=== PATIENT | female | born 1935 | race Caucasian/White ===

== ENCOUNTER → 2018-03-21 13:17 | Outpatient (POV) | payer MEDICARE, OTHER, SELFPAY ==
[2018-03-21 13:43] VITALS: BP 138/79; PULSE 77; RESP 18; O2SAT 98
--- NOTE | 2018-03-21 16:22 | HMH.PMCON ---
Assessment and Plan (1) Piriformis syndrome Current visit: Yes Status: Chronic Category: Medical Code(s): G57.00 - Lesion of sciatic nerve, unspecified lower limb - Assessment and plan all Dx Assessment and Plan for all problems:: We will schedule right piriformis injection for the patient. We will determine if this is helpful. Patient's tried and failed anti-inflammatories, medications, physical therapy. I will follow-up with the patient after her piriformis injection. We will then discuss if she needs a repeat injection or if we should work on her left knee pain. This note was dictated using voice recognition software and may contain errors or omissions HPI - Data of Consult Consult date: 03/21/18 Requesting Physician: Crystal Wallace APRN Primary Care Provider: Rosendo Rincon MD Family Provider: Rosendo Rincon MD - Consult Narrative Reason for consult: Right hip pain radiating to her foot History of present illness: Ms. Dumont is a 82 year old female presents today for consultation in regards to her right leg pain. Patient states that most of her pain is in her right side. It starts at her right lower buttock and radiates down into her right leg. Patient does have numbness and tingling at times. Patient states laying flat increases her pain while rest and repositioning decreases her pain. Patient rates her pain a 5 out of 10 today. Patient has had injections in her lumbar spine in the past with some relief. Patient has tried and failed physical therapy along with Cymbalta, Motrin, naproxen. Patient is interested in potentially having additional injections for better long-term relief. CC: Crystal Wallace APRN [facility] History I have reviewed the patient's past medical history: Yes Medical History: Reports:: Hypertension Other Surgeries: Yes: Appendectomy, Hysterectomy-Total - *Social History Smoking Status: Never smoker Alcohol Intake: never Occupational Status: other Housing: house - Psychiatric History Expresses thoughts of harming self/others: None Suicide Plan Description: No Plan *Family Hx:: Unable to obtain Review of Systems - Review of Systems ROS General: no recent weight change, no fever, no sleep disturbances Respiratory: no cough, no shortness of air, no recurring pulmonary infections Cardiovascular/Peripheral Vascular: No chest pain, No palpitations, no edema, no shortness of breath. Gastrointestinal: no incontinence, normal bowel movements reported Genitourinary: Urge incontinence Musculoskeletal: Right piriformis pain Psychiatric: normal mood/ affect Neurological: [denies weakness in extremities], [denies balance issues] Meds Home Medications Medication Instructions Recorded Confirmed Type Amlodipine Besylate [Norvasc 5mg 5 mg PO DAILY 03/21/18 03/21/18 History tablet] Pravastatin Sodium [Pravachol 20mg 20 mg PO DAILY 03/21/18 03/21/18 History Tablet] hydroCHLOROthiazide [HCTZ 25mg 25 mg PO DAILY 03/21/18 03/21/18 History tab] Allergies Allergy/AdvReac Type Severity Reaction Status Date / Time allopurinol [ALLOPURINOL] Allergy Unknown I-RASH Unverified 10/05/17 14:50 Objective Vital signs: Pulse Resp BP Pulse Ox 77 18 138/79 98 03/21/18 13:43 03/21/18 13:43 03/21/18 13:43 03/21/18 13:43 Narrative: Physical Exam General: Alert and oriented x3, no acute distress, pleasant and cooperative, [on room air] Lungs: Resps E/U, Symmetrical chest expansion, Eyes: PERRL Musculoskeletal: Flexion and extension of lumbar spine somewhat guarded secondary to pain, deep tendon reflexes normal, strength in upper and lower extremities [5/5], antalgic gait noted, extreme point tenderness over right piriformis Neurological: speech clear, training and development officer equal, no gross sensory deficits Opioid Risk Tool - Opioid Risk Tool-Female Family hx alcohol abuse: N Family hx illegal drugs: N Family hx rx drug abus
--- NOTE | 2018-03-21 16:26 | P.CONS_ITS ---
Assessment and Plan (1) Piriformis syndrome Current visit: Yes Status: Chronic Category: Medical Code(s): G57.00 - Lesion of sciatic nerve, unspecified lower limb - Assessment and plan all Dx Assessment and Plan for all problems:: We will schedule right piriformis injection for the patient. We will determine if this is helpful. Patient's tried and failed anti-inflammatories, medications , physical therapy. I will follow-up with the patient after her piriformis injection. We will then discuss if she needs a repeat injection or if we should work on her left knee pain. This note was dictated using voice recognition software and may contain errors or omissions HPI - Data of Consult Consult date: 03/21/18 Requesting Physician: Crystal Wallace APRN Primary Care Provider: Rosendo Rincon MD Family Provider: Rosendo Rincon MD - Consult Narrative Reason for consult: Right hip pain radiating to her foot History of present illness: Ms. Dumont is a 82 year old female presents today for consultation in regards to her right leg pain. Patient states that most of her pain is in her right side. It starts at her right lower buttock and radiates down into her right leg. Patient does have numbness and tingling at times. Patient states laying flat increases her pain while rest and repositioning decreases her pain. Patient rates her pain a 5 out of 10 today. Patient has had injections in her lumbar spine in the past with some relief. Patient has tried and failed physical therapy along with Cymbalta, Motrin, naproxen. Patient is interested in potentially having additional injections for better long-term relief. CC: Crystal Wallace APRN [facility] History I have reviewed the patient's past medical history: Yes Medical History: Reports:: Hypertension Other Surgeries: Yes: Appendectomy, Hysterectomy-Total - *Social History Smoking Status: Never smoker Alcohol Intake: never Occupational Status: other Housing: house - Psychiatric History Expresses thoughts of harming self/others: None Suicide Plan Description: No Plan *Family Hx:: Unable to obtain Review of Systems - Review of Systems ROS General: no recent weight change, no fever, no sleep disturbances Respiratory: no cough, no shortness of air, no recurring pulmonary infections Cardiovascular/Peripheral Vascular: No chest pain, No palpitations, no edema, no shortness of breath. Gastrointestinal: no incontinence, normal bowel movements reported Genitourinary: Urge incontinence Musculoskeletal: Right piriformis pain Psychiatric: normal mood/ affect Neurological: [denies weakness in extremities], [denies balance issues] Meds Home Medications Medication Instructions Recorded Confirmed Type Amlodipine Besylate [Norvasc 5mg 5 mg PO DAILY 03/21/18 03/21/18 History tablet] Pravastatin Sodium [Pravachol 20mg 20 mg PO DAILY 03/21/18 03/21/18 History Tablet] hydroCHLOROthiazide [HCTZ 25mg 25 mg PO DAILY 03/21/18 03/21/18 History tab] Allergies Allergy/AdvReac Type Severity Reaction Status Date / Time allopurinol [ALLOPURINOL] Allergy Unknown I-RASH Unverified 10/05/17 14:50 Objective Vital signs: Pulse Resp BP Pulse Ox 77 18 138/79 98 03/21/18 13:43 03/21/18 13:43 03/21/18 13:43 03/21/18 13:43 Narrative: Physical Exam Gen
== END ==
PROVIDERS: Family Provider Family Medicine; PCP Family Medicine; Visit Provider Clinical Nurse Specialist Family Health
DX: G57.00 Lesion of sciatic nerve, unspecified lower limb (principal)
CPT/HCPCS: 99202

== ENCOUNTER 2018-03-29 14:14 | Day surgery (SDC) | payer MEDICARE, OTHER, SELFPAY ==
[2018-03-29 14:44] VITALS: BP 174/83; PULSE 77; RESP 24; TEMP 36.5; O2SAT 95; BMI 45.1
[2018-03-29 15:30] VITALS: BP 147/78; PULSE 85; RESP 18
[2018-03-29 15:31] VITALS: BP 145/87; PULSE 78; RESP 18; O2SAT 98
--- NOTE | 2018-03-29 15:34 | HMH.PMPROC ---
- Procedure Date: 03/29/18 Time: 15:30 Anesthesiologist:: Crystal Wallace APRN Complications:: None Pre-procedure Diagnosis:: Right piriformis syndrome Post-procedure Diagnosis:: Same Indications for Procedure:: Ms. Dumont is a 82 year old female presents today for right piriformis injection. Patient states that most of her pain is in her right side. It starts at her right lower buttock and radiates down into her right leg. Patient does have numbness and tingling at times. Patient states laying flat increases her pain while rest and repositioning decreases her pain. Patient rates her pain a 5 out of 10 today. Patient has had injections in her lumbar spine in the past with some relief. Patient has tried and failed physical therapy along with Cymbalta, Motrin, naproxen. We will move forward with a right piriformis injection today. Physical Exam General: Alert and oriented x3, no acute distress, pleasant and cooperative, [on room air] Lungs: Resps E/U, Symmetrical chest expansion, Eyes: PERRL Musculoskeletal: Flexion and extension of lumbar spine somewhat guarded secondary to pain, deep tendon reflexes normal, strength in upper and lower extremities [5/5], [abnormal gait noted] extreme point tenderness over right piriformis. Neurological: speech clear, manager music equal, no gross sensory deficits Procedure Details:: The risk and benefits of the procedure were cleaned to the patient and informed consent was obtained. Patient was taken to the procedure room and positioned prone on the table. Patient noninvasive monitoring was placed including noninvasive blood pressure cuff and pulse oximeter. Patient's right buttock and hip were prepped with ChloraPrep as a cleansing solution. She was draped in sterile fashion. Patient piriformis was marked at the point of maximal discomfort. A 22 inch spinal needle was utilized to inject 80 mg of Depo-Medrol and 5 mL's of bupivacaine 0.25% intramuscularly. The needle was withdrawn and sterile bandage was placed. The patient tolerated this well. Patient states she was 80% better after the injection. Plan and Disposition:: We will follow-up with this patient in 2 weeks and reassess her symptoms at that time. Patient's been instructed to call the office if she has any issues prior to that her appointment. This note was dictated using voice recognition software and may contain errors or omissions
[2018-03-29 15:35] VITALS: BP 178/69; PULSE 74; RESP 18; O2SAT 95
--- NOTE | 2018-03-29 15:38 | P.PCN_ITS ---
- Procedure Date: 03/29/18 Time: 15:30 Anesthesiologist:: Crystal Wallace APRN Complications:: None Pre-procedure Diagnosis:: Right piriformis syndrome Post-procedure Diagnosis:: Same Indications for Procedure:: Ms. Dumont is a 82 year old female presents today for right piriformis injection. Patient states that most of her pain is in her right side. It starts at her right lower buttock and radiates down into her right leg. Patient does have numbness and tingling at times. Patient states laying flat increases her pain while rest and repositioning decreases her pain. Patient rates her pain a 5 out of 10 today. Patient has had injections in her lumbar spine in the past with some relief. Patient has tried and failed physical therapy along with Cymbalta, Motrin, naproxen. We will move forward with a right piriformis injection today. Physical Exam General: Alert and oriented x3, no acute distress, pleasant and cooperative, [ on room air] Lungs: Resps E/U, Symmetrical chest expansion, Eyes: PERRL Musculoskeletal: Flexion and extension of lumbar spine somewhat guarded secondary to pain, deep tendon reflexes normal, strength in upper and lower extremities [5/5], [abnormal gait noted] extreme point tenderness over right piriformis. Neurological: speech clear, box spring frame builder equal, no gross sensory deficits Procedure Details:: The risk and benefits of the procedure were cleaned to the patient and informed consent was obtained. Patient was taken to the procedure room and positioned prone on the table. Patient noninvasive monitoring was placed including noninvasive blood pressure cuff and pulse oximeter. Patient's right buttock and hip were prepped with ChloraPrep as a cleansing solution. She was draped in sterile fashion. Patient piriformis was marked at the point of maximal discomfort. A 22 inch spinal needle was utilized to inject 80 mg of Depo- Medrol and 5 mL's of bupivacaine 0.25% intramuscularly. The needle was withdrawn and sterile bandage was placed. The patient tolerated this well. Patient states she was 80% better after the injection. Plan and Disposition:: We will follow-up with this patient in 2 weeks and reassess her symptoms at that time. Patient's been instructed to call the office if she has any issues prior to that her appointment. This note was dictated using voice recognition software and may contain errors or omissions
== END 2018-03-29 15:37 | disposition home or self-care (01) ==
LOC: SC.PAINP 14:17
PROVIDERS: Family Provider Family Medicine; PCP Family Medicine; Visit Provider Clinical Nurse Specialist Family Health
DX: G57.01 Lesion of sciatic nerve, right lower limb (principal)
CPT/HCPCS: 20552; J1040

== ENCOUNTER → 2018-04-12 09:43 | Outpatient (POV) | payer MEDICARE, OTHER, SELFPAY ==
[2018-04-12 09:57] VITALS: BP 111/40; PULSE 67; RESP 18; O2SAT 98; BMI 45.1
--- NOTE | 2018-04-12 10:36 | HMH.PAINSOAP ---
[place] Pain Management SOAP Note Subjective:: Patient is a pleasant 82-year-old white female who presents today for follow-up after piriformis injection. Patient states that she had good relief and was 100% better for 4 days. Patient states that her pain is decreased significantly. Patient states most of her pain today is in her low back. Patient states that she is unable to stand for long periods of time and has to lean over her sink in order to complete washing her dishes. Patient does have an MRI showing severe canal stenosis. Patient and I discussed MILD procedure. Patient has had epidurals in the past with relief. We will schedule her for an epidural. Patient may need a new MRI in order to proceed with some mild procedure. I will follow-up with the patient after her epidural steroid injection. ROS General: no recent weight change, no fever, no sleep disturbances Respiratory: no cough, no shortness of air, no recurring pulmonary infections Cardiovascular/Peripheral Vascular: No chest pain, No palpitations, no edema, no shortness of breath. Gastrointestinal: no incontinence, normal bowel movements reported Genitourinary: no incontinence Musculoskeletal: Back pain Psychiatric: normal mood/ affect Neurological: [denies weakness in extremities], [denies balance issues] Objective:: Physical Exam General: Alert and oriented x3, no acute distress, pleasant and cooperative, [on room air] Lungs: Resps E/U, Symmetrical chest expansion, Eyes: PERRL Musculoskeletal: Flexion and extension of lumbar spine somewhat guarded secondary to pain, deep tendon reflexes normal, strength in upper and lower extremities [5/5], [abnormal gait noted] Neurological: speech clear, vacuum kettle cook equal, no gross sensory deficits Assessment:: Degenerative disc disease of the lumbar spine, lumbar radiculopathy, spinal stenosis. Plan:: We will schedule L4-L5 lumbar epidural steroid injection for the patient. Patient is going to take some information on that mild procedure and we will discuss this in the future. I believe that this may be beneficial for her given her symptomology. She has tried and failed anti-inflammatories, medications, physical therapy. This note was dictated using voice recognition software and may contain errors or omissions
--- NOTE | 2018-04-12 10:40 | P.CONS_ITS ---
[facility] Pain Management SOAP Note Subjective:: Patient is a pleasant 82-year-old white female who presents today for follow-up after piriformis injection. Patient states that she had good relief and was 100 % better for 4 days. Patient states that her pain is decreased significantly. Patient states most of her pain today is in her low back. Patient states that she is unable to stand for long periods of time and has to lean over her sink in order to complete washing her dishes. Patient does have an MRI showing severe canal stenosis. Patient and I discussed MILD procedure. Patient has had epidurals in the past with relief. We will schedule her for an epidural. Patient may need a new MRI in order to proceed with some mild procedure. I will follow-up with the patient after her epidural steroid injection. ROS General: no recent weight change, no fever, no sleep disturbances Respiratory: no cough, no shortness of air, no recurring pulmonary infections Cardiovascular/Peripheral Vascular: No chest pain, No palpitations, no edema, no shortness of breath. Gastrointestinal: no incontinence, normal bowel movements reported Genitourinary: no incontinence Musculoskeletal: Back pain Psychiatric: normal mood/ affect Neurological: [denies weakness in extremities], [denies balance issues] Objective:: Physical Exam General: Alert and oriented x3, no acute distress, pleasant and cooperative, [ on room air] Lungs: Resps E/U, Symmetrical chest expansion, Eyes: PERRL Musculoskeletal: Flexion and extension of lumbar spine somewhat guarded secondary to pain, deep tendon reflexes normal, strength in upper and lower extremities [5/5], [abnormal gait noted] Neurological: speech clear, clinical office technician equal, no gross sensory deficits Assessment:: Degenerative disc disease of the lumbar spine, lumbar radiculopathy, spinal stenosis. Plan:: We will schedule L4-L5 lumbar epidural steroid injection for the patient. Patient is going to take some information on that mild procedure and we will discuss this in the future. I believe that this may be beneficial for her given her symptomology. She has tried and failed anti-inflammatories, medications, physical therapy. This note was dictated using voice recognition software and may contain errors or omissions
== END ==
PROVIDERS: Family Provider Family Medicine; PCP Family Medicine; Visit Provider Clinical Nurse Specialist Family Health
DX: M48.061 Spinal stenosis, lumbar region without neurogenic claudication (principal); M54.16 Radiculopathy, lumbar region
CPT/HCPCS: 99212

== ENCOUNTER → 2018-05-16 14:14 | Outpatient (POV) | payer MEDICARE, OTHER, SELFPAY ==
[2018-05-16 14:44] VITALS: BP 147/69; PULSE 70; RESP 18; O2SAT 98; BMI 45.1
--- NOTE | 2018-05-16 14:57 | HMH.PAINSOAP ---
[facility] Pain Management SOAP Note Subjective:: She is a pleasant 82-year-old white female who presents today for follow-up after her most recent lumbar epidural steroid injection. Patient states she did extremely well after this stating that her pain is 80% better. She rates her pain a 0 out of 10 right now. Patient does state she has some increased pain when she is trying to walk long distance. Patient does have severe canal stenosis and may be a candidate in the future for the mild procedure. Patient would like to repeat this injection given the efficacy of this last one. ROS General: no recent weight change, no fever, no sleep disturbances Respiratory: no cough, no shortness of air, no recurring pulmonary infections Cardiovascular/Peripheral Vascular: No chest pain, No palpitations, no edema, no shortness of breath. Gastrointestinal: no incontinence, normal bowel movements reported Genitourinary: no incontinence Musculoskeletal: Back pain Psychiatric: normal mood/ affect Neurological: [denies weakness in extremities], [denies balance issues] Objective:: Physical Exam General: Alert and oriented x3, no acute distress, pleasant and cooperative, [on room air] Lungs: Resps E/U, Symmetrical chest expansion, Eyes: PERRL Musculoskeletal: Flexion and extension of lumbar spine somewhat guarded secondary to pain, deep tendon reflexes normal, strength in upper and lower extremities [5/5], [abnormal gait noted] Neurological: speech clear, oil well gun perforator operator equal, no gross sensory deficits Assessment:: Disc disease of lumbar spine with lumbar radiculopathy symptoms and spinal stenosis Plan:: We will repeat the L3-L4 lumbar epidural steroid injection for this patient. Patient is not on any anticoagulation therapy. I will follow-up with the patient after her next injection. This note was dictated using voice recognition software and may contain errors or omissions
== END ==
PROVIDERS: Family Provider Family Medicine; PCP Family Medicine; Visit Provider Clinical Nurse Specialist Family Health
DX: M51.16 Intervertebral disc disorders with radiculopathy, lumbar region (principal); M48.00 Spinal stenosis, site unspecified
CPT/HCPCS: 99212

== ENCOUNTER → 2018-06-07 10:49 | Outpatient (POV) | payer MEDICARE, OTHER, SELFPAY ==
[2018-06-07 11:16] VITALS: BP 151/66; PULSE 72; RESP 18; O2SAT 97; BMI 45.1
--- NOTE | 2018-06-07 11:46 | P.CONS_ITS ---
[facility] Pain Management SOAP Note Subjective:: Patient is a pleasant 82-year-old white female who presents today for follow-up after her lumbar epidural steroid injection. Patient states that she is having no low back pain today however she is having some thoracic back pain. Patient and I discussed potentially doing more injections however I believe that a round of anti-inflammatory medication may be beneficial first. Patient has done well with injections in the past. She rates her pain today a 6 out of 10. ROS General: no recent weight change, no fever, no sleep disturbances Respiratory: no cough, no shortness of air, no recurring pulmonary infections Cardiovascular/Peripheral Vascular: No chest pain, No palpitations, no edema, no shortness of breath. Gastrointestinal: no incontinence, normal bowel movements reported Genitourinary: no incontinence Musculoskeletal: Back pain Psychiatric: normal mood/ affect Neurological: [denies weakness in extremities], [denies balance issues] Objective:: Physical Exam General: Alert and oriented x3, no acute distress, pleasant and cooperative, [ on room air] Lungs: Resps E/U, Symmetrical chest expansion Eyes: PERRL Musculoskeletal: Flexion and extension of thoracic spine somewhat guarded secondary to pain, deep tendon reflexes normal, strength in upper and lower extremities [5/5], [abnormal gait noted] Neurological: speech clear, mold dresser equal, no gross sensory deficits Assessment:: Degenerative disc disease of the lumbar spine and thoracic spine Plan:: I will start the patient on Vimovo. Patient is going to try anti- inflammatories for a week. If patient does not have any excess we will schedule her for a thoracic epidural. I will follow-up with the patient in 2 months if she is doing better. This note was dictated using voice recognition software and may contain errors or omissions
== END ==
PROVIDERS: Family Provider Family Medicine; PCP Family Medicine; Visit Provider Clinical Nurse Specialist Family Health
DX: M51.36 Other intervertebral disc degeneration, lumbar region (principal); M51.34 Other intervertebral disc degeneration, thoracic region
CPT/HCPCS: 99213

== ENCOUNTER → 2019-01-16 12:12 | Outpatient (CLI) | payer MEDICARE, OTHER, SELFPAY ==
--- NOTE | 2019-01-16 12:20 | XR_ITS ---
XR wrist LT min 3V HISTORY: ITS.REASON: RT WRIST PAIN ORDERING PHYSICIAN: Rosendo Rincon MD PATIENT AGE: 83 years COMPARISON: None FINDINGS: There is narrowing and sclerosis of the first carpometacarpal joint. There are tiny bone fragments at the volar aspect of the radiocarpal joint. The carpal bones appear intact. The distal radius and ulna appear intact.. Bone mineralization appears relatively good for the patient's age. IMPRESSION: Mild arthritic and/or posttraumatic changes of the radiocarpal joint along with moderate osteoarthritic changes base of thumb
--- NOTE | 2019-01-16 12:20 | XR_ITS ---
XR hip RT 2-3V w/pelvis HISTORY: ITS.REASON: RT HIP PAIN ORDERING PHYSICIAN: Rosendo Rincon MD PATIENT AGE: 83 years COMPARISON: Pelvis and right hip 08/30/2017 FINDINGS: No fracture or dislocation is evident. No significant degenerative change. No lytic or blastic change. Unremarkable soft tissues there is mild asymmetrical joint space narrowing of the right hip especially inferiorly. There is mild spurring and sclerosis of the SI joints bilaterally. The sepsis pubis is normal. There is prominent bilateral ossification of the iliolumbar ligaments at the L5 level. 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
== END ==
PROVIDERS: PCP Family Medicine; Visit Provider Family Medicine
DX: M25.551 Pain in right hip (principal); M25.532 Pain in left wrist
CPT/HCPCS: 73110; 73502

== ENCOUNTER → 2020-04-18 10:16 | Outpatient (POV) | payer MEDICARE, OTHER, SELFPAY ==
[2020-04-18 11:06] VITALS: BP 129/55; PULSE 60; RESP 18; O2SAT 98; BMI 44.2
--- NOTE | 2020-04-18 13:13 | HMH.PAINSOAP ---
[facility] Pain Management SOAP Note Subjective:: Patient is a pleasant 84-year-old white female who presents today for complaints of left low back pain with radiation into her left hip and left groin area. Patient says this pain started approximately a month ago and is progressively gotten worse. She says that she has undergone epidural steroid injections in the past which have given her relief, however, she reports his pain to be different in nature. She says the pain is worse with standing and walking and does improve with sitting. She does also say that lifting her leg causes her to have increased pain in her groin area. She rates her pain a 7 out of 10 today. She does take Aleve daily. This does give her some relief, however, does not take the pain away into her groin and low back area. She also has notable tenderness over her left SI joint. Review of Systems General: No recent weight changes, no fever, no sleep disturbances Respiratory: No cough, no shortness of air, no recurring pulmonary infections Cardiovascular/peripheral vascular: No chest pain, no palpitations, no edema, no shortness of breath Gastrointestinal: No new onset incontinence, normal bowel movements reported Genitourinary: No new onset incontinence Musculoskeletal: Left low back pain, left hip pain, left groin pain Psychiatric: Normal mood/affect Neurological: [Denies weakness in extremities], [denies balance issues] Objective:: Physical exam General: Alert and oriented x3, no acute distress, pleasant and cooperative, [on room air] Lungs: Respirations even and unlabored, symmetrical chest expansion Eyes: PERRL Musculoskeletal: Flexion and extension of bar spine somewhat guarded secondary to pain, deep tendon reflexes normal, strength in upper and lower extremities [5/5], [abnormal gait noted], positive [place]'s test, positive Luke's test, positive distraction test Neurological: Speech clear, benefit director equal, no gross sensory deficit Assessment:: Sacroiliitis, degenerative disc disease lumbar spine with lumbar radiculopathy symptoms Plan:: Patient does have notable point tenderness over left SI joint as well as a positive Dyan, Luke's, distraction test. We will schedule her for a left SI joint injection. We will also order the patient diclofenac gel 1% 4 g topical 4 times daily. We will see if this gives the patient relief. We will see her back in the clinic after her injection to reassess her symptoms. The patient has been instructed to contact clinic if she has any concerns before next appointment. The patient and I specifically discussed risk factors for COVID19. These risks include, but are not limited to age greater than 60, heart or lung disease, diabetes, immunosuppression, and travel. We also discussed NSAIDs may worsen COVID19 infection or symptoms. Patient should not use NSAIDs to treat COVID19 signs or symptoms. Patient was also informed that any type of corticosteroid of any form (oral or injection) will decrease the patient's immune system response and may increase the likelihood of COVID19 infection and symptoms. And [facility] History I have reviewed the patient's past medical history: Yes Medical History: Reports:: Cancer, Hyperlipidemia, Hypertension Denies:: Diabetes Mellitus Type 1, Diabetes Mellitus Type 2, MRSA, Seizures *Have you ever received a pneumonia vaccine?: Yes *Have you received a flu vaccine this season?: Yes Other Medical History: Denies: Blood Transfusion Reaction Other Surgeries: Yes: Appendectomy, Hysterectomy-Total Amputation: No Fractures: No - *Social History Smoking Status: Never smoker Alcohol Intake: never *Occupational Status:: other Housing: house Household Members: spouse *Travel in the last 8 weeks: None Family Hx:: Unable to obtain
== END ==
PROVIDERS: PCP Family Medicine; Visit Provider Clinical Nurse Specialist Family Health
DX: M46.1 Sacroiliitis, not elsewhere classified (principal); M51.16 Intervertebral disc disorders with radiculopathy, lumbar region
CPT/HCPCS: 99212

== ENCOUNTER 2020-04-29 15:14 | Day surgery (SDC) | payer MEDICARE, OTHER, SELFPAY ==
[2020-04-29 15:26] VITALS: BP 132/88; BP 138/88; PULSE 78; PULSE 85; PULSE 88; RESP 18; O2SAT 98
[2020-04-29 15:32] VITALS: BP 170/65; PULSE 53; RESP 18; TEMP 36.6; O2SAT 93; BMI 49.6
--- NOTE | 2020-04-29 15:43 | HMH.PMPROC ---
- Procedure Date: 04/29/20 Time: 15:43 Anesthesiologist:: Crystal Wallace APRN Complications:: None Pre-procedure Diagnosis:: Left sacroiliitis Post-procedure Diagnosis:: Same Indications for Procedure:: Patient is a pleasant 84-year-old white female who presents today for a left SI joint injection. She is had this before with good relief. She would like to move forward with left SI today. She has a positive Luke's test SI joint compression test and Dyan test on the left side. She rates her pain a 6 out of 10. Physical Exam General: Alert and oriented x3, no acute distress, pleasant and cooperative, [on room air] Lungs: Resps E/U, Symmetrical chest expansion, Eyes: PERRL Musculoskeletal: Flexion and extension of lumbar spine somewhat guarded secondary to pain, deep tendon reflexes normal, strength in upper and lower extremities [5/5], [abnormal gait noted] Neurological: speech clear, licensed professional counselor equal, no gross sensory deficits Procedure Details:: Informed consent was obtained and the risks and benefits of the procedure were explained to the patient. Patient was taken to the procedure room. Patient was placed prone on the procedure table. The left hip was prepped using ChloraPrep as a cleansing solution. The skin and subcutaneous tissues were anesthetized using lidocaine. Using fluoroscopic guidance I placed a 22-gauge spinal needle into the inferior aspect of the left SI joint. After this I injected 5 mL bupivacaine 0.25% and Depo-Medrol 40 mg into the left SI joint. The patient tolerated the procedure well with no complication. Plan and Disposition:: We will follow-up with the patient in 2 to 3 weeks reassess her symptoms at that time she has been instructed to call the office if she has any issues prior to her next appointment. Dr. Singleton has reviewed this note and agrees with this plan of care. This note was dictated using voice recognition software and may contain errors or omissions
[2020-04-29 15:47] VITALS: BP 173/62; PULSE 59; RESP 18; O2SAT 93
== END 2020-04-29 15:49 | disposition home or self-care (01) ==
LOC: SC.PAINP 15:15
PROVIDERS: PCP Family Medicine; Visit Provider Clinical Nurse Specialist Family Health
DX: M46.1 Sacroiliitis, not elsewhere classified (principal); I10 Essential (primary) hypertension; E78.5 Hyperlipidemia, unspecified; E66.9 Obesity, unspecified; Z68.42 Body mass index [BMI] 45.0-49.9, adult; Z90.710 Acquired absence of both cervix and uterus; Z90.49 Acquired absence of other specified parts of digestive tract
CPT/HCPCS: 27096; G0260; J1040; Q9966

== ENCOUNTER → 2020-05-20 11:40 | Outpatient (POV) | payer MEDICARE, OTHER, SELFPAY ==
[2020-05-20 12:16] VITALS: BP 140/78; PULSE 85; RESP 18; O2SAT 99; BMI 44.2
--- NOTE | 2020-05-20 13:07 | P.CONS_ITS ---
[facility] Pain Management SOAP Note Subjective:: Patient is a pleasant 84-year-old white female who presents today for follow-up after left SI joint injection. Patient did extremely well rating her pain a 0 out of 10 today. She still has some pain at times and would like to have a additional injection to see if she can get more relief. Patient got over 80% relief of her symptomology after her injection therapy. Patient has a positive Dyan test SI joint compression test and Luke's test on the left side. ROS General: no recent weight change, no fever, no sleep disturbances Respiratory: no cough, no shortness of air, no recurring pulmonary infections Cardiovascular/Peripheral Vascular: No chest pain, No palpitations, no edema, no shortness of breath. Gastrointestinal: no new onset incontinence, normal bowel movements reported Genitourinary: no new onset incontinence Musculoskeletal: Left SI joint pain Psychiatric: normal mood/ affect Neurological: [denies new onset weakness in extremities], [denies new onset balance issues] Objective:: Physical Exam General: Alert and oriented x3, no acute distress, pleasant and cooperative, [on room air] Lungs: Resps E/U, Symmetrical chest expansion, Eyes: PERRL Musculoskeletal: Flexion and extension of lumbar spine somewhat guarded secondary to pain, deep tendon reflexes normal, strength in upper and lower extremities [5/5], [abnormal gait noted] Neurological: speech clear, cashier parking lot equal, no gross sensory deficits Assessment:: Sacroiliitis Plan:: We will schedule repeat left SI joint injection given the efficacy of this in the past I do believe it would be beneficial. Dr. Singleton has reviewed this note and agrees with this plan of care. This note was dictated using voice recognition software and may contain errors or omissions [facility] History I have reviewed the patient's past medical history: Yes Medical History: Reports:: Hyperlipidemia, Hypertension Denies:: Cancer, Diabetes Mellitus Type 1, Diabetes Mellitus Type 2, MRSA, Seizures *Have you ever received a pneumonia vaccine?: Yes *Have you received a flu vaccine this season?: Yes Other Medical History: Denies: Blood Transfusion Reaction Other Surgeries: Yes: Appendectomy, Hysterectomy-Total Amputation: No Fractures: No - *Social History Smoking Status: Never smoker Alcohol Intake: never *Occupational Status:: other Housing: house Household Members: other *Travel in the last 8 weeks: None Family Hx:: Unable to obtain
== END ==
PROVIDERS: PCP Family Medicine; Visit Provider Clinical Nurse Specialist Family Health
DX: M46.1 Sacroiliitis, not elsewhere classified (principal)
CPT/HCPCS: 99212

== ENCOUNTER 2020-06-07 13:03 | Day surgery (SDC) | payer MEDICARE, OTHER, SELFPAY ==
[2020-06-07 13:13] VITALS: BP 129/55; PULSE 62; RESP 18; TEMP 35.9; O2SAT 95; BMI 45.7
[2020-06-07 13:34] VITALS: BP 140/78; PULSE 74; RESP 18
[2020-06-07 13:35] VITALS: BP 148/88; PULSE 65; RESP 18; O2SAT 99
--- NOTE | 2020-06-07 13:36 | HMH.PMPROC ---
- Procedure Date: 06/07/20 Time: 13:36 Anesthesiologist:: Migel Singleton MD Complications:: None Pre-procedure Diagnosis:: Sacroiliitis Post-procedure Diagnosis:: Same Indications for Procedure:: This patient is a pleasant 84-year-old white female who we are treating for left-sided hip pain. She has benefited previously from a left SI joint injection. She was 80% better. Her pain is just now starting to return. We will do a repeat left SI joint injection under fluoroscopy today. She is tender over her left SI joint. She has positive SI joint compression test. She has a positive Luke's test on left side. She has a positive Dyan test on left side. Procedure Details:: Left SI joint injection under fluoroscopy Informed consent was obtained and the risks and benefits of the procedure was explained to the patient. Patient was taken to the procedure room. Patient was placed prone on the procedure table. The left hip was prepped using ChloraPrep. The skin and subcutaneous tissues were anesthetized using lidocaine. I placed a 22-gauge spinal needle into the inferior aspect of the left SI joint. Needle placement was confirmed with dye. After this we injected 5 mL bupivacaine 0.25% and Depo-Medrol 40 mg into the left SI joint. The patient tolerated the procedure well with no complication. Plan and Disposition:: We will follow-up with her in 2 weeks. Will reevaluate her symptoms at that time.
[2020-06-07 13:55] VITALS: BP 119/56; PULSE 59; RESP 18; O2SAT 95
== END 2020-06-07 13:55 | disposition home or self-care (01) ==
LOC: SC.PAINP 13:04
PROVIDERS: PCP Family Medicine; Visit Provider Anesthesiology
DX: M46.1 Sacroiliitis, not elsewhere classified (principal); I10 Essential (primary) hypertension; Z85.3 Personal history of malignant neoplasm of breast; Z90.49 Acquired absence of other specified parts of digestive tract; Z90.710 Acquired absence of both cervix and uterus; Z79.899 Other long term (current) drug therapy
CPT/HCPCS: 27096; G0260; J1040; Q9966

== ENCOUNTER → 2020-07-04 11:36 | Outpatient (POV) | payer MEDICARE, OTHER, SELFPAY ==
[2020-07-04 11:50] VITALS: BP 139/62; PULSE 71; RESP 18; O2SAT 98; BMI 43.4
--- NOTE | 2020-07-04 12:01 | P.CONS_ITS ---
[facility] Pain Management SOAP Note Subjective:: Patient is an 84-year-old white female who presents today for follow-up after a left SI joint injection. She has been treated for chronic sacroiliitis. Patient says this is her second injection and she did get relief with the injection up to 80% for about a week. She rates her pain a 3 out of 10 today. Patient says that overall she is more functional since having the injection. Review of Systems General: No recent weight changes, no fever, no sleep disturbances Respiratory: No cough, no shortness of air, no recurring pulmonary infections Cardiovascular/peripheral vascular: No chest pain, no palpitations, no edema, no shortness of breath Gastrointestinal: No new onset incontinence, normal bowel movements reported Genitourinary: No new onset incontinence Musculoskeletal: Intermittent low back pain Psychiatric: Normal mood/affect Neurological: [Denies weakness in extremities], [denies balance issues] Objective:: Physical exam General: Alert and oriented x3, no acute distress, pleasant and cooperative, [on room air] Lungs: Respirations even and unlabored, symmetrical chest expansion Eyes: PERRL Musculoskeletal: Flexion and extension of bar spine somewhat guarded secondary to pain, deep tendon reflexes normal, strength in upper and lower extremities [5/5], [abnormal gait noted] positive [place]'s test, positive Luke's test, positive distraction test Neurological: Speech clear, demand manager equal, no gross sensory deficit Assessment:: Sacroiliitis Plan:: We will plan to see the patient back as needed. She does not want to proceed with any further injective therapy at this time. Patient has been instructed to contact clinic when she is ready for further injective therapy or treatment. Patient is in agreement. The patient and I specifically discussed risk factors for COVID19. These risks include, but are not limited to age greater than 60, heart or lung disease, diabetes, immunosuppression, and travel. We also discussed NSAIDs may worsen COVID19 infection or symptoms. Patient should not use NSAIDs to treat COVID19 signs or symptoms. Patient was also informed that any type of corticosteroid of any form (oral or injection) will decrease the patient's immune system response and may increase the likelihood of COVID19 infection [address] symptoms[address] Singleton has reviewed this note and agrees with this plan of care. This note was dictated using voice recognition software and make contain errors or omissions. [facility] History I have reviewed the patient's past medical history: Yes Medical History: Reports:: Cancer (Breast x2), Hyperlipidemia, Hypertension Denies:: Diabetes Mellitus Type 1, Diabetes Mellitus Type 2, MRSA, Seizures *Have you ever received a pneumonia vaccine?: Yes *Have you received a flu vaccine this season?: Yes Other Medical History: Denies: Blood Transfusion Reaction Other Surgeries: Yes: Appendectomy, Hysterectomy-Total Amputation: No Fractures: No - *Social History Smoking Status: Never smoker Alcohol Intake: never *Occupational Status:: other Housing: house Household Members: other *Travel in the last 8 weeks: None Family Hx:: Unable to obtain
== END ==
PROVIDERS: PCP Family Medicine; Visit Provider Clinical Nurse Specialist Family Health
DX: M46.1 Sacroiliitis, not elsewhere classified (principal)
CPT/HCPCS: 99212

== ENCOUNTER → 2020-11-12 09:49 | Outpatient (CLI) | payer MEDICARE, OTHER, SELFPAY ==
--- NOTE | 2020-11-12 09:57 | XR_ITS ---
PROCEDURE: XR CHEST 2V CLINICAL HISTORY: chest pain/syncope COMPARISON: CR CXR CHEST(2 VIEWS-NOT PORTABLE) from 03/09/2014 FINDINGS: The cardiomediastinal silhouette and pulmonary vascularity are within normal limits. The lungs are clear without infiltrates, suspicious nodules, or pleural effusions. Surgical clips are present in the left axillary region and right axillary region. No acute bony findings. IMPRESSION: No acute findings. Dictated by: Clint Urbina MD 11/12/2020 16:03 Clint Urbina MD in [place] 11/12/2020 16:03
== END ==
PROVIDERS: PCP Family Medicine; Visit Provider Physician Assistant
DX: R06.00 Dyspnea, unspecified (principal); R07.9 Chest pain, unspecified; R55 Syncope and collapse; R60.0 Localized edema; R94.31 Abnormal electrocardiogram [ECG] [EKG]
CPT/HCPCS: 71046; 93225; 93226

== ENCOUNTER → 2020-11-15 09:11 | Outpatient (CLI) | payer MEDICARE, OTHER, SELFPAY ==
--- NOTE | 2020-11-15 09:12 | CA_ITS ---
APPROVED REPORT EXAM: Comprehensive 2D, Doppler, and color-flow Echocardiogram Cargo Service Supervisor: Melly Moreland CRT Ht: 5 ft 3 in Wt: 243lbs BSA: 2.10 BP: 113/45 mmHg Indications: Abnormal ECG, Chest Pressure, Shortness of Breath, Syncope, Fatigue, Hyperlipidemia, Hypertension/HDD 2D Dimensions LVOT 1.99 cm (M/F) 1.5-2.5 M-Mode Dimensions RVDd 2.78 cm (0.9-2.6) LA Diam 4.60 cm (1.9-4.0) LVDd 5.84 cm (3.5-5.7) Ao Diam 4.12 cm (2.0-3.7) LVDs 4.23 cm (3.5-5.7) IVSd 1.21 cm (0.6-1.1) PWd 1.21 cm (0.6-1.1) EF (Teich) 52.80% FS 27.60% EDV (Teich) 169.20 mL ESV (Teich) 79.90 mL LV Diastology E Decel Time 233.00 (160-240 msec) E/A Ratio 0.55 MED E' 10.00 (< 7 cm/sec) MED A' 14.50 cm/s E'/MED E' Ratio 6.26 (>14) LAT E' 6.80 (<10 cm/sec) LAT A' 14.50 cm/s E/LAT E' Ratio 9.21 (>14) Aortic Valve AO Peak GR. 5.60 mmHg Mitral Valve MV A Velocity 113.00 (40-130 cm/s) E/A Ratio 0.55 MV Decel. Time 233.00 (160-240 ms) Pulmonary Valve PV Peak Velocity 76.00 (50-150 cm/s) Tricuspid Valve TR P. Velocity 344.00 cm/s RAP Estimate 10.00 mmHg RVSP 57.40 mmHg Left Ventricle Left atrium is mildly enlarged, left ventricle is normal size, mild concentric left ventricular hypertrophy, visually estimated ejection fraction 55% with no regional wall motion abnormality, grade 1 diastolic dysfunction seen with tissue Doppler evidence of raise left atrial pressure. Right Ventricle Right atrium and right ventricle are normal size and contractility. Aortic Valve Aortic valve is minimally thickened and fibrosed, there is no aortic stenosis or aortic insufficiency. Mitral Valve Mitral valve is grossly normal, there is mild mitral regurgitation. Tricuspid Valve Tricuspid valve is grossly normal, there is mild tricuspid regurgitation, tricuspid regurgitation jet velocity is inadequate for calculation of the right ventricular systolic pressure. Pulmonic Valve Pulmonic valve is poorly visualized. Great Vessels Aortic root is normal size. Pericardium No significant pericardial effusion noted. Conclusion 1. Mildly enlarged left atrium, normal left ventricular size, mild concentric left ventricular hypertrophy, visually estimated ejection fraction 55% with no regional wall motion abnormality, grade 1 diastolic dysfunction seen with tissue Doppler evidence of raise left atrial pressure. 2. Mild mitral and tricuspid regurgitation. 3. No significant pericardial effusion noted. Electronically signed by : Albert Rodriguez, 11/15/2020 17:18:23
== END ==
PROVIDERS: PCP Family Medicine; Visit Provider Physician Assistant
DX: R07.9 Chest pain, unspecified (principal); R55 Syncope and collapse; R94.31 Abnormal electrocardiogram [ECG] [EKG]
CPT/HCPCS: 93306

== ENCOUNTER → 2021-01-06 09:19 | Outpatient (POV) | payer MEDICARE, OTHER, SELFPAY ==
[2021-01-06 10:26] VITALS: BP 161/62; PULSE 56; RESP 20; O2SAT 95; BMI 44.2
--- NOTE | 2021-01-06 12:34 | P.CONS_ITS ---
[facility] Pain Management SOAP Note Subjective:: Patient is a pleasant 85-year-old white female who presents today for follow-up. Patient had a left SI joint injection last year and has done extremely well just until recently. She is now having right SI joint pain and left SI joint pain she rates her pain today 1 out of 10. Patient states that the injection helps up to 80% up to just recently. Patient would like to repeat her SI joint injections given the efficacy of them in the past. She does have a positive Dyan test Luke's test SI joint compression test and distraction test bilaterally. ROS General: no recent weight change, no fever, no sleep disturbances Respiratory: no cough, no shortness of air, no recurring pulmonary infections Cardiovascular/Peripheral Vascular: No chest pain, No palpitations, no edema, no shortness of breath. Gastrointestinal: no new onset incontinence, normal bowel movements reported Genitourinary: no new onset incontinence Musculoskeletal: SI joint pain Psychiatric: normal mood/ affect Neurological: [denies new onset weakness in extremities], [denies new onset balance issues] Objective:: Physical Exam General: Alert and oriented x3, no acute distress, pleasant and cooperative, [on room air] Lungs: Resps E/U, Symmetrical chest expansion, Eyes: PERRL Musculoskeletal: Flexion and extension of lumbar spine somewhat guarded secondary to pain, deep tendon reflexes normal, strength in upper and lower extremities [5/5], [abnormal gait noted] Neurological: speech clear, lumber grader equal, no gross sensory deficits Assessment:: Sacroiliitis Plan:: We will plan on bilateral SI joint injections given the efficacy of this in the past I do believe it would benefit her. I will follow-up with her afterwards reassess her symptoms at that time she has been instructed to call the office if she has any issues prior to her next appointment. Dr. Singleton has reviewed this note and agrees with this plan of care. This note was dictated using voice recognition software and may contain errors or omissions [facility] History I have reviewed the patient's past medical history: Yes Medical History: Reports:: Cancer (Breast x2), Hyperlipidemia, Hypertension Denies:: Diabetes Mellitus Type 1, Diabetes Mellitus Type 2, MRSA, Seizures *Have you ever received a pneumonia vaccine?: Yes *Have you received a flu vaccine this season?: Yes Other Medical History: Denies: Blood Transfusion Reaction Other Surgeries: Yes: Appendectomy, Hysterectomy-Total Amputation: No Fractures: No - *Social History Smoking Status: Never smoker Alcohol Intake: never *Occupational Status:: retired Housing: house Household Members: other *Travel in the last 8 weeks: None Family Hx:: Cancer
== END ==
PROVIDERS: PCP Family Medicine; Visit Provider Clinical Nurse Specialist Family Health
DX: M46.1 Sacroiliitis, not elsewhere classified (principal)
CPT/HCPCS: 99212; G0463

== ENCOUNTER → 2021-01-17 08:46 | Day surgery (SDC) | payer MEDICARE, OTHER, SELFPAY ==
[2021-01-17 09:16] VITALS: BP 160/63; PULSE 60; RESP 18; TEMP 36.1; O2SAT 93; BMI 45.1
[2021-01-17 11:13] VITALS: BP 142/78; PULSE 74; RESP 18; O2SAT 98
[2021-01-17 11:14] VITALS: BP 147/78; PULSE 74; RESP 18; O2SAT 98
--- NOTE | 2021-01-17 11:16 | P.PCN_ITS ---
- Procedure Date: 01/17/21 Time: 11:16 Anesthesiologist:: Migel Singleton MD Complications:: None Pre-procedure Diagnosis:: Sacroiliitis Post-procedure Diagnosis:: Same Indications for Procedure:: The patient is a pleasant 85-year-old white female who we have been treating for left-sided hip pain. She did well with a left SI joint injection she was 80 to 90% better for several weeks. She now has pain over both SI joints. She is tender over both SI joints. She does have a positive Luke's test bilaterally. She has a positive Dyan test bilaterally. She has positive SI joint comp ression test bilaterally. She has a positive distraction test bilaterally. We will do bilateral SI joint injections under fluoroscopy today to help with her pain symptoms. Procedure Details:: B/L SI joint injection under fluoroscopy Informed consent was obtained and the risks and benefits of the procedure was explained to the patient. The patient was taken to the procedure room and placed prone on the procedure table. The patient was prepped using ChloraPrep. The skin and subcutaneous tissues overlying the SI joints were anesthetized using lidocaine. I placed a 22-gauge needle first in the left SI joint and second in the right SI joint. Needle placement was confirmed with dye. After this we injected 5 mL bupivacaine 0.25% and Depo-Medrol 40 mg into each SI joint. Patient tolerated the procedure well with no complication. Plan and Disposition:: We will follow-up with her in 2 weeks. Will reevaluate symptoms at that time.
[2021-01-17 11:26] VITALS: BP 176/69; PULSE 60; RESP 20; O2SAT 94
== END ==
PROVIDERS: PCP Family Medicine; Visit Provider Anesthesiology
DX: M46.1 Sacroiliitis, not elsewhere classified (principal); I10 Essential (primary) hypertension; E78.5 Hyperlipidemia, unspecified; Z85.3 Personal history of malignant neoplasm of breast; Z88.8 Allergy status to other drugs, medicaments and biological substances; K21.9 Gastro-esophageal reflux disease without esophagitis; Z90.49 Acquired absence of other specified parts of digestive tract; Z90.710 Acquired absence of both cervix and uterus; Z79.899 Other long term (current) drug therapy
CPT/HCPCS: 27096; G0260; J1030; Q9966

== ENCOUNTER → 2021-01-28 15:12 | Outpatient (CLI) | payer MEDICARE, OTHER, SELFPAY ==
[2021-01-28 16:53] LABS: Anion Gap 15.8 mEq/L (5-15); Blood Urea Nitrogen 48 mg/dl (7-17); Calcium 10.6 mg/dl (8.4-10.2); Carbon Dioxide 27 mmol/L (22.0-30.0); Chloride 104 mmol/L (98-107); Estimated Glomerular Filt Rate 36 ml/min (>60); GFR (African American) 43 ML/MIN (>60); Glucose 103 mg/dl (74-100); Potassium 4.8 mmoL/L (3.5-5.1); Sodium 142 mmol/L (136-145)
[2021-01-28 17:05] LABS: NT Pro Brain Natriuretic Pep. 76.2 pg/mL (0-450)
== END ==
PROVIDERS: Visit Provider Nurse Practitioner Family
DX: I10 Essential (primary) hypertension (principal); R06.02 Shortness of breath; R42 Dizziness and giddiness; R60.0 Localized edema; R94.31 Abnormal electrocardiogram [ECG] [EKG]
CPT/HCPCS: 36415; 80048; 83880

== ENCOUNTER → 2021-01-31 07:26 | Outpatient (CLI) | payer MEDICARE, OTHER, SELFPAY ==
--- NOTE | 2021-01-31 07:26 | NM_ITS ---
APPROVED REPORT Exam: Nuclear Stress Test Indication: HTN, HYPERLIPIDEMIA, FM HX, C.P., SOB, FATIGUE, ABN EKG, LOCALIZED EDEMA Patient Location: Outpatient Stress Tech: Izabela Denis [place] Tech:Bhargavi Watt, ARRT RT(R)(N) Ht: 5 ft 3 in Wt: 245 lbs Bra Size: RANDEE. MASECTOMY HR: 50 bpm BP: 163/68 mmHg BSA: 2.11 m2 BMI: 43.3 History: HTN, HYPERLIPIDEMIA, FM HX, C.P., SOB, FATIGUE, ABN EKG, LOCALIZED EDEMA Procedure: Patient received a 0.4 mg of intravenous Lexiscan, resting heart rate 50 bpm, resting blood pressure 163/68 mmHg, with Lexiscan maximum heart rate achived was 60 bpm which is Less than 85 % of the maximum predicted heart rate and blood pressure was 141/52 mmHg. With Lexiscan, patient denied any complaint of chest pain. Electrocardiogram Resting electrocardiogram showed sinus rhythm, with Lexiscan there is less than 1.[address] segment depression noted from the baseline EKG. The EKG portion of the Lexiscan is nondiagnostic. Cardiac Stress and Resting SPECT Images: Cardiac Stress and Resting SPECT images were obtained using technetium 99m Myoview 31.5 mCi stress and 10.63 mCi at rest. Gated SPECT for analysis of segmental wall motion and calculation of the ejection fraction also done, prone images were also obtained. Cardiac stress and resting SPECT images show a fixed defect involving the anterior apical and apical wall is secondary to myocardial scarring without significant luis-infarct ischemia, computer derived ejection fraction 48% with moderate anterior apical and apical wall hypokinesis, right ventricle is normal size and contractility. Conclusion: 1. The EKG portion of the Lexiscan is nondiagnostic. 2. Scintigraphic evidence of myocardial scarring involving the anterior apical apex and anteroseptal wall without significant luis-infarct ischemia, computer derived ejection fraction is 48% with segmental wall motion abnormalities described above, right ventricle is normal size and contractility 3. Abnormal Lexiscan Myoview study. Electronically signed by : Albert Rodriguez, 01/31/2021 13:39:46
--- NOTE | 2021-01-31 09:15 | CA_ITS ---
APPROVED REPORT Exam: Pharmacologic Technologist: Izabela Denis, Ht: 5 ft 3 in Wt: 241 lbs BSA: 2.09 m2 HR: 50 bpm BP: 163/68 mmHg Medical History Medications: Lisinopril,,,,, Gabapentin,,,,, Aleve,,,,, DulOXETINE,,,,, DOxazosin,,,,, TriaMterene,,,,, ColCHIcine,,,,, Potassium,,,,, Febuxostat,,,,, Metoprol,,,,, Panoprazole,,,,, Pravastain,,,,, Stress Test Details Test: LEXISCAN HR Resting HR: 49 bpm Max Heart Rate (APMHR): 135.794941 bpm Max HR Achieved: 63 bpm Target HR (85% APMHR): 114.130687 bpm % of APMHR: 46.67 Recovery HR: 58 bpm BP Resting BP: 163/68 mmHg Max BP: 163/68 mmHg Recovery BP: 148.0/65.0 mmHg ECG Resting ECG: Sinus Antoni Clinical Exercise duration: 04:05 min Highest Stage Achieved: Stress ECG Conclusion Lexiscan portion completed. PT denies any c/o during peak infusion. Symptoms: No CP, No SOB during peak infusion. Arrhythmias/Ectopy: No ectopy. ST-T Changes: Less than 1.5mm ST Depression. Conclusion: Images to follow. Test Summary REST . . . . . . . Resting REST 02:30 . . 49 . 163/ 68 . . Stage 1 . . . . . . . Myoview Injected Stage 1 01:00 . . 59 . . . . Stage 2 01:00 . . 60 . . . . Stage 3 01:00 . . 59 . 141/ 52 . . Stage 4 01:00 . . 59 . 143/ 56 . . Stage 4 01:05 . . 58 . 143/ 56 . Stop exercise at 04:05 RECOVERY 01:00 . . 59 . . . . RECOVERY 02:00 . . 62 . 139/ 58 . . RECOVERY 03:00 . . 59 . 143/ 71 . . RECOVERY 04:00 . . 59 . 143/ 71 . . RECOVERY 04:11 . . 58 . 148/ 65 . . Electronically signed by : Albert Rodriguez, 01/31/2021 13:28:13
== END ==
PROVIDERS: PCP Family Medicine; Visit Provider Urology
DX: R06.02 Shortness of breath (principal); R07.9 Chest pain, unspecified; R60.0 Localized edema; R94.31 Abnormal electrocardiogram [ECG] [EKG]
CPT/HCPCS: 78452; 93017; A9502; J2785

== ENCOUNTER → 2021-02-03 12:30 | Outpatient (CLI) | payer MEDICARE, OTHER, SELFPAY ==
--- NOTE | 2021-02-03 12:42 | CT_ITS ---
PROCEDURE: CT CHEST W CON CLINCAL INDICATION: CHEST PAIN UNSPECIFIED TYPE Bilateral Goes around to back Right side more than left COMPARISON: CR XR CHEST 2V from 11/12/2020 TECHNIQUE: IV Contrast: 75ml Isovue 370 Axial images obtained with sagittal and coronal reformats. All CT scans at the facility use one or more dose reduction, viz: automated exposure control, ma/kV adjustment per patient size (including targeted exams where dose is matched to indication, i.e. head), or iterative reconstruction technique. FINDINGS: HEART AND MEDIASTINAL STRUCTURES: There is mediastinal lipomatosis. No evidence of aortic aneurysm or dissection. No evidence of central pulmonary embolus. Coronary artery calcifications are noted. LUNGS AND PLEURAL SPACES: Faint mosaic attenuation in the right upper lobe. Mild bronchial thickening right upper right middle and right lower lobe. Mild atelectasis or scarring in the lung bases. There is a 4 mm noncalcified nodule in the left lower lobe 33/3 and a 3 mm noncalcified nodule in the left upper lobe 33/3. BONY STRUCTURES: There is sclerosis of the T7 vertebral body. There is ankylosis of the thoracic spine. UPPER ABDOMEN: There is a nonspecific hypodensity in the central aspect of the spleen measuring approximately 6 mm. The upper abdominal contents have flopped over lateral to the rib cage in the upper abdomen on the right which appear to be contained by peritoneum/abdominal wall musculature suggesting a patulous abdominal wall. This is incompletely imaged and of questionable clinical significance ADDITIONAL FINDINGS: No other significant abnormalities. IMPRESSION: 1. Faint mosaic attenuation of the right upper lobe with mild right-sided bronchial thickening. This bronchitis/small airway disease is considered. 2. Noncalcified nodules on the left which are 4 mm or less. Annual follow-up may confirm stability. 3. Blastic appearance of the T7 vertebral body anteriorly. This is nonspecific and could be due to a bone island or a blastic metastatic focus. If this is of clinical concern then whole body bone scan may provide further evaluation. 4. Other nonacute findings as described above. Dictated by: Clint Urbina MD 02/04/2021 16:37 Clint Urbina MD in [place] 02/04/2021 16:37
== END ==
PROVIDERS: PCP Family Medicine; Visit Provider Family Medicine
DX: R07.9 Chest pain, unspecified (principal)
CPT/HCPCS: 71260; Q9967

== ENCOUNTER → 2021-02-10 08:53 | Outpatient (POV) | payer MEDICARE, OTHER, SELFPAY ==
--- NOTE | 2021-02-10 09:27 | HMH.PAINSOAP ---
[facility] Pain Management SOAP Note Subjective:: Is a pleasant 85-year-old white female who presents today for follow-up after bilateral SI joint injections. Patient did not get much relief from this. She rates her pain a 5 out of 10 when she is up and walking. Patient however is having a heart catheterization tomorrow. 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 ROS General: no recent weight change, no fever, no sleep disturbances Respiratory: no cough, no shortness of air, no recurring pulmonary infections Cardiovascular/Peripheral Vascular: No chest pain, No palpitations, no edema, no shortness of breath. Gastrointestinal: no new onset incontinence, normal bowel movements reported Genitourinary: no new onset incontinence Musculoskeletal: SI joint pain Psychiatric: normal mood/ affect Neurological: [denies new onset weakness in extremities], [denies new onset balance issues] Objective:: Physical Exam General: Alert and oriented x3, no acute distress, pleasant and cooperative, [on room air] Lungs: Resps E/U, Symmetrical chest expansion, Eyes: PERRL Musculoskeletal: Flexion and extension of lumbar spine somewhat guarded secondary to pain, deep tendon reflexes normal, strength in upper and lower extremities [5/5], [abnormal gait noted] Neurological: speech clear, veneer stapler equal, no gross sensory deficits Assessment:: Sacroiliitis, degenerative disc disease lumbar spine lumbar radiculopathy Plan:: We will see the patient back after she is been released from 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 She has been instructed to call our office when this happens. Dr. Singleton has reviewed this note and agrees with this plan of care. This note was dictated using voice recognition software and may contain errors or omissions [facility] History I have reviewed the patient's past medical history: Yes Medical History: Reports:: Cancer (breast), Hyperlipidemia, Hypertension Denies:: Diabetes Mellitus Type 1, Diabetes Mellitus Type 2, MRSA, Seizures *Have you ever received a pneumonia vaccine?: No *Have you received a flu vaccine this season?: No Other Medical History: Denies: Blood Transfusion Reaction Other Surgeries: Yes: Appendectomy, Hysterectomy-Total Amputation: No Fractures: No - *Social History Smoking Status: Never smoker Alcohol Intake: never *Occupational Status:: retired Housing: house Household Members: other *Travel in the last 8 weeks: None Family Hx:: Cancer
[2021-02-10 09:33] VITALS: BP 145/93; PULSE 74; RESP 18; O2SAT 98; BMI 38.8
== END ==
PROVIDERS: PCP Family Medicine; Visit Provider Clinical Nurse Specialist Family Health
DX: M46.1 Sacroiliitis, not elsewhere classified (principal); M51.16 Intervertebral disc disorders with radiculopathy, lumbar region
CPT/HCPCS: 99212; G0463; U0003

== ENCOUNTER → 2021-02-10 09:57 | Outpatient (CLI) | payer MEDICARE, OTHER, SELFPAY | PROVIDERS: PCP Family Medicine; Visit Provider Nurse Practitioner Family | DX: Z01.812 Encounter for preprocedural laboratory examination (principal); Z20.822 Contact with and (suspected) exposure to COVID-19 | CPT/HCPCS: U0003 ==

== ENCOUNTER 2021-02-11 08:31 | Day surgery (SDC) | payer MEDICARE, OTHER, SELFPAY ==
[2021-02-11] VITALS (13 sets, daily range): BP systolic 120–186; BP diastolic 46–95; PULSE 48–82; RESP 12–18; TEMP 36.4–36.8; O2SAT 90–98; BMI 43.2
--- NOTE | 2021-02-11 | IR_ITS ---
APPROVED REPORT Patient Location: Outpatient Plant Health Manager: HUE Jaed RT (R) PROCEDURES Left heart catheterization Left ventriculogram Selective coronary angiogram INDICATION Abnormal Myoview, Angina pectoris Informed consent was obtained prior to the procedure. COMPLICATIONS none Estimated Blood Loss: Less than 10 mls TECHNIQUE One percent lidocaine used to anesthetize the right anterior aspect of the wrist. The right radial artery was accessed via the Seldinger technique. A 6 Maltese sheath was placed in the right radial artery. 2.5 mg of verapamil, 800 mcg of nitroglycerin, 1mg Lidocaine and 5000 U Heparin were given through the arterial sheath. The trap catheter was also used to perform left heart catheterization, left ventriculogram and selective coronary angiogram. At the end of the procedure the sheath was removed good hemostasis was achieved using Traclet band, patient was transferred to the postop holding area in stable condition. ANGIOGRAPHIC RESULTS The left main artery Normal The left anterior descending artery Is angiographically normal with slow VERONA II flow The circumflex artery Is nondominant and angiographically normal with VERONA II flow The right coronary artery Is large dominant and angiographically normal with VERONA II flow The WALDEN ventriculogram reveals Normal 65% The left ventricular end-diastolic pressure 15 mmHg IMPRESSION Angiographically normal coronary arteries with no evidence of atherosclerosis accompanied by slow flow consistent with endothelial dysfunction Normal ejection fraction Borderline elevated LVEDP PLAN 1. Treat underlying endothelial dysfunction with nitrates and Ranexa 2. Continue risk factor modification Electronically signed by : Bret Posey, 02/11/2021 10:28:53
[2021-02-11 09:11] LABS: Basophils # 0.1 K/mm3 (0-0.2); Basophils % 0.9 % (0.1-2.0); Eosinophils # 0.2 K/mm3 (0.0-0.4); Eosinophils % 4.2 % (0.1-12.0); Hematocrit 44.8 % (37.0-47.0); Lymphocytes # 2.1 K/mm3 (0.7-4.5); Lymphocytes % 37.1 % (10-50); Mean Corpuscular HGB Conc 33.5 g/dL (31.8-35.4); Mean Corpuscular Hemoglobin 31.4 pg (27.0-31.2); Mean Corpuscular Volume 93.7 fl (81-99); Mean Platelet Volume 9.5 fl (7.4-10.4); Monocytes # 0.6 K/mm3 (0.1-1.0); Monocytes % 10.4 % (1.7-9.3); Neutrophils # 2.7 K/mm3 (1.8-7.8); Neutrophils % 47.4 % (37.0-80.0); Platelet Count 126 K/mm3 (142-424); Red Blood Count 4.78 M/mm3 (4.20-5.40); Red Cell Distribution Width 13.2 % (11.5-17.5); White Blood Count 5.6 K/mm3 (4.8-10.8)
[2021-02-11 09:24] LABS: Chloride 104 mmol/L (98-107)
[2021-02-11 09:25] LABS: Potassium 4.9 mmoL/L (3.5-5.1); Sodium 136 mmol/L (136-145)
[2021-02-11 09:28] LABS: Anion Gap 12.9 mEq/L (5-15); Blood Urea Nitrogen 39 mg/dl (7-17); Calcium 10.4 mg/dl (8.4-10.2); Carbon Dioxide 24 mmol/L (22.0-30.0); Creatinine Clearance Estimated 26 mL/min (50-200); Estimated Glomerular Filt Rate 39 ml/min (>60); GFR (African American) 47 ML/MIN (>60); Glucose 98 mg/dl (74-100)
== END 2021-02-11 14:03 | disposition home or self-care (01) ==
LOC: CATHLAB 08:33
PROVIDERS: PCP Family Medicine; Visit Provider Internal Medicine
DX: I20.8 Other forms of angina pectoris (principal); I10 Essential (primary) hypertension; Z88.8 Allergy status to other drugs, medicaments and biological substances; R60.9 Edema, unspecified; E66.01 Morbid (severe) obesity due to excess calories; E78.5 Hyperlipidemia, unspecified; Z68.41 Body mass index [BMI] 40.0-44.9, adult
CPT/HCPCS: 80048; 85025; 93458; 99152; C1725; C1760; C1769; J1644; Q9967

== ENCOUNTER 2021-04-25 22:16 | Inpatient (IN) | payer MEDICARE, OTHER, SELFPAY ==
[2021-04-25 22:15] VITALS: BP 122/58; PULSE 69; RESP 20; TEMP 37; O2SAT 97; BMI 41.9
--- NOTE | 2021-04-25 22:18 | ECG_ITS ---
APPROVED REPORT Exam: Resting ECG HR:56 bpm ECG Measurements Heart Rate 56 AXES QRSd 104 QRS 1 QT 404 T 63 QTc 389 Conclusion Atrial fibrillation with slow ventricular response with a competing junctional pacemaker Low voltage QRS Abnormal ECG Electronically signed by : Jerome Arrington, 04/27/2021 13:50:15
[2021-04-25 22:31] VITALS: BP 126/50; PULSE 51; O2SAT 91
[2021-04-25 23:00] VITALS: BP 141/58; PULSE 57; O2SAT 95
[2021-04-25 23:05] VITALS: BMI 41.9
[2021-04-25 23:11] LABS: Microscopic, Urine URINE MICROSCOPIC (MICROSCOPIC)
[2021-04-25 23:16] LABS: Appearance,Urine CLEAR (Clear); Bilirubin,Urine Negative (Negative); Blood, Urine Negative (Negative); Color,Urine YELLOW (Yellow); Glucose,Urine (UA) Negative (Negative); Ketones,Urine Negative (Negative); Leukocyte Esterase,Urine Negative (Negative); Nitrate,Urine Negative (Negative); PH,Urine 5.5 (5.0-8.5); Protein,Urine Negative (Negative); Specific Gravity, Urine >= 1.030 (1.005-1.030); Urobilinogen,Urine 0.2 EU/dl (0.2)
[2021-04-25 23:17] LABS: Chloride 108 mmol/L (98-107); Sodium 138 mmol/L (136-145)
[2021-04-25 23:18] LABS: Basophils % 0.5 % (0.1-2.0); Eosinophils # 0.1 K/mm3 (0.0-0.4); Hematocrit 38.7 % (37.0-47.0); Hemoglobin 13.1 g/dL (12.2-16.2); Lymphocytes # 2.1 K/mm3 (0.7-4.5); Mean Corpuscular Volume 94.2 fl (81-99); Mean Platelet Volume 10.9 fl (7.4-10.4); Monocytes # 0.7 K/mm3 (0.1-1.0); Monocytes % 7.7 % (1.7-9.3); Neutrophils # 6.7 K/mm3 (1.8-7.8); Platelet Count 172 K/mm3 (142-424); Red Cell Distribution Width 13.9 % (11.5-17.5); White Blood Count 9.7 K/mm3 (4.8-10.8)
[2021-04-25 23:20] LABS: Alanine Aminotransferase 30 U/L (12-78); Albumin Level 4.2 g/dl (3.5-5.0); Albumin/Globulin Ratio 1.6 (1.1-1.8); Alkaline Phosphatase 54 U/L (38-126); Anion Gap 19.4 mEq/L (5-15); Aspartate Amino Transferase 30 U/L (14-36); Bilirubin,Total 0.4 mg/dl (0.2-1.3); Blood Urea Nitrogen 58 mg/dl (7-17); Calcium 9.6 mg/dl (8.4-10.2); Carbon Dioxide 18 mmol/L (22.0-30.0); Creatinine Clearance Estimated 14 mL/min (50-200); Estimated Glomerular Filt Rate 17 ml/min (>60); GFR (African American) 20 ML/MIN (>60); Globulin 2.6 g/dL (1.3-3.2); Glucose 113 mg/dl (74-100); Total Protein,Serum 6.8 g/dl (6.3-8.2)
[2021-04-25 23:24] LABS: Lactic Acid 4.2 mmol/L (0.7-2.1)
--- NOTE | 2021-04-25 23:24 | PC.NURSE ---
compa notified critcal lactic 4.2
[2021-04-25 23:26] LABS: Potassium 7.4 mmoL/L (3.5-5.1)
--- NOTE | 2021-04-25 23:27 | PC.NURSE ---
compa notified pf critical potassium 7.4
[2021-04-25 23:31] VITALS: BP 144/55; PULSE 55; O2SAT 95
[2021-04-25 23:31] LABS: Bacteria,Urine Trace /lpf
[2021-04-25 23:34] LABS: Creatine Kinase 96 U/L (30-135)
--- NOTE | 2021-04-25 23:36 | HMH.EDFALL ---
ED Disposition Clinical Impression: DAMION (acute kidney injury), Acute hyperkalemia Fall Qualifiers: Encounter type: initial encounter Qualified Code(s): W19.XXXA - Unspecified fall, initial encounter Concussion without loss of consciousness Qualifiers: Encounter type: initial encounter Qualified Code(s): S06.0X0A - Concussion without loss of consciousness, initial encounter A-fib Qualifiers: Atrial fibrillation type: unspecified Qualified Code(s): I48.91 - Unspecified atrial fibrillation Left rib fracture Qualifiers: Encounter type: initial encounter Rib fracture type: single rib Fracture type: closed Qualified Code(s): S22.32XA - Fracture of one rib, left side, initial encounter for closed fracture Thoracic vertebral fracture Qualifiers: Encounter type: initial encounter Thoracic vertebra fracture level: T7 Fracture type: closed Fracture morphology: unspecified fracture morphology Qualified Code(s): S22.069A - Unspecified fracture of T7-T8 vertebra, initial encounter for closed fracture Cholelithiasis Qualifiers: Cholelithiasis location: gallbladder Cholecystitis presence: without cholecystitis Biliary obstruction: without biliary obstruction Qualified Code(s): K80.20 - Calculus of gallbladder without cholecystitis without obstruction Disposition: Admitted As Inpatient Condition on Discharge: Serious Referrals: Rosendo Rincon MD [Primary Care Provider] - - Critical Care Critical Care Time: No Attestation: On 04/25/21, the high probability of a clinically significant, sudden or life threatening deterioration of the following system(s) required my full and direct attention, intervention and personal management. The time I documented below is in addition to time spent performing reported procedures but includes the following listed in this critical care notation. Medical Decision Making - Medical Records Medical records reviewed: Yes: I reviewed the patient's medical records. - Jhonatan Inquiry Pt receiving controlled substance: No Vital Signs: 04/25/21 22:15 04/25/21 22:31 04/25/21 23:00 Temperature 98.6 F Temperature Source Rectal Pulse Rate 51 L 57 L Pulse Rate [Right] 69 Respiratory Rate 20 Blood Pressure 126/50 L 141/58 H Blood Pressure [Right Arm] 122/58 L Blood Pressure Mean 85 Blood Pressure Mean [Right Arm] 79 Blood Pressure Source [Right Arm] Automatic Cuff Blood Pressure Position [Right Arm] Supine 02 Sat by Pulse Oximetry 97 91 L 95 Oxygen Delivery Method Room Air Room Air 04/25/21 23:31 04/26/21 01:15 04/26/21 01:30 Temperature Temperature Source Pulse Rate 55 L 54 L 87 Pulse Rate [Right] Respiratory Rate Blood Pressure 144/55 H 153/64 H Blood Pressure [Right Arm] Blood Pressure Mean 93 Blood Pressure Mean [Right Arm] Blood Pressure Source [Right Arm] Blood Pressure Position [Right Arm] 02 Sat by Pulse Oximetry 95 96 Oxygen Delivery Method Room Air 04/26/21 01:54 Temperature Temperature Source Pulse Rate 87 Pulse Rate [Right] Respiratory Rate Blood Pressure 139/72 Blood Pressure [Right Arm] Blood Pressure Mean 94 Blood Pressure Mean [Right Arm] Blood Pressure Source [Right Arm] Blood Pressure Position [Right Arm] 02 Sat by Pulse Oximetry 95 Oxygen Delivery Method - Lab Data Lab results reviewed: Yes: I reviewed the patient's lab results. Lab Results 04/25/21 22:20: WBC 9.7, RBC 4.10 L, Hgb 13.1, Hct 38.7, MCV 94.2, MCH 32.0 H, MCHC 34.0, RDW 13.9, Plt Count 172, MPV 10.9 H, Neut % (Auto) 69.0, Lymph % (Auto) 22.0, Harney % (Auto) 7.7, Eos % (Auto) 1.0, Baso % (Auto) 0.5, Neut # (Auto) 6.7, Lymph # (Auto) 2.1, Harney # (Auto) 0.7, Eos # (Auto) 0.1, Baso # (Auto) 0.0 04/25/21 22:20: Sodium 138, Potassium 7.4 H*, Chloride 108 H, Carbon Dioxide 18 L, Anion Gap 19.4 H, BUN 58 H, Creatinine 2.70 H, Estimated Creat Clear 14, Estimated GFR 17 L*, Est GFR ( Amer) 20 L, Glucose 113 H, Calcium 9.6, Total Bilirub
[2021-04-25 23:44] LABS: NT Pro Brain Natriuretic Pep. 532 pg/mL (0-450)
[2021-04-25 23:53] LABS: Coronavirus 19, PCR Not Detected (NotDetected); Influenza A, PCR Not Detected (NotDetected); Influenza B, PCR Not Detected (NotDetected)
[2021-04-25 23:57] LABS: Erythrocyte Sedimentation Rate 17 mm/hr (0-30)
[2021-04-25 23:59] LABS: Troponin I < 0.01 ng/ml (0.00-0.034)
[2021-04-26] VITALS (16 sets, daily range): BP systolic 116–153; BP diastolic 51–72; PULSE 54–87; RESP 16–20; TEMP 36.5–36.9; O2SAT 94–98; BMI 43.0
[2021-04-26] LABS: C-Reactive Protein 0.7 mg/L (0-4)
--- NOTE | 2021-04-26 00:01 | CT_ITS ---
PROCEDURE INFORMATION: Exam: CT Cervical Spine Without Contrast Exam date and time: 04/26/2021 12:01 AM Age: 85 years old Clinical indication: Injury or trauma; Fall; Blunt trauma TECHNIQUE: Imaging protocol: Computed tomography images of the cervical spine without contrast. Radiation optimization: All CT scans at this facility use at least one of these dose optimization techniques: automated exposure control; mA and/or kV adjustment per patient size (includes targeted exams where dose is matched to clinical indication); or iterative reconstruction. COMPARISON: CS5 CERVICAL SPINE 4 OR 5 VIEWS 08/30/2017 10:48 AM FINDINGS: Vertebrae: Diffuse osteopenia. C2-C3: to C7-T1: No significant disc protrusion. No severe spinal canal stenosis. No significant neural foraminal narrowing. Mxpw-ha-itlhgwkg multilevel degenerative changes that include disc space narrowing, endplate sclerosis, marginal spurring and facet arthropathy most pronounced at C4-C5, C5-C6 and C6-C7. Soft tissues: Unremarkable. Lungs: Lung apices are normal. IMPRESSION: 1. No acute fracture or dislocation. 2. Diffuse osteopenia with [id number]-vr-[id number] multilevel degenerative changes most pronounced at C4-C5, C5-C6 and C6-C7.
--- NOTE | 2021-04-26 00:01 | XR_ITS ---
PROCEDURE INFORMATION: Exam: XR Left Femur Exam date and time: 04/26/2021 12:01 AM Age: 85 years old Clinical indication: Injury or trauma; Blunt trauma; Thigh or upper leg; Patient HX: Fall left lateral femur and buttocks bruising, pain TECHNIQUE: Imaging protocol: XR Left femur. Views: 2 views. COMPARISON: NM BTBB NUC BONE SCAN-WHOLE BODY-TBB 07/20/2016 10:55 AM FINDINGS: Bones/joints: At least moderate tricompartmental degenerative changes of the knee. Soft tissues: Unremarkable. IMPRESSION: No acute findings.
--- NOTE | 2021-04-26 00:01 | XR_ITS ---
PROCEDURE INFORMATION: Exam: XR Pelvis Exam date and time: 04/26/2021 12:01 AM Age: 85 years old Clinical indication: Injury or trauma; Blunt trauma (contusions or hematomas); Bilateral; Pelvic region; Patient HX: Fall, bruising to left buttocks and lateral femur TECHNIQUE: Imaging protocol: XR pelvis. Views: 1 or 2 view. COMPARISON: DX HIPCMRT XR hip RT 2-3V w/pelvis 01/16/2019 12:26 PM FINDINGS: Bones/joints: Unremarkable. No acute fracture. Soft tissues: Unremarkable. Gastrointestinal tract: Examination obscured by bowel gas overlying the pelvis. IMPRESSION: No acute findings.
--- NOTE | 2021-04-26 00:01 | XR_ITS ---
PROCEDURE INFORMATION: Exam: XR Chest Exam date and time: 04/26/2021 12:01 AM Age: 85 years old Clinical indication: Injury or trauma; Blunt trauma (contusions or hematomas); Prior surgery; Surgery date: 6+ months; Surgery type: Double mastectomy; Patient HX: Fall, HX of bilat breast cancer and bilat mastectomy TECHNIQUE: Imaging protocol: XR of the chest. Views: 1 view. COMPARISON: CT CHEST W CON 02/03/2021 1:35 PM FINDINGS: Tubes, catheters and devices: Multiple surgical clips overlie the left axilla. Lungs: Right basilar opacities partially silhouette the right hemidiaphragm, favoring subsegmental atelectasis. Pleural spaces: Unremarkable. No pleural effusion. No pneumothorax. Heart/Mediastinum: Unremarkable. No cardiomegaly. Bones/joints: Unremarkable. IMPRESSION: Right basilar opacities partially silhouette the right hemidiaphragm, favoring subsegmental atelectasis.
--- NOTE | 2021-04-26 00:01 | CT_ITS ---
PROCEDURE INFORMATION: Exam: CT Head Without Contrast Exam date and time: 04/26/2021 12:01 AM Age: 85 years old Clinical indication: Injury or trauma; Fall; Blunt trauma (contusions or hematomas); Consciousness not specified TECHNIQUE: Imaging protocol: Computed tomography of the head without contrast. Radiation optimization: All CT scans at this facility use at least one of these dose optimization techniques: automated exposure control; mA and/or kV adjustment per patient size (includes targeted exams where dose is matched to clinical indication); or iterative reconstruction. COMPARISON: NM BTBB NUC BONE SCAN-WHOLE BODY-TBB 07/20/2016 10:55 AM FINDINGS: Brain: No acute intracranial hemorrhage, mass effect or midline shift. No large acute cortical infarct. Periventricular and subcortical white matter hypodensities are nonspecific but likely related to chronic small vessel ischemic changes. There is mild atrophy. Cerebral ventricles: No ventriculomegaly. Paranasal sinuses: Mucosal thickening is present in the maxillary sinuses. No fluid levels. Mastoid air cells: Visualized mastoid air cells are well aerated. Bones/joints: Unremarkable. No acute fracture. Soft tissues: Unremarkable. IMPRESSION: 1. No acute intracranial findings. 2. Senescent changes.
--- NOTE | 2021-04-26 00:48 | CT_ITS ---
PROCEDURE INFORMATION: Exam: CT Chest Without Contrast; Diagnostic Exam date and time: 04/26/2021 12:48 AM Age: 85 years old Clinical indication: Patient HX: Rib pain, fall TECHNIQUE: Imaging protocol: Diagnostic computed tomography of the chest without contrast. 3D rendering (Not supervised by radiologist): MIP and/or 3D reconstructed images were created by the technologist. Radiation optimization: All CT scans at this facility use at least one of these dose optimization techniques: automated exposure control; mA and/or kV adjustment per patient size (includes targeted exams where dose is matched to clinical indication); or iterative reconstruction. COMPARISON: CT CHEST W CON 02/03/2021 1:35 PM FINDINGS: Lungs: Dependent atelectasis. No airspace consolidation. Mild diffuse interstitial prominence is nonspecific. There are a few scattered noncalcified pulmonary nodules measuring up to 3 mm in size (for example series 4, image 41), which are stable since 02/03/2021. Pleural spaces: No pneumothorax. Trace bilateral pleural effusions. Heart: Cardiomegaly. Trace pericardial effusion. Aorta: No aortic aneurysm. Lymph nodes: Scattered mediastinal lymph nodes measuring up to 1 cm in short axis, nonspecific but similar to prior and probably reactive. Bones/joints: Osteopenia. Spondylosis. There are also flowing anterior marginal osteophytes throughout the thoracic spine suggesting diffuse idiopathic skeletal hyperostosis. There is an acute, oblique transverse fracture of the T7 vertebral body centered right of the midline, extending from the anterior marginal osteophyte complex to the superior endplate near the right costovertebral junction. No significant height loss or retropulsion. Acute, minimally displaced fracture of the posterior left 11th rib. Soft tissues: Surgical clips in the bilateral axillary regions. Postsurgical changes of the anterior chest wall and mastectomies. Generalized muscle volume loss and fatty atrophy. IMPRESSION: 1. Acute, oblique transverse fracture of the T7 vertebral body. No significant height loss or retropulsion. 2. Acute, minimally displaced fracture of the posterior left 11th rib. 3. Dependent atelectasis. Trace bilateral pleural effusions.
--- NOTE | 2021-04-26 00:48 | CT_ITS ---
PROCEDURE INFORMATION: Exam: CT Abdomen And Pelvis Without Contrast Exam date and time: 04/26/2021 12:48 AM Age: 85 years old Clinical indication: Abdominal pain; Generalized; Patient HX: General abd pain TECHNIQUE: Imaging protocol: Computed tomography of the abdomen and pelvis without contrast. Radiation optimization: All CT scans at this facility use at least one of these dose optimization techniques: automated exposure control; mA and/or kV adjustment per patient size (includes targeted exams where dose is matched to clinical indication); or iterative reconstruction. COMPARISON: CR XR PELVIS 1-2V 04/26/2021 12:16 AM FINDINGS: Please see separately reported chest CT for findings within the thorax. Liver: Calcified granuloma in the right hepatic lobe. Gallbladder and bile ducts: Nonspecific gallbladder distention. There are several small radiopaque calculi layering dependently within the gallbladder fundus. No gallbladder wall thickening. No common bile duct dilation. Pancreas: Rntt-sv-lyyigged fatty atrophy of the pancreas. Spleen: There is a perceived 0.8 cm low-attenuation lesion within the spleen (series 5, image 39). Although indeterminate, it is probably benign given its small size. No retained follow-up recommended. Adrenal glands: Normal. No mass. Kidneys and ureters: There are several exophytic bilateral renal cysts measuring up to 8.1 cm on the right and 8.5 cm on the left. A few additional subcentimeter bilateral renal lesions are too small for definitive evaluation, but statistically likely also benign. No hydronephrosis. No nephrolithiasis. Stomach and bowel: Solid stool is present within the rectum and sigmoid colon. There is gaseous distension and liquid stool present throughout the remainder of the colon. No colonic wall thickening. No small bowel dilation or obstruction. Appendix: Appendix not visualized. Intraperitoneal space: No pneumoperitoneum. No ascites. Vasculature: Scattered atherosclerotic plaque. No abdominal aortic aneurysm. Lymph nodes: No enlarged lymph nodes. Urinary bladder: Bladder decompressed by a Scott catheter. Small amount of gas within the bladder lumen presumably related to the catheterization. Reproductive: Hysterectomy. Bones/joints: Spondylosis, most advanced at L3-L4 (where there is apparent high-grade spinal canal or neural foraminal stenosis). Soft tissues: Body wall edema. Nonspecific reticulation/induration in the left gluteal subcutaneous adipose tissue, could be related to dependent positioning, versus contusion. Rectus abdominis diastasis with laxity of the anterior abdominal wall. The anterior abdominal wall is not completely imaged on this study. There is generalized muscle volume loss and fatty atrophy. IMPRESSION: 1. Solid stool within the rectum and colon. However, gaseous distention and liquid stool are present throughout the remaining colon, raising the possibility of a nonspecific diarrheal illness. 2. Cholelithiasis. 3. Body wall edema. Nonspecific induration in the left gluteal subcutaneous adipose tissue, possibly due to dependent position or contusion. 4. Other chronic/ancillary findings as above. COMMENTS: Consistent with the [employer]'s Incidental Findings Committee white paper (J Am Scar Radiol 2018): Any incidental renal lesion less than 1 cm or classified as too small to characterize, or any incidental cystic renal lesion characterized as simple-appearing, is likely benign. No follow-up imaging is recommended for these lesions per consensus recommendations based on imaging criteria.
--- NOTE | 2021-04-26 01:18 | PC.NURSE ---
pt returned from CT's
[2021-04-26 02:12] LABS: Reflex Lactic Add Lactic Reflex
[2021-04-26 02:22] LABS: Lactic Acid Follow Up (RFLX 1) 1.1 mmol/L (0.7-2.1)
[2021-04-26 02:39] LABS: Troponin I < 0.01 ng/ml (0.00-0.034)
--- NOTE | 2021-04-26 03:14 | PC.NURSE ---
Dr. Green s/w Dr. Rincon regarding poss admission.
[2021-04-26 03:58] LABS: Adenovirus F 40/41, stool Not Detected (NotDetected); Astrovirus Not Detected (NotDetected); Campylobacter Not Detected (NotDetected); Clostridium Difficile A/B, PCR Not Detected (NotDetected); Cryptosporidium Not Detected (NotDetected); Cyclospora Cayetanesis Not Detected (NotDetected); Entamoeba histolytica Not Detected (NotDetected); Enteropathogenic E coli Not Detected (NotDetected); Enterotoxigenic E coli Not Detected (NotDetected); Giardia lamblia Not Detected (NotDetected); Norovirus Not Detected (NotDetected); Plesimonas Shigalloides, PCR Not Detected (NotDetected); Rotavirus A Not Detected (NotDetected); Salmonella, PCR Not Detected (NotDetected); Sapovirus Not Detected (NotDetected); Shiga-like toxin E coli Not Detected (NotDetected); Shigella Enterovasive E coli Not Detected (NotDetected); Vibrio Cholerae Not Detected (NotDetected); Vibrio, PCR Not Detected (NotDetected); Yersinia Entercolitica, PCR Not Detected (NotDetected)
--- NOTE | 2021-04-26 04:07 | PC.NURSE ---
patient up to floor via stretcher.
[2021-04-26 05:21] LABS: Enteroaggregative E coli Detected (NotDetected)
[2021-04-26 06:30] LABS: Basophils % 0.6 % (0.1-2.0); Eosinophils # 0.1 K/mm3 (0.0-0.4); Eosinophils % 0.7 % (0.1-12.0); Hematocrit 37.6 % (37.0-47.0); Hemoglobin 12.6 g/dL (12.2-16.2); Lymphocytes # 1.6 K/mm3 (0.7-4.5); Mean Corpuscular HGB Conc 33.6 g/dL (31.8-35.4); Mean Corpuscular Hemoglobin 31.8 pg (27.0-31.2); Mean Corpuscular Volume 94.9 fl (81-99); Mean Platelet Volume 9.8 fl (7.4-10.4); Monocytes # 0.8 K/mm3 (0.1-1.0); Monocytes % 10.5 % (1.7-9.3); Neutrophils # 4.8 K/mm3 (1.8-7.8); Neutrophils % 66.3 % (37.0-80.0); Platelet Count 123 K/mm3 (142-424); Red Blood Count 3.97 M/mm3 (4.20-5.40); White Blood Count 7.2 K/mm3 (4.8-10.8)
--- NOTE | 2021-04-26 06:39 | PC.NURSE ---
Pt is A&O x3. Does have some slurred speech noted as previous assessment in ER per by MD and nursing staff. No additional changes noted. Pt has been resting well. Bruising noted to (L) hip. Pt did not voice any complaints. Lungs are CTA. BS active. Abdomen is round and distended. VSS. Pt is Afib on telemetry. No other concerns. Will continue to monitor.
[2021-04-26 06:43] LABS: Anion Gap 9.9 mEq/L (5-15); Blood Urea Nitrogen 51 mg/dl (7-17); Carbon Dioxide 26 mmol/L (22.0-30.0); Chloride 110 mmol/L (98-107); Creatinine Clearance Estimated 16 mL/min (50-200); Estimated Glomerular Filt Rate 22 ml/min (>60); GFR (African American) 27 ML/MIN (>60); Glucose 112 mg/dl (74-100); Potassium 5.9 mmoL/L (3.5-5.1); Sodium 140 mmol/L (136-145)
[2021-04-26 06:54] LABS: Magnesium 1.5 mg/dl (1.6-2.3)
--- NOTE | 2021-04-26 08:53 | P.CONPHA_ITS ---
[facility] Pharmacy VTE Monitoring - Patient Demographics Admission date: 04/26/21 Report Date: 04/26/21 Time: 08:54 Allergies/Adverse Reactions: Patient Allergies allopurinol [ALLOPURINOL] Allergy (Unknown, Verified 03/19/21 09:23) I-RASH Height: 1.6 m Weight: 110.024 kg Patient Problems: Current Active Problems DAMION (acute kidney injury) (Acute) Acute hyperkalemia (Acute) Fall (Acute) Concussion without loss of consciousness (Acute) A-fib (Acute) Left rib fracture (Acute) Thoracic vertebral fracture (Acute) Cholelithiasis (Acute) - VTE Risk Labs: VTE Related Lab Results Hgb 12.6 g/dL (12.2-16.2) 04/26/21 06:20 Hct 37.6 % (37.0-47.0) 04/26/21 06:20 Plt Count 123 K/mm3 (142-424) L D 04/26/21 06:20 BUN 51 mg/dl (7-17) H 04/26/21 06:20 Creatinine 2.10 mg/dl (0.52-1.04) H D 04/26/21 06:20 Estimated Creat Clear 16 mL/min (50-200) 04/26/21 06:20 Was VTE Risk Assessment Performed: Yes VTE Risk Level: Low Risk Clinical Trial Participant: No - Prophylaxis VTE Prophylaxis Ordered?: Yes Types of VTE Prophylaxis: TEDS Knee High
--- NOTE | 2021-04-26 09:01 | HMH.HP ---
*Admission Date: 04/26/21 *Chief complaint: Fall at home *History of present illness: 85 year old female with a history of neuropathy and morbid obesity presented to [facility] ER last night after falling at home. Patient reports falling twice yesterday. The first episode happened in the early after noon when she was walking through her house. She states she had a sudden warm feeling and then fell to the ground. She does not think she lost consciousness but she did not have the strength to get up. Her daughter and son in law were in the home and helped the patient up. She was then able to move through the house with the assistance of two canes. Late yesterday evening, after having a bowel movement, she was trying to stand up from the toilet and fell over into the floor. It took a total of three people to get her up and into her bed. At that point she began to experience left posterior chest pain and difficulty breathing. She was brought to the ER for further evaluation. [facility] History Medical History: Reports:: Cancer (Breast), Hyperlipidemia, Hypertension Denies:: Diabetes Mellitus Type 1, Diabetes Mellitus Type 2, Internal Pacemaker, MRSA, Seizures *Have you ever received a pneumonia vaccine?: No *Have you received a flu vaccine this season?: No Other Medical History: Denies: Blood Transfusion Reaction Other Surgeries: Yes: Appendectomy, Cardiac Catheterization, Hysterectomy-Total. No: Pacemaker Amputation: No Fractures: No - *Social History Smoking Status: Never smoker Alcohol Intake: never *Occupational Status:: retired Housing: house Household Members: none *Travel in the last 8 weeks: None Family Hx:: Cancer, Heart Attack, Hyperlipidemia, Hypertension, Stroke Review of Systems - Constitutional Reports fatigue, Denies fever(s) - Eyes Denies change in vision - ENT Denies change in voice - *Cardiovascular Reports chest pain (left side), Reports shortness of breath (when lying flat after falling last night) - *Respiratory Denies cough - *Gastrointestinal Reports abdominal pain, Reports loose stools (brown and watery for the past 2 or 3 weeks) - *Genitourinary Denies difficulty urinating - *Musculoskeletal Denies joint pain - Integumentary/Breasts Denies rash - *Neurologic Denies headache(s), Denies seizure-like activity - Psychiatric Denies lack of enjoyment Meds Home Medications Medication Instructions Recorded Confirmed Type Pravastatin Sodium [Pravachol 20mg 20 mg PO DAILY 03/21/18 04/25/21 History Tablet] doxazosin 4 mg tablet,extended 4 mg PO DAILY tab 11/12/20 04/25/21 History release 24 hr duloxetine 30 mg capsule,delayed 30 mg PO DAILY cap 11/12/20 04/25/21 History release lisinopril 20 mg tablet 20 mg PO BID tab 11/12/20 04/25/21 History naproxen sodium 220 mg capsule 220 mg PO Q12H 11/12/20 04/25/21 History pantoprazole 40 mg tablet,delayed 40 mg PO DAILY 11/12/20 04/25/21 History release Metoprolol Succinate [Metoprolol 100 mg PO DAILY 01/06/21 04/25/21 History Succinate 100mg Tablet*] colchicine 0.6 mg tablet 0.6 mg PO DAILY PRN tab 01/29/21 04/25/21 History febuxostat 40 mg tablet 40 mg PO DAILY tab 01/29/21 04/25/21 History gabapentin 300 mg capsule 300 mg PO BID cap 01/29/21 04/25/21 History Ranolazine [Ranolazine ER] 500 mg PO BID 04/25/21 04/25/21 History Amlodipine Besylate 5 mg PO DAILY 04/26/21 04/26/21 History Cholecalciferol (Vitamin D3) 50 mcg PO DAILY 04/26/21 04/26/21 History [Vitamin D3] Tolterodine Tartrate [Tolterodine 4 mg PO DAILY 04/26/21 04/26/21 History Tartrate ER] Triamterene/Hydrochlorothiazid 1 each PO DAILY 04/26/21 04/26/21 History [Maxzide-25 tablet] Allergies Allergy/AdvReac Type Severity Reaction Status Date / Time allopurinol [ALLOPURINOL] Allergy Unknown I-RASH Verified 03/19/21 09:23 Exam Vital signs and Labs for Last 24 Hours: Temp Pulse Resp BP Pulse Ox 98.2 F 63 17 129/57 L 98 04/26/21 07:5
--- NOTE | 2021-04-26 09:21 | HMH.PHAINT ---
MEDICATION RECONCILIATION COMPLETE USING EXTERNAL PHARMACY FILL HISTORY AND LIST FROM CARDIOLOGY VISIT 03/18/21
--- NOTE | 2021-04-26 12:59 | HMH.PTEV ---
Physical Therapy Evaluation Rehab PT IP Evaluation Start: 04/26/21 09:00 Freq: ONCE Status: Active Protocol: Document 04/26/21 12:39 [email or web address] (Rec: 04/26/21 12:59 [email or web address] [id number]) Subjective/History History History This is the initial Inpatient evaluation for Letty Dumont. Pt. is a 85 year old female w/ c/o of shldr./rib(L-sided)/hip(L>R) P ! after being admitted to the ER last night(04/25/21) after having 2 falls yesterday. Pt. reports not having any P! at the moment, but states it gets to a 10/10 with activity . Pt. blames weakness in her left leg as the primary culprit for her falls. Pt. reports having two sons that live close by for assistance when she needs it. Pt. reports living alone in a 2-story home, but states not needing the upstairs to thrive. Pt. reports ambulating w/ a SPC independently prior to being admitted to the hospital. Pt. also reports owning a shower chair and bilateral axillary cruthes that she uses. PMH includes Cancer, Hyperlipidemia, Hypertension, Appendectomy, Cardiac Catheterization, and a Total Hysterectomy. Subjective Subjective Pt. reports her left leg is weaker than the right leg because she tends to fall towards her left. Rehab PT IP Eval Objective Appearance Patient Behavior Appropriate,Cooperative Patient Orientation Person,Place,Name,Day of Week, Situation Difficulty following instructions none Speech Pattern Clear,Appropriate,Coherent Ambulation Patient Able to Ambulate Yes Ambulation Observation IP General Gait Pattern Observation Wide Based Gait,Shuffling Step ,Decrease Weight Bear (L), Decrease Stride Lngth (R) Ambulation Distance (feet) 10 Ambulation Assistive Device Standard Walker Ambulation Ability
--- NOTE | 2021-04-26 16:28 | PC.NURSE ---
Pt has been pleasant this shift. Scott cath d/c'd this shift. Urine is clear and dark yellow. Generalized edema noted to BUE and BLE. Lung sounds CTA. No other acute changes or complaints at this time. Will continue to monitor.
[2021-04-27] VITALS (7 sets, daily range): BP systolic 128–178; BP diastolic 56–89; PULSE 80–87; RESP 16–18; TEMP 36.9–37.1; O2SAT 94–98; BMI 43.7
--- NOTE | 2021-04-27 03:59 | PC.NURSE ---
Pt is A/O x4. pt was placed in enteric contact because she her stool was positive for EAEC. No acute changes this shift. Pt slept well all night. Lungs are CTA. Bowel sounds present x4. IV patent with NS running at 50ml/hr. Pt is able to make needs known to staff, call light within reach, VSS, no concerns at this time.
[2021-04-27 06:51] LABS: Basophils % 0.4 % (0.1-2.0); Eosinophils # 0.2 K/mm3 (0.0-0.4); Eosinophils % 3.3 % (0.1-12.0); Hematocrit 34.1 % (37.0-47.0); Hemoglobin 11.5 g/dL (12.2-16.2); Lymphocytes # 1.7 K/mm3 (0.7-4.5); Lymphocytes % 35.7 % (10-50); Mean Corpuscular HGB Conc 33.8 g/dL (31.8-35.4); Mean Corpuscular Hemoglobin 31.9 pg (27.0-31.2); Mean Corpuscular Volume 94.3 fl (81-99); Mean Platelet Volume 9.8 fl (7.4-10.4); Monocytes # 0.5 K/mm3 (0.1-1.0); Monocytes % 9.8 % (1.7-9.3); Neutrophils # 2.4 K/mm3 (1.8-7.8); Neutrophils % 50.9 % (37.0-80.0); Platelet Count 113 K/mm3 (142-424); Red Blood Count 3.61 M/mm3 (4.20-5.40); Red Cell Distribution Width 13.9 % (11.5-17.5); White Blood Count 4.7 K/mm3 (4.8-10.8)
[2021-04-27 07:02] LABS: Anion Gap 9.3 mEq/L (5-15); Blood Urea Nitrogen 33 mg/dl (7-17); Calcium 8.7 mg/dl (8.4-10.2); Carbon Dioxide 25 mmol/L (22.0-30.0); Chloride 109 mmol/L (98-107); Creatinine Clearance Estimated 23 mL/min (50-200); Estimated Glomerular Filt Rate 36 ml/min (>60); GFR (African American) 43 ML/MIN (>60); Glucose 88 mg/dl (74-100); Potassium 4.3 mmoL/L (3.5-5.1); Sodium 139 mmol/L (136-145)
[2021-04-27 07:40] LABS: Magnesium 1.4 mg/dl (1.6-2.3)
--- NOTE | 2021-04-27 09:22 | HMH.ACPN2 ---
Internal Medicine - PN: Subj *Date: 04/27/21 *Time: 09:22 Interval history: Patient feels better this morning. She has a little left shoulder pain, had only one episode of diarrhea yesterday. Exam Vital signs and Labs for Last 24 Hours: Temp Pulse Resp BP Pulse Ox 98.7 F 86 18 128/56 L 95 04/27/21 07:44 04/27/21 07:44 04/27/21 07:44 04/27/21 07:44 04/27/21 08:00 Laboratory Results - last 24 hr 04/27/21 06:35: Magnesium 1.4 L 04/27/21 06:35: WBC 4.7 L D, RBC 3.61 L, Hgb 11.5 L, Hct 34.1 L, MCV 94.3, MCH 31.9 H, MCHC 33.8, RDW 13.9, Plt Count 113 L, MPV 9.8, Neut % (Auto) 50.9, Lymph % (Auto) 35.7, [place] % (Auto) 9.8 H, Eos % (Auto) 3.3, Baso % (Auto) 0.4, Neut # (Auto) 2.4, Lymph # (Auto) 1.7, [place] # (Auto) 0.5, Eos # (Auto) 0.2, Baso # (Auto) 0.0 04/27/21 06:35: Sodium 139, Potassium 4.3 D, Chloride 109 H, Carbon Dioxide 25, Anion Gap 9.3, BUN 33 H D, Creatinine 1.40 H D, Estimated Creat Clear 23, Estimated GFR 36 L, Est GFR ( Amer) 43 L D, Glucose 88, Calcium 8.7 Vital Signs - 24 hr 04/26/21 12:00 04/26/21 15:12 04/26/21 16:00 Temperature 98.1 F Pulse Rate 65 68 Pulse Rate [Right] 69 Respiratory Rate 18 Blood Pressure [Right Arm] 116/59 L 02 Sat by Pulse Oximetry 96 04/26/21 20:00 04/26/21 23:57 04/27/21 00:00 Temperature 98.0 F 98.5 F Pulse Rate 80 80 Pulse Rate [Right] 81 86 Respiratory Rate 18 16 Blood Pressure [Right Arm] 137/61 129/51 L 02 Sat by Pulse Oximetry 94 L 96 04/27/21 04:00 04/27/21 07:44 04/27/21 08:00 Temperature 98.5 F 98.7 F Pulse Rate 80 Pulse Rate [Right] 87 86 Respiratory Rate 16 18 Blood Pressure [Right Arm] 135/60 128/56 L 02 Sat by Pulse Oximetry 94 L 95 95 I & O for Last 24 hours: Intake & Output 04/24/21 04/25/21 04/26/21 04/27/21 23:59 23:59 23:59 23:59 Intake Total 3220 / 3220 1675 / 1675 Output Total 1000 / 1000 Balance 2220 / 2220 1675 / 1675 Weight 260 lb 242 lb 9 oz 246 lb 8 oz - Constitutional no acute distress - *Routine HEENT Exam Head: Present: normocephalic Eye: Present: EOMI, PERRL ENT: Present: mucous membranes moist - *Routine Neck Exam Present: supple. Absent: lymphadenopathy - *Routine Respiratory Exam Present: CTA bilaterally - *Routine Cardiovascular Exam Present: RRR - *Routine Abdominal Exam Present: soft, normoactive bowel sounds. Absent: tenderness - *Routine Extremities Exam Present: edema (both legs). Absent: cyanosis, clubbing - *Routine Skin Exam Present: warm. Absent: rash - *Routine Neurological Exam Present: alert, oriented X3 Assessment and Plan (1) Fall Status: Acute Qualifiers: Encounter type: initial encounter Qualified Code(s): W19.XXXA - Unspecified fall, initial encounter Category: Medical Code(s): W19.XXXA - Unspecified fall, initial encounter (2) Diarrhea Status: Acute Category: Medical Code(s): R19.7 - Diarrhea, unspecified (3) CKD (chronic kidney disease) stage 3, GFR 30-59 ml/min Status: Acute Qualifiers: Chronic kidney disease stage 3 subtype: stage 3b (GFR 30-44) Qualified Code(s): N18.32 - Chronic kidney disease, stage 3b Category: Medical Code(s): N18.30 - Chronic kidney disease, stage 3 unspecified (4) A-fib Status: Acute Qualifiers: Atrial fibrillation type: unspecified Qualified Code(s): I48.91 - Unspecified atrial fibrillation Category: Medical Code(s): I48.91 - Unspecified atrial fibrillation (5) DAMION (acute kidney injury) Status: Acute Category: Medical Code(s): N17.9 - Acute kidney failure, unspecified (6) Acute hyperkalemia Status: Acute Category: Medical Code(s): E87.5 - Hyperkalemia (7) Cholelithiasis Status: Acute Qualifiers: Cholelithiasis location: gallbladder Cholecystitis presence: without cholecystitis Biliary obstruction: without biliary obstruction Qualified Code(s): K80.20 - Calculus of gallbladder without cholecystitis
--- NOTE | 2021-04-27 18:01 | PC.NURSE ---
Pt has done well this shift. x1 assist to the bathroom this shift. Lungs CTA. VSS. Active bowel sounds in all 4 quads, no BM noted this shift. No concerns or complaints at this time. Will continue to monitor.
--- NOTE | 2021-04-28 03:26 | PC.NURSE ---
Pt is A/Ox4. no acute changes. Lungs are CTA. Pt ambulated to the bathroom using her walker with standby assist and tolerated well. Pt denies any pain. VSS, call light within reach, will continue to monitor.
[2021-04-28 03:31] VITALS: BP 156/71; PULSE 82; RESP 16; TEMP 36.9; O2SAT 94
[2021-04-28 05:00] VITALS: BMI 43.2
[2021-04-28 06:40] LABS: Basophils % 0.6 % (0.1-2.0); Eosinophils # 0.1 K/mm3 (0.0-0.4); Eosinophils % 2.5 % (0.1-12.0); Hematocrit 35.4 % (37.0-47.0); Hemoglobin 12.1 g/dL (12.2-16.2); Lymphocytes # 1.6 K/mm3 (0.7-4.5); Lymphocytes % 31.3 % (10-50); Mean Corpuscular HGB Conc 34.2 g/dL (31.8-35.4); Mean Corpuscular Volume 93.5 fl (81-99); Monocytes # 0.6 K/mm3 (0.1-1.0); Monocytes % 10.8 % (1.7-9.3); Neutrophils # 2.8 K/mm3 (1.8-7.8); Neutrophils % 54.9 % (37.0-80.0); Platelet Count 106 K/mm3 (142-424); Red Blood Count 3.78 M/mm3 (4.20-5.40); Red Cell Distribution Width 13.8 % (11.5-17.5); White Blood Count 5.1 K/mm3 (4.8-10.8)
[2021-04-28 07:35] LABS: Anion Gap 11.4 mEq/L (5-15); Blood Urea Nitrogen 24 mg/dl (7-17); Calcium 9.1 mg/dl (8.4-10.2); Carbon Dioxide 26 mmol/L (22.0-30.0); Chloride 108 mmol/L (98-107); Creatinine Clearance Estimated 25 mL/min (50-200); Estimated Glomerular Filt Rate 39 ml/min (>60); GFR (African American) 47 ML/MIN (>60); Glucose 96 mg/dl (74-100); Potassium 4.4 mmoL/L (3.5-5.1); Sodium 141 mmol/L (136-145)
[2021-04-28 07:43] VITALS: BP 155/71; PULSE 88; RESP 17; TEMP 36.9; O2SAT 95
[2021-04-28 08:00] VITALS: O2SAT 95
--- NOTE | 2021-04-28 08:05 | HMH.ACPN2 ---
<Arlene Veronica - Last Filed: 04/28/21 08:05> Internal Medicine - PN: Subj *Date: 04/28/21 *Time: 08:05 Interval history: She is feeling well and without complaint today. She tolerated breakfast well and has no nausea or abdominal pain. She is voiding normally and reports no BM since yesterday. Exam Vital signs and Labs for Last 24 Hours: Temp Pulse Resp BP Pulse Ox 98.4 F 88 17 155/71 H 95 04/28/21 07:43 04/28/21 07:43 04/28/21 07:43 04/28/21 07:43 04/28/21 07:43 Laboratory Results - last 24 hr 04/28/21 05:59: WBC 5.1, RBC 3.78 L, Hgb 12.1 L, Hct 35.4 L, MCV 93.5, MCH 32.0 H, MCHC 34.2, RDW 13.8, Plt Count 106 L, MPV 10.0, Neut % (Auto) 54.9, Lymph % (Auto) 31.3, [place] % (Auto) 10.8 H, Eos % (Auto) 2.5, Baso % (Auto) 0.6, Neut # (Auto) 2.8, Lymph # (Auto) 1.6, [place] # (Auto) 0.6, Eos # (Auto) 0.1, Baso # (Auto) 0.0 04/28/21 05:59: Sodium 141, Potassium 4.4, Chloride 108 H, Carbon Dioxide 26, Anion Gap 11.4, BUN 24 H D, Creatinine 1.30 H, Estimated Creat Clear 25, Estimated GFR 39 L, Est GFR ( Amer) 47 L, Glucose 96, Calcium 9.1 I & O for Last 24 hours: Intake & Output 04/25/21 04/26/21 04/27/21 04/28/21 11:59 11:59 11:59 11:59 Intake Total 2620 / 2620 2275 / 2275 1200 / 1200 Output Total 1000 / 1000 Balance 1620 / 1620 2275 / 2275 1200 / 1200 Weight 242 lb 9 oz 246 lb 8 oz 244 lb 6 oz Microbiology Reports for the Last 24 Hours: Microbiology 04/25/21 22:20 Blood Blood Culture - Preliminary NO GROWTH AFTER 48 HOURS 04/25/21 22:20 Blood Blood Culture - Preliminary NO GROWTH AFTER 48 HOURS - Constitutional no acute distress - *Routine HEENT Exam Head: Present: normocephalic, atraumatic ENT: Present: mucous membranes moist - *Routine Respiratory Exam Present: CTA bilaterally - *Routine Cardiovascular Exam Present: RRR - *Routine Abdominal Exam Present: soft, normoactive bowel sounds, obese. Absent: tenderness, firm, rigid - *Routine Extremities Exam Present: pulses intact, normal capillary refill. Absent: calf tenderness Comments: 1+ BLE edema - *Routine Neurological Exam Present: alert, oriented X3, moving all extremities, normal speech. Absent: facial asymmetry Assessment and Plan (1) Fall Status: Acute Qualifiers: Encounter type: initial encounter Qualified Code(s): W19.XXXA - Unspecified fall, initial encounter Category: Medical Code(s): W19.XXXA - Unspecified fall, initial encounter (2) Diarrhea Status: Acute Category: Medical Code(s): R19.7 - Diarrhea, unspecified (3) CKD (chronic kidney disease) stage 3, GFR 30-59 ml/min Status: Acute Qualifiers: Chronic kidney disease stage 3 subtype: stage 3b (GFR 30-44) Qualified Code(s): N18.32 - Chronic kidney disease, stage 3b Category: Medical Code(s): N18.30 - Chronic kidney disease, stage 3 unspecified (4) A-fib Status: Acute Qualifiers: Atrial fibrillation type: unspecified Qualified Code(s): I48.91 - Unspecified atrial fibrillation Category: Medical Code(s): I48.91 - Unspecified atrial fibrillation (5) DAMION (acute kidney injury) Status: Acute Category: Medical Code(s): N17.9 - Acute kidney failure, unspecified (6) Acute hyperkalemia Status: Acute Category: Medical Code(s): E87.5 - Hyperkalemia (7) Cholelithiasis Status: Acute Qualifiers: Cholelithiasis location: gallbladder Cholecystitis presence: without cholecystitis Biliary obstruction: without biliary obstruction Qualified Code(s): K80.20 - Calculus of gallbladder without cholecystitis without obstruction Category: Medical Code(s): K80.20 - Calculus of gallbladder without cholecystitis without obstruction (8) Concussion without loss of consciousness Status: Acute Qualifiers: Encounter type: initial encounter Qualified Code(s): S06.0X0A - Concussion without loss of consciousness, initi
--- NOTE | 2021-04-28 09:00 | PC.NURSE ---
D/t frequent falls and mobility issues-pt would benefit from having a bedside commode and a rolling walker.
--- NOTE | 2021-04-28 10:28 | SW/DCPLANNER ---
MADE ROUNDS WITH DR ELLIS THIS MORNING TO GET PATIENT SET UP TO GO HOME... PATIENT REQUESTED A BEDSIDE COMMODE, ROLLING WALKER AND HOME HEALTH SERVICES... PATIENT WISHES TO USE [facility] AT HOME AND THIS HAS BEEN SET UP .. HER BEDSIDE COMMODE WILL BE DELIVERED TO HER HOME AND WALKER WILL BE BROUGHT UP TO THE HOSPITAL... DAUGHTER WILL BE HERE TO FARM AGENT PATIENT AROUND NOON TODAY.
--- NOTE | 2021-04-29 22:20 | HMH.DCSUM ---
General - General Admission date:: 04/26/21 Discharge date: 04/28/21 HPI HPI: 85 year old female with a history of neuropathy and morbid obesity presented to [facility] ER last night after falling at home. Patient reports falling twice yesterday. The first episode happened in the early afternoon when she was walking through her house. She states she had a sudden warm feeling and then fell to the ground. She does not think she lost consciousness but she did not have the strength to get up. Her daughter and son in law were in the home and helped the patient up. She was then able to move through the house with the assistance of two canes. Late yesterday evening, after having a bowel movement, she was trying to stand up from the toilet and fell over into the floor. It took a total of three people to get her up and into her bed. At that point she began to experience left posterior chest pain and difficulty breathing. She was brought to the ER for further evaluation. Hospital Course Hospital Course: The patient was admitted for further evaluation and treatment. Stool panel found E. coli colitis and she was therefore started on Levaquin. She was hyperkalemic and had acute kidney injury as well. She was continued on IV fluids and her labs were monitored. Physical therapy was consulted due to frequent falls. She had numerous x-rays and CT scans. Her chest CT did show an acute oblique transverse fracture of the T7 vertebral body and a minimally displaced fracture of the posterior left 11th rib. Her abdominal pelvic CT showed solid stool within the rectum and colon along with gaseous distention of liquid stool present throughout the remaining colon raising the possibility of a diarrheal illness. Physical therapy saw the patient and felt once medically stable she can be discharged back to her home with assistance of her children when necessary and home health physical therapy to improve muscular strength and endurance. She did begin feeling better and her diarrhea improved. By 04/28/2021, she tolerated breakfast with no nausea or abdominal pain. She had no further diarrhea. Her potassium stabilized and her renal function was improving. She was stable to be discharged home with oral Levaquin and home health nursing and PT. She will follow-up with Dr. Rincon in 4 days. Objective Vital signs: Temp Pulse Resp BP Pulse Ox 98.4 F 88 17 155/71 H 95 04/28/21 07:43 04/28/21 07:43 04/28/21 07:43 04/28/21 07:43 04/28/21 08:00 Narrative: - Constitutional no acute distress - *Routine HEENT Exam Head: Present: normocephalic Eye: Present: EOMI, PERRL ENT: Present: mucous membranes moist - *Routine Neck Exam Present: supple. Absent: lymphadenopathy - *Routine Respiratory Exam Present: CTA bilaterally - *Routine Cardiovascular Exam Present: RRR - *Routine Abdominal Exam Present: soft, normoactive bowel sounds, tenderness (minimal periumbilical to deep palpation) - *Routine Rectal Exam Rectal:: deferred - *Routine Genitalia Exam Genitalia:: deferred - *Routine Extremities Exam Present: edema (2+ bilateral legs). Absent: cyanosis, clubbing - *Routine Skin Exam Present: warm. Absent: rash - *Routine Neurological Exam Present: alert, oriented X3 Results Labs on day of discharge: Preliminary micro results at discharge 04/25/21 22:20 Blood Culture - Preliminary Blood NO GROWTH AFTER 48 HOURS 04/25/21 22:20 Blood Culture - Preliminary Blood NO GROWTH AFTER 48 HOURS DS: Diagnosis - Discharge Diagnosis (1) Fall Status: Acute (2) Diarrhea Status: Acute (3) CKD (chronic kidney disease) stage 3, GFR 30-59 ml/min Status: Acute (4) A-fib Status: Acute (5) DAMION (acute kidney injury) Status: Acute (6) Acute hyperkalemia Status: Acute (7) Cholelithiasis Status: Acute (8) Concussion without loss of consciousness Status: Acute (9) Left rib
== END 2021-04-28 11:35 | disposition home health service (06) | DRG 372 ==
LOC: ER 04-26 03:14 → 2ND 04-26 19:16
PROVIDERS: Admitting Provider Family Medicine; Emergency Provider Emergency Medicine; PCP Family Medicine; Visit Provider Family Medicine
DX: A04.4 Other intestinal Escherichia coli infections (principal); N17.9 Acute kidney failure, unspecified; S22.32XA Fracture of one rib, left side, initial encounter for closed fracture; S22.069A Unspecified fracture of T7-T8 vertebra, initial encounter for closed fracture; Z68.41 Body mass index [BMI] 40.0-44.9, adult; E87.5 Hyperkalemia; I48.91 Unspecified atrial fibrillation; W19.XXXA Unspecified fall, initial encounter; Y92.002 Bathroom of unspecified non-institutional (private) residence as the place of occurrence of the external cause; E78.5 Hyperlipidemia, unspecified; G62.9 Polyneuropathy, unspecified; E66.01 Morbid (severe) obesity due to excess calories; I12.9 Hypertensive chronic kidney disease with stage 1 through stage 4 chronic kidney disease, or unspecified chronic kidney disease; N18.30 Chronic kidney disease, stage 3 unspecified; S06.0X0A Concussion without loss of consciousness, initial encounter; E83.42 Hypomagnesemia; Z85.3 Personal history of malignant neoplasm of breast
CPT/HCPCS: 70450; 71045; 71250; 72125; 72170; 73552; 74176; 80048; 80053; 81001; 82550; 83605; 83735; 83880; 84484; 85025; 85651; 86140; 87040; 87507; 93005; 96365; 96366; 96375; 97116; 97161; 99285; 99291; J1956; U0003

== ENCOUNTER → 2022-03-23 09:16 | Outpatient (CLI) | payer MEDICARE, OTHER, SELFPAY ==
--- NOTE | 2022-03-23 09:18 | CA_ITS ---
APPROVED REPORT EXAM: Comprehensive 2D, Doppler, and color-flow Echocardiogram Getter Operator: Daniella Yeager RDCS Ht: 5 ft 3 in Wt: 245lbs BSA: 2.11 BP: 128/64 mmHg Indications: SOA,HTN,EDEMA 2D Dimensions LVDd 2.00 cm F: 3.9 - 5.3 M-Mode Dimensions RVDd 1.86 cm (0.9-2.6) LA Diam 4.42 cm (1.9-4.0) LVDd 5.99 cm (3.5-5.7) Ao Diam 3.81 cm (2.0-3.7) LVDs 4.36 cm (3.5-5.7) IVSd 0.76 cm (0.6-1.1) PWd 0.83 cm (0.6-1.1) EF (Teich) 52.10% FS 27.20% EDV (Teich) 179.30 mL TAPSE 1.83 (<1.7) ESV (Teich) 85.80 mL LV Diastology E Decel Time 247.00 (160-240 msec) E/A Ratio 0.4 MED E' 4.80 (< 7 cm/sec) E'/MED E' Ratio 8.46 (>14) LAT E' 4.50 (<10 cm/sec) E/LAT E' Ratio 9.02 (>14) Mitral Valve MV E Max Carlito. 41.00 (40-130 cm/s) MV A Velocity 99.00 (40-130 cm/s) E/A Ratio 0.41 MV Decel. Time 247.00 (160-240 ms) MV PHT 72.00 ms Left Ventricle Left atrium is mildly enlarged, left ventricle is normal size, mild concentric left ventricular hypertrophy, estimated ejection fraction 50% with no regional wall motion abnormality, grade 1 diastolic dysfunction seen without tissue Doppler evidence of raise left atrial pressure. Right Ventricle Right atrium and right ventricle are normal size and contractility. Aortic Valve Aortic valve is minimally thickened and fibrosed, there is no aortic stenosis or aortic insufficiency. Mitral Valve Mitral valve minimally thickened, there is mild mitral regurgitation. Tricuspid Valve Tricuspid grossly normal, there is mild tricuspid regurgitation, tricuspid regurgitation jet velocity is inadequate for calculation of the right ventricular systolic pressure. Pulmonic Valve Pulmonic valve is poorly visualized. Great Vessels Aortic root is normal size. Inferior vena cava is poorly visualized. Pericardium No significant pericardial effusion. Conclusion 1. Mildly enlarged atrium, normal left ventricular size, mild concentric left ventricular hypertrophy, estimated ejection fraction 50% with no regional wall motion abnormality, grade 1 diastolic dysfunction seen without tissue Doppler evidence of raise left atrial pressure. 2. Mild mitral and tricuspid rotation. 3. No significant pericardial effusion. 4. Inferior vena cava is poorly visualized Electronically signed by : Albert Rodriguez MD 03/23/2022 19:54:04
[2022-03-23 10:17] LABS: Basophils # 0.1 K/mm3 (0-0.2); Basophils % 1.3 % (0.1-2.0); Eosinophils # 0.2 K/mm3 (0.0-0.4); Eosinophils % 3.5 % (0.1-12.0); Hematocrit 44.2 % (37.0-47.0); Hemoglobin 15.6 g/dL (12.2-16.2); Lymphocytes # 2.3 K/mm3 (0.7-4.5); Lymphocytes % 39.5 % (10-50); Mean Corpuscular HGB Conc 35.2 g/dL (31.8-35.4); Mean Corpuscular Hemoglobin 33.8 pg (27.0-31.2); Mean Platelet Volume 10.5 fl (7.4-10.4); Monocytes # 0.7 K/mm3 (0.1-1.0); Monocytes % 11.7 % (1.7-9.3); Neutrophils # 2.6 K/mm3 (1.8-7.8); Platelet Count 141 K/mm3 (142-424); Red Cell Distribution Width 13.7 % (11.5-17.5); White Blood Count 5.9 K/mm3 (4.8-10.8)
[2022-03-23 10:40] LABS: Alanine Aminotransferase 26 U/L (12-78); Albumin Level 3.8 g/dl (3.5-5.0); Alkaline Phosphatase 51 U/L (38-126); Anion Gap 11.3 mEq/L (5-15); Aspartate Amino Transferase 35 U/L (14-36); Bilirubin,Indirect 0.4 mg/dL (0.0-0.9); Bilirubin,Total 0.4 mg/dl (0.2-1.3); Bilirubin,Unconjugated 0.6 mg/dL (0.0-1.1); Blood Urea Nitrogen 27 mg/dl (7-17); Calcium 9.5 mg/dl (8.4-10.2); Carbon Dioxide 31 mmol/L (22.0-30.0); Chloride 100 mmol/L (98-107); Cholesterol 194 mg/dl (140-200); Estimated Glomerular Filt Rate 43 ml/min (>60); GFR (African American) 52 ML/MIN (>60); Glucose 101 mg/dl (74-100); HDL Cholesterol 48 mg/dl (40-60); Magnesium 1.2 mg/dl (1.6-2.3); Potassium 3.3 mmoL/L (3.5-5.1); Sodium 139 mmol/L (136-145); Total Protein,Serum 6.3 g/dl (6.3-8.2); Triglycerides 345 mg/dl (30-150); VLDL Cholesterol 69 mg/dL (0-40)
[2022-03-23 10:51] LABS: Direct LDL Cholesterol 84.36 mg/dL (100-129)
[2022-03-23 10:55] LABS: Free T4 (Free Thyroxine) 1.09 ng/dl (0.78-2.19)
[2022-03-23 11:11] LABS: Thyroid Stimulating Hormone 4.54 uIU/mL (0.465-4.68)
== END ==
PROVIDERS: PCP Family Medicine; Visit Provider Nurse Practitioner Family
DX: I10 Essential (primary) hypertension (principal); I25.10 Atherosclerotic heart disease of native coronary artery without angina pectoris; R06.02 Shortness of breath; R42 Dizziness and giddiness; R60.0 Localized edema
CPT/HCPCS: 36415; 80048; 80061; 80076; 83735; 84439; 84443; 85025; 93306

== ENCOUNTER 2022-04-17 16:30 | Outpatient (RCR) | payer MEDICARE, OTHER, SELFPAY ==
--- NOTE | 2022-02-18 14:21 | HMH.PTOPWND ---
Rehab Outpt Wound Evaluation Rehab OP Wound Evaluation Start: 02/18/22 13:49 Freq: Status: Active Protocol: Document 02/18/22 14:15 [email or web address] (Rec: 02/18/22 14:21 PHORNE [id number]) Electronically Signed By Jigar Layton, PT 02/18/22 14:15 Subjective/History History History Pt is 86 yowf who presents with increased edema in B LE x ~ 3-4 mos with increased erythema and calor x ~ 1 wk. She reports taking prescribed abx, but I haven't started the lasix they gave me yet because I don't want to have to go to the bathroom that much. SHe reports pain intermittently in the lower legs, but did not rate. She does report hx of HTN and CKD. Subjective Subjective 2/4 tenderness to palpation to B lower legs, Increased fibrotic edema with overlying 1+ pitting edema. Anterior headley venous stasis dermatitis present. Increased SOA with exertion. Lymphedema Eval Classification of Lymphedema Secondary Lymphedema Yes: possible lipidema as well Stemmer's sign Stemmer's Sign yes Stage of Lymphedema Lymphedema stages Stage II (Pitting edema, increased fibrosis w/ decreased pitting) Skin Changes Dry Skin Yes Taut, Shiny Skin Yes Skin Folds Yes Redness Yes Brittle Uneven Nails Yes Discoloration of Skin Yes Other Changes Yes Affected Extremities Areas Affected by Lymphedema/Edema Right Lower Extremity,Left Lower Extremity Manual Lymphatic Drainage Treatment Area MLD Treatment Area Right Lower Extremity,Left Lower Extremity Wound Problems/Impairments Impairments Problems/Impairmments Palpation Tenderness,Impaired Range of Motion,Impaired Strength,Impaired Endurance, Impaired Transfers,Impaired Gait Pattern,Impaired Walking, Impaired Standing,Impaired Sitting,Impaired Dressing, Impaired Shower/Bathing, Impaired Household Care,
--- NOTE | 2022-03-17 15:54 | HMH.RHREAS ---
Rehab Reassessment Rehab OP Re-assessment Start: 03/17/22 15:51 Freq: Status: Active Protocol: Document 03/17/22 15:51 BRENDA (Rec: 03/17/22 15:54 BRENDA [id number]) Electronically Signed By Jigar Layton, PT 03/17/22 15:51 Rehab Re-assessment Subjective Subjective Pt reports, I can get in and out of the car easier and I went to the basement to do my washing for the first time in months the other day. Objective Objective Notes Circumferential measurements: R LE total -8.5 cm since IE. L LE total -5.5 cm since IE. Palpation tenderness to B lower legs 10/21. Assessment Progress Assessment Progressing as Expected Assessment Notes Pt has show significant improvement in her overall edeam to B LE. She has shown much improved ADLs over the past 1-2 wks. She is improving her ambulation as well. Needs to further decrease edema as able. Patient goals met ST,2,3 Goals Not Met LT,2,3,4 Revised Goals none Plan Plan Continue per initial POC. Frequency of Therapy 2 x/wk Duration of therapy 4 wks Time and Billing Re-Eval Time 14 Re-Eval Billing Units 1 PHYSICIAN CERTIFICATION: I certify the specified therapy services for Letty Dumont are required, authorized, and reviewed every 30 days.
== END 2022-04-17 16:35 | disposition home or self-care (01) ==
LOC: PT 16:30
PROVIDERS: PCP Family Medicine; Visit Provider Family Medicine
DX: I89.0 Lymphedema, not elsewhere classified (principal)
CPT/HCPCS: 97110; 97140; 97162; 97164; 97760

== ENCOUNTER → 2022-04-21 09:50 | Outpatient (CLI) | payer MEDICARE, OTHER, SELFPAY ==
[2022-04-21 11:33] LABS: Chloride 101 mmol/L (98-107)
[2022-04-21 11:34] LABS: Sodium 138 mmol/L (136-145)
[2022-04-21 11:36] LABS: Blood Urea Nitrogen 33 mg/dl (7-17); Estimated Glomerular Filt Rate 33 ml/min (>60); GFR (African American) 40 ML/MIN (>60)
[2022-04-21 11:37] LABS: Carbon Dioxide 31 mmol/L (22.0-30.0); Glucose 109 mg/dl (74-100)
== END ==
PROVIDERS: PCP Family Medicine; Visit Provider Nurse Practitioner
DX: I10 Essential (primary) hypertension (principal); I25.10 Atherosclerotic heart disease of native coronary artery without angina pectoris; R06.00 Dyspnea, unspecified; R60.0 Localized edema
CPT/HCPCS: 36415; 80048

== ENCOUNTER → 2022-05-11 14:47 | Outpatient (CLI) | payer MEDICARE, OTHER, SELFPAY | PROVIDERS: PCP Family Medicine; Visit Provider Nurse Practitioner | DX: G47.33 Obstructive sleep apnea (adult) (pediatric) (principal); R06.00 Dyspnea, unspecified; R60.0 Localized edema | CPT/HCPCS: G0399 ==

== ENCOUNTER 2022-11-04 15:00 | Outpatient (RCR) | payer MEDICARE, OTHER, SELFPAY ==
--- NOTE | 2022-08-04 13:20 | HMH.PTOPWND ---
Rehab Outpt Wound Evaluation Rehab OP Wound Evaluation Start: 08/04/22 13:01 Freq: Status: Active Protocol: Document 08/04/22 13:14 BRENDA (Rec: 08/04/22 13:20 PHORTRACI [id number]) E-signed By Jigar Layton PT Subjective/History History History Pt is 86 yowf who presents with c/o B LE edema for several years. She is unsure of when her edema started, but she has previously been a pt in this clinic recently. She presents today with edemawear compression garments in place to B LE. She reports no c/o pain, but feels her legs are a whole lot worse than they used to be. She has PMH of Morbid obesity, HTN, CKD, SOA with exertion. Subjective Subjective TTP 2/4 to B lower legs this date. 2+ pitting edema noted to B lwoer legs. Sensation to B LE remains intact. Mobility is significantly limited ith use of RW for ambulation. Lymphedema Eval Classification of Lymphedema Secondary Lymphedema Yes Stemmer's sign Stemmer's Sign no Stage of Lymphedema Lymphedema stages Stage II (Pitting edema, increased fibrosis w/ decreased pitting) Skin Changes Dry Skin Yes Taut, Shiny Skin Yes Brittle Uneven Nails Yes Discoloration of Skin Yes Other Changes Yes Affected Extremities Areas Affected by Lymphedema/Edema Right Lower Extremity,Left Lower Extremity Manual Lymphatic Drainage Treatment Area MLD Treatment Area Right Lower Extremity,Left Lower Extremity Wound Problems/Impairments Impairments Problems/Impairmments Palpation Tenderness,Impaired Endurance,Impaired Transfers, Impaired Gait Pattern,Impaired Walking,Impaired Standing, Impaired Recreational Activities,Increased Edema, Lymphedema Present,Subjective C/O Pain,Impaired Self Care/ Self Management Prognosis Rehab Potential Fair Clinical Impression Consistent with Diagnosis Yes Short Term Goals
--- NOTE | 2022-09-02 16:26 | HMH.RHREAS ---
Rehab Reassessment Rehab OP Re-assessment Start: 09/02/22 16:20 Freq: Status: Active Protocol: Document 09/02/22 16:21 PHORTRACI (Rec: 09/02/22 16:25 PHORNE [id number]) E-signed By Jigar Layton, PT Rehab Re-assessment Subjective Subjective Pt reports she is having less pain overall, but B LE remain tender to palpation int the lower legs. Objective Objective Notes B LE with contineud 2+ pitting edema from mid-calf distal. Circumferential measurements: R LE total 223.7 cm which is - 12.3 cm since initial eval. L LE total 220.2 cm which is -9. 1 cm since initial eval Assessment Progress Assessment Progressing as Expected Assessment Notes Pt with significant decrease in overall edema as noted per decreased circumferential measurements in B LE. Continued tenderness and pitting are present, but pain is decreasing overall also. Needs to improve mobility and reduce pitting edema. Patient goals met ST,[address] LT,2,3,4,5 Revised Goals none Plan Plan Continue per initial POC. Frequency of Therapy 2 x/wk Duration of therapy 4 wks Time and Billing Re-Eval Time 14 Re-Eval Billing Units 1 PHYSICIAN CERTIFICATION: I certify the specified therapy services for Letty Dumont are required, authorized, and reviewed every 30 days.
--- NOTE | 2022-10-06 15:07 | HMH.RHREAS ---
Rehab Reassessment Rehab OP Re-assessment Start: 09/02/22 16:20 Freq: Status: Active Protocol: Document 10/06/22 14:56 PHOBAYLEE (Rec: 10/06/22 15:07 PHORTRACI [id number]) E-signed By Jigar Layton, PT Rehab Re-assessment Subjective Subjective Pt reports continued tenderness to palpation in B lower legs. I don't know why they feel so swollen. Objective Objective Notes B LE with continued 2+ pitting edema from mid-calf distal, but also increased fibrotic edema this date. Circumferential measurements: R LE total 237.6 cm which is + 13.9 cm since last reassessment. L LE total 234.1 cm which is +13.9 cm since last reassessment. Assessment Progress Assessment Slower Than Expected Assessment Notes Pt has had a significant increase in edema since last reassessment date. No clear reason noted at this time for increased edema and palpation tenderness. Discussed continued mobility with pt and will continue MLD for edema control. Patient goals met ST,[address] LT,2,3,4,5 Revised Goals none Plan Plan Continue per initial POC. Frequency of Therapy 2 x/wk Duration of therapy 4 wks Time and Billing Re-Eval Time 16 Re-Eval Billing Units 1 PHYSICIAN CERTIFICATION: I certify the specified therapy services for Letty Dumont are required, authorized, and reviewed every 30 days.
== END 2022-11-04 15:05 | disposition home or self-care (01) ==
LOC: PT 15:00
PROVIDERS: PCP Family Medicine; Visit Provider Physician Assistant
DX: R60.0 Localized edema (principal)
CPT/HCPCS: 97140; 97162; 97164

== ENCOUNTER 2023-03-26 15:00 | Outpatient (RCR) | payer MEDICARE, OTHER, SELFPAY ==
--- NOTE | 2023-01-19 15:49 | HMH.OTOPEV ---
OT Inpatient Evaluation Rehab OT Outpatient Eval Start: 01/19/23 15:18 Freq: Status: Active Protocol: Document 01/19/23 15:20 JACOBAIME (Rec: 01/19/23 15:33 PHUCZAHEER [id number]) E-signed By Claudia Montgomery, OT Outpatient Therapy Subjective History Subjective History 87-year-old female with bilateral carpal tunnel syndrome, right de Quervain's tenosynovitis. EMG with mild to moderate carpal tunnel. Under sterile conditions today I injected the right carpal tunnel via palmar approach with 1 mL of 1% lidocaine without epinephrine and 1 mL of 40 mg/mL Kenalog. No radicular symptoms noted. Patient tolerated the procedure well. Under sterile conditions today I injected the left carpal tunnel via palmar approach with 1 mL of 1% lidocaine without epinephrine and 1 mL of 40 mg/mL Kenalog. No radicular symptoms noted. Patient tolerated the procedure well. Under sterile conditions today I injected the right radial styloid via radial approach with 1 mL of 1% lidocaine without epinephrine and 1 mL of 40 mg/mL Kenalog. No radicular symptoms noted. Patient tolerated the procedure well. Patient stated that she recieved cortisone shots in the right hand >1 year ago and everything felt fine. However B hands have been bothering her for the past three weeks. Patient uses a RW or cane daily for ambulation. Educated Patient to be cautions when applying all weight throughout RW to decrease CTS in B hands and de Quervain's tenosynovitis. 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
== END 2023-03-26 15:05 | disposition home or self-care (01) ==
LOC: OT 15:00
PROVIDERS: PCP Family Medicine; Visit Provider Orthopaedic Surgery
DX: G56.03 Carpal tunnel syndrome, bilateral upper limbs (principal)
CPT/HCPCS: 97010; 97014; 97035; 97110; 97140; 97164; 97165; 97530; G0283

== ENCOUNTER → 2023-07-21 14:11 | Outpatient (CLI) | payer MEDICARE, OTHER, SELFPAY ==
[2023-07-21 14:57] LABS: Basophils % 0.5 % (0.1-2.0); Eosinophils # 0.1 K/mm3 (0.0-0.4); Hemoglobin 15.4 g/dL (12.2-16.2); Lymphocytes # 1.8 K/mm3 (0.7-4.5); Lymphocytes % 28.5 % (10-50); Mean Corpuscular HGB Conc 33.5 g/dL (31.8-35.4); Mean Corpuscular Hemoglobin 30.9 pg (27.0-31.2); Mean Corpuscular Volume 92.5 fl (81-99); Monocytes # 0.6 K/mm3 (0.1-1.0); Monocytes % 9.6 % (1.7-9.3); Neutrophils # 3.8 K/mm3 (1.8-7.8); Neutrophils % 60.3 % (37.0-80.0); Platelet Count 153 K/mm3 (142-424); Red Blood Count 4.98 M/mm3 (4.20-5.40); Red Cell Distribution Width 13.7 % (11.5-17.5); White Blood Count 6.2 K/mm3 (4.8-10.8)
[2023-07-21 15:55] LABS: Alanine Aminotransferase 26 U/L (12-78); Albumin Level 3.8 g/dl (3.5-5.0); Alkaline Phosphatase 50 U/L (38-126); Aspartate Amino Transferase 29 U/L (14-36); Bilirubin,Direct 0.2 mg/dl (0.0-0.4); Bilirubin,Indirect 0.5 mg/dL (0.0-0.9); Bilirubin,Total 0.7 mg/dl (0.2-1.3); Bilirubin,Unconjugated 0.5 mg/dL (0.0-1.1); Blood Urea Nitrogen 50 mg/dl (7-17); Calcium 10.3 mg/dl (8.4-10.2); Carbon Dioxide 36 mmol/L (22.0-30.0); Chloride 93 mmol/L (98-107); Chol/HDL Ratio 2.5 (1-3.5); Cholesterol 106 mg/dl (140-200); Estimated Glomerular Filt Rate 18 ml/min (>60); GFR (African American) 22 ML/MIN (>60); Glucose 122 mg/dl (74-100); HDL Cholesterol 42 mg/dl (40-60); Magnesium 1.6 mg/dl (1.6-2.3); Sodium 139 mmol/L (136-145); Total Protein,Serum 6.2 g/dl (6.3-8.2); Triglycerides 287 mg/dl (30-150); VLDL Cholesterol 57 mg/dL (0-40)
[2023-07-21 16:06] LABS: Direct LDL Cholesterol 38.61 mg/dL (100-129)
[2023-07-21 16:11] LABS: Free T4 (Free Thyroxine) 1.39 ng/dl (0.78-2.19)
[2023-07-21 16:27] LABS: Thyroid Stimulating Hormone 2.76 uIU/mL (0.465-4.68)
== END ==
PROVIDERS: Physician Assistant; PCP Family Medicine; Visit Provider Nurse Practitioner
DX: I10 Essential (primary) hypertension (principal); I48.91 Unspecified atrial fibrillation; I51.89 Other ill-defined heart diseases; N18.30 Chronic kidney disease, stage 3 unspecified; R06.00 Dyspnea, unspecified; R26.81 Unsteadiness on feet; R42 Dizziness and giddiness; R60.0 Localized edema; R94.31 Abnormal electrocardiogram [ECG] [EKG]
CPT/HCPCS: 36415; 80048; 80061; 80076; 83735; 84439; 84443; 85025; 93225

== ENCOUNTER → 2023-07-26 13:13 | Outpatient (CLI) | payer MEDICARE, OTHER, SELFPAY ==
[2023-07-26 14:50] LABS: Chloride 96 mmol/L (98-107); Sodium 140 mmol/L (136-145)
[2023-07-26 14:51] LABS: Potassium 3.8 mmoL/L (3.5-5.1)
[2023-07-26 14:53] LABS: Blood Urea Nitrogen 34 mg/dl (7-17)
[2023-07-26 14:54] LABS: Anion Gap 12.8 mEq/L (5-15); Calcium 9.5 mg/dl (8.4-10.2); Carbon Dioxide 35 mmol/L (22.0-30.0); Estimated Glomerular Filt Rate 27 ml/min (>60); GFR (African American) 32 ML/MIN (>60); Glucose 114 mg/dl (74-100)
== END ==
PROVIDERS: PCP Family Medicine; Visit Provider Physician Assistant
DX: I10 Essential (primary) hypertension (principal); R06.02 Shortness of breath; R42 Dizziness and giddiness; R94.31 Abnormal electrocardiogram [ECG] [EKG]
CPT/HCPCS: 36415; 80048

== ENCOUNTER → 2023-09-06 08:35 | Outpatient (CLI) | payer MEDICARE, OTHER, SELFPAY ==
--- NOTE | 2023-09-06 08:44 | US_ITS ---
FINAL REPORT CLINICAL HISTORY: NAUSEA,RUQ PAIN FINDINGS: Sonographic images of the right upper quadrant were obtained. The pancreas is partially obscured.The liver has an unremarkable appearance. There are multiple small gallstones. Common duct is normal at 4 mm. There is no evidence of biliary ductal dilatation. There is mild right renal cortical thinning. A 7.6 cm right renal cyst is noted. IMPRESSION: Multiple gallstones. Normal common duct. Reviewed, Interpreted and Dictated by Chas Torres III, MD Transcribed by Marlene Cornelius Authenticated and [facility]
== END ==
PROVIDERS: PCP Family Medicine; Visit Provider Family Medicine
DX: R10.11 Right upper quadrant pain (principal); R11.0 Nausea
CPT/HCPCS: 76705

== ENCOUNTER 2023-11-03 06:13 | Day surgery (SDC) | payer MEDICARE, OTHER, SELFPAY ==
[2023-11-01 11:46] VITALS: BMI 43.4
[2023-11-03 06:39] VITALS: BP 172/80; PULSE 60; RESP 18; TEMP 36.7; O2SAT 96
--- NOTE | 2023-11-03 09:24 | SUR.OPER ---
0854- Local procedure in the OR. Start vital signs taken by donna ordonez 155/70 95 @3L 70hr 16RR
--- NOTE | 2023-11-03 09:50 | EXP.OP.NOTE ---
Date of procedure: 11/03/23 Pre-op Diagnosis:: Left carpal tunnel syndrome Post-op Diagnosis:: Same Procedure performed:: Left endoscopic carpal tunnel release Surgeon:: Ry Meza DO Anesthesia: local and other Estimated blood loss (mL): 0 Clinical Note:: Wide-awake local anesthesia no tourniquet (WALANT) Operative findings:: See dictation Operative note:: Patient was identified preoperatively. Left wrist marked with yes my initials. After timeout was performed she underwent a local block at the wrist with 1% lidocaine with epinephrine 17 cc block performed. This block was allowed to sit for 30 minutes. Then transported to operative suite placed upon the operating table left upper extremity prepped and draped normal sterile fashion once prepped and draped final operative timeout performed to identify proper patient procedure and extremity. Everyone involved the case agreed. No counter indications to beginning. Marking pen was used to brianna plan incision over the volar wrist. Pickups were used to confirm adequate localized anesthesia. Skin knife was used incise through skin careful dissection was taken down to identify the most proximal aspect transverse carpal ligament. Retractors were placed. The dilating sled was then placed into the carpal tunnel followed by the left-sided 4 mm sled into the carpal tunnel. Camera is then placed in the sled and the transverse carpal ligament clearly seen superiorly within the [id number]. Rasp was used to remove soft tissue from the undersurface of the transverse carpal ligament probe was used to probe the most distal aspect the transverse carpal ligament. And then the curved blade from the segue endoscopic carpal tunnel was introduced into the sled and release of the transverse carpal ligament was performed under direct visualization. Copious irrigation wound performed skin closed with nylon stitch sterile hand dressing placed patient is awake during the procedure tolerated procedure well. Taken to stepdown in stable condition Condition: stable Disposition: PACU Complications:: None apparent
[2023-11-03 10:08] VITALS: BP 136/71; PULSE 70; RESP 16; TEMP 36.2; O2SAT 97
== END 2023-11-03 10:10 | disposition home or self-care (01) ==
PROVIDERS: PCP Family Medicine; Visit Provider Orthopaedic Surgery
PROC: (CPT 64721; principal; 2023-11-03 08:45)
DX: G56.02 Carpal tunnel syndrome, left upper limb (principal)
CPT/HCPCS: 64721

== ENCOUNTER 2023-11-12 13:06 | Outpatient (CLI) | payer MEDICARE, OTHER, SELFPAY ==
[2023-11-12 13:30] LABS: Basophils # 0.1 K/mm3 (0-0.2); Basophils % 0.9 % (0.1-2.0); Eosinophils # 0.3 K/mm3 (0.0-0.4); Eosinophils % 4.5 % (0.1-12.0); Hematocrit 43.3 % (37.0-47.0); Hemoglobin 14.6 g/dL (12.2-16.2); Lymphocytes # 2.1 K/mm3 (0.7-4.5); Lymphocytes % 34.5 % (10-50); Mean Corpuscular HGB Conc 33.8 g/dL (31.8-35.4); Mean Corpuscular Hemoglobin 32.1 pg (27.0-31.2); Mean Corpuscular Volume 95.1 fl (81-99); Mean Platelet Volume 9.6 fl (7.4-10.4); Monocytes # 0.6 K/mm3 (0.1-1.0); Monocytes % 10.5 % (1.7-9.3); Neutrophils % 49.6 % (37.0-80.0); Platelet Count 134 K/mm3 (142-424); Red Blood Count 4.55 M/mm3 (4.20-5.40); Red Cell Distribution Width 13.7 % (11.5-17.5)
[2023-11-12 14:02] LABS: Chloride 101 mmol/L (98-107); Sodium 138 mmol/L (136-145)
[2023-11-12 14:04] LABS: Alanine Aminotransferase 27 U/L (12-78); Alkaline Phosphatase 62 U/L (38-126); Aspartate Amino Transferase 34 U/L (14-36); Bilirubin,Direct 0.1 mg/dl (0.0-0.4); Bilirubin,Indirect 0.5 mg/dL (0.0-0.9); Bilirubin,Total 0.6 mg/dl (0.2-1.3); Bilirubin,Unconjugated 0.5 mg/dL (0.0-1.1); Blood Urea Nitrogen 25 mg/dl (7-17); Carbon Dioxide 30 mmol/L (22.0-30.0); Estimated Glomerular Filt Rate 39 ml/min (>60); GFR (African American) 47 ML/MIN (>60)
[2023-11-12 14:05] LABS: Albumin Level 3.8 g/dl (3.5-5.0); Calcium 9.8 mg/dl (8.4-10.2); Chol/HDL Ratio 3.8 (1-3.5); Cholesterol 124 mg/dl (140-200); Glucose 94 mg/dl (74-100); HDL Cholesterol 33 mg/dl (40-60); Magnesium 1.5 mg/dl (1.6-2.3); Total Protein,Serum 6.2 g/dl (6.3-8.2); Triglycerides 276 mg/dl (30-150); VLDL Cholesterol 55 mg/dL (0-40)
[2023-11-12 14:16] LABS: Direct LDL Cholesterol 56.29 mg/dL (100-129)
[2023-11-12 14:21] LABS: Free T4 (Free Thyroxine) 1.39 ng/dl (0.78-2.19)
[2023-11-12 14:35] LABS: Thyroid Stimulating Hormone 1.46 uIU/mL (0.465-4.68)
== END 2023-11-12 23:59 ==
LOC: LAB 13:07
PROVIDERS: PCP Family Medicine; Visit Provider Physician Assistant
DX: I10 Essential (primary) hypertension (principal); I48.91 Unspecified atrial fibrillation; I51.89 Other ill-defined heart diseases; N18.30 Chronic kidney disease, stage 3 unspecified; R06.00 Dyspnea, unspecified; R42 Dizziness and giddiness; R60.0 Localized edema; R94.31 Abnormal electrocardiogram [ECG] [EKG]
CPT/HCPCS: 36415; 80048; 80061; 80076; 83735; 84439; 84443; 85025

== ENCOUNTER 2023-11-12 14:40 | Outpatient (CLI) | payer MEDICARE, OTHER, SELFPAY ==
--- NOTE | 2023-11-12 14:48 | XR_ITS ---
FINAL REPORT CLINICAL HISTORY: LOW BACK PAIN COMPARISON: None FINDINGS: LUMBOSACRAL SPINE SERIES Five views of the lumbosacral spine were obtained. There is no fracture present. There is no malalignment. There are prominent anterior osteophytes at L2-3, L3-4, L4-5, and L5-S1. Disc spaces are well-preserved. IMPRESSION: No acute process. Prominent anterior osteophytes. Reviewed, Interpreted and Dictated by David Valles MD Transcribed by Mayte Ann Authenticated and . [facility]
== END 2023-11-12 23:59 ==
LOC: RAD 14:42
PROVIDERS: PCP Family Medicine; Visit Provider Family Medicine
DX: M54.50 Low back pain, unspecified (principal); R06.00 Dyspnea, unspecified; I48.91 Unspecified atrial fibrillation; R42 Dizziness and giddiness; R60.0 Localized edema; R94.31 Abnormal electrocardiogram [ECG] [EKG]; N18.30 Chronic kidney disease, stage 3 unspecified
CPT/HCPCS: 36415; 72110; 80048; 80061; 80076; 83735; 84439; 84443; 85025

== ENCOUNTER 2023-12-23 15:00 | Outpatient (RCR) | payer MEDICARE, OTHER, SELFPAY ==
--- NOTE | 2023-11-26 11:47 | HMH.PTOPWND ---
Rehab Outpt Wound Evaluation Rehab OP Wound Evaluation Start: 11/26/23 11:29 Freq: Status: Active Protocol: Document 11/26/23 11:32 BRENDA (Rec: 11/26/23 11:47 PHOBAYLEE [id number]) E-signed By Jigar Layton, PT Subjective/History History History This is the initial PT eval for Letty Dumont, 88 yowf who presents with chronic B LE lymphedema for many years, worse for several mos now. She reports increased tenderness to tounch and increased stiffness in B lower legs. R LE presents worse then L LE this date. She has PMH of CKD, breast cancer with B mastectomy, heart disease, HLD , HTN, Gall stones, Appy, recent CTS release L hand, INOCENCIO . Subjective Subjective She reports no c/o pain at this time. TTP 2/4 to B lower legs in the gaiter area. 1+ pitting and moderate fibrotic edema to B LE noted. Moderate blanchable erythema noted to B lower legs. with increased skin dryness throughout. New diagnosis of cancer in past 12 No months? Lymphedema Eval Classification of Lymphedema Secondary Lymphedema Yes Stemmer's sign Stemmer's Sign yes Stage of Lymphedema Lymphedema stages Stage II (Pitting edema, increased fibrosis w/ decreased pitting) Skin Changes Dry Skin Yes Skin Folds Yes Redness Yes: blanchable Brittle Uneven Nails Yes Discoloration of Skin Yes Other Changes Yes Affected Extremities Areas Affected by Lymphedema/Edema Right Lower Extremity,Left Lower Extremity Manual Lymphatic Drainage Treatment Area MLD Treatment Area Right Lower Extremity,Left Lower Extremity Wound Problems/Impairments Impairments Problems/Impairmments Palpation Tenderness,Impaired Range of Motion,Impaired Strength,Impaired Endurance, Impaired Transfers,Impaired Gait Pattern,Impaired Walking, Impaired Standing,Impaired Sitting,Impaired Dressing, Impaired Shower/Bathing, Impaired Household Care, Increased Edema,Lymphedema Present,Subjective C/O Pain, Impaired Self Care/Self Management Prognosis Rehab Potential Good Clinical Impression Consistent with Diagnosis Yes Short Term Goals Number of Weeks 2 Decreased Palpation Tenderness Yes: 1/4 B lower legs Decrease Edema Yes: No pitting edema Patient to Understand Lymphedema Yes Treatment and Exercises Decrease Girth Measurments by (cm) Yes: B LE by 5 cm total ea Detention Goals Number of Weeks 4 Decreased Palpation Tenderness Yes: 0/4 B lower legs Increase Ability to Walk Yes Decrease Lymphedema Yes: minimal fibrotic edema Patient to be Ind w/ HEP Yes Patient to be Ind w/ [place] Yes Compression Garments Patient to Adhere Lymphedema Precautions Yes Decrease Girth Measurments by (cm) Yes: B LE total by 15 cm ea Outpatient Therapy Plan of Care Treatment Plan May Include Therapeutic Exercise Including Home Yes Exercise Program Manual Therapy Techniques Yes Neuromuscular Re-education Yes Therapeutic Activities to Return to Yes Previous Functional/Work Level ADL/Self Care Education Yes Orthotics/Bracing/Splinting Yes Manual Lymphatic Drainage Yes Eval/Re-Eval Yes Frequency Times per week 2 Duration Number of Weeks 4 Addendums This patient is a candidate for social No or vocational rehab? Patient/Guardian verbally acknowledges Yes understanding of treatment program and consents to further treatment? Patient/Guardian verbally acknowledges Yes understanding of diagnosis, prognosis and goals for treatment? Eval Complexity PT Charges 34665 - High Complexity PHYSICIAN CERTIFICATION: I certify the specified therapy services for Letty Dumont are required, authorized, and reviewed every 30 days.
== END 2023-12-23 15:05 | disposition home or self-care (01) ==
LOC: PT 15:00
PROVIDERS: PCP Family Medicine; Visit Provider Nurse Practitioner
DX: I89.0 Lymphedema, not elsewhere classified (principal)
CPT/HCPCS: 97140; 97163

== ENCOUNTER 2024-01-05 08:50 | Day surgery (SDC) | payer MEDICARE, OTHER, SELFPAY ==
[2024-01-05] VITALS (8 sets, daily range): BP systolic 155–205; BP diastolic 31–84; PULSE 63–71; RESP 16–18; TEMP 36.3–36.9; O2SAT 92–97; BMI 40.7
--- NOTE | 2024-01-05 11:02 | P.OP_ITS ---
Date of procedure: 01/05/24 Pre-op Diagnosis:: Right carpal tunnel syndrome Post-op Diagnosis:: Same Procedure performed:: Right endoscopic carpal tunnel release Surgeon:: Ry Meza DO Anesthesia: other (Wide-awake local anesthesia no tourniquet) Estimated blood loss (mL): 0 Operative findings:: See dictation Operative note:: Patient was identified in preoperative holding. Timeout was performed after which a field block was performed with 1% lidocaine with epinephrine and 1 cc of sodium bicarb per 10 cc of anesthesia to provide a field block in the area of endoscopic carpal tunnel release. Patient tolerated block well she was allowed to sit for 30 minutes and then back to the operating room. In the operating room the right upper extremity was prepped and draped normal sterile fashion. Once prepped and draped final operative timeout performed was to identify proper patient procedure and extremity. Everyone involved the case agreed. There is no count indication to beginning. Marking pen was used to brianna plan incision over the volar wrist. Adequate anesthesia was confirmed by pinching with a pickups prior to incision which confirmed adequate anesthesia. Skin knife is used to incise the skin. Retractors were placed and dissection was taken down to identify the most proximal aspect the transverse carpal ligament. The dilators were then selected from the endoscopic carpal tunnel segue set. Followed by the right sided 4.0 mm sled. Then camera was placed into the carpal tunnel the transverse carpal ligament clearly seen superiorly within the incision. Probe was used to identify the most distal aspect the transverse carpal ligament rasp was used to remove soft tissue from the undersurface transverse carpal ligament and the hook blade was then used to open the transverse carpal ligament. This was all d irectly visualized with a camera. Once complete irrigation of the wound was performed skin closed with nylon stitch sterile hand dressing placed. Patient is awake through the procedure tolerated very well taken to stepdown in stable condition Condition: stable Disposition: PACU Complications:: None apparent
== END 2024-01-05 11:30 | disposition home or self-care (01) ==
PROVIDERS: PCP Family Medicine; Visit Provider Orthopaedic Surgery
PROC: (CPT 64721; principal; 2024-01-05 10:00)
DX: G56.01 Carpal tunnel syndrome, right upper limb (principal); Z79.899 Other long term (current) drug therapy
CPT/HCPCS: 29848

== ENCOUNTER 2024-04-21 14:00 | Outpatient (RCR) | payer MEDICARE, OTHER, SELFPAY ==
--- NOTE | 2024-03-22 11:35 | HMH.PTOPWND ---
Rehab Outpt Wound Evaluation Rehab OP Wound Evaluation Start: 03/22/24 11:24 Freq: Status: Active Protocol: Document 03/22/24 11:24 PHORTRACI (Rec: 03/22/24 11:35 PHORTRACI Laptop) E-signed By Jigar Layton, PT Subjective/History History History This is the initial PT eval for Letty Dumont, 88 yowf who presents with c/o worsening B LE edema x ~ 6 mos. She has long hx of chronic B LE edema for many years, but has recently seen an increase. She reports, I had carpal tunnel surgery on both of my hands this year and it made them worse and I can't put my compression stockings on by myself. She reports increased tenderness to palpation in B lower legs, but no pain outright at this time. She has PMH of HTN, CKD (stage 3), OA , Gout, Chronic LBP, DDD, CVI, vitamin D deficiency, breast cancer, basal cell carcinoma. Subjective Subjective Pt presents with 2+ pitting edema and moderate fibrotic edema in B LE, R worse than L. Mild blanchable erythema noted to B lower legs. 2/4 TTP to B lower legs in the gaiter area. New diagnosis of cancer in past 12 No months? Lymphedema Eval Classification of Lymphedema Secondary Lymphedema Yes Stemmer's sign Stemmer's Sign yes Stage of Lymphedema Lymphedema stages Stage III (Non-pitting, fibrosis and sclerosis, skin changes) Skin Changes Dry Skin Yes Taut, Shiny Skin Yes Skin Folds Yes Papillomatosis Yes Redness Yes Brittle Uneven Nails Yes Discoloration of Skin Yes Peau D'Regina Yes Other Changes Yes Affected Extremities Areas Affected by Lymphedema/Edema Right Lower Extremity,Left Lower Extremity Lower Extremity Measurements Right MTP Measurement (cm) 27.6 Heel Measurement (cm) 39.5 10 cm Proximal to Lateral Malleoli 41.0 Measurement (cm) 20 cm Proximal to Lateral Malleoli 48.6 Measurement (cm) 30 cm Proximal to Lateral Malleoli 47.8 Measurement (cm) 40 cm Proximal to Lateral Malleoli 51.3 Measurement (cm) 50 cm Proximal to Lateral Malleoli 0 Measurement (cm) 60 cm Proximal to Lateral Malleoli 0 Measurement (cm) Lower Extremity Measurement Total (cm) 255.8 Left MTP Measurement (cm) 27.0 Heel Measurement (cm) 39.2 10 cm Proximal to Lateral Malleoli 39.3 Measurement (cm) 20 cm Proximal to Lateral Malleoli 43.3 Measurement (cm) 30 cm Proximal to Lateral Malleoli 45.4 Measurement (cm) 40 cm Proximal to Lateral Malleoli 49.9 Measurement (cm) 50 cm Proximal to Lateral Malleoli 0 Measurement (cm) 60 cm Proximal to Lateral Malleoli 0 Measurement (cm) Lower Extremity Measurement Total (cm) 244.1 Manual Lymphatic Drainage Treatment Area MLD Treatment Area Right Lower Extremity,Left Lower Extremity Wound Problems/Impairments Impairments Problems/Impairmments Palpation Tenderness,Impaired Strength,Impaired Endurance, Impaired Transfers,Impaired Gait Pattern,Impaired Walking, Impaired Standing,Impaired Sitting,Impaired Dressing, Impaired Shower/Bathing, Impaired Household Care, Increased Edema,Lymphedema Present,Impaired Self Care/ Self Management Prognosis Rehab Potential Good Comment Skilled therapy services are indicated to reduce B LE edema and aid pt return to prior level of function. Clinical Impression Consistent with Diagnosis Yes Short Term Goals Number of Weeks 2 Decreased Palpation Tenderness Yes: 1/4 B LE Decrease Edema Yes: 1+ pitting edema B LE Patient to Understand Lymphedema Yes Treatment and Exercises Decrease Girth Measurments by (cm) Yes: B LE total by 5 cm ea Holistic Nutritionist Goals Number of Weeks 4 Decreased Palpation Tenderness Yes: 0/4 B LE Decrease Edema Yes: no pitting edema B LE Decrease Lymphedema Yes: mild fibrotic edema B LE Patient to be Ind w/ HEP Yes Patient to be Ind w/ Donning/Friedens Yes Compression Garments Patient to Adhere Lymphedema Precautions Yes Decrease Girth Measurments by (cm) Yes: B LE total by 20 cm ea Outpatient Therapy Plan of Care Treatment Plan May Include Therapeutic Exercise Including Home Yes Exercise Program Manual Therapy Techniques Yes Neuromuscular Re-education Yes Therapeutic Activities to Return to Yes Previous Functional/Work Level ADL/Self Care Education Yes Orthotics/Bracing/Splinting Yes Vasopneumatic Compression Pump Yes Manual Lymphatic Drainage Yes Eval/Re-Eval Yes Frequency Times per week 2 Duration Number of Weeks 4 Addendums This patient is a candidate for social No or vocational rehab? Patient/Guardian verbally acknowledges Yes understanding of treatment program and consents to further treatment? Patient/Guardian verbally acknowledges Yes understanding of diagnosis, prognosis and goals for treatment? Eval Complexity PT Charges 85298 - High Complexity PHYSICIAN CERTIFICATION: I certify the specified therapy services for Letty Colbert Dumont are required, authorized, and reviewed every 30 days.
== END 2024-04-21 14:05 | disposition home or self-care (01) ==
LOC: PT 14:00
PROVIDERS: Visit Provider Family Medicine
DX: I89.0 Lymphedema, not elsewhere classified (principal)
CPT/HCPCS: 97140; 97163

== ENCOUNTER 2024-07-19 10:00 | Outpatient (RCR) | payer MEDICARE, OTHER, SELFPAY | END 2024-07-19 23:59 | disposition home or self-care (01) | LOC: OT 10:00 | PROVIDERS: Visit Provider Physician Assistant | DX: G56.03 Carpal tunnel syndrome, bilateral upper limbs (principal); Z98.890 Other specified postprocedural states | CPT/HCPCS: 97010; 97014; 97035; 97110; 97140; 97164; 97165; 97530; 97763; G0283 ==

== ENCOUNTER 2024-07-19 11:00 | Outpatient (RCR) | payer MEDICARE, OTHER, SELFPAY ==
--- NOTE | 2024-06-20 15:58 | HMH.PTOPWND ---
Rehab Outpt Wound Evaluation Rehab OP Wound Evaluation Start: 06/20/24 15:40 Freq: Status: Active Protocol: Document 06/20/24 15:40 BRENDA (Rec: 06/20/24 15:58 PHOBAYLEE [id number]) E-signed By Jigar Layton, PT Subjective/History History History This is the initial PT eval for Letty Dumont, 88 yowf who presents with c/o B LE edema increased x ~ 2-3 wks with insidious worsening of symptoms. She is well known to this clinic and typically improves well with treatment, but has difficulty donning her compression garments independently at home. She reports no pain at rest, but increased tenderness with palpation B. She reports PMH of B carpal tunnel release recently, INOCENCIO, CKD, heart disease, breast cancer with B mastectomy, HTN, and B foot neuropathy. Subjective Subjective Pt reports pain is currently 0 /10 in B LE. TTP 2/4 to B lower legs. Mild erythema noted to anterior headley B. 3+ pitting edema noted to B lower legs from mid-calf distally. New diagnosis of cancer in past 12 No months? Lymphedema Eval Classification of Lymphedema Secondary Lymphedema Yes Stemmer's sign Stemmer's Sign yes Stage of Lymphedema Lymphedema stages Stage II (Pitting edema, increased fibrosis w/ decreased pitting) Skin Changes Dry Skin Yes Taut, Shiny Skin Yes Skin Folds Yes Papillomatosis Yes Redness Yes Brittle Uneven Nails Yes Discoloration of Skin Yes Other Changes Yes Affected Extremities Areas Affected by Lymphedema/Edema Right Lower Extremity,Left Lower Extremity Lower Extremity Measurements Right MTP Measurement (cm) 27.1 Heel Measurement (cm) 37.7 10 cm Proximal to Lateral Malleoli 38.3 Measurement (cm) 20 cm Proximal to Lateral Malleoli 47.4 Measurement (cm) 30 cm Proximal to Lateral Malleoli 47.6 Measurement (cm) 40 cm Proximal to Lateral Malleoli 45.5 Measurement (cm) 50 cm Proximal to Lateral Malleoli 0 Measurement (cm) 60 cm Proximal to Lateral Malleoli 0 Measurement (cm) Lower Extremity Measurement Total (cm) 243.6 Left MTP Measurement (cm) 26.3 Heel Measurement (cm) 39.4 10 cm Proximal to Lateral Malleoli 38.0 Measurement (cm) 20 cm Proximal to Lateral Malleoli 44.5 Measurement (cm) 30 cm Proximal to Lateral Malleoli 44.4 Measurement (cm) 40 cm Proximal to Lateral Malleoli 45.0 Measurement (cm) 50 cm Proximal to Lateral Malleoli 0 Measurement (cm) 60 cm Proximal to Lateral Malleoli 0 Measurement (cm) Lower Extremity Measurement Total (cm) 237.6 Manual Lymphatic Drainage Treatment Area MLD Treatment Area Right Lower Extremity,Left Lower Extremity Wound Problems/Impairments Impairments Problems/Impairmments Palpation Tenderness,Impaired Endurance,Impaired Gait Pattern,Impaired Walking, Impaired Standing,Impaired Sitting,Impaired Household Care,Increased Edema, Lymphedema Present,Impaired Self Care/Self Management Prognosis Rehab Potential Good Comment skilled therapy is indicated to decrease overall edema burden and return pt to PLOF. Clinical Impression Consistent with Diagnosis Yes Short Term Goals Number of Weeks 2 Decreased Palpation Tenderness Yes: 1/4 B lower legs Decrease Edema Yes: 2+ pitting edema to B lower legs Patient to Understand Lymphedema Yes Treatment and Exercises Decrease Girth Measurments by (cm) Yes: B LE total by 5 cm ea Boiler Shop Supervisor Goals Number of Weeks 4 Decreased Palpation Tenderness Yes: B lower legs 0/4 Decrease Edema Yes: 1+ pitting edema to B lower legs Decrease Lymphedema Yes: Minimal fibrotic edema to B lower legs Patient to be Ind w/ HEP Yes Patient to be Ind w/ Donning/Alleene Yes Compression Garments Patient to Adhere Lymphedema Precautions Yes Decrease Girth Measurments by (cm) Yes: B LE total by 20 cm ea. Outpatient Therapy Plan of Care Treatment Plan May Include Therapeutic Exercise Including Home Yes Exercise Program Manual Therapy Techniques Yes Neuromuscular Re-education Yes Therapeutic Activities to Return to Yes Previous Functional/Work Level ADL/Self Care Education Yes Orthotics/Bracing/Splinting Yes Vasopneumatic Compression Pump Yes Manual Lymphatic Drainage Yes Eval/Re-Eval Yes Frequency Times per week 2 Duration Number of Weeks 4 Addendums This patient is a candidate for social No or vocational rehab? Patient/Guardian verbally acknowledges Yes understanding of treatment program and consents to further treatment? Patient/Guardian verbally acknowledges Yes understanding of diagnosis, prognosis and goals for treatment? Eval Complexity PT Charges 52457 - High Complexity PHYSICIAN CERTIFICATION: I certify the specified therapy services for Letty Dumont are required, authorized, and reviewed every 30 days.
== END 2024-07-19 23:59 | disposition home or self-care (01) ==
LOC: PT 11:00
PROVIDERS: Visit Provider Family Medicine
DX: I89.0 Lymphedema, not elsewhere classified (principal)
CPT/HCPCS: 97140; 97163

== ENCOUNTER 2025-01-29 13:40 | Outpatient (RCR) | payer MEDICARE, OTHER, SELFPAY ==
--- NOTE | 2025-01-29 17:11 | HMH.PTOPWND ---
Rehab Outpt Wound Evaluation Rehab OP Wound Evaluation Start: 01/29/25 17:03 Freq: Status: Active Protocol: Document 01/29/25 17:03 BRENDA (Rec: 01/29/25 17:11 PHOBAYLEE [id number]) E-signed By Jigar Layton PT Subjective/History History History This is the initial PT lymphedema eval for Letty Dumont, 89 yowf who presents with c/o increased edema in B lower legs. Pt is well known to this clinic and has been treated multiple times over the past yr. She reports she actually doesn't have any c/o pain or discomfort at this time, not unless somebody squeezes my leg really hard. She has PMH of B carpal tunnel release recently, INOCENCIO, CKD, heart disease, breast cancer with B mastectomy, HTN, and B foot neuropathy. Subjective Subjective Pt presents wearing B compression garments and brought her night garments that were recently delivered to her home with her to appointment this date. She reports no difficulty with donning her compression garments, but c/o that her toes hurt at times. Pt was instructed not to pull the underlay stocking too tight on her toes, which helped her discomfort significantly. Pt asked if therapy would give her a sock-aid for home use, but she was instructed she would have to purchase one on her own form the local medical supply store. Lymphedema Eval Classification of Lymphedema Secondary Lymphedema Yes Stemmer's sign Stemmer's Sign no Skin Changes Dry Skin Yes Pain Scale Pain Scale (0-10) 0 Wound Problems/Impairments Prognosis Rehab Potential Innapropriate for Skilled Therapy Comment Pt reports she had increased edema when she stopped using her home compression garments for a few weeks, but they have returned to baseline since she started using her garments regularly again as instructed . No current outpatient lymphedema therapy needs. Clinical Impression Consistent with Diagnosis Yes Outpatient Therapy Plan of Care Treatment Plan May Include Eval/Re-Eval Yes Frequency Times per week 0 Duration Number of Weeks 0 Addendums This patient is a candidate for social No or vocational rehab? Patient/Guardian verbally acknowledges Yes understanding of treatment program and consents to further treatment? Patient/Guardian verbally acknowledges Yes understanding of diagnosis, prognosis and goals for treatment? Eval Complexity PT Charges 52297 - Moderate Complexity PHYSICIAN CERTIFICATION: I certify the specified therapy services for Letty Colbert Dumont are required, authorized, and reviewed every 30 days.
== END 2025-01-29 23:59 | disposition home or self-care (01) ==
LOC: PT 13:40
PROVIDERS: PCP Family Medicine; Visit Provider Family Medicine
DX: I89.0 Lymphedema, not elsewhere classified (principal)
CPT/HCPCS: 97162

== ENCOUNTER 2025-02-22 12:45 | Outpatient (CLI) | payer MEDICARE, OTHER, SELFPAY ==
--- NOTE | 2025-02-22 | CA_ITS ---
APPROVED REPORT Exam: Pharmacologic Technologist: Magaly Mcknight Ht: 5 ft 3 in Wt: 242 lbs BSA: 2.10 m2 HR: 65 bpm BP: 188/90 mmHg Rhythm: Sr with PVCs Medical History Medical History: HTN, Hyperlipidemia Cardiac Risk Factors: HTN, Hyperlipidemia, FHX of CAD Stress Test Details Test: Lexiscan HR Resting HR: 65 bpm Max Heart Rate (APMHR): 131.749986 bpm Target HR (85% APMHR): 111.986230 bpm Recovery HR: 73 bpm BP Resting BP: 188.0/90.0 mmHg Max BP: 188.0/90.0 mmHg Recovery BP: 160.0/82.0 mmHg ECG Resting ECG: Sr with PVCs Stress ECG Conclusion Pt had soa with lexiscan PVCs before test started Unremarkable with Lexiscan Electronically signed by : Yuly Elaine MD 02/25/2025 22:34:09
--- OUTSIDE RECORDS SUMMARY | 2025-02-22 12:47 | XMS_ITS | Continuity of Care Document ---
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 Medication Details Route Status Patient Instructions Prescription Expires Prescription Number Last Dispense Date Ordering Provider Order Date Order Qty Source CARDURA XL (doxazosin mesylate), 4 MG, TAB ER 24, ORAL, PFIZER/VIAT RIS, 30 ea. BOTTLE Active [id number] 4 2023 90 Pharmac y Data Transac tion Service Facilit y CARDURA XL (doxazosin mesylate), 4 MG, TAB ER 24, ORAL, PFIZER/VIAT RIS, 30 ea. BOTTLE Cancele d [id number] 4 [id number] : 2023 0 Pharmac y Data Transac tion Service Facilit y CEPHALEXIN (CEPHALEXIN MONOHYDRATE ), 500MG, CAPSULE, ORAL, [employer] [place], 100 ea. BOTTLE Active [id number] 4 2023 28 Pharmac y Data Transac tion Service Facilit y COLCHICINE (colchicine ), 0.6 MG, TABLET, ORAL, [employer] 100 ea. BOTTLE Cancele d [id number] : 2023 0 Pharmac y Data Transac tion Service Facilit y COLCHICINE (colchicine ), 0.6 MG, TABLET, ORAL, [employer] 100 ea. BOTTLE Active [id number] 4 2023 180 Pharmac y Data Transac tion Service Facilit y COLCHICINE (colchicine ), 0.6 MG, TABLET, ORAL, [employer] 100 ea. BOTTLE Cancele d [id number] 4 [id number] : 2023 0 Pharmac y Data Transac tion Service Facilit y DULOXETINE HCL (duloxetine HCl), 30 MG, CAPSULE DR, ORAL, [employer] 90 ea. BOTTLE Cancele d [id number] 4 [id number] : 2023 0 Pharmac y Data Transac tion Service Facilit y ELIQUIS (APIXABAN), 5 MG, TABLET, ORAL, [facility] , 60 ea. BOTTLE Cancele d [id number] 4 [id number] : 2023 0 Pharmac y Data Transac tion Service Facilit y FEBUXOSTAT (febuxostat ), 40 MG, TABLET, ORAL, [employer] 30 ea. BOTTLE Cancele d [id number] 4 [id number] : 2023 0 Pharmac y Data Transac tion Service Facilit y FEBUXOSTAT (febuxostat ), 40 MG, TABLET, ORAL, [employer] 30 ea. BOTTLE Cancele d [id number] 4 [id number] : 2023 0 Pharmac y Data Transac tion Service Facilit y METOPROLOL SUCCINATE (metoprolol succinate), 100 MG, TAB ER 24H, ORAL, [employer] 1000 ea. BOTTLE Cancele d [id number] 4 [id number] : 2023 0 Pharmac y Data Transac tion Service Facilit y METOPROLOL SUCCINATE (metoprolol succinate), 100 MG, TAB ER 24H, ORAL, [employer] 1000 ea. BOTTLE Active [id number] 4 2023 180 Pharmac y Data Transac tion Service Facilit y METOPROLOL SUCCINATE (metoprolol succinate), 100 MG, TAB ER 24H, ORAL, [employer] 1000 ea. BOTTLE Cancele d [id number] 4 [id number] : 2023 0 Pharmac y Data Transac tion Service Facilit y NEOMYCIN-PO LYMYXIN-DEX AMETH (neomycin/p olymyxin B sulfate/dex amethasone) , 0.1 %, DROPS SUSP, OPHTHALMIC, SANDOZ, 5 ml DROP BTL Active [id number] 04/04/20 2 4 2023 5 Pharmac y Data Transac tion Service Facilit y POTASSIUM CHLORIDE (potassium chloride), 20 MEQ, TAB ER PRT, ORAL, [employer], 500 ea. BOTTLE Cancele d [id number] 4 [id number] : 2023 0 Pharmac y Data Transac tion Service Facilit y POTASSIUM CHLORIDE (potassium chloride), 20 MEQ, TAB ER PRT, ORAL, [employer], 500 ea. BOTTLE Active [id number] 4 2023 90 Pharmac y Data Transac tion Service Facilit y POTASSIUM CHLORIDE (potassium chloride), 20 MEQ, TAB ER PRT, ORAL, [employer], 500 ea. BOTTLE Cancele d [id number] 4 [id number] : 2023 0 Pharmac y Data Transac tion Service Facilit y RANOLAZINE ER (ranolazine ), 500 MG, TAB ER 12H, ORAL, [employer], 60 ea. BOTTLE Cancele d [id number] : 2023 0 Pharmac y Data Transac tion Service Facilit y RANOLAZINE ER (ranolazine ), 500 MG, TAB ER 12H, ORAL, [employer], 60 ea. BOTTLE Active [id number] 4 2023 180 Pharmac y Data Transac tion Service Facilit y RANOLAZINE ER (ranolazine ), 500 MG, TAB ER 12H, ORAL, [employer], 60 ea. BOTTLE Cancele d [id number] : 2023 0 Pharmac y Data Transac tion Service Facilit y ROSUVASTATI N CALCIUM (rosuvastat in calcium), 40 MG, TABLET, ORAL, [employer] 1000 ea. BOTTLE Active [id number] 4 2023 90 Pharmac y Data Transac tion Service Facilit y ROSUVASTATI N CALCIUM (rosuvastat in calcium), 40 MG, TABLET, ORAL, [employer] 1000 ea. BOTTLE Cancele d [id number] : 2023 0 Pharmac y Data Transac tion Service Facilit y TOLTERODINE TARTRATE ER (tolterodin e tartrate), 4 MG, CAP ER 24H, ORAL, [employer] 500 ea. BOTTLE Active [id number] 4 2023 90 Pharmac y Data Transac tion Service Facilit y TRAMADOL HCL (tramadol HCl), 50 MG, TABLET, ORAL, AMNEAL PHARMACE, 500 ea. BOTTLE Active [id number] 4 2023 15 Pharmac y Data Transac tion Service Facilit y Social History Combined list of available smoking, tobacco, and other social history from Department of Defense and Veterans Affairs facilities. Social History Type Response Date Comment [facility] e This section is an empty social history section. DoD
--- OUTSIDE RECORDS SUMMARY | 2025-02-22 12:47 | XMS_ITS ---
Author Organization Unknown Vital Signs BpStanding BpSitting BpSupine Date Temperature HeartRate Weight Hei ght Spo2 Respiration Bmi HeadCircumference FieldCount TimeRecorded NeckCircumferen ce WaistCircumference Pulse 120/70 01/10 00:00 :00 97.8 61 233,0 5,4 39.9 9 6 01/24/2025 14:00:00 120/60 07/07 00:00 :00 97.9 62 236,9.6 0 5,4 40.6 1 6 01/24/2025 13:30:00 132/70 03/10 00:00 :00 97.9 71 236,12. 80 5,4 40.6 4 6 01/24/2025 13:30:00
--- NOTE | 2025-02-22 13:00 | NM_ITS ---
APPROVED REPORT Exam: Nuclear Stress Test Indication: Chest pain, SOB, Syncope, Fatigue, Abnormal EKG, HTN Patient Location: Outpatient Stress Tech: Magaly Mcknight GA Tech:Bhargavi WattHUE RT(R)(N) Ht: 5 ft 3 in Wt: 200 lbs HR: 59 bpm BP: 196/83 mmHg BSA: 1.93 m2 TID: 1.00 BMI: 35.4 History: Chest pain, SOB, Syncope, Fatigue, Abnormal EKG, HTN Procedure: Patient received 0.4 mg of intravenous Lexiscan, resting heart rate 59 bpm, resting blood pressure 196/83 mmHg, with Lexiscan maximum heart rate achieved was 74 bpm which is % of the maximum predicted heart rate and blood pressure was 171/85 mmHg. With Lexiscan, patient denied any complaint of chest pain. Cardiac Stress and Resting SPECT Images: Cardiac Stress and Resting SPECT images were obtained using technetium 99m Myoview 30.5 mCi stress and 10.31 mCi at rest. The patient is unable to lie on her abdomen. Therefore, prone stress imaging could not be performed. This may affect diagnostic interpretation of the study findings. Resting and stress imaging in supine positions demonstrate a small sized, moderate, reversible perfusion defect in the basal inferior LV wall. Gated imaging demonstrates normal global LV systolic function. There is mild hypokinesis of the basal inferior LV wall. LVEF is calculated at 54%. Conclusion: Small sized, moderate, reversible perfusion defect in the basal inferior LV wall. Findings are suggestive of reversible ischemia. Gated imaging demonstrates normal global LV systolic function. There is mild hypokinesis of the basal inferior LV wall. LVEF is calculated at 54%. Electronically signed by : Yuly Elaine MD 02/25/2025 22:33:37
[2025-02-22] MEDS: REGADENOSON 0.4MG/5ML SYRINGE 0.4 MG IV (15:08)
[2025-02-22] MEDS: SODIUM CHLORIDE 0.9% 10ML SYR (RAD ONLY) 10 ML IV ×2 (15:08)
[2025-02-22] MEDS: ISOTOPE MYOVIEW (PER STUDY) 1 DOSE IV (15:08)
== END 2025-02-22 23:59 | disposition home or self-care (01) ==
LOC: RAD 12:46
PROVIDERS: PCP Family Medicine; Visit Provider Internal Medicine
DX: R94.31 Abnormal electrocardiogram [ECG] [EKG] (principal); R60.0 Localized edema; I51.89 Other ill-defined heart diseases
CPT/HCPCS: 78452; 93017; 93018; A9502; J2785

== ENCOUNTER 2025-02-27 12:48 | Outpatient (CLI) | payer MEDICARE, OTHER, SELFPAY ==
--- OUTSIDE RECORDS SUMMARY | 2025-02-27 12:50 | XMS_ITS | Continuity of Care Document ---
Author Name [facility] Organization [facility] Care Team Providers Care Barrel Raiser Name Role Phone [facility] Unavailable Unavailable Medications Combined list of outpatient [...] ORAL, PFIZER/VIAT RIS, 30 ea. BOTTLE Active [id number] 4 2023 90 Pharmac y Data Transac tion Service Facilit y CARDURA XL (doxazosin mesylate), 4 MG, TAB ER 24, ORAL, PFIZER/VIAT RIS, 30 ea. BOTTLE Cancele d [id number] : 2023 0 Pharmac y Data Transac tion Service Facilit y CEPHALEXIN (CEPHALEXIN MONOHYDRATE ), 500MG, CAPSULE, ORAL, [employer] [place], 100 ea. BOTTLE Active [id number] 4 2023 28 Pharmac y Data Transac tion Service Facilit y COLCHICINE (colchicine ), 0.6 MG, TABLET, ORAL, [employer] 100 ea. BOTTLE Cancele d [id number] 4 [id number] : 2023 0 Pharmac y Data Transac tion Service Facilit y COLCHICINE (colchicine ), 0.6 MG, TABLET, ORAL, [employer] 100 ea. BOTTLE Active [id number] 4 2023 180 Pharmac y Data Transac tion Service Facilit y COLCHICINE (colchicine ), 0.6 MG, TABLET, ORAL, [employer] 100 ea. BOTTLE Cancele d [id number] 4 [id number] : 2023 0 Pharmac y Data Transac tion Service Facilit y DULOXETINE HCL (duloxetine HCl), 30 MG, CAPSULE DR, ORAL, [employer] 90 ea. BOTTLE Cancele d [id number] : 2023 0 Pharmac y Data Transac tion Service Facilit y ELIQUIS (APIXABAN), 5 MG, TABLET, ORAL, [facility] , 60 ea. BOTTLE Cancele d [id number] 4 [id number] : 2023 0 Pharmac y Data Transac tion Service Facilit y FEBUXOSTAT (febuxostat ), 40 MG, TABLET, ORAL, [employer] 30 ea. BOTTLE Cancele d [id number] 4 [id number] : 2023 0 Pharmac y Data Transac tion Service Facilit y FEBUXOSTAT (febuxostat ), 40 MG, TABLET, ORAL, [employer] 30 ea. BOTTLE Cancele d [id number] 4 [id number] : 2023 0 Pharmac y Data Transac tion Service Facilit y METOPROLOL SUCCINATE (metoprolol succinate), 100 MG, TAB ER 24H, ORAL, [employer] 1000 ea. BOTTLE Cancele d [id number] 4 [id number] : 2023 0 Pharmac y Data Transac tion Service Facilit y METOPROLOL SUCCINATE (metoprolol succinate), 100 MG, TAB ER 24H, ORAL, [employer] 1000 ea. BOTTLE Active [id number] 4 2023 180 Pharmac y Data Transac tion Service Facilit y METOPROLOL SUCCINATE (metoprolol succinate), 100 MG, TAB ER 24H, ORAL, [employer] 1000 ea. BOTTLE Cancele d [id number] : 2023 0 Pharmac y Data Transac tion Service Facilit y NEOMYCIN-PO LYMYXIN-DEX AMETH (neomycin/p olymyxin B sulfate/dex amethasone) , 0.1 %, DROPS SUSP, OPHTHALMIC, SANDOZ, 5 ml DROP BTL Active [id number] 04/04/20 2 4 2023 5 Pharmac y Data Transac tion Service Facilit y POTASSIUM CHLORIDE (potassium chloride), 20 MEQ, TAB ER PRT, ORAL, [employer], 500 ea. BOTTLE Cancele d [id number] 4 [id number] : 2023 0 Pharmac y Data Transac tion Service Facilit y POTASSIUM CHLORIDE (potassium chloride), 20 MEQ, TAB ER PRT, ORAL, [employer], 500 ea. BOTTLE Active [id number] 4 2023 90 Pharmac y Data Transac tion Service Facilit y POTASSIUM CHLORIDE (potassium chloride), 20 MEQ, TAB ER PRT, ORAL, [employer], 500 ea. BOTTLE Cancele d [id number] 4 [id number] : 2023 0 Pharmac y Data Transac tion Service Facilit y RANOLAZINE ER (ranolazine ), 500 MG, TAB ER 12H, ORAL, [employer], 60 ea. BOTTLE Cancele d [id number] 4 [id number] : 2023 0 Pharmac y Data Transac tion Service Facilit y RANOLAZINE ER (ranolazine ), 500 MG, TAB ER 12H, ORAL, [employer], 60 ea. BOTTLE Active [id number] 4 2023 180 Pharmac y Data Transac tion Service Facilit y RANOLAZINE ER (ranolazine ), 500 MG, TAB ER 12H, ORAL, [employer], 60 ea. BOTTLE Cancele d [id number] 4 [id number] : 2023 0 Pharmac y Data Transac tion Service Facilit y ROSUVASTATI N CALCIUM (rosuvastat in calcium), 40 MG, TABLET, ORAL, [employer] 1000 ea. BOTTLE Active [id number] 4 2023 90 Pharmac y Data Transac tion Service Facilit y ROSUVASTATI N CALCIUM (rosuvastat in calcium), 40 MG, TABLET, ORAL, [employer] 1000 ea. BOTTLE Cancele d [id number] 4 [id number] : 2023 0 Pharmac y Data Transac tion Service Facilit y TOLTERODINE TARTRATE ER (tolterodin e tartrate), 4 MG, CAP ER 24H, ORAL, [employer] 500 ea. BOTTLE Active [id number] 4 2023 90 Pharmac y Data Transac tion Service Facilit y TRAMADOL HCL (tramadol HCl), 50 MG, TABLET, ORAL, AMNEAL PHARMACE, 500 ea. BOTTLE Active [id number] 4 2023 15 Pharmac y Data Transac tion Service Facilit y Social History Combined list of available smoking, tobacco, and other social history from Department of Defense and Veterans Affairs facilities. Social History Type Response Date Comment [facility] e This section is an empty social history section. DoD
--- NOTE | 2025-02-27 12:51 | CA_ITS ---
APPROVED REPORT EXAM: Comprehensive 2D, Doppler, and color-flow Echocardiogram Home Office Claim Specialist: Melly Moreland CRT Ht: 5 ft 3 in Wt: 242lbs BSA: 2.10 BP: 158/65 mmHg Indications: Chest Pain, Shortness of Breath, Atrial Fibrillation, Peripheral Edema, Hyperlipidemia, Hypertension/HDD TDE pt scanned on back, up in bed, bilateral mastectomies with scar tissue very difficult to scann. M-Mode Dimensions RVDd 1.85 cm (0.9-2.6) LA Diam 4.62 cm (1.9-4.0) LVDd 4.61 cm (3.5-5.7) LVDs 2.37 cm (3.5-5.7) IVSd 1.81 cm (0.6-1.1) PWd 1.48 cm (0.6-1.1) EF (Teich) 80.10% FS 48.60% EDV (Teich) 97.80 mL TAPSE 1.70 (<1.7) ESV (Teich) 19.50 mL LV Diastology E Decel Time 337 (160-240 msec) E/A Ratio 0.46 MED A' 13.00 cm/s LAT A' 12.70 cm/s Aortic Valve AI PHT 505.00 ms AO Peak GR. 5.60 mmHg Mitral Valve MV A Velocity 98.0 (40-130 cm/s) E/A Ratio 0.46 Pulmonary Valve PV Peak Velocity 180.0 (50-150 cm/s) Tricuspid Valve TR P. Velocity 314.00 cm/s RAP Estimate 10.00 mmHg RVSP 49.40 mmHg Left Ventricle The left ventricle is normal size. The left ventricular systolic function is normal. The left ventricular ejection fraction is within the normal range. There is increased LV wall thickness. There is normal LV segmental wall motion. Transmitral Doppler flow pattern suggests impaired LV relaxation. LVEF is 55%. Right Ventricle Right ventricle is mildly dilated. The right ventricular systolic function is normal. Atria Left atrium is mildly dilated. Right atrium is mildly dilated. There is no Doppler evidence of interatrial shunt. Aortic Valve The aortic valve is mildly thickened. There is no aortic valvular stenosis. Trace aortic regurgitation. Mitral Valve The mitral valve is normal in structure. No evidence of mitral valve stenosis. Trace mitral regurgitation. Tricuspid Valve Tricuspid valve is grossly normal in structure and function. Trace tricuspid regurgitation. There is insufficient TR jet to estimate RVSP. Pulmonic Valve The pulmonary valve is normal in structure. Trace pulmonic regurgitation. Great Vessels The aortic root is normal in size. IVC is normal in size and collapses >50% with inspiration. Pericardium There is no pericardial effusion. Other Information Study Quality: Fair Conclusion Normal biventricular systolic function. Mild RV dilation. No significant valvular stenosis or regurgitation. Electronically signed by : Yuly Elaine MD 03/09/2025 23:29:44
== END 2025-02-27 23:59 | disposition home or self-care (01) ==
LOC: RT 12:49
PROVIDERS: PCP Family Medicine; Visit Provider Internal Medicine
DX: I11.9 Hypertensive heart disease without heart failure (principal); I48.91 Unspecified atrial fibrillation; E78.5 Hyperlipidemia, unspecified; R94.31 Abnormal electrocardiogram [ECG] [EKG]
CPT/HCPCS: 93306

== ENCOUNTER 2025-04-24 15:28 | Outpatient (CLI) | payer MEDICARE, OTHER, SELFPAY ==
--- OUTSIDE RECORDS SUMMARY | 2025-04-24 14:07 | XMS_ITS | Continuity of Care Document ---
Author Name [facility] Organization [facility] Care Team Providers Care Scrapper Name Role Phone [facility] Unavailable Unavailable Social History Combined list of available smoking, tobacco, and other social history from Department of Defense and Veterans Affairs facilities. Social History Type Response Date Comment [facility] e This section is an empty social history section. DoD
[2025-04-24 15:54] LABS: Hematocrit 42.4 % (37.0-47.0); Hemoglobin 14.5 g/dL (12.2-16.2); Immature Granulocytes % 0 %; Mean Corpuscular HGB Conc 34.2 g/dL (31.8-35.4); Mean Corpuscular Hemoglobin 33.1 pg (27.0-31.2); Mean Corpuscular Volume 96.8 fl (81-99); Nucleated Red Blood Cells % 0 %; Platelet Count 141 K/mm3 (142-424); Red Blood Count 4.38 M/mm3 (4.20-5.40); Red Cell Distribution Width-SD 46.0 fL; White Blood Count 5.3 K/mm3 (4.8-10.8)
[2025-04-24 16:33] LABS: Chloride 101 mmol/L (98-107)
[2025-04-24 16:34] LABS: Albumin Level 4.4 g/dl (3.5-5.0); Potassium 4.4 mmoL/L (3.5-5.1); Sodium 136 mmol/L (136-145)
[2025-04-24 16:37] LABS: Alanine Aminotransferase 31 U/L (12-78); Alkaline Phosphatase 46 U/L (38-126); Anion Gap 14.4 mEq/L (5-15); Aspartate Amino Transferase 38 U/L (14-36); Bilirubin,Direct 0.4 mg/dl (0.0-0.4); Bilirubin,Indirect 0.3 mg/dL (0.0-0.9); Bilirubin,Total 0.7 mg/dl (0.2-1.3); Bilirubin,Unconjugated 0.3 mg/dL (0.0-1.1); Blood Urea Nitrogen 30 mg/dl (7-17); Calcium 10.2 mg/dl (8.4-10.2); Carbon Dioxide 25 mmol/L (22.0-30.0); Cholesterol 307 mg/dl (140-200); Creatinine,Serum 1.50 mg/dl (0.52-1.04); Estimated Glomerular Filt Rate 33 ml/min (>60); GFR (African American) 40 ML/MIN (>60); Glucose 95 mg/dl (74-100); Magnesium 1.6 mg/dl (1.6-2.3); Total Protein,Serum 6.9 g/dl (6.3-8.2)
[2025-04-24 16:38] LABS: HDL Cholesterol 42 mg/dl (40-60)
[2025-04-24 16:46] LABS: NT Pro Brain Natriuretic Pep. 457 pg/mL (0-450)
[2025-04-24 16:47] LABS: Triglycerides 681 mg/dl (30-150)
[2025-04-24 16:53] LABS: Free T4 (Free Thyroxine) 1.07 ng/dl (0.78-2.19)
[2025-04-24 17:08] LABS: Thyroid Stimulating Hormone 2.81 uIU/mL (0.465-4.68)
== END 2025-04-24 23:59 | disposition home or self-care (01) ==
LOC: LAB 15:29
PROVIDERS: PCP Family Medicine; Visit Provider Internal Medicine
DX: I11.0 Hypertensive heart disease with heart failure (principal); I50.30 Unspecified diastolic (congestive) heart failure
CPT/HCPCS: 36415; 80048; 80061; 80076; 83735; 83880; 84439; 84443; 85025

== ENCOUNTER 2025-06-13 09:58 | Outpatient (CLI) | payer MEDICARE, OTHER, SELFPAY ==
--- OUTSIDE RECORDS SUMMARY | 2024-03-10 09:30 | XMS_ITS ---
Author Organization [facility] Address [address] [facility] [address] SHANKAR Kim [phone] Care Team Providers Care Manager Business Management Name Role Phone Rosendo Rincon Primary Care Provider [phone] Allergies Allergen (clinical drug ingredient) Drug/Non Drug Allergy documented on EMR Reaction Allergy Type Onset Date Status allopurinol Allopurinol rash Drug Allergy Act jono predniSONE Unknown Drug Allergy Active Results Component Value Reference Range Notes P-Basic Metabolic Panel (BMP ) Reviewed date:03/16/2024 08:41:57 AM Interpretation:bun 31, Cr 1.57, gfr 31 Performing Lab: Notes/Report: Test performed by [facility] [address] [place], [place] [address] [employer] [place] , [address], [place] [address] Hari Monroy MD, Information Specialist CLIA: [id number] Sodium 142 135-145 mEq/L Potassium 3.9 3.5-5.3 mEq/L Chloride 103 97-108 mEq/L CO2 29 22-32 mEq/L Glucose 97 65-99 mg/dL BUN 31 8-23 mg/dL Creatinine 1.57 0.50-1.00 mg/dL Calcium 10.2 8.6-10.4 mg/dL eGFR by Creatinine 31 >59 mL/min/1.73m2 P-Uric Acid Reviewed date:03/16/2024 08:41:57 AM Interpretation:Normal Performing Lab: Notes/Report: [facility] performed [facility] , [address], [place] [address] Hari Monroy MD, Information Specialist CLIA: [id number] Uric Acid 3.9 2.4-7.0 mg/dL P-Vitamin D 25-Hydroxy Reviewed date:03/16/2024 08:41:57 AM Interpretation:Normal Performing Lab: Notes/Report: Test performed by [facility] , [address], [place] [address] Hari Monroy MD, Information Specialist CLIA: [id number] Vitamin D 25-Hydroxy 53.4 30.0-100.0 ng/mL Interpretation of Vitamin D 25 OH: < 20 ng/mL - Deficiency 20 - 29 ng/mL - Insufficiency 30 - 100 ng/mL - Sufficiency > 100 ng/mL - Super-therapeutic- toxicity may occur above this level. Clinical correlation required. Reason For Referral Reason [facility] lymphedema clini c Diagnosis 1 Lymphedema (I89.0) Referral Organization [facility] Referring Provider First Name Rosendo Referring Provider Last Name Sergey Referring Provider Speciality Family Shilo moses Referred Provider Physical Therapy, . Referred Provider Specialty Physical The rapist General Notes Eileen Lal 03/14/20 24 9:16:12 AM > [facility] 03/22/2024 at 11:00am; lvm for pt to [...] 03/10/2024 Encounters Encounter Location Date Provider Diagnosis [facility] [address] [phone] 03/10/2024 Rosendo Rincon Lymphedema I89.0 ; Gout, [...] stockings Referrals Referral Date Details 03/10/2024 03/10/2024, [facility] Next Appt Details Follow Up: 4 Months, Reason: Provider Name:Rosendo Mabry ry, 07/13/2025 01:45:00 PM, [address], [address] , [place], [place], [phone], Progress Notes * Letty FORBESEDOB: [birth year] (89 yo F)Acc No.[id number]:03/10/2024 Progress Notes Patient: Letty KHAN Provider: Brian Rincon M.D. :1935 A ge:88 Y S ex:Female Date:03/10/2024 Address:[address] [place], [place] [id number] Subjective: * Chief Complaints: * 1 . [...] History: M astectomy x2 2001, 2006, Adenoidectomy 1944, Colonoscopy, 20 polyps removed , LT SI Injection - Crystal Rodrigo 04/18/2020, LT Heart Cath- [facility] 01/2021. * Hospitalization/Major Diagno stic Procedure: A KI, Hyperkalemia, Fall at Home- [facility] 04/2021. * Family History: F ather: , [...] D 25-Hydroxy 53.4 30.0-100.0 - ng/mL * Chantal Verasica 03/16/2024 8:40 :59 AM >See phone encounter * Procedure Codes: G 2211 Complex e/m visit add on * Follow Up: 4 Months * Images: Billing Information: * Visit Code: 75637 Office Visit, Est Pt., Level 4. * Procedure Codes: G2211 Complex e/m visit add on. * Electronic signature of Dahiana Rincon MD on 06/13/2025 at 10:01 AM EDT Sign off status: Pending * Provider: Brian Rincon M.D. Date: 0 03/10/2024 Generated for Thea gonzalez/Imeldag/eTransmitting on: 0 06/13/2025 10:01 AM EDT History and Physical Notes * [...] es 03/10/2024 Rosendo Rincon Physical Therapy, . [facility] ymphedema clinic
--- OUTSIDE RECORDS SUMMARY | 2024-07-07 09:30 | XMS_ITS ---
Author Organization [facility] Address [address] [facility] [address] [place] [id number] Care Team Providers Care Senior Hardware Engineer Name Role Phone Rosendo Rincon Primary Care Provider Allergies Allergen (clinical drug ingredient) Drug/Non Drug Allergy documented on EMR Reaction Allergy Type Onset Date Status allopurinol Allopurinol rash Drug Allergy Act jono predniSONE Unknown Drug Allergy Active Results Component Value Reference Range Notes CBC Venipuncture (in house) Reviewed date:07/10/2024 09:31:47 AM Interpretation: Normal Performing Lab: Notes/Report: Normal wbc 3.8 3.5 - 10 lymph 33.3 15 - 50 mid 8.1 2 - 15 gran 58.6 35 - 80 rbc 4.23 3.5 - 5.5 hgb 13.7 11.5 - 16.5 hct 41.0 35 - 55 mcv 96.9 75 - 100 mch 32.5 25 - 35 mchc 33.6 31 - 38 platlet 105 100 - 400 P-Comprehensive Metabolic Pa yolanda (CMP) Reviewed date:07/10/2024 09:31:47 AM Interpretation:gluc 100, bun 32, Cr 1.36, gfr 37 Performing Lab: Notes/Report: Test performed by [facility], [place] [address] , [address], [place] [address] Hari Monroy MD, Sand Cleaning Machine Operator CLIA: [id number] Sodium 145 135-145 mmol/L Potassium 4.3 3.5-5.3 mmol/L Chloride 106 97-108 mmol/L CO2 29 22-32 mmol/L Glucose 100 65-99 mg/dL BUN 32 8-23 mg/dL Creatinine 1.36 0.50-1.00 mg/dL Calcium 10.1 8.6-10.4 mg/dL eGFR by Creatinine 37 >59 mL/min/1.73m2 Protein 6.1 6.0-8.3 g/dL Albumin 3.8 3.5-5.3 g/dL Alkaline Phosphatase 45 35-121 IU/L ALT (SGPT) 16 <5-47 IU/L AST (SGOT) 18 <5-40 IU/L Bilirubin, Total 0.4 <0.2-1.2 mg/dL A/G Ratio 1.7 1.1-2.5 P-Lipid Panel Reviewed date:07/10/2024 09:31:47 AM Interpretation:trigs 311 Performing Lab: Notes/Report: Test performed by [facility], [address] , [facility] [place], [place] [address] Hari Monroy MD, Sand Cleaning Machine Operator CLIA: [id number] Cholesterol 141 <200 mg/dL Triglycerides 311 <150 mg/dL HDL Cholesterol 40 >39 mg/dL Cholesterol / HDL Ratio 3.52 0.00-4.44 Ratio Non-HDL Cholesterol 101 <130 mg/dL LDL Cholesterol (Calculation) 39 <130 mg/dL LDL Cholesterol Levels* Less than 100 mg/dL Optimal 100 to 129 mg/dL Near Optimal/ Above Optimal 130 to 159 mg/dL Borderline High 160 to 189 mg/dL High 190 mg/dL and above Very High * Categories as recommended by the 2004 ATPIII guidelines LDL/HDL Ratio 1.0 <3.3 Ratio LDL Cholesterol Patient History Test Date: 07/07/2024 LDL Results: 39 Units: mg/dL % Change: - P-Phosphorus Reviewed date:07/10/2024 09:31:47 AM Interpretation: Normal Performing Lab: Notes/Report: Test performed by [facility] , [address], [place] [address] Hari Monroy MD, Sand Cleaning Machine Operator CLIA: [id number] Phosphorus 3.1 2.5-4.5 mg/dL P-TSH reflex to FT4 Reviewed date:07/10/2024 09:31:47 AM Interpretation: Normal Performing Lab: Notes/Report: [facility] , [facility] [place] [address] Hari Monroy MD, Sand Cleaning Machine Operator CLIA: [id number] TSH reflex to FT4 2.58 0.43-5.25 mU/L P-Microalbumin/Creatinine, R andom Urine Sample Reviewed date:07/10/2024 09:31:47 AM Interpretation: Normal Performing Lab: Notes/Report: Test performed by [facility] , [place] [address] Hari Monroy MD, Sand Cleaning Machine Operator CLIA: [id number] Albumin/Creatinine Ratio, Urine 11 0-30 ug/m g Microalbumin, Urine, Random 1.0 Creatinine, Urine 87.4 P-Uric Acid Reviewed date:07/10/2024 09:31:47 AM Interpretation: Normal Performing Lab: Notes/Report: [facility] , [facility] [place] [place] [address] Hari Monroy MD, Sand Cleaning Machine Operator CLIA: [id number] Uric Acid 3.5 2.4-7.0 mg/dL P-Vitamin D 25-Hydroxy Reviewed date:07/10/2024 09:31:47 AM Interpretation:37.8 Performing Lab: Notes/Report: Test performed by [facility] [address] , [address], [place] [address] Hari Monroy MD, Sand Cleaning Machine Operator CLIA: [id number] Vitamin D 25-Hydroxy 37.8 30.0-100.0 ng/mL Interpretation of Vitamin D 25 OH: < 20 ng/mL - Deficiency 20 - 29 ng/mL - Insufficiency 30 - 100 ng/mL - Sufficiency > 100 ng/mL - Super-therapeutic- toxicity may occur above this level. Clinical correlation required. REASON FOR VISIT 4 months Medications Medication SIG (Take, Route, Frequency, Duration) Notes Start Date End Date Status Gabapentin 600 MG 1 tab(s) orally 2 ti mes a day; Duration: 90 days 05/12/2024 Active Cardura XL 4 MG TAKE 1 TABLET DAILY AT BEDTIME; Duration: 90 days Activ e Eliquis 5 MG 1 tablet Orally Twic e a day; Duration: 90 days Active Uloric 40 MG 1 tab(s) orally once a day; Duration: 90 days Active Colcrys 0.6 MG 2 tab(s) orally once a day; Duration: 90 days Active Toprol XL 100 MG 1 tab(s) orally 2 ti mes a day; Duration: 90 days Active Cephalexin 500 MG 1 capsule Orally Two times a day; Duration: 7 days 07/07/2024 Active Potassium Chloride ER 20 MEQ 1 tab(s) Orally Once a day; Duration: 90 days Active DULoxetine HCl 30 MG 1 cap(s) orally once a day Active Ranolazine ER 500 MG 1 tab(s) orally 2 t imes a day; Duration: 30 day(s) Active Pravastatin Sodium 20 MG 1 tab(s) orally once a day at bedtime; Duration: 90 days Active Clobetasol Propionate 0.05 % APPLY 1 APPLICATION TOPICALLY TWICE A DAY Active Vitamin D3 50 MCG (2000 UT) 1 cap(s) orally once a day 09/25/2016 A ctive Furosemide 20 MG 1 tab(s) orally once a day 2021 Active Detrol LA 4 MG 1 cap(s) orally once a day; Duration: 90 days Active Immunizations Vaccine Route Administration Date Status Comme nts Fluzone High Dose (65yr and older) IM Intramuscular 07/07/2024 Administered PNEUMOVAX 23 VACCINE IM Intramuscular 07/07/2024 Administe red Vital Signs Blood pressure systolic 120 mm Hg 07/07/20 24 Blood pressure diastolic 60 mm Hg 024 Heart Rate 62 /min 07/07/2024 Height 64 in 07/07/2024 Weight 236.6 lbs 07/07/2024 BMI 40.61 kg/m2 07/07/2024 Encounters Encounter Location Date Provider Diagnosis Toni [address] [facility] [address] [facility] [address] [place] [id number] 07/07/2024 Rosendo Rincon Essential hypertensi on I10 ; Mixed hyperlipidemia E78.2 ; Hypertriglyceridemia E78.1 ; Stage 3b chronic kidney disease (CKD) N18.32 ; Paronychia of finger of left hand L03.012 ; Vitamin D deficiency E55.9 and Gout, unspecified cause, unspecified chronicity, unspecified site M10.9 Assessments Encounter Date Diagnosis (ICD Code) Assessment Notes Treatment Notes Treatment Clinical Notes Section Notes 07/07/2024 Essential hypertensi on (ICD-10 - I10) 07/07/2024 Mixed hyperlipidemia (ICD-10 - E78.2) 07/07/2024 Hypertriglyceridemia (ICD-10 - E78.1) 07/07/2024 Stage 3b chronic kid dominguez disease (CKD) (ICD-10 - N18.32) 07/07/2024 Paronychia of finger of left hand (ICD-10 - L03.012) 07/07/2024 Vitamin D deficiency (ICD-10 - E55.9) 07/07/2024 Gout, unspecified ca use, unspecified chronicity, unspecified site (ICD-10 - M10.9) Plan Of Treatment Medication Medication Name Sig Start Date Stop Date Notes Cephalexin 500 MG 1 capsule Orally Two times a day; Duration: 7 days 07/07/2024 Next Appt Details Follow Up: via phone to repo rt progress, 6 Months, Reason: Provider Name:Rosendo dixon, 07/13/2025 01:45:00 PM, [address] [facility] [address] [facility], [address], [place], [id number], Progress Notes * Letty FORBESOB: [birth year] (89 yo F)Acc No.[id number]:07/07/2024 Progress Notes Patient: Letty KHAN Provider: Brian Rincon M.D. :1935 A ge:88 Y S ex:Female Date:07/07/2024 Address:[address] [place], [place] [phone] Subjective: * Chief Complaints: * 1 . 4 months. * HPI: C ardiology: 88 year old female presents with c/o Blood Pressure Elevated?Pt here to f/u on hypertension, states she is doing well and does not have any concerns. Pt sts she has not been checking her BP at home . c/o Hyperlipidemia P t is not fasting today. W rist/Hand: c/o pain P t sts she woke up today with her rt hand swollen and sts she has had carpal tunnel surgery, but sts this is first time her hand has been swollen and pt sts she has trigger finger and sts her rt middle finger is the worst. Pt sts she has been going to rehab for a month and sts it has not been helpful. Pt sts it is in both hands, but that her rt one is the worst Pt sts that her left thumb has some sort of infection under neath of the nail and sts that last month the infection came out some and sts that it does hurt sometimes and does bleed. Pt sts her thumb has been like this years and sts it started on the outside as looking like a wart and then after about 10-15 years it moved to underneath the fingernail. c/o swelling. * ROS: D ERMATOLOGY: no R michel. [...] removed , LT SI Injection - [facility] 04/18/2020, LT Heart Cath- [facility] 01/2021. * Hospitalization/Major Diagno stic Procedure: A KI, Hyperkalemia, Fall at Home- [facility] 04/2021. * Family History: F [...] smoke. Alcohol: No. * Medications: T aking Clobetasol Propionate 0.05 % Cream APPLY 1 APPLICATION TOPICALLY TWICE A DAY , Taking Pravastatin Sodium 20 MG Tablet 1 tab(s) orally once a day at bedtime , Taking Furosemide 20 MG Tablet 1 tab(s) orally once a day , Taking Vitamin D3 50 MCG (2000 UT) Capsule 1 cap(s) orally once a day , Taking Detrol LA 4 MG Capsule Extended Release 24 Hour 1 cap(s) orally once a day , Taking DULoxetine HCl 30 MG Capsule Delayed Release Particles 1 cap(s) orally once a day , Taking Ranolazine ER 500 MG Tablet Extended Release 12 Hour 1 tab(s) orally 2 times a day , Taking Potassium Chloride ER 20 MEQ Tablet Extended Release 1 tab(s) Orally Once a day , Taking Toprol XL 100 MG Tablet Extended Release 24 Hour 1 tab(s) orally 2 times a day , Taking Cardura XL 4 MG Tablet Extended Release 24 Hour TAKE 1 TABLET DAILY AT BEDTIME , Taking Gabapentin 600 MG Tablet 1 tab(s) orally 2 times a day , Taking Uloric 40 MG Tablet 1 tab(s) orally once a day , Taking Eliquis 5 MG Tablet 1 tablet Orally Twice a day , Taking Colcrys 0.6 MG Tablet 2 tab(s) orally once a day , Medication List reviewed and reconciled with the patient * Allergies: p redniSONE, Allopurinol: rash. Objective: * Vitals: W t:236.6, Temp:97.9, BP:120/60, HR:62, O2 Sat:94% on RA, Nurse:SERENE, Ht: 64, BMI:40.61. * Examination: G eneral Examination: General Appearance: N AD, using a walker to assist with ambulation. H eart: R SR. L ungs: c lear to auscultation. S kin: r adial side of left index finger nail with some skin redness and clear drainage. E xtremities: 3 + bilateral leg edema, wraps in place. Assessment: * Assessment: 1. E ssential hypertension - I10 (Primary) 2 . M ixed hyperlipidemia - E78.2 3 . H ypertriglyceridemia - E78.1 4 . S tage 3b chronic kidney disease (CKD) - N18.32 5 . P aronychia of finger of left hand - L03.012 6. V itamin D deficiency - E55.9 7 . G out, unspecified cause, unspecified chronicity, unspecified site - M10.9 Plan: * Treatment: Value Reference Range A /G Ratio 1.7 1.1-2.5 - * A lbumin 3.8 3.5-5.3 - g/dL * A lkaline Phosphatase 45 35-121 - IU/L * A LT (SGPT) 16 <5-47 - IU/L * A ST (SGOT) 18 <5-40 - IU/L * B ilirubin, Total 0.4 <0.2-1.2 - mg/dL * B UN 32 H 8-23 - mg/dL * C alcium 10.1 8.6-10.4 - mg/dL * C hloride 106 97-108 - mmol/L * C O2 29 22-32 - mmol/L * C reatinine 1.36 H 0.50-1.00 - mg/dL * G lucose 100 H 65-99 - mg/dL * P otassium 4.3 3.5-5.3 - mmol/L * S odium 145 135-145 - mmol/L * P rotein 6.1 6.0-8.3 - g/dL * e GFR by Creatinine 37 L >59 - mL/min/1.73m2 * Mitul Choudharyia 07/10/2024 9:31: 41 AM >See phone encounter ?LAB: P-Microalbumin/Creatinine, Random Urine Sample (Collection Date & Time - 07/07/2024 01:15 PM)?Normal* Value Reference Range A lbumin/Creatinine Ratio, Urine 11 0-30 - ug /mg * C reatinine, Urine 87.4 - mg/dL * M icroalbumin, Urine, Random 1.0 - mg/dL * KenrickJeanne pace 07/10/2024 9:31: 41 AM >See phone encounter 2.?Mixed hyperlipidemia?LAB: P-Comprehensive Metabolic Panel (CMP) (Collection Date & Time - 07/07/2024 01:15 PM)?gluc 100, bun 32, Cr 1.36, gfr 37* Value Reference Range A /G Ratio 1.7 1.1-2.5 - * A lbumin 3.8 3.5-5.3 - g/dL * A lkaline Phosphatase 45 35-121 - IU/L * A LT (SGPT) 16 <5-47 - IU/L * A ST (SGOT) 18 <5-40 - IU/L * B ilirubin, Total 0.4 <0.2-1.2 - mg/dL * B UN 32 H 8-23 - mg/dL * C alcium 10.1 8.6-10.4 - mg/dL * C hloride 106 97-108 - mmol/L * C O2 29 22-32 - mmol/L * C reatinine 1.36 H 0.50-1.00 - mg/dL * G lucose 100 H 65-99 - mg/dL * P otassium 4.3 3.5-5.3 - mmol/L * S odium 145 135-145 - mmol/L * P rotein 6.1 6.0-8.3 - g/dL * e GFR by Creatinine 37 L >59 - mL/min/1.73m2 * Jeanne Choudhary 07/10/2024 9:31: 41 AM >See phone encounter ?LAB: P-Lipid Panel (Collection Date & Time - 07/07/2024 01:15 PM)?trigs 311 * Value Reference Range C holesterol / HDL Ratio 3.52 0.00-4.44 - Ratio * C holesterol 141 <200 - mg/dL * H DL Cholesterol 40 >39 - mg/dL * L DL Cholesterol (Calculation) 39 <130 - mg/d L * L DL/HDL Ratio 1.0 <3.3 - Ratio * N on-HDL Cholesterol 101 <130 - mg/dL * T riglycerides 311 H <150 - mg/dL * Jeanne Choudhary 07/10/2024 9:31: 41 AM >See phone encounter ?LAB: P-TSH reflex to FT4 (Collection Date & Time - 07/07/2024 01:15 PM)? Normal* Value Reference Range T SH reflex to FT4 2.58 0.43-5.25 - mU/L * Jeanne Choudhary 07/10/2024 9:31: 41 AM >See phone encounter 3.?Stage 3b chronic kidney disease (CKD)?LAB: P-Comprehensive Metabolic Panel (CMP) (Collection Date & Time - 07/07/2024 01:15 PM)?gluc 100, bun 32, Cr 1.36, gfr 37* Value Reference Range A /G Ratio 1.7 1.1-2.5 - * A lbumin 3.8 3.5-5.3 - g/dL * A lkaline Phosphatase 45 35-121 - IU/L * A LT (SGPT) 16 <5-47 - IU/L * A ST (SGOT) 18 <5-40 - IU/L * B ilirubin, Total 0.4 <0.2-1.2 - mg/dL * B UN 32 H 8-23 - mg/dL * C alcium 10.1 8.6-10.4 - mg/dL * C hloride 106 97-108 - mmol/L * C O2 29 22-32 - mmol/L * C reatinine 1.36 H 0.50-1.00 - mg/dL * G lucose 100 H 65-99 - mg/dL * P otassium 4.3 3.5-5.3 - mmol/L * S odium 145 135-145 - mmol/L * P rotein 6.1 6.0-8.3 - g/dL * e GFR by Creatinine 37 L >59 - mL/min/1.73m2 * Jeanne Choudhary 07/10/2024 9:31: 41 AM >See phone encounter ?LAB: P-Phosphorus (Collection Date & Time - 07/07/2024 01:15 PM)?Normal* Value Reference Range P hosphorus 3.1 2.5-4.5 - mg/dL * Jeanne Choudhary 07/10/2024 9:31: 41 AM >See phone encounter 4.?Paronychia of finger of left hand? Start Cephalexin Capsule, 500 MG, 1 capsule, Orally, Two times a day, 7 days, 14 Capsule, Refills 0.?LAB: CBC Venipuncture (in house) (Collection Date & Time - 07/07/2024)? Normal* Value Reference Range w bc 3.8 3.5 - 10 * l ymph 33.3 15 - 50 * m id 8.1 2 - 15 * g ran 58.6 35 - 80 * r bc 4.23 3.5 - 5.5 * h gb 13.7 11.5 - 16.5 * h ct 41.0 35 - 55 * m cv 96.9 75 - 100 * m ch 32.5 25 - 35 * m chc 33.6 31 - 38 * p latlet 105 100 - 400 * RohithSandra 07/07/2024 2:35: 50 PM > Jeanne Choudhary 07/10/2024 9:31:41 AM >See phone encounter 5.?Vitamin D deficiency?LAB: P-Vitamin D 25-Hydroxy (Collection Date & Time - 07/07/2024 01:15 PM)? 37.8* Value Reference Range V itamin D 25-Hydroxy 37.8 30.0-100.0 - ng/mL * Jeanne Choudhary 07/10/2024 9:31: 41 AM >See phone encounter 6.?Gout, unspecified cause, unspecified chronicity, unspecified site?LAB: P-Uric Acid (Collection Date & Time - 07/07/2024 01:15 PM)?Normal* Value Reference Range U [place] Acid 3.5 2.4-7.0 - mg/dL * Jeanne Choudhary 07/10/2024 9:31: 41 AM >See phone encounter * Immunizations: Fluzone High Dose (65yr and older) : 0.7 mL (Route: Intramuscular) given by Criss Eaton on Right Deltoid PNEUMOVAX 23 VACCINE : 0.5 mL (Route: Intramuscular) given by Criss Eaton on Right Deltoid * Procedure Codes: G 2211 Complex e/[place], [address] CBC WITH AUTO DIFF * Follow Up: v ia phone to report progress, 6 Months * Images: Billing Information: * Visit Code: 82669 Office Visit, Est Pt., Level 4. * Procedure Codes: G2211 Complex e/[place]. [address] CBC WITH AUTO DIFF. * Electronic signature of Dahiana Rincon MD on 06/13/2025 at 10:01 AM EDT Sign off status: Pending * Provider: Brian Rincon M.D. Date: 0 07/07/2024 Generated for Thea gonzalez/Filiberto/Haitting on: 0 06/13/2025 10:01 AM EDT History and Physical Notes * HPI (History of Present Illness) Category Sub-Category Detail Notes Category Not es Cardiology Blood Pressure Elevated Pt here to f/u on hypertension, states she is doing well and does not have any concerns. Pt sts she has not been checking her BP at home Hyperlipidemia Pt is not fasting to day Wrist/Hand pain Pt sts she woke up today with her rt hand swollen and sts she has had carpal tunnel surgery, but sts this is first time her hand has been swollen and pt sts she has trigger finger and sts her rt middle finger is the worst. Pt sts she has been going to rehab for a month and sts it has not been helpful. Pt sts it is in both hands, but that her rt one is the worst Pt sts that her left thumb has some sort of infection under neath of the nail and sts that last month the infection came out some and sts that it does hurt sometimes and does bleed. Pt sts her thumb has been like this years and sts it started on the outside as looking like a wart and then after about 10-15 years it moved to underneath the fingernail swelling Examination Category Sub-Category Detail Notes Category Not es General Examination Heart: RSR Lungs: clear to auscultatio n Extremities: 3+ bilateral leg martina ma, wraps in place General Appearance: NAD, using a walker to assist with ambulation Skin: radial side of left index finger nail with some skin redness and clear drainage
--- OUTSIDE RECORDS SUMMARY | 2025-01-10 10:00 | XMS_ITS ---
Author Organization [facility] Address [address] [facility] [address] [place] [id number] Care Team Providers Care Tooth Cutter Clutch Name Role Phone Rosendo Rincon Primary Care Provider [phone] Allergies Allergen (clinical drug ingredient) Drug/Non Drug Allergy documented on EMR Reaction Allergy Type Onset Date Status allopurinol Allopurinol rash Drug Allergy Act jono predniSONE Unknown Drug Allergy Active Results Component Value Reference Range Notes P-Basic Metabolic Panel (BMP ) Reviewed date:01/12/2025 06:29:50 PM Interpretation:bun 46, Cr 1.74, gfr 28 Performing Lab: Notes/Report: Test performed by [facility] [address] [place], [place] [address] [place] , [address], [place] [address] Hari Monroy MD, Communication Consultant CLIA: [id number] Sodium 142 135-145 mmol/L Potassium 4.5 3.5-5.3 mmol/L Chloride 102 97-108 mmol/L CO2 31 22-32 mmol/L Glucose 91 65-99 mg/dL BUN 46 8-23 mg/dL Creatinine 1.74 0.50-1.00 mg/dL Calcium 9.8 8.6-10.4 mg/dL eGFR by Creatinine 28 >59 mL/min/1.73m2 P-Phosphorus Reviewed date:01/12/2025 06:29:50 PM Interpretation:Normal Performing Lab: Notes/Report: Test performed by [facility] [address] [place], [place] [address] [employer] [facility] [place] , [address], [place] [address] Hari Monroy MD, Communication Consultant CLIA: [id number] Phosphorus 3.1 2.5-4.5 mg/dL P-Uric Acid Reviewed date:01/12/2025 06:29:50 PM Interpretation:Normal Performing Lab: Notes/Report: Test performed by [facility] [address] [place] [address] , [address], [place] [address] Hari Monroy MD, Communication Consultant CLIA: [id number] Uric Acid 3.5 2.4-7.0 mg/dL P-Vitamin D 25-Hydroxy Reviewed date:01/12/2025 06:29:50 PM Interpretation:Normal Performing Lab: Notes/Report: Test performed by [facility] [address] [place] [address] , [address], [place] [address] Hari Monroy MD, Communication Consultant CLIA: [id number] Vitamin D 25-Hydroxy 82.7 30.0-100.0 ng/mL Interpretation of Vitamin D 25 OH: < 20 ng/mL - Deficiency 20 - 29 ng/mL - Insufficiency 30 - 100 ng/mL - Sufficiency > 100 ng/mL - Super-therapeutic- toxicity may occur above this level. Clinical correlation required. Reason For Referral Reason [facility] Diagnosis 1 Lymphedema (I89.0) Referral Organization [facility] Referring Provider First Name Rosendo Referring Provider Last Name Sergey Referring Provider Speciality Family Pra ctice Referred Provider Physical Therapy, . Referred Provider Specialty Physical The rapist General Notes Eileen Lal 01/11/20 25 3:20:10 PM > faxed to [facility] PT Referral Priority Routine REASON FOR VISIT [...] 01/10/2025 Encounters Encounter Location Date Provider Diagnosis [facility] [address], [place] [id number] 01/10/2025 Rosendo Rincon Essential hypertensi on I10 [...] Appt Details Follow Up: 6 Months, Reason: Provider Name:Rosendo Mabry ry, 07/13/2025 01:45:00 PM, [address], [address], [place], [place], [id number], Progress Notes * Letty FORBESEDOB: [birth year] (89 yo F)Acc No.[id number]:01/10/2025 Progress Notes Patient: Letty KHAN Provider: Brian Rincon M.D. :1935 A ge:89 Y S ex:Female Date:01/10/2025 Address:[address] [place] [address], [id number] Subjective: * Chief Complaints: * 1 . [...] - Crystal Wallace 04/18/2020, LT Heart Cath- [facility] 01/2021. * Hospitalization/Major Diagno stic Procedure: A KI, Hyperkalemia, Fall at Home- [facility] 04/2021. * Family History: F ather: , heart disease, from heart attack. M other: , heart problems and of stroke. S iblings: one brother at , one sister had breast cancer but of stroke, oldest brother of heart attack, another brother has prostate cancer and heart problems. C saurabh: two sons and one daughter that have [...] day , Taking Vitamin D3 50 MCG (1999 UT) Capsule 1 cap(s) orally once a [...] encounter 4.?Lymphedema? Referral To:. Physical Therapy??Physical Therapist ?Reason:[facility] * Procedure Codes: G 2211 Complex e/m visit add on, 3074F SYST BP LT 130 MM HG, 3078F DIAST BP < 80 MM HG * Follow Up: 6 Months * Images: Billing Information: * Visit Code: 09454 Office Visit, Est Pt., Level 4. * Procedure Codes: G2211 Complex e/m visit add on. 3074F SYST BP LT 130 MM HG. 3078F DIAST BP < 80 MM HG. * Electronic signature of Dahiana Rincon MD on 06/13/2025 at 10:01 AM EDT Sign off status: Pending * Provider: Brian Rincon M.D. Date: 0 01/10/2025 Generated for Thea gonzalez/Filiberto/eTransmitting on: 0 06/13/2025 10:01 AM EDT History [...] es 01/10/2025 Rosendo Rincon Physical Therapy, . [facility]
--- OUTSIDE RECORDS SUMMARY | 2025-06-13 10:00 | XMS_ITS | Continuity of Care Document ---
Author Name [facility] Organization [facility] Care Team Providers Care Automotive Dismantler Name Role Phone [facility] Unavailable Unavailable Medications Combined list of outpatient medications from Department of Defense and Veterans Affairs facilities.Medications provided include 1) outpatient medications from the last 15 months, and 2) patient-reported medications. Medication Details Route Status Patient Instructions Prescription Expires Prescription Number Last Dispense Date Ordering Provider Order Date Order Qty Source COLCHICINE (colchicine ), 0.6 MG, TABLET, ORAL, [employer] 100 ea. BOTTLE Cancele d [id number] 4 [id number] : 2023 0 Pharmac y Data Transac tion Service Facilit y DULOXETINE HCL (duloxetine HCl), 30 MG, CAPSULE DR, ORAL, [employer] 90 ea. BOTTLE Cancele d [id number] 4 [id number] : 2023 0 Pharmac y Data Transac tion Service Facilit y ELIQUIS (APIXABAN), 5 MG, TABLET, ORAL, [facility] , 60 ea. BOTTLE Cancele d [id number] 4 [id number] : 2023 0 Pharmac y Data Transac tion Service Facilit y METOPROLOL SUCCINATE (metoprolol succinate), 100 MG, TAB ER 24H, ORAL, [employer] 1000 ea. BOTTLE Cancele d [id number] 4 [id number] : 2023 0 Pharmac y Data Transac tion Service Facilit y NEOMYCIN-PO LYMYXIN-DEX AMETH (neomycin/p olymyxin B sulfate/dex amethasone) , 0.1 %, DROPS SUSP, OPHTHALMIC, SANDOZ, 5 ml DROP BTL Active [id number] 04/04/20 2 4 2023 5 Pharmac y Data Transac tion Service Facilit y POTASSIUM CHLORIDE (potassium chloride), 20 MEQ, TAB ER PRT, ORAL, [employer], 500 ea. BOTTLE Cancele d [id number] 4 [id number] : 2023 0 Pharmac y Data Transac tion Service Facilit y RANOLAZINE ER (ranolazine ), 500 MG, TAB ER 12H, ORAL, [employer], 60 ea. BOTTLE Cancele d [id number] 4 [id number] : 2023 0 Pharmac y Data Transac tion Service Facilit y Social History Combined list of available smoking, tobacco, and other social history from Department of Defense and Veterans Affairs facilities. Social History Type Response Date Comment [facility] e This section is an empty social history section. DoD
--- OUTSIDE RECORDS SUMMARY | 2025-06-13 10:02 | XMS_ITS | Clinical Summary ---
Author Organization [facility] Address [address] [place] [id number] Care Team Providers Care Polishing Machine Tender Name Role Phone Unavailable Primary Care Provider Unavailabl e Social History Tobacco Use Types Packs/Day Years Used Date Smoking Tobacco: Never Assessed Abuse Screen Answer Date Recorded Unsafe at Home or Work/School Not on file Feels Threatened by Someone? Not on file 06/2023 Does Anyone Keep You from Co ntacting Others or Doint Things Outside the Home? Not on file 07/26/2023 Physical Sign of Abuse Present Not on file 1 Housing Stability Answer Date Recorded Current Living Arrangements Not on file 06/2023 Potentially Unsafe Housing Conditions Not on eula e 07/26/2023 Family and Community Support Answer Cody e Recorded Help with Day-to-Day Activities Not on file 07/26/2023 Lonely or Isolated Not on file 07/26/2023 Employment Answer Date Recorded Do you want help finding or keeping work or a wang b? Not on file 07/26/2023 Disabilities Answer Date Recorded Concentrating, Remembering, or Making Decisions Difficulty Not on file 07/26/2023 Doing Errands Independently Difficulty Not on fi le 07/26/2023 Education Answer Date Recorded Help with school or training? Not on file Preferred Language Not on file 07/26/2023 Comments Unknown Sex and Gender Information Value Date Recorded Sex Assigned at Not on file Legal Sex Female 12:40 PM EDT Gender Identity Not on file Sexual Orientation Not on file Plan of Treatment Health Maintenance Due Date Last Done Comments ANNUAL PHYSICAL 1935 DXA SCAN 1935 TDAP/TD VACCINES (1 - Tdap) 1954 Pneumococcal Vaccine 50+ (1 of 1 - PCV) 1985 ZOSTER VACCINE (1 of 2) 1985 RSV Vaccine - Adults (1 - 1-dose 75+ series) 0 COVID-19 Vaccine (1 - 2024-25 season) 2024 INFLUENZA VACCINE 07/18/2025
--- OUTSIDE RECORDS SUMMARY | 2025-06-13 10:03 | XMS_ITS | Patient Health Record ---
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 Name Role Phone Rosendo Rincon Primary Care Provider Ilan Holder [phone] Allergies Allergen (clinical drug ingredient) Drug/Non Drug [...] 37 Performing Lab: Notes/Report: Test performed by [facility] [address] , [address], [place] [address] Hari Monroy MD, Biosecurity Officer CLIA: [id number] Sodium 145 135-145 mmol/L Potassium 4.3 3.5-5.3 [...] 311 Performing Lab: Notes/Report: Test performed by [facility], [address] , [address], [place] [address] Hari Monroy MD, Biosecurity Officer CLIA: [id number] Cholesterol 141 <200 mg/dL Triglycerides 311 <150 [...] Normal Performing Lab: Notes/Report: Test performed by [facility] , [address], [place] [address] Hari Monroy MD, Biosecurity Officer CLIA: [id number] Phosphorus 3.1 2.5-4.5 mg/dL P-TSH reflex to FT4 Reviewed date:07/10/2024 09:31:47 AM Interpretation: Normal Performing Lab: Notes/Report: Test performed by [facility] , [address], [place] [address] aHri Monroy MD, Biosecurity Officer CLIA: [id number] TSH reflex to FT4 2.58 0.43-5.25 mU/L P-Microalbumin/Creatinine, R andom Urine Sample Reviewed date:07/10/2024 09:31:47 AM Interpretation: Normal Performing Lab: Notes/Report: [facility] , [address], [place] [address] Hari Monroy MD, Biosecurity Officer CLIA: [id number] Albumin/Creatinine Ratio, Urine 11 0-30 ug/m g Microalbumin, Urine, Random 1.0 Creatinine, Urine 87.4 P-Uric Acid Reviewed date:07/10/2024 09:31:47 AM Interpretation: Normal Performing Lab: Notes/Report: [facility] , [address], [place] [address] Hari Monroy MD, Biosecurity Officer CLIA: [id number] Uric Acid 3.5 2.4-7.0 mg/dL P-Vitamin D 25-Hydroxy Reviewed date:07/10/2024 09:31:47 AM Interpretation:37.8 Performing Lab: Notes/Report: Test performed by [facility] [address] [place] [address] , [address], [place] [address] Hari Monroy MD, Biosecurity Officer CLIA: [id number] Vitamin D 25-Hydroxy 37.8 30.0-100.0 ng/mL Interpretation of Vitamin D 25 OH: < 20 ng/mL - Deficiency 20 - 29 ng/mL - Insufficiency 30 - 100 ng/mL - Sufficiency > 100 ng/mL - Super-therapeutic- toxicity may occur above this level. Clinical correlation required. P-Basic Metabolic Panel (BMP ) Reviewed date:01/12/2025 06:29:50 PM Interpretation:bun 46, Cr 1.74, gfr 28 Performing Lab: Notes/Report: Test performed by [facility] [address] [place] [address] , [place] [address] Hari Monroy MD, Biosecurity Officer CLIA: [id number] Sodium 142 135-145 mmol/L Potassium 4.5 3.5-5.3 mmol/L Chloride 102 97-108 mmol/L CO2 31 22-32 mmol/L Glucose 91 65-99 mg/dL BUN 46 8-23 mg/dL Creatinine 1.74 0.50-1.00 mg/dL Calcium 9.8 8.6-10.4 mg/dL eGFR by Creatinine 28 >59 mL/min/1.73m2 P-Phosphorus Reviewed date:01/12/2025 06:29:50 PM Interpretation:Normal Performing Lab: Notes/Report: Test performed by [facility] [address] [place] [address] , [address], [place] [address] Hari Monroy MD, Biosecurity Officer CLIA: [id number] Phosphorus 3.1 2.5-4.5 mg/dL P-Uric Acid Reviewed date:01/12/2025 06:29:50 PM Interpretation:Normal Performing Lab: Notes/Report: Test performed by [facility] [address] [place] [address] , [address], [place] [address] Hari Monroy MD, Biosecurity Officer CLIA: [id number] Uric Acid 3.5 2.4-7.0 mg/dL P-Vitamin D 25-Hydroxy Reviewed date:01/12/2025 06:29:50 PM Interpretation:Normal Performing Lab: Notes/Report: Test performed by [facility] [address] , [address], [place] [address] Hari Monroy MD, Biosecurity Officer CLIA: [id number] Vitamin D 25-Hydroxy 82.7 30.0-100.0 ng/mL Interpretation of Vitamin D 25 OH: < 20 ng/mL - Deficiency 20 - 29 ng/mL - Insufficiency 30 - 100 ng/mL - Sufficiency > 100 ng/mL - Super-therapeutic- toxicity may occur above this level. Clinical correlation required. Medications Medication SIG (Take, Route, Frequency, Duration) Notes Start Date End Date Status Colcrys 0.6 MG 2 tab(s) orally once a day; Duration: 90 days Active Vitamin D3 50 MCG (2000 UT) 1 cap(s) orally once a day 09/25/2016 A ctive Eliquis 5 MG 1 tablet Orally Twic e a day; Duration: 90 days Active DULoxetine HCl 30 MG 1 cap(s) orally onc e a day; Duration: 90 days Active Gabapentin 600 MG 1 tab(s) orally 2 ti mes a day; Duration: 90 days 03/29/2025 Active Clobetasol Propionate 0.05 % APPLY 1 APPLICATION TOPICALLY TWICE A DAY Active Pravastatin Sodium 20 MG 1 tab(s) orally once a day at bedtime; Duration: 90 days Active Furosemide 20 MG 1 tab(s) orally once a day 2021 Active Doxazosin Mesylate 4 MG 1 tablet Orally twice a day; Duration: 90 days 04/11/2025 Active Ranolazine ER 500 MG 1 tab(s) orally 2 t imes a day; Duration: 90 days Active Tolterodine Tartrate ER 4 MG 1 capsule Orally Once a day; Duration: 90 days 04/09/2025 Active Toprol XL 100 MG 1 tab(s) orally 2 ti mes a day; Duration: 90 days Active Uloric 40 MG 1 tab(s) orally once a day; Duration: 90 days Active Immunizations Vaccine Route Administration Date Status Comme nts [id number]-[id number] e pts. IM Intramuscular 07/10/2011 Administered xFluzone High Dose-private (65yr&older) IM Intramuscular 08/31/2013 Administered xFlu shot-36 months and older IM Intramuscular 10/14/2009 Administered xFlu shot-36 months and older IM Intramuscular 08/27/2010 Administered Tetanus Tdap-Adacel (over 7yrs) IM Intramuscular 10/09/2013 Administered Prevnar (PCV20) IM Intramuscular 10/05/2022 Administered Prevnar (PCV13) IM Intramuscular 10/09/2013 Administered PNEUMOVAX 23 VACCINE IM Intramuscular 09/06/2015 Administe red PNEUMOVAX 23 VACCINE IM Intramuscular 09/25/2016 Administe red PNEUMOVAX 23 VACCINE IM Intramuscular 07/07/2024 Administe red Fluzone PF Quad (6-35 months) Unknown 08/12/2020 Administered Fluzone High Dose (65yr and older) IM Intramuscular 09/04/2014 Administered Fluzone High Dose (65yr and older) IM Intramuscular 09/06/2015 Administered Fluzone High Dose (65yr and older) IM Intramuscular 09/25/2016 Administered Fluzone High Dose (65yr and older) Unknown 07/21/2021 Pending Fluzone High Dose (65yr and older) IM Intramuscular 10/05/2022 Administered Fluzone High Dose (65yr and older) IM Intramuscular 11/12/2023 Administered Fluzone High Dose (65yr and older) IM Intramuscular 07/07/2024 Administered COVID 19 Moderna Unknown 10/29/2020 Administered COVID 19 Moderna Unknown 11/29/2020 Administered Problems Problem Type SNOMED Code ICD Code Onset Dates Problem Status W/U Status Risk Notes Problem Hypokalemia (21571329) Hypokalemia (E87.6) Active confirmed Problem Vitamin D deficiency (24780264) Vitamin D deficiency (E55.9) Active confirmed Problem Essential hypertension (81392064) Essential hypertension (I10) Active confirmed Problem Hypertriglyceridemia (007346696) Hypertriglyceridemia (E78.1) Active confirmed Problem Hypokalemia (69844430) History of hypokalemia (Z86.39) Active confirmed Problem Psoriasis (4464243) Psoriasis (L40.9) Active co nfirmed Problem Lumbar spinal stenosis (86496310) Lumbar spinal stenosis (M48.06) Active confirmed Problem Lymphedema (01448835) Lymphedema (I89.0) Active confirmed Problem Sciatica (39569010) Lumbago with sciatica, right side (M54.41) Active confirmed Problem Mixed hyperlipidemia (494637379) Mixed hyperlipidemia (E78.2) Active confirmed Problem Hypomagnesemia (437533987) Hypomagnesemia (E83.42) Active confirmed Problem Chronic pain (90406706) Other chronic pain (G89.29) Active confirmed Problem Cholelithiasis without obstruction (90770600) Calculus of gallbladder without cholecystitis without obstruction (K80.20) Active confirmed Problem Urge incontinence of urine (15664493) Urge incontinence (N39.41) Active confirmed Problem Sciatica (38964122) Left-sided l ow back pain with left-sided sciatica (M54.42) Active confirmed Problem Inflammatory and toxic neuropathy (659495957) Peripheral polyneuropathy (G62.9) Active confirmed Problem Gastroesophageal reflux disease (513263034) Gastroesophageal reflux disease, esophagitis presence not specified (K21.9) Active confirmed Problem Gout (10704286) Gout, unspecifie d cause, unspecified chronicity, unspecified site (M10.9) Active confirmed Problem Atrial fibrillation (37985423) Atrial fibrillation, unspecified type (I48.91) Active confirmed Problem Recurrent falls (939623339) Frequent falls (R29.6) Active confirmed Problem Polyneuropathy (35133547) Polyneuropathy (G62.9) Active confirmed Problem Chronic kidney disease stage 4 (488905922) CKD (chronic kidney disease) stage 4, GFR 15-29 ml/min (N18.4) Active confirmed Problem Skin sensation disturbance (46807237) Burning sensation of feet (R20.8) Active confirmed Problem Stasis dermatitis (disorder) (82072080) Stasis dermatitis of both legs (I87.2) Active confirmed Problem Diastolic dysfunctio n (4877231) Diastolic dysfunction (I51.89) Active confirmed Problem Gastroesophageal reflux disease (049995343) Gastroesophageal reflux disease, unspecified whether esophagitis present (K21.9) Active confirmed Problem Chronic kidney disease stage 3B (disorder) (395129220) Stage 3b chronic kidney disease (N18.32) Active confirmed Problem Chronic kidney disease stage 3B (disorder) (955611896) Stage 3b chronic kidney disease (CKD) (N18.32) Active confirmed Vital Signs Heart Rate 61 /min 01/10/2025 Blood pressure diastolic 70 mm Hg 01/10/2025 Height 64 in 01/10/2025 Blood pressure systolic 120 mm Hg 01/10/2025 Weight 233 lbs 01/10/2025 BMI 39.99 kg/m2 01/10/2025 Encounters Encounter Location Date Provider Diagnosis [facility] [address] [place], [place] [id number] 07/07/2024 Rosendo Loris Essential hypertensi on I10 ; Mixed hyperlipidemia E78.2 ; Hypertriglyceridemia E78.1 ; Stage 3b chronic kidney disease (CKD) N18.32 ; Paronychia of finger of left hand L03.012 ; Vitamin D deficiency E55.9 and Gout, unspecified cause, unspecified chronicity, unspecified site M10.9 [facility] [address] [place], [place] [id number] 01/10/2025 Rosendo Loris Essential hypertensi on I10 ; Gout, unspecified cause, unspecified chronicity, unspecified site M10.9 ; Vitamin D deficiency E55.9 ; Stage 3b chronic kidney disease (CKD) N18.32 and Lymphedema I89.0 [facility] [address] [place], [place] [id number] 07/10/2024 Rosendo Loris [facility] [address] [place], [place] [id number] 09/28/2024 Rosendo Loris [facility] [address] [place], [place] [id number] 09/28/2024 R Byron Gallo Polyneuropathy G62.9 [facility] [address] [place] [id number] 12/11/2024 Rosendo Loris [facility] [address] [place] [id number] 12/22/2024 Rosendo Loris Gout, unspecified ca use, unspecified chronicity, unspecified site M10.9 [facility] [address] [place] [id number] 01/12/2025 Rosendo Loris [facility] [address] [place] [id number] 01/26/2025 Rosendo Loris [facility] [address] [place] [id number] 02/23/2025 Rosendo Loris [facility] [address] [place] [id number] 02/26/2025 Rosendo Loris [facility] [address] [place] [id number] 02/26/2025 Rosendo Loris [facility] [address] [place] [id number] 03/29/2025 Rosendo Loris Polyneuropathy G62.9 [facility] [address] [place] [id number] 04/03/2025 Rosendo Loris [facility] [address] [place] [id number] 04/09/2025 Rosendo Loris Gout, unspecified ca use, unspecified chronicity, unspecified site M10.9 [facility] [address] [place] [id number] 04/10/2025 Rosendo Loris [facility] [address] [place] [id number] 04/10/2025 Rosendo Loris [facility] [address] [place] [id number] 04/11/2025 Rosendo Loris [facility] [address] [place] [id number] 04/25/2025 Rosendo Loris Assessments Encounter Date Diagnosis (ICD Code) Assessment Notes Treatment Notes Treatment Clinical Notes Section Notes 03/29/2025 Polyneuropathy (ICD- 10 - G62.9) 07/07/2024 Essential hypertensi on (ICD-10 - I10) 07/07/2024 Mixed hyperlipidemia (ICD-10 - E78.2) 09/28/2024 Polyneuropathy (ICD- 10 - G62.9) 12/22/2024 Gout, unspecified ca use, unspecified chronicity, unspecified site (ICD-10 - M10.9) 01/10/2025 Essential hypertensi on (ICD-10 - I10) 01/10/2025 Gout, unspecified ca use, unspecified chronicity, unspecified site (ICD-10 - M10.9) 04/09/2025 Gout, unspecified ca use, unspecified chronicity, unspecified site (ICD-10 - M10.9) 01/10/2025 Vitamin D deficiency (ICD-10 - E55.9) 07/07/2024 Hypertriglyceridemia (ICD-10 - E78.1) 07/07/2024 Stage 3b chronic kid dominguez disease (CKD) (ICD-10 - N18.32) 01/10/2025 Stage 3b chronic kid dominguez disease (CKD) (ICD-10 - N18.32) 01/10/2025 Lymphedema (ICD-10 - I89.0) 07/07/2024 Paronychia of finger of left hand (ICD-10 - L03.012) 07/07/2024 Vitamin D deficiency (ICD-10 - E55.9) 07/07/2024 Gout, unspecified ca use, unspecified chronicity, unspecified site (ICD-10 - M10.9) Plan Of Treatment Next Appt Details Provider Name:Rosendo Mabry ry, 07/13/2025 01:45:00 PM, [address], [address], [place], [place], [id number], Insurance Providers Payer Name Payer Address Payer Phone Subscriber Number Group Number Insured Name Patient Relationship to Insured Coverage Start Date Coverage End Date MEDICARE PART B [address] [address] [place] [address] [id number] Letty Dumont Self - patient is the insured [facility] [address] [place] [address] [id number] DumontLetty Self - patient is the insured Medical (General) History Medical History History ICD Code Hypertension Arthritis Allergic Rhinitis Peptic Ulcer Disease Breast cancer x 2, two diffe rent types, First was estrogen sensitive (2001) Colon Polyps Psoriasis Osteopenia Gout Basal cell carinoma, right side of nose, Dx: 2014 Chronic back pain, s/p pain managment ev aluation 2015 Lumbar Disc Disease Lumbar Spinal Stenosis Vitamin D deficiency Chronic kidney disease Diastolic dysfunction Surgical History Surgery Date(Month/Year) Mastectomy x2 2001, 2006 Adenoidectomy 1944 Colonoscopy, 20 polyps removed LT SI Injection - [facility] 04/18/20 LT Heart Cath- [facility] 01/2021 Hospitalization History Reason Date(Month/Year) DAMION, Hyperkalemia, Fall at Home- [facility] 2020
[2025-06-13 10:42] LABS: Hematocrit 41.2 % (37.0-47.0); Hemoglobin 13.4 g/dL (12.2-16.2); Immature Granulocytes % 0.2 %; Mean Corpuscular HGB Conc 32.5 g/dL (31.8-35.4); Mean Corpuscular Hemoglobin 32.3 pg (27.0-31.2); Mean Corpuscular Volume 99.3 fl (81-99); Nucleated Red Blood Cells % 0 %; Platelet Count 148 K/mm3 (142-424); Red Blood Count 4.15 M/mm3 (4.20-5.40); Red Cell Distribution Width-SD 46.5 fL; White Blood Count 5.2 K/mm3 (4.8-10.8)
[2025-06-13 13:48] LABS: Chloride 104 mmol/L (98-107)
[2025-06-13 13:49] LABS: Potassium 5.0 mmoL/L (3.5-5.1); Sodium 140 mmol/L (136-145)
[2025-06-13 13:52] LABS: Anion Gap 12.0 mEq/L (5-15); Blood Urea Nitrogen 25 mg/dl (7-17); Calcium 10.3 mg/dl (8.4-10.2); Carbon Dioxide 29 mmol/L (22.0-30.0); Creatinine,Serum 1.40 mg/dl (0.52-1.04); Estimated Glomerular Filt Rate 35 ml/min (>60); GFR (African American) 43 ML/MIN (>60); Glucose 87 mg/dl (74-100)
== END 2025-06-13 23:59 | disposition home or self-care (01) ==
LOC: LAB 09:59
PROVIDERS: PCP Family Medicine; Visit Provider Internal Medicine
DX: I10 Essential (primary) hypertension (principal)
CPT/HCPCS: 36415; 80048; 85025

== ENCOUNTER 2025-06-28 13:00 | Outpatient (RCR) | payer MEDICARE, OTHER, SELFPAY ==
--- NOTE | 2025-06-19 14:28 | HMH.RHREAS ---
Rehab Reassessment Rehab OP Re-assessment Start: 06/19/25 13:55 Freq: Status: Active Protocol: Document 06/19/25 13:55 RATRACI (Rec: 06/19/25 14:27 PHOBAYLEE [id number]) E-signed By Jigar Layton, PT Rehab Re-assessment Subjective Subjective Pt reports no c/o pain in B LE at this time, but she does reports continued tenderness to palpation. She reports she feels her legs aren't as heavy, but she continues to have difficulty picking my feet up high enough when I walk. Objective Objective Notes Circumferential measurements: R LE total is 139.2 cm which is -16.7 cm since IE. L LE total is 135.2 cm which is -12.2 cm since IE. Edema: Pitting edema 2+, MINIMAL Fibrotic edema to B LE . Skin: Mild erythema to B lower legs. LLIS score: 50 Assessment Progress Assessment Progressing as Expected Assessment Notes Pt has shown decreased overall edema based on palpation and circumferential measurements as noted. She continues to have difficulty with mobility due to increased heaviness of B LE and difficulty with household care. Skilled therapy services remain indicated in order to reduce overall edema and aid pt improvement in QOL. Lymphedema Patient Goals Lymphedema Short in 2 wks pt will: Term Patient Goals 1) Reduce pitting edema to 1+ in B LE 2) Reduce circumferential measurements to B LE by 15 cm ea since IE. 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 in 4 wks pt will: Patient Goals 1) Reduce pitting edema to none in B LE 2) Reduce circumferential measurements to B LE by 20 cm ea since IE 3) Pt will be independent with home management of B LE lymphedema Plan Plan Pt treatment will continue via the following possible intervention in order to reduce overall edema in B LE: Frequency of Therapy 2 x/wk Duration of Therapy 4 wks Therapeutic Exercise Yes Including Home Exercise Program Manual Therapy Yes Techniques Neuromuscular Re- Yes education Therapeutic Yes Activities to Return to Previous Functional/Work Level ADL/Self Care Yes Education Orthotics/Bracing/ Yes Splinting Manual Lymphatic Yes Drainage Eval/Re-Eval Yes Time and Billing Re-Eval Time 15 Re-Eval Billing 0 Units Charge for PT No reassessment? PHYSICIAN CERTIFICATION: I certify the specified therapy services for Letty Colbert Dumont are required, authorized, and reviewed every 30 days.
== END 2025-06-28 23:59 | disposition home or self-care (01) ==
LOC: PT 13:00
PROVIDERS: PCP Family Medicine; Visit Provider Podiatrist
DX: I89.0 Lymphedema, not elsewhere classified (principal); R60.0 Localized edema
CPT/HCPCS: 97140

== ENCOUNTER 2025-06-28 14:00 | Outpatient (RCR) | payer MEDICARE, OTHER, SELFPAY ==
--- NOTE | 2025-06-19 14:54 | HMH.RHREAS ---
Rehab Reassessment Rehab OP Re-assessment Start: 06/19/25 13:03 Freq: Status: Active Protocol: Document 06/19/25 14:05 ROSALISA (Rec: 06/19/25 14:53 CHRISTINE [id number]) E-signed By Javier Marie, PT Lower Extremity Functional Index Activities Today, do you or would you have any difficulty at all with: a.Any of your usual Quite a bit of difficulty work, housework or school activities b. Your usual Extreme difficulty or unable to perform activity hobbies, recreational or sporting activities c. Getting into or No difficulty out of the bath d. Walking between Moderate difficulty rooms e. Putting on your Extreme difficulty or unable to perform activity shoes or socks f. Squatting Extreme difficulty or unable to perform activity g. Lifting an object Quite a bit of difficulty , like a bag of groceries from the floor h. Performing light Quite a bit of difficulty activities around your home i. Performing heavy Extreme difficulty or unable to perform activity activities around your home j. Getting into or Quite a bit of difficulty out of a car k. Walking 2 blocks Extreme difficulty or unable to perform activity l. Walking a mile Extreme difficulty or unable to perform activity m. Going up or down Extreme difficulty or unable to perform activity 10 stairs (about 1 flight of stairs) n. Standing for 1 Extreme difficulty or unable to perform activity hour o. Sitting for 1 No difficulty hour p. Running on even Extreme difficulty or unable to perform activity ground q. Running on uneven Extreme difficulty or unable to perform activity ground r. Making sharp Extreme difficulty or unable to perform activity turns while running fast s. Hopping Extreme difficulty or unable to perform activity t. Rolling over in Extreme difficulty or unable to perform activity bed LEFI Score Lower Extremity 14 Functional Index Score Rehab Re-assessment Subjective Subjective Pt reports that her ankle has improved about 40% since beginning. Pt reports that her pain is a 0/10 in her R ankle this date and reports that over the last 48 hours , her pain has averaged at a 4/10. Pt reports that she is having less episodes of ankle instability, estimating that her ankle is only giving out 1-2x/week. Pt reports that PT has been helping a lot and would like to continue coming to PT. Objective Objective Notes LEFS: 14 (14 on IE) Strength: - Ankle DF 3+/5 - Ankle PF 4/5 - Ankle Inv 3+/5 - Ankle Eversion 4/5 Balance: - TS 10s R, 9s L Assessment Progress Assessment Progressing as Expected Assessment Notes Pt has undergone one month of skilled PT thus far, consisting of gentle strengthening of her R ankle complex and strengthening of the R kinetic chain. Pt has responded well to PT, demonstrating improvements in her R ankle strength, decreased episodes of R ankle instability and reduced pain. Pt continues to demonstrate impairments in overall strength and balance and would continue to benefit from skilled PT to address these remaining impairments. PT Patient Goals PT Short Term In 4 weeks: Patient Goals 1. Patient will report a 48 hour average pain of 5/10 on the numeric pain rating scale to demonstrate improvement in quality of life and increased functional capacity. MET 2. Patient will improve strength of the ankle complex to 3+/5 globally to improve gait mechanics, improve static/dynamic balance and to decrease fall risk. MET 3. Patient will improved LEFS score to 24/80 to demonstrate improved functional mobility and increased independence with ADLs. NOT MET 4. Patient will report a decrease in episodes of ankle instability to less than 5x/week to demonstrate a decreased fall risk. MET 5. Pt will demonstrate HEP compliance by completing prescribed HEP 4-5x/week. MET PT Residency Coordinator Patient In 8 weeks: Goals 1. Patient will report a 48 hour average pain of 2-3/10 on the numeric pain rating scale to demonstrate improvement in quality of life and increased functional capacity. NOT MET 2. Patient will improve strength of the ankle complex to 4/5 globally to improve gait mechanics, improve static/dynamic balance and to decrease fall risk. NOT MET 3. Patient will improved LEFS score to 34/80 to demonstrate improved functional mobility and increased independence with ADLs. NOT MET 4. Patient will report a decrease in episodes of ankle instability to less than 2-3x/week to demonstrate a decreased fall risk. MET 5. Pt will demonstrate HEP compliance by completing prescribed HEP 4-5x/week. MET 6. Patient will demonstrate improved balance by maintaining tandem stance for 30s with each foot placed forward, on an even surface, without upper extremity support to demonstrate a reduced fall risk. NOT MET Plan Plan Plan to progress to standing exercises to further promote improved balance and dynamic stability of the R ankle complex, utilizing the following activities. Frequency of Therapy 2/week Duration of Therapy 4 weeks Therapeutic Exercise Yes Including Home Exercise Program Manual Therapy Yes Techniques Neuromuscular Re- Yes education Gait Training Yes ADL/Self Care Yes Education Thermal Modalities Yes Electrical Yes Stimulation Ultrasound/ Yes Phonophoresis Iontophoresis Yes Manual Lymphatic Yes Drainage Wound Care Yes Eval/Re-Eval Yes Time and Billing Re-Eval Time 10 Re-Eval Billing 0 Units Charge for PT No reassessment? PHYSICIAN CERTIFICATION: I certify the specified therapy services for Letty Dumont are required, authorized, and reviewed every 30 days.
== END 2025-06-28 23:59 | disposition home or self-care (01) ==
LOC: PT 14:00
PROVIDERS: PCP Family Medicine; Visit Provider Podiatrist
DX: M25.371 Other instability, right ankle (principal)
CPT/HCPCS: 97110; 97530

== ENCOUNTER 2025-06-29 13:29 | Emergency (ER) | payer MEDICARE, OTHER, SELFPAY ==
[2025-06-29] VITALS (15 sets, daily range): BP systolic 148–187; BP diastolic 57–83; PULSE 80–91; RESP 10–23; TEMP 36.6; O2SAT 92–99; BMI 43.7
--- NOTE | 2025-06-29 13:41 | XR_ITS ---
FINAL REPORT CLINICAL HISTORY: Fall, right shoulder pain COMPARISON: None FINDINGS: Three views of the right shoulder were obtained. There is no fracture or dislocation. There is glenohumeral joint and AC joint degenerative disease. Soft tissues are unremarkable. IMPRESSION: Degenerative changes without acute osseous abnormality of the right shoulder. Reviewed, Interpreted and Dictated by Elena Sabillon MD Transcribed by April Contreras Authenticated and [facility]
--- NOTE | 2025-06-29 13:41 | CT_ITS ---
FINAL REPORT TECHNIQUE: Axial images through the pelvis were performed by computed tomography. Sagittal and coronal reconstruction images were performed. This study was performed with techniques to keep radiation doses as low as reasonably achievable (ALARA). Individualized dose reduction techniques using automated exposure control or adjustment of mA and/or kV according to the patient's size were employed. CLINICAL HISTORY: fall, sacral pain COMPARISON: None FINDINGS: CT PELVIS: No fracture of the pelvis or either hip is identified. No dislocation identified. There is degenerative joint disease involving the hips and the sacroiliac joints. No soft tissue abnormality. IMPRESSION: Degenerative joint disease, with no acute osseous abnormality identified. Reviewed, Interpreted and Dictated by Elena Sabillon MD Transcribed by Zara Phillip Authenticated and [facility]
--- NOTE | 2025-06-29 13:41 | XR_ITS ---
FINAL REPORT CLINICAL HISTORY: Fall, left shoulder pain FINDINGS: LEFT SHOULDER Three views were obtained. There is no fracture or dislocation. There is degenerative joint disease. No soft tissue abnormality is identified. IMPRESSION: Degenerative joint disease. Reviewed, Interpreted and Dictated by Elena Sabillon MD Transcribed by Lyndsey Diaz Authenticated and [facility]
--- NOTE | 2025-06-29 13:41 | CT_ITS ---
FINAL REPORT TECHNIQUE: Thin section axial images were obtained through the abdomen and pelvis after contrast injection per CT angiogram protocol. Multiplanar reconstruction images were obtained from the axial data. This exam was performed with techniques to keep radiation dose as low as reasonably achievable. This includes automated exposure control, adjustment of the MA and KVP, and iterative reconstruction technique. CLINICAL HISTORY: Fall, general abdominal pain COMPARISON: None FINDINGS: CTA: No abdominal aortic aneurysm or aortic dissection. The celiac axis occluded. The branches of the celiac axis fill via collateral circulation from the superior mesenteric artery. 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 The superior mesenteric artery, and inferior mesenteric artery are patent without stenosis. The renal arteries are patent. The common iliac arteries and visualized portions of the internal and external iliac arteries are patent. No significant stenosis. NONVASCULAR: The liver is homogeneous. Gallstones are present in the gallbladder. There is a small hypodense splenic lesion, that likely represents a cyst. The adrenal glands and pancreas are unremarkable. There are bilateral hypodense renal lesions that are likely cysts. No hydronephrosis is present. The GI tract is without acute abnormality. The appendix is not well-visualized. No lymphadenopathy or free fluid. IMPRESSION: No evidence of abdominal aortic aneurysm or dissection. No significant stenosis. 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 Reviewed, Interpreted and Dictated by Elena Sabillon MD Transcribed by Zara Phillip Authenticated and [facility]
--- NOTE | 2025-06-29 13:41 | XR_ITS ---
FINAL REPORT CLINICAL HISTORY: Fall, left knee pain FINDINGS: LEFT KNEE Two views were obtained. There is no fracture or dislocation. There is tricompartment degenerative disease and chondrocalcinosis. No soft tissue abnormality is identified. IMPRESSION: Degenerative joint disease. Reviewed, Interpreted and Dictated by Elena Sabillon MD Transcribed by Lyndsey Diaz Authenticated and [facility]
--- NOTE | 2025-06-29 13:41 | CT_ITS ---
FINAL REPORT TECHNIQUE: Thin section axial images were obtained through the lumbar spine without contrast. Sagittal and coronal reconstruction images were obtained from the axial data. Exam was performed using dose reduction techniques. CLINICAL HISTORY: Fall, lumbar spine pain COMPARISON: Plain radiographs dated 11/12/2023 FINDINGS: There are fractures of the right L2 and L3 transverse processes. No vertebral body fracture is identified. However, there are fractures of anterior bridging osteophytes at the level of L1-2 and L3-4. These are best visualized on sagittal images. These fractures were not present on the prior plain radiographs. There are chronic appearing deformities of several left transverse processes. Multilevel degenerative disc disease is present. No acute paraspinal abnormality. IMPRESSION: 1. Right L2 and L3 transverse process fractures. 2. Fractures through anterior osteophytes at L1-2 and L3-4. These were not present on plain radiographs of 11/12/2023 and may be acute. Consider MRI for further evaluation. Authenticated and [facility]
--- NOTE | 2025-06-29 13:41 | CT_ITS ---
FINAL REPORT TECHNIQUE: Axial imaging of the chest is obtained after the administration of contrast. 3-D MIP reformatted images were also obtained and reviewed per PE protocol. This study was performed with techniques to keep radiation doses as low as reasonably achievable (ALARA). Individualized dose reduction techniques using automated exposure control or adjustment of mA and/or kV according to the patient's size were employed. CLINICAL HISTORY: Fall, right rib pain COMPARISON: None FINDINGS: There is no evidence of aortic dissection, no aortic aneurysm, and no central pulmonary emboli. Heart size is normal. There is no mediastinal, hilar, or axillary lymphadenopathy. There are bilateral ground glass opacities with mild septal thickening, favor pulmonary edema. There is a right middle lobe nodular opacity measuring 23 mm in size, best seen on axial image #58 of series 5. There is no pleural effusion. A small pericardial effusion is present. No acute osseous abnormality. IMPRESSION: No evidence of pulmonary embolism or aortic dissection. There is a right middle lobe nodular opacity measuring 23 mm in size. Recommend follow-up CT of the chest in 2 to 3 months if comparison films are not available. Reviewed, Interpreted and Dictated by Elena Sabillon MD Transcribed by Zara Phillip Authenticated and [facility]
--- NOTE | 2025-06-29 13:47 | ECG_ITS ---
APPROVED REPORT Exam: Resting ECG HR:77 bpm ECG Measurements Heart Rate 77 AXES NH 185 P 85 QRSd 101 QRS -26 QT 379 T 69 QTc 411 Conclusion SINUS RHYTHM LOW QRS VOLTAGE [QRS DEFLECTION < 0.5/1.0 mV IN LIMB/CHEST LEADS] POSSIBLE ANTERIOR MYOCARDIAL INFARCTION , PROBABLY OLD [30 ms Q WAVE IN V3/V4, OR R < 0.2 mV IN V4] ABNORMAL ECG UNCONFIRMED REPORT Normal sinus rhythm. No ST elevation or depression. QTc normal at 411 Electronically signed by : GERMAINE LACY, 06/30/2025 15:25:26
--- NOTE | 2025-06-29 13:49 | HMH.EDGENADL ---
Discharge Plan Disposition Chief Complaint: Fall Prescriptions Prescriptions: No Action duloxetine 30 mg capsule,delayed release(DR/EC) 30 mg PO DAILY doxazosin 4 mg tablet extended release 24hr 4 mg PO DAILY spironolactone [Aldactone] 25 mg tablet 12.5 mg PO DAILY Qty: 30 2RF doxycycline hyclate 20 mg tablet 20 mg PO BID Patient Comments: TAKE ONE TABLET BY MOUTH TWICE DAILY torsemide 20 mg tablet 20 mg PO DAILY Qty: 60 2RF colchicine 0.6 mg tablet 0.6 mg PO NEEDED PRN (Reason: GOUT) febuxostat 40 mg tablet 40 mg PO DAILY Eliquis 5 mg tablet 5 mg PO BID gabapentin 600 mg tablet 600 mg PO BID metoprolol succinate 100 mg tablet extended release 24 hr 100 mg PO DAILY Qty: 90 3RF rosuvastatin 40 mg tablet See Rx Instructions .ROUTE .COMPLEX Qty: 90 1RF Dose Instruction: TAKE 1 TABLET DAILY Rx Instructions: TAKE 1 TABLET DAILY ranolazine 500 mg tablet extended release 12 hr 500 mg PO BID Qty: 180 1RF tolterodine 4 MG capsule,extended release 24hr 4 mg PO DAILY cholecalciferol (vitamin D3) 50 MCG capsule 50 mcg PO DAILY Referrals Follow up/Referrals: Rosendo Rincon MD [Primary Care Provider, Medical] - See instructions Clinical Impressions Clinical Impression: Acute lumbar back pain, Fall Print Language Print Language: Tongan Discharge ED Provider: [facility] General Adult HPI General Chief complaint: Fall Stated complaint: Fall/ Back pain Time Seen by Provider: 06/29/25 13:41 History of Present Illness HPI narrative: Letty Dumont is an 89F with a history of obesity, CKD, MELISSA, A-fib on Eliquis, DAMION, hypertension, lymphedema who presents to the emergency department via EMS after being found down. Per patient, she had just gotten home from physical therapy and had open the fridge and was bending over to get something out of the fridge when both legs went weak causing her to fall. She denies any head trauma or loss of consciousness. She states that she was unable to get up after the fall due to pain all over. She states that today, a inventory associate and driver stopped by and she screamed out for them to call 911. EMS then arrived and found her on the floor. She was hypertensive and route but otherwise stable. Patient is complaining of pain mainly in her lower back, bilateral shoulders and left knee. Related Data Home Medications ?Medication ?Instructions ?Recorded ?Confirmed doxazosin 4 mg tablet,extended 4 mg PO DAILY Hypertension 11/12/20 06/13/25 release 24 hr duloxetine 30 mg capsule,delayed 30 mg PO DAILY MOOD 11/12/20 06/13/25 release colchicine 0.6 mg tablet 0.6 mg PO NEEDED PRN GOUT 01/29/21 06/13/25 febuxostat 40 mg tablet 40 mg PO DAILY GOUT 01/29/21 06/13/25 cholecalciferol (vitamin D3) 50 50 mcg PO DAILY Supplement 04/26/21 06/13/25 mcg (2,000 unit) capsule tolterodine 4 mg capsule,extended 4 mg PO DAILY BLADDER 04/26/21 06/13/25 release 24 hr gabapentin 600 mg tablet 600 mg PO BID 10/21/23 06/13/25 apixaban 5 mg tablet (Eliquis) 5 mg PO BID 11/11/23 06/13/25 doxycycline hyclate 20 mg tablet 20 mg PO BID 05/09/25 06/13/25 Previous Rx's ?Medication ?Instructions ?Recorded rosuvastatin 40 mg tablet See Rx Instructions .Route 01/21/24 .COMPLEX #90 tabs ranolazine 500 mg tablet,extended 500 mg PO BID ANGINA #180 tabs 09/05/24 release,12 hr spironolactone 25 mg tablet 12.5 mg (1/2 x 25 mg) PO DAILY #30 02/15/25 (Aldactone) tabs metoprolol succinate 100 mg 100 mg PO DAILY Hypertension #90 04/10/25 tablet,extended release 24 hr tabs torsemide 20 mg tablet 20 mg PO DAILY #60 tabs 05/09/25 Allergies Allergy/AdvReac Type Severity Reaction Status Date / Time allopurinol (ALLOPURINOL) Allergy Unknown I-RASH Verified 06/13/25 14:17 [facility] Disclaimer: The information contained in this section may have been updated after the patient was seen, as this information can be updated by other users. 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 Abnormal nuclear cardiac imaging test Chronic kidney disease Dry skin History of gastroesophageal reflux (GERD) Gall stone Allergies Hypertension Hyperlipidemia Heart disease Edema Breast cancer Skin cancer REMOVED FROM NOSE Dizziness Surgical History History of carpal tunnel repair History of colonoscopy History of appendectomy History of bilateral mastectomy History of hysterectomy Family History Other Cancer Coronary artery disease Heart attack Heart disease Hypertension Leukemia Social History Smoking Status: Never smoker second hand exposure: No alcohol intake: never current occupational status: retired Travel in the last 8 weeks?: None household members: none housing: house current occupational exposures/hazards: No caffeine: Yes Have you lived/traveled outside [place] in past 30 days?: No Contact w/someone who lives/traveled outside US past 30 days?: No Exposure to someone with infectious disease in past 14 days?: No Do you have a fever (greater than 100.4 F or 38 C)?: No Have you tested positive for COVID-19?: No Exposed to someone with COVID-19 in past 14 days?: No Do you have a sore throat?: No Do you have a cough?: No Do you have any weakness?: No Do you have any diarrhea?: No Are you experiencing any unusual bleeding?: No Do you have any muscle aches/pain?: No Do you have any abdominal pain?: No Are you experiencing loss of taste or smell?: No Other Medical History Have you received the Flu Vaccine for this season: No Have you received the Pneumonia Vaccine: Yes ROS Obtained: Yes Systems reviewed as appropriate & no additional complaints except as documented Physical Exam General General appearance: alert and obese Comment: Appears uncomfortable Head Head exam: atraumatic and normal inspection Eye Eye exam: Present normal appearance, PERRL and EOMI ENT ENT exam: Present mucous membranes dry and normal external ear exam Neck Neck exam: Present full ROM and trachea midline Chest Chest inspection: Present symmetric chest wall rise Respiratory Respiratory exam: Present normal lung sounds bilaterally; Absent respiratory distress, wheezes or stridor Cardiovascular Cardiovascular exam: Present regular rate and normal rhythm Abdominal Exam Abdominal exam: Present soft, tenderness and guarding (Generalized); Absent rigidity Extremities Exam Extremities exam: Present normal inspection, full ROM, tenderness (Left knee) and edema (Nonpitting edema to distal bilateral lower extremities consistent with history of lymphedema) Back Exam Back exam: Present normal inspection, tenderness (Midline lumbar spine tenderness. No step-offs or deformities. No C/T spine tenderness.) and vertebral tenderness Neurological Exam Neurological exam: Present alert, oriented X3 and other (5 out of 5 strength in all extremities. Normal [id number] testing.); Absent motor sensory deficit Psychiatric Psychiatric exam: Present normal affect Skin Skin exam: Present warm and dry Medical Decision Making Medical Records Screening: Per USPSTF and CDC recommendations, given the prevalence of disease in our region, it is our hospital?s policy to screen for HIV and viral Hepatitis for all patients aged 18 and over and those with ongoing risk factors. Jhonatan Inquiry Pt receiving controlled substance: No Vital Signs: 06/29/25 13:53 06/29/25 14:01 06/29/25 14:45 Temperature 98 F Temperature Source Oral Pulse Rate 81 82 Pulse Rate [Right Radial] 85 Respiratory Rate 16 18 14 Blood Pressure 169/72 H Blood Pressure [Right Arm] 182/71 H Blood Pressure Mean [Right Arm] 108 Blood Pressure Source [Right Arm] Automatic Cuff Blood Pressure Position [Right Arm] Supine 02 Sat by Pulse Oximetry 96 96 93 L Oxygen Delivery Method Room Air 06/29/25 15:00 06/29/25 15:01 06/29/25 15:15 Temperature Temperature Source Pulse Rate 82 83 83 Pulse Rate [Right Radial] Respiratory Rate 22 16 10 L Blood Pressure 171/79 H Blood Pressure [Right Arm] Blood Pressure Mean [Right Arm] Blood Pressure Source [Right Arm] Blood Pressure Position [Right Arm] 02 Sat by Pulse Oximetry 92 L 93 L 93 L Oxygen Delivery Method Lab Data Lab Results 06/29/25 13:14: WBC 6.2, RBC 4.25, Hgb 14.3, Hct 40.2, MCV 94.6, MCH 33.6 H, MCHC 35.6 H, RDW 12.3, Plt Count 127 L, MPV 12.1 H, Neut % (Auto) 67.0, Lymph % (Auto) 17.0, Sebastian % (Auto) 13.4 H, Eos % (Auto) 0.5, Baso % (Auto) 0.3, Neut # (Auto) 4.1, Lymph # (Auto) 1.1, Sebastian # (Auto) 0.8, Eos # (Auto) 0.0, Baso # (Auto) 0.0, Sodium 132 L, Potassium 4.3, Chloride 100, Carbon Dioxide 27, Anion Gap 9.3, BUN 26 H, Creatinine 1.30 H, Estimated GFR 39 L, Est GFR ( Amer) 47 L, Glucose 116 H, Calcium 9.9, Phosphorus 3.8, Magnesium 1.6, Total Bilirubin 0.9, AST 36, ALT 24, Alkaline Phosphatase 53, Total Creatine Kinase 117, Troponin I < 0.01, Total Protein 6.7, Albumin 4.0, Globulin 2.7, Albumin/Globulin Ratio 1.5, HCV Ab DARBY w/Rflx PCR Qn Negative, HIV Ag/Ab Combo Qual Negative 06/29/25 13:47: Urine Color Yellow, Urine Appearance Clear, Urine pH 7.5, Ur Specific Mcfaddin 1.010, Urine Protein Negative, Urine Glucose (UA) Negative, Urine Ketones Trace, Urine Blood Negative, Urine Nitrate Negative, Urine Bilirubin Negative, Urine Urobilinogen 0.2, Ur Leukocyte Esterase Negative, Urine RBC None, Urine WBC 3-5, Ur Squamous Epith Cells Occasional, Urine Bacteria None 06/29/25 13:14 06/29/25 13:14 Orders (Tests/Meds): ED MEDICATIONS Discontinued Medications Generic Name Dose Route Start Last Admin Trade Name Freq PRN Reason Stop Dose Admin Acetaminophen 1,000 mg 06/29/25 13:47 06/29/25 13:54 Acetaminophen 1,000mg/100ml Vial IV 06/29/25 13:48 1,000 mg ONCE ONE Administration Lactated Ringer's 1,000 mls @ 999 mls/hr 06/29/25 13:47 06/29/25 13:53 Lactated Ringer's 1000 Ml Bag IV 06/29/25 14:47 999 mls/hr .Q1H1M ONE Administration Iopamidol 80 ml 06/29/25 14:27 06/29/25 14:29 Iopamidol-370 (76%);100ml Bottle IV 06/29/25 14:28 80 ml ONCE ONE Administration Sodium Chloride 50 ml 06/29/25 14:27 06/29/25 14:29 0.9 % Sodium Chloride 50 Ml Vial IV 06/29/25 14:28 50 ml ONCE ONE Administration Sodium Chloride 10 ml 06/29/25 14:27 06/29/25 14:29 Sodium Chloride 0.9% 10ml Syr (Rad Only) IV 06/29/25 14:28 10 ml ONCE ONE Administration ORDERS Category Date Time Status CT angio abdomen pelvis Stat Cat Scan 06/29/25 13:[address] bony pelvis Stat Cat Scan 06/29/25 13:[address] lumbar spine wo con Stat Cat Scan 06/29/25 13:41 Completed CTA Chest [CT angio chest - dissection] Stat Cat Scan 06/29/25 13:41 Taken Knee XR left 2 views [XR knee LT 2V] Stat Exams 06/29/25 13:41 Taken Shoulder XR left minimum 2 views [XR shoulder LT min 2V Exams 06/29/25 13:41 Taken ] Stat Shoulder XR right miminum 2 views [XR shoulder RT min Exams 06/29/25 13:41 Completed 2V] Stat CBC w/Auto Diff [Complete Blood Count Auto Diff] Stat Lab 06/29/25 13:14 Completed CK [Creatine Kinase] Stat Lab 06/29/25 13:14 Completed CMP [Comprehensive Metabolic Panel] Stat Lab 06/29/25 13:14 Completed HIV Combo Stat Lab 06/29/25 13:14 Completed Hepatitis C Ab Qual. W/ RFX Stat Lab 06/29/25 13:14 Completed Lactic Acid Stat Lab 06/29/25 13:41 Ordered Magnesium Stat Lab 06/29/25 13:14 Completed PHOS [Phosphorous] Stat Lab 06/29/25 13:14 Completed Trop I [Troponin I] Stat Lab 06/29/25 13:14 Completed Troponin I Q3H Lab 06/29/25 17:00 Ordered Troponin I Q3H Lab 06/29/25 20:00 Ordered UA [Urinalysis and Microscopic] Stat Lab 06/29/25 13:47 Completed ECG Data Tracing #1: I reviewed this ECG and interpreted as documented below: Normal sinus rhythm. No ST elevation or depression. QTc of 411 Medical Decision Narrative: Letty Dumont is an 89F with a history of obesity, CKD, MELISSA, A-fib on Eliquis, DAMION, hypertension, lymphedema who presents to the emergency department via EMS after being found down. Per patient, she had just gotten home from physical therapy and had open the fridge and was bending over to get something out of the fridge when both legs went weak causing her to fall. She denies any head trauma or loss of consciousness. She states that she was unable to get up after the fall due to pain all over. She states that today, a inventory associate and driver stopped by and she screamed out for them to call 911. EMS then arrived and found her on the floor. She was hypertensive and route but otherwise stable. Patient is complaining of pain mainly in her lower back, bilateral shoulders and left knee. On arrival, patient is hypertensive with blood pressure 182/71, heart rate within normal limits, breathing comfortably on room air with appropriate oxygen saturation. Afebrile. Physical exam, as stated above, revealed nontoxic-appearing female who is alert, answering questions appropriately and following commands. Her neuroexam is nonfocal. She has full strength and sensation to the bilateral upper and lower extremities. Cranial nerves II through XII are intact. Abdomen is soft and diffusely tender with guarding but nonperitonitic. Cardiopulmonary exam is unremarkable. She has no tenderness in the cervical or thoracic spine but does have midline lumbar spine tenderness without step-off or deformity. She has some mild tenderness over the lateral left shoulder and left knee without deformity. She has no evidence of external head trauma. Pupils equal round reactive to light. Extraocular movements intact. Gluteal tone intact. Differential diagnosis includes, but is not limited to: Lumbar spine fracture, low concern for cauda equina given no red flag symptoms. She did urinate on herself, however she has been down in the floor for nearly 24 hours and this likely explains her having urinated on herself prior to arrival and less likely to be indicative of a spinal cord injury with a reassuring neurological exam. Possible intrathoracic pathology such as rib fracture, pulmonary contusion, aortic injury. Possible intra-abdominal pathology such as liver laceration, splenic laceration, kidney laceration, among others. Low concern for intracranial hemorrhage given patient did not hit her head or lose consciousness. Low concern for cervical spine injury given patient has had no neck pain since the fall and is neurologically intact. Workup in the emergency department included: CK, magnesium level, troponin, CBC with differential, CMP, phosphorus level, CTA abdomen pelvis, CTA chest, left shoulder x-rays, right shoulder x-rays, lactic acid, CT bony pelvis, CT lumbar spine without contrast, left knee x-rays, EKG, urinalysis, lipase, lactic acid. Patient was treated with 1 L of lactated ringer as well as 1 g of IV acetaminophen. EKG without evidence of ischemia. See interpretation above. CT and x-ray imaging are pending at this time. Patient's laboratory workup shows no leukocytosis, no anemia, platelets mildly low at 127. Mildly low sodium of 132 but electrolytes otherwise within normal limits. Patient's creatinine is at baseline 1.3 and BUN at baseline of 26. Lactate pending. Phosphorus normal at 3.8. Magnesium normal at 1.6. Liver enzymes within normal limits. Bilirubin normal at 0.9. Initial troponin less than 0.01. CK normal at 117. Urinalysis without evidence of infection or blood. At this time, patient's care was handed off to the oncoming physician, Dr. Madrigal, pending completion of her workup. If her workup is negative for any acute pathology, she will require an ambulation test to ensure that she is able to ambulate without significant assistance. She normally uses a walker. She does live alone. Patient's ultimate disposition is to be determined by the oncoming physician. Critical Care Critical Care Time Critical Care Time: No
--- NOTE | 2025-06-29 13:52 | PC.NURSE ---
On arrival the pts brief and clothing were saturated in urine. perineal care provided and she was placed on a pure wick. A pillow and blanket were provided for comfort. no other needs voiced. call ny in reach.
[2025-06-29 13:53] LABS: Microscopic, Urine URINE MICROSCOPIC (MICROSCOPIC)
[2025-06-29] MEDS: LACTATED RINGERS 1000ML 1,000 ML 999 ML IV (13:53)
[2025-06-29] MEDS: ACETAMINOPHEN 1,000MG/100ML VIAL 1000 MG IV (13:54)
[2025-06-29 13:57] LABS: Bilirubin,Urine Negative (Negative); Color,Urine YELLOW (Yellow); Glucose,Urine (UA) Negative (Negative); Ketones,Urine TRACE (Negative); Leukocyte Esterase,Urine Negative (Negative); PH,Urine 7.5 (5.0-8.5); Protein,Urine Negative (Negative); Specific Gravity, Urine 1.010 (1.005-1.030); Urobilinogen,Urine 0.2 EU/dl (0.2)
[2025-06-29 13:59] LABS: Alanine Aminotransferase 24 U/L (12-78); Albumin Level 4.0 g/dl (3.5-5.0); Albumin/Globulin Ratio 1.5 (1.1-1.8); Alkaline Phosphatase 53 U/L (38-126); Anion Gap 9.3 mEq/L (5-15); Aspartate Amino Transferase 36 U/L (14-36); Bilirubin,Total 0.9 mg/dl (0.2-1.3); Blood Urea Nitrogen 26 mg/dl (7-17); Calcium 9.9 mg/dl (8.4-10.2); Carbon Dioxide 27 mmol/L (22.0-30.0); Chloride 100 mmol/L (98-107); Creatine Kinase 117 U/L (30-135); Creatinine,Serum 1.30 mg/dl (0.52-1.04); Estimated Glomerular Filt Rate 39 ml/min (>60); GFR (African American) 47 ML/MIN (>60); Globulin 2.7 g/dL (1.3-3.2); Glucose 116 mg/dl (74-100); Magnesium 1.6 mg/dl (1.6-2.3); Phosphorous 3.8 mg/dl (2.5-4.5); Potassium 4.3 mmoL/L (3.5-5.1); Sodium 132 mmol/L (136-145); Total Protein,Serum 6.7 g/dl (6.3-8.2)
[2025-06-29 14:05] LABS: Hematocrit 40.2 % (37.0-47.0); Hemoglobin 14.3 g/dL (12.2-16.2); Immature Granulocytes % 1.8 %; Mean Corpuscular HGB Conc 35.6 g/dL (31.8-35.4); Mean Corpuscular Hemoglobin 33.6 pg (27.0-31.2); Mean Corpuscular Volume 94.6 fl (81-99); Nucleated Red Blood Cells % 0 %; Platelet Count 127 K/mm3 (142-424); Red Blood Count 4.25 M/mm3 (4.20-5.40); Red Cell Distribution Width-SD 42.6 fL; White Blood Count 6.2 K/mm3 (4.8-10.8)
[2025-06-29 14:11] LABS: Troponin I < 0.01 ng/ml (0.00-0.034)
[2025-06-29 14:11] LABS: Squamous Epithelial Cell,Urine Occasional #/hpf (0-5)
[2025-06-29] MEDS: IOPAMIDOL-370 (76%);100ML BOTTLE 80 ML IV (14:29)
[2025-06-29] MEDS: SODIUM CHLORIDE 0.9% 10ML SYR (RAD ONLY) 10 ML IV (14:29)
[2025-06-29] MEDS: 0.9 % SODIUM CHLORIDE 50 ML VIAL IV (14:29)
[2025-06-29 15:16] LABS: Hepatitis C Ab Qual. W/ RFX NEGATIVE (Negative)
[2025-06-29 15:53] LABS: Lipase 14 U/L (23-300)
[2025-06-29 16:49] LABS: Troponin I < 0.01 ng/ml (0.00-0.034)
--- NOTE | 2025-06-29 16:58 | PC.NURSE ---
Patient was provided with a sandwhich, chips, and water. patient didnt need anything else at this time.
--- NOTE | 2025-06-29 17:52 | PC.NURSE ---
Called [facility] for Vascular and Spine consults. Images have been power shared.
--- NOTE | 2025-06-29 17:57 | PC.NURSE ---
Dr. Madrigal speaking to [facility] now
--- NOTE | 2025-06-29 18:55 | PC.NURSE ---
EMS was called for transfer to
== END 2025-06-29 18:50 | disposition short-term general hospital (02) ==
PROVIDERS: Emergency Provider Student in an Organized Health Care Education/Training Program; PCP Family Medicine
DX: M54.50 Low back pain, unspecified (principal); W19.XXXA Unspecified fall, initial encounter
CPT/HCPCS: 71275; 72131; 72192; 73030; 73560; 74174; 80053; 81001; 82550; 83690; 83735; 84100; 84484; 85025; 86803; 87389; 93005; 96361; 96374; 99285; J0131; J7120; Q9967

== ENCOUNTER 2025-07-21 01:43 | Outpatient (CLI) | payer MEDICARE, OTHER, SELFPAY ==
--- OUTSIDE RECORDS SUMMARY | 2024-03-10 09:30 | XMS_ITS ---
Author Organization [facility] Address [address] [facility] [address] SHANKAR Kim [phone] Care Team Providers Care Claims Vice President Name Role Phone Rosendo Rincon Primary Care Provider [phone] Allergies Allergen (clinical drug ingredient) Drug/Non Drug Allergy documented on EMR Reaction Allergy Type Onset Date Status allopurinol Allopurinol rash Drug Allergy Act jono predniSONE Unknown Drug Allergy Active Results Component Value Reference Range Notes P-Basic Metabolic Panel (BMP ) Reviewed date:03/16/2024 08:41:57 AM Interpretation:bun 31, Cr 1.57, gfr 31 Performing Lab: Notes/Report: Test performed by [facility] [address] [place], [place] [address] [place] , [address], [place] [address] Hari Monroy MD, Canvassing Manager CLIA: [id number] Sodium 142 135-145 mEq/L Potassium 3.9 3.5-5.3 mEq/L Chloride 103 97-108 mEq/L CO2 29 22-32 mEq/L Glucose 97 65-99 mg/dL BUN 31 8-23 mg/dL Creatinine 1.57 0.50-1.00 mg/dL Calcium 10.2 8.6-10.4 mg/dL eGFR by Creatinine 31 >59 mL/min/1.73m2 P-Uric Acid Reviewed date:03/16/2024 08:41:57 AM Interpretation:Normal Performing Lab: Notes/Report: Test performed by [facility] , [address], [place] [address] Hari Monroy MD, Canvassing Manager CLIA: [id number] Uric Acid 3.9 2.4-7.0 mg/dL P-Vitamin D 25-Hydroxy Reviewed date:03/16/2024 08:41:57 AM Interpretation:Normal Performing Lab: Notes/Report: Test performed by [facility], [employer] , [address], [place] [address] Hari Monroy MD, Canvassing Manager CLIA: [id number] Vitamin D 25-Hydroxy 53.4 30.0-100.0 ng/mL Interpretation of Vitamin D 25 OH: < 20 ng/mL - Deficiency 20 - 29 ng/mL - Insufficiency 30 - 100 ng/mL - Sufficiency > 100 ng/mL - Super-therapeutic- toxicity may occur above this level. Clinical correlation required. Reason For Referral Reason [facility] lymphedema clini c Diagnosis 1 Lymphedema (I89.0) Referral Organization [facility] Referring Provider First Name Rosendo Referring Provider Last Name Sergey Referring Provider Speciality Family Shilo moses Referred Provider Physical Therapy, . Referred Provider Specialty Physical The rapist General Notes Eileen Lal 03/14/20 24 9:16:12 AM > [facility] 03/22/2024 at 11:00am; lvm for pt to call back; pt informed; referral sent Referral Priority Routine REASON FOR VISIT 4 Month Check Up Medications Medication SIG (Take, Route, Frequency, Duration) Notes Start Date End Date Status Esomeprazole Magnesium 40 MG 1 capsule Orally Once a day; Duration: 90 days 08/30/2023 Active Gabapentin 600 MG 1 tab(s) orally 2 ti mes a day; Duration: 90 days 08/30/2023 Active Farxiga 10 MG 1 tablet Orally Once a day; Duration: 90 days 05/19/2023 Active Uloric 40 MG 1 tab(s) orally once a day; Duration: 90 days Active Vitamin D3 50 MCG (1999 UT) 1 cap(s) ora lly once a day 09/25/2016 Active Clobetasol Propionate 0.05 % APPLY 1 APPLICATION TOPICALLY TWICE A DAY Active Ranolazine ER 500 MG 1 tab(s) orally 2 t imes a day; Duration: 30 day(s) Active Ondansetron 4 MG 1 tablet on the tong ue and allow to dissolve Orally Once a day; Duration: 30 day(s) Active Furosemide 20 MG 1 tab(s) orally once a day 03/10/2022 Active Pravastatin Sodium 20 MG 1 tab(s) orally once a day at bedtime; Duration: 90 days Active Eliquis 5 MG 1 tablet Orally Twic e a day; Duration: 30 day(s) Active Potassium Chloride ER 20 MEQ 1 tab(s) Orally Once a day; Duration: 90 days Active Colcrys 0.6 MG 2 tab(s) orally once a day; Duration: 90 days Active Detrol LA 4 MG 1 cap(s) orally once a day; Duration: 90 days Active Toprol XL 100 MG 1 tab(s) orally 2 ti mes a day; Duration: 90 days Active Cardura XL 4 MG TAKE 1 TABLET DAILY AT BEDTIME; Duration: 90 days Active DULoxetine HCl 30 MG 1 cap(s) orally onc e a day Active Vital Signs Blood pressure systolic 132 mm Hg 03/10/20 24 Blood pressure diastolic 70 mm Hg 024 Heart Rate 71 /min 03/10/2024 Height 64 in 03/10/2024 Weight 236.8 lbs 03/10/2024 BMI 40.64 kg/m2 03/10/2024 Encounters Encounter Location Date Provider Diagnosis [facility] [address] [phone] 03/10/2024 Rosendo Rincon Lymphedema I89.0 ; Gout, unspecified cause, unspecified chronicity, unspecified site M10.9 ; Stage 3b chronic kidney disease (CKD) N18.32 and Vitamin D deficiency E55.9 Assessments Encounter Date Diagnosis (ICD Code) Assessment Notes Treatment Notes Treatment Clinical Notes Section Notes 03/10/2024 Lymphedema (ICD-10 - I89.0) Patient did not use any treatment after she finished lymphedema therapy. She needs to go back to the lymphedema clinic and then plan on having post therapy treatment like compression stockings 03/10/2024 Gout, unspecified cause, unspecified chronicity, unspecified site (ICD-10 - M10.9) 03/10/2024 Stage 3b chronic kidney disease (CKD) (ICD-10 - N18.32) 03/10/2024 Vitamin D deficiency (ICD-10 - E55.9) Plan Of Treatment Medication Medication Name Sig Start Date Stop Date Notes Uloric 40 MG 1 tab(s) orally once a day; Duration: 90 days Treatment Notes Assessment Notes Lymphedema Patient did not use any treatment after she finished lymphedema therapy. She needs to go back to the lymphedema clinic and then plan on having post therapy treatment like compression stockings Referrals Referral Date Details 03/10/2024 03/10/2024, [facility], . Physical Therapy Next Appt Details Follow Up: 4 Months, Reason: Progress Notes * Letty FORBESEDOB: [birth year] (89 yo F)Acc No.[id number]:03/10/2024 Progress Notes Patient: Letty KHAN Provider: Brian Rincon M.D. :1935 A ge:88 Y S ex:Female Date:03/10/2024 Address:[address] [place] [address] Subjective: * Chief Complaints: * 1 . 4 Month Check Up. * HPI: C ardiology: 88 year old female presents with c/o Leg Edema P t complains of bilateral lower leg swelling. c/o Blood Pressure Elevated P t here for f/u on hypertension, states she is doing well and does not have any concerns. c/o Hyperlipidemia p t is fasting today. W rist/Hand: c/o radiation of pain P t complains of bilateral wrist pain that radiates to her elbows. Pt states she had carpal tunnel release and has not fully recovered from it. Pt states her hands constantly tingle and her fingers stiffen at times. * ROS: D ERMATOLOGY: no R michel. n o H shine. G ASTROENTEROLOGY: no N ausea. n o V omiting. U ROLOGY: no D ifficulty urinating. n o B lood in urine. * Medical History: H ypertension, Arthritis, Allergic Rhinitis, Peptic Ulcer Disease, Breast cancer x 2, two different types, First was estrogen sensitive, Colon Polyps, Psoriasis, Osteopenia, Gout, Basal cell carinoma, right side of nose, Dx: 2013, Chronic back pain, s/p pain managment evaluation 2014, Lumbar Disc Disease, Lumbar Spinal Stenosis, Vitamin D deficiency, Chronic kidney disease, Diastolic dysfunction. * Surgical History: M astectomy x2 2001, 2006, Adenoidectomy 194, Colonoscopy, 20 polyps removed , LT SI Injection - Crystal Wallace 04/18/2020, LT Heart Cath- [facility] 01/2021. * Hospitalization/Major Diagno stic Procedure: A KI, Hyperkalemia, Fall at Home- [facility] 04/2021. * Family History: F ather: , heart disease, from heart attack. M other: , heart problems and of stroke. S iblings: one brother at , one sister had breast cancer but of stroke, oldest brother of heart attack, another brother has prostate cancer and heart problems. C hildren: two sons and one daughter that have high blood pressure. 4 brother(s) , 1 sister(s) . 2 son(s) , 2 daughter(s) . . * Social History: C URRENT TOBACCO USE S moking Status: Patient does NOT smoke. C affeine: yes, very little caffeine. Past smoking status: no, Smoking status: Does not smoke. Alcohol: No. * Medications: T aking Eliquis 5 MG Tablet 1 tablet Orally Twice a day , Taking Ondansetron 4 MG Tablet Disintegrating 1 tablet on the tongue and allow to dissolve Orally Once a day , Taking Ranolazine ER 500 MG Tablet Extended Release 12 Hour 1 tab(s) orally 2 times a day , Taking Clobetasol Propionate 0.05 % Cream APPLY 1 APPLICATION TOPICALLY TWICE A DAY , Taking Pravastatin Sodium 20 MG Tablet 1 tab(s) orally once a day at bedtime , Taking Furosemide 20 MG Tablet 1 tab(s) orally once a day , Taking Vitamin D3 50 MCG (2000 UT) Capsule 1 cap(s) orally once a day , Taking Uloric 40 MG Tablet 1 tab(s) orally once a day , Taking Farxiga 10 MG Tablet 1 tablet Orally Once a day , Taking Gabapentin 600 MG Tablet 1 tab(s) orally 2 times a day , Taking Esomeprazole Magnesium 40 MG Capsule Delayed Release 1 capsule Orally Once a day , Taking DULoxetine HCl 30 MG Capsule Delayed Release Particles 1 cap(s) orally once a day , Taking Cardura XL 4 MG Tablet Extended Release 24 Hour TAKE 1 TABLET DAILY AT BEDTIME , Taking Colcrys 0.6 MG Tablet 2 tab(s) orally once a day , Taking Potassium Chloride ER 20 MEQ Tablet Extended Release 1 tab(s) Orally Once a day , Taking Toprol XL 100 MG Tablet Extended Release 24 Hour 1 tab(s) orally 2 times a day , Taking Detrol LA 4 MG Capsule Extended Release 24 Hour 1 cap(s) orally once a day , Medication List reviewed and reconciled with the patient * Allergies: p redniSONE, Allopurinol: rash. Objective: * Vitals: W t:236.8, Temp:97.9, BP:132/70, HR:71, Nurse:maria a, Ht: 64, BMI:40.64. * Examination: G eneral Examination: General Appearance: N AD, using a walker to assist with ambulation. H eart: R SR. L ungs: c lear to auscultation. E xtremities: 3+ bilateral leg edema. Assessment: * Assessment: 1. L ymphedema - I89.0 (Primary) 2 . G out, unspecified cause, unspecified chronicity, unspecified site - M10.9 3 . S tage 3b chronic kidney disease (CKD) - N18.32 4 . V itamin D deficiency - E55.9 Plan: * Treatment: 2. G out, unspecified cause, unspecified chronicity, unspecified site Refill Uloric Tablet, 40 MG, 1 tab(s), orally, once a day, 90 days, 90 Tablet, Refills 1. ? L AB: P-Uric Acid (Collection Date & Time - 03/10/2024 01:00 PM) N ormal Value Reference Range U keyana Acid 3.9 2.4-7.0 - mg/dL * Fallon Veras 03/16/2024 8:40 :59 AM >See phone encounter 3.?Stage 3b chronic kidney disease (CKD)?LAB: P-Basic Metabolic Panel (BMP) (Collection Date & Time - 03/10/2024 01:00 PM)?bun 31, Cr 1.57, gfr 31* Value Reference Range B UN 31 H 8-23 - mg/dL * C alcium 10.2 8.6-10.4 - mg/dL * C hloride 103 97-108 - mEq/L * C O2 29 22-32 - mEq/L * C reatinine 1.57 H 0.50-1.00 - mg/dL * G lucose 97 65-99 - mg/dL * P otassium 3.9 3.5-5.3 - mEq/L * S odium 142 135-145 - mEq/L * e GFR by Creatinine 31 L >59 - mL/min/1.73m2 * Fallon Veras 03/16/2024 8:40 :59 AM >See phone encounter 4.?Vitamin D deficiency?LAB: P-Vitamin D 25-Hydroxy (Collection Date & Time - 03/10/2024 01:00 PM)? Normal* Value Reference Range V itamin D 25-Hydroxy 53.4 30.0-100.0 - ng/mL * Fallon Veras 03/16/2024 8:40 :59 AM >See phone encounter * Procedure Codes: G 2211 Complex e/m visit add on * Follow Up: 4 Months * Images: Billing Information: * Visit Code: 69105 Office Visit, Est Pt., Level 4. * Procedure Codes: G2211 Complex e/m visit add on. * Electronic signature of Dahiana Rincon MD on 07/21/2025 at 01:49 AM EDT Sign off status: Pending * Provider: Brian Rincon M.D. Date: 0 03/10/2024 Generated for Thea gonzalez/Filiberto/eTransmitting on: 1 01:49 AM EDT History and Physical Notes * HPI (History of Present Illness) Category Sub-Category Detail Notes Category Not es Cardiology Leg Edema Pt complains of bilateral lo wer leg swelling Blood Pressure Elevated Pt here for f/u on hypertension, states she is doing well and does not have any concerns Hyperlipidemia pt is fasting today Wrist/Hand radiation of pain Pt complains o f bilateral wrist pain that radiates to her elbows. Pt states she had carpal tunnel release and has not fully recovered from it. Pt states her hands constantly tingle and her fingers stiffen at times Examination Category Sub-Category Detail Notes Category Not es General Examination Heart: RSR Lungs: clear to auscultatio n Extremities: 3+ bilateral leg martina ma General Appearance: NAD, using a walker to assist with ambulation Consultation Request Notes Referral Date Referring Provider Referred Provider Not es 03/10/2024 Rosendo Rincon Physical Therapy, . [facility] ymphedema clinic
--- OUTSIDE RECORDS SUMMARY | 2024-07-07 09:30 | XMS_ITS ---
Author Organization [facility] Address [address] [facility] [address] [place] [id number] Care Team Providers Care [employer]o [employer] Founder Name Role Phone Rosendo Rincon Primary Care [...] Cr 1.36, gfr 37 Performing Lab: Notes/Report: CLIA: [id number] Hari Monroy MD, Maintenance Pipefitter [address] [place] [address] , [address], [place] [address] Test performed by [employer], [facility] Sodium 145 135-145 mmol/L Potassium 4.3 3.5-5.3 [...] 311 Performing Lab: Notes/Report: Test performed by [employer], [address] , [facility], [place] [address] Hari Monroy MD, Maintenance Pipefitter CLIA: [id number] Cholesterol 141 <200 mg/dL Triglycerides 311 <150 [...] Normal Performing Lab: Notes/Report: Test performed by [employer] , [address], [place] [address] Hari Monroy MD, Maintenance Pipefitter CLIA: [id number] Phosphorus 3.1 2.5-4.5 mg/dL P-TSH reflex to FT4 Reviewed date:07/10/2024 09:31:47 AM Interpretation: Normal Performing Lab: Notes/Report: Test performed by [email or web address] , [facility] [address] Hari Monroy MD, Maintenance Pipefitter CLIA: [id number] TSH reflex to FT4 2.58 0.43-5.25 mU/L P-Microalbumin/Creatinine, R andom Urine Sample Reviewed date:07/10/2024 09:31:47 AM Interpretation: Normal Performing Lab: Notes/Report: Test performed by [employer] , [place] [address] Hari Monroy MD, Maintenance Pipefitter CLIA: [id number] Albumin/Creatinine Ratio, Urine 11 0-30 ug/m g Microalbumin, Urine, Random 1.0 Creatinine, Urine 87.4 P-Uric Acid Reviewed date:07/10/2024 09:31:47 AM Interpretation: Normal Performing Lab: Notes/Report: Test performed by [email or web address] , [facility], [place] [address] Hari Monroy MD, Maintenance Pipefitter CLIA: [id number] Uric Acid 3.5 2.4-7.0 mg/dL P-Vitamin D 25-Hydroxy Reviewed date:07/10/2024 09:31:47 AM Interpretation:37.8 Performing Lab: Notes/Report: Test performed by [employer] [address] , [address], [place] [address] Hari Monroy MD, Maintenance Pipefitter CLIA: [id number] Vitamin D 25-Hydroxy 37.8 30.0-100.0 ng/mL Interpretation [...] 07/07/2024 Encounters Encounter Location Date Provider Diagnosis [facility] [address], [place] [id number] 07/07/2024 Rosendo Rincon Essential hypertensi on I10 [...] to repo rt progress, 6 Months, Reason: Progress Notes * Letty FORBESEDOB: [birth year] (89 yo F)Acc No.[id number]:07/07/2024 Progress Notes Patient: Letty KHAN Provider: Brian Rincon M.D. :1935 A ge:88 Y S ex:Female Date:07/07/2024 Address:[address] [place] [address] [facility] Subjective: * Chief Complaints: * 1 . [...] - Crystal Rodrigo 04/18/2020, LT Heart Cath- [facility] 01/2021. * Hospitalization/Major Diagno stic Procedure: A KI, Hyperkalemia, Fall at Home- [facility] 04/2021. * Family History: F ather: [...] Temp:97.9, BP:120/60, HR:62, O2 Sat:94% on RA, Nurse:[facility], Ht: 64, BMI:40.61. * Examination: G eneral [...] icroalbumin, Urine, Random 1.0 - mg/dL * Jeanne Choudhary 07/10/2024 9:31: [...] riglycerides 311 H <150 - mg/dL * Kenrick,Jeanne 07/10/2024 9:31: 41 AM >See phone encounter ?LAB: P-TSH reflex to FT4 (Collection Date & Time - 07/07/2024 01:15 PM)? Normal* Value Reference Range T SH reflex to FT4 2.58 0.43-5.25 - mU/L * KenrickJeanne rosa 07/10/2024 9:31: 41 AM >See phone encounter [...] G 2211 Complex e/[place] [address] CBC WITH AUTO DIFF * Follow Up: v ia phone to report progress, 6 Months * Images: Billing Information: * Visit Code: 04557 Office Visit, Est Pt., Level 4. * Procedure Codes: G2211 Complex e/[place]. [address] CBC WITH AUTO DIFF. * Electronic signature of Dahiana Rincon MD on 07/21/2025 at 01:49 AM EDT Sign off status: Pending * Provider: Brian Rincon M.D. Date: 0 07/07/2024 Generated for Thea gonzalez/Filiberto/Dustin on: 1 01:49 AM EDT History and [...]
--- OUTSIDE RECORDS SUMMARY | 2025-01-10 10:00 | XMS_ITS ---
Author Organization [facility] Address [address] [facility] [address] [place] [id number] Care Team Providers Care Corporate Pilot Name Role Phone Rosendo Rincon Primary Care Provider Allergies Allergen (clinical drug ingredient) Drug/Non Drug Allergy documented on EMR Reaction Allergy Type Onset Date Status allopurinol Allopurinol rash Drug Allergy Act jono predniSONE Unknown Drug Allergy Active Results Component Value Reference Range Notes P-Basic Metabolic Panel (BMP ) Reviewed date:01/12/2025 06:29:50 PM Interpretation:bun 46, Cr 1.74, gfr 28 Performing Lab: Notes/Report: CLIA: [id number] Hari Monroy MD, Collar Worker [address] [place] [address] [address], [place] [address] Test performed by [facility] Sodium 142 135-145 mmol/L Potassium 4.5 3.5-5.3 mmol/L Chloride 102 97-108 mmol/L CO2 31 22-32 mmol/L Glucose 91 65-99 mg/dL BUN 46 8-23 mg/dL Creatinine 1.74 0.50-1.00 mg/dL Calcium 9.8 8.6-10.4 mg/dL eGFR by Creatinine 28 >59 mL/min/1.73m2 P-Phosphorus Reviewed date:01/12/2025 06:29:50 PM Interpretation:Normal Performing Lab: Notes/Report: Test performed by [facility] [address] [place] [address] [address], [place] [address] Hari Monroy MD, Collar Worker CLIA: [id number] Phosphorus 3.1 2.5-4.5 mg/dL P-Uric Acid Reviewed date:01/12/2025 06:29:50 PM Interpretation:Normal Performing Lab: Notes/Report: Test performed by [facility] [address] [place] [address] , [address], [place] [address] CLIA: [id number] Hari Monroy MD, Collar Worker Uric Acid 3.5 2.4-7.0 mg/dL P-Vitamin D 25-Hydroxy Reviewed date:01/12/2025 06:29:50 PM Interpretation:Normal Performing Lab: Notes/Report: Test performed by [facility] [address] [place] [address] , [address], [place] [address] Hari Monroy MD, Collar Worker CLIA: [id number] Vitamin D 25-Hydroxy 82.7 30.0-100.0 ng/mL Interpretation of Vitamin D 25 OH: < 20 ng/mL - Deficiency 20 - 29 ng/mL - Insufficiency 30 - 100 ng/mL - Sufficiency > 100 ng/mL - Super-therapeutic- toxicity may occur above this level. Clinical correlation required. Reason For Referral Reason [facility] Diagnosis 1 Lymphedema (I89.0) Referral Organization [facility] Referring Provider First Name Rosendo Referring Provider Last Name Sergey Referring Provider Speciality Family Pra ctice Referred Provider Physical Therapy, . Referred Provider Specialty Physical The rapist General Notes Eileen Lal 01/11/20 25 3:20:10 PM > faxed to [facility] PT Referral Priority Routine REASON FOR VISIT 6 month check Medications Medication SIG (Take, Route, Frequency, Duration) Notes Start Date End Date Status Vitamin D3 50 MCG (1999 UT) 1 cap(s) orally once a day 09/25/2016 A ctive Detrol LA 4 MG 1 cap(s) orally once a day; Duration: 90 days Active Pravastatin Sodium 20 MG 1 tab(s) orally once a day at bedtime; Duration: 90 days Active Furosemide 20 MG 1 tab(s) orally once a day 2021 Active Colcrys 0.6 MG 2 tab(s) orally once a day; Duration: 90 days Active Clobetasol Propionate 0.05 % APPLY 1 APPLICATION TOPICALLY TWICE A DAY Active DULoxetine HCl 30 MG 1 cap(s) orally onc e a day; Duration: 90 days Active Uloric 40 MG 1 tab(s) orally once a day; Duration: 90 days Active Eliquis 5 MG 1 tablet Orally Twic e a day; Duration: 90 days Active Ranolazine ER 500 MG 1 tab(s) orally 2 t imes a day; Duration: 90 days Active Cardura XL 4 MG TAKE 1 TABLET DAILY AT BEDTIME Orally Once a day; Duration: 90 days Active Gabapentin 600 MG 1 tab(s) orally 2 ti mes a day; Duration: 90 days 09/28/2024 Active Toprol XL 100 MG 1 tab(s) orally 2 ti mes a day; Duration: 90 days Active Potassium Chloride ER 20 MEQ 1 tab(s) Orally Once a day; Duration: 90 days Active Vital Signs Blood pressure systolic 120 mm Hg 01/11/20 25 Blood pressure diastolic 70 mm Hg 025 Heart Rate 61 /min 01/10/2025 Height 64 in 01/10/2025 Weight 233 lbs 01/10/2025 BMI 39.99 kg/m2 01/10/2025 Encounters Encounter Location Date Provider Diagnosis [facility] [address] [facility] [address], [place] [id number] 01/10/2025 Rosendo Rincon Essential hypertensi on I10 ; Gout, unspecified cause, unspecified chronicity, unspecified site M10.9 ; Vitamin D deficiency E55.9 ; Stage 3b chronic kidney disease (CKD) N18.32 and Lymphedema I89.0 Assessments Encounter Date Diagnosis (ICD Code) Assessment Notes Treatment Notes Treatment Clinical Notes Section Notes 01/10/2025 Essential hypertension (ICD-10 - I10) 01/10/2025 Gout, unspecified cause, unspecified chronicity, unspecified site (ICD-10 - M10.9) 01/10/2025 Vitamin D deficiency (ICD-10 - E55.9) 01/10/2025 Stage 3b chronic kidney disease (CKD) (ICD-10 - N18.32) 01/10/2025 Lymphedema (ICD-10 - I89.0) Plan Of Treatment Medication Medication Name Sig Start Date Stop Date Notes Colcrys 0.6 MG 2 tab(s) orally once a day; Duration: 90 days Referrals Referral Date Details 01/10/2025 01/10/2025, [facility], . P hysical Therapy Next Appt Details Follow Up: 6 Months, Reason: Progress Notes * Letty FORBESOB: [birth year] (89 yo F)Acc No.[id number]:01/10/2025 Progress Notes Patient: Letty KHAN Provider: Brian Rincon M.D. :1935 A ge:89 Y S ex:Female Date:01/10/2025 Address:[address] [place] [address] Subjective: * Chief Complaints: * 1 . 6 month check. * HPI: C ardiology: 89 year old female presents with c/o Blood Pressure Elevated?Pt here for 6 mo f/u on hypertension, states she is doing well and does not have any concerns.? c/o Hyperlipidemia P t is fasting today. * ROS: D ERMATOLOGY: no R michel. n o H shine. G ASTROENTEROLOGY: no N ausea. n o V omiting. U ROLOGY: no D ifficulty urinating. n o B lood in urine. * Medical History: H ypertension, Arthritis, Allergic Rhinitis, Peptic Ulcer Disease, Breast cancer x 2, two different types, First was estrogen sensitive (2001), Colon Polyps, Psoriasis, Osteopenia, Gout, Basal cell carinoma, right side of nose, Dx: 2013, Chronic back pain, s/p pain managment evaluation 2014, Lumbar Disc Disease, Lumbar Spinal Stenosis, Vitamin D deficiency, Chronic kidney disease, Diastolic dysfunction. * Surgical History: M astectomy x2 2001, 2006, Adenoidectomy 194, Colonoscopy, 20 polyps removed , LT SI Injection - [facility] 04/18/2020, LT Heart Cath- [facility] 01/2021. * Hospitalization/Major Diagno stic Procedure: A KI, Hyperkalemia, Fall at Home- [facility] 04/2021. * Family History: F ather: [...] orally 2 times a day , Taking Gabapentin 600 MG Tablet 1 tab(s) orally 2 times a day , Taking Toprol XL 100 MG Tablet Extended Release 24 Hour 1 tab(s) orally 2 times a day , Taking Potassium Chloride ER 20 MEQ Tablet Extended Release 1 tab(s) Orally Once a day , Taking Colcrys 0.6 MG Tablet 2 tab(s) orally once a day , Taking Cardura XL 4 MG Tablet Extended Release 24 Hour TAKE 1 TABLET DAILY AT BEDTIME Orally Once a day , Taking DULoxetine HCl 30 MG Capsule Delayed Release Particles 1 cap(s) orally once a day , Taking Uloric 40 MG Tablet 1 tab(s) orally once a day , Taking Eliquis 5 MG Tablet 1 tablet Orally Twice a day , Discontinued Cephalexin 500 MG Capsule 1 capsule Orally Two times a day , Medication List reviewed and reconciled with the patient * Allergies: p redniSONE, Allopurinol: rash. Objective: * Vitals: W t: 233, Temp: 97.8, BP: 120/70, HR: 61, Nurse: maria a, Ht: 64, BMI:39.99. * Examination: G eneral Examination: General Appearance: N AD, using a walker to assist with ambulation. H eart: R SR. L ungs: c lear to auscultation. E xtremities: 3 + bilateral leg edema, wraps in place. Assessment: * Assessment: 1. E ssential hypertension - I10 (Primary) 2 . G out, unspecified cause, unspecified chronicity, unspecified site - M10.9 3 . V itamin D deficiency - E55.9? 4. S tage 3b chronic kidney disease (CKD) - N18.32 5 . L ymphedema - I89.0 Plan: * Treatment: Value Reference Range U keyana Acid 3.5 2.4-7.0 - mg/dL * Jeanne Choudhary 01/12/2025 6:29: 41 PM >See phone encounter 2.?Vitamin D deficiency?LAB: P-Vitamin D 25-Hydroxy (Collection Date & Time - 01/10/2025 02:10 PM)? Normal* Value Reference Range V itamin D 25-Hydroxy 82.7 30.0-100.0 - ng/mL * Jeanne Choudhary 01/12/2025 6:29: 41 PM >See phone encounter 3.?Stage 3b chronic kidney disease (CKD)?LAB: P-Basic Metabolic Panel (BMP) (Collection Date & Time - 01/10/2025 02:10 PM)?bun 46, Cr 1.74, gfr 28* Value Reference Range B UN 46 H 8-23 - mg/dL * C alcium 9.8 8.6-10.4 - mg/dL * C hloride 102 97-108 - mmol/L * C O2 31 22-32 - mmol/L * C reatinine 1.74 H 0.50-1.00 - mg/dL * G lucose 91 65-99 - mg/dL * P otassium 4.5 3.5-5.3 - mmol/L * S odium 142 135-145 - mmol/L * e GFR by Creatinine 28 L >59 - mL/min/1.73m2 * Jeanne Choudhary 01/12/2025 6:29: 41 PM >See phone encounter ?LAB: P-Phosphorus (Collection Date & Time - 01/10/2025 02:10 PM)?Normal* Value Reference Range P hosphorus 3.1 2.5-4.5 - mg/dL * Jeanne Choudhary 01/12/2025 6:29: 41 PM >See phone encounter 4.?Lymphedema? Referral To:. Physical Therapy??Physical Therapist ?Reason:[facility] * Procedure Codes: G 2211 Complex e/m visit add on, 3074F SYST BP LT 130 MM HG, 3078F DIAST BP < 80 MM HG * Follow Up: 6 Months * Images: Billing Information: * Visit Code: 84244 Office Visit, Est Pt., Level 4. * Procedure Codes: G2211 Complex e/m visit add on. 3074F SYST BP LT 130 MM HG. 3078F DIAST BP < 80 MM HG. * Electronic signature of Dahiana Rincon MD on 07/21/2025 at 01:48 AM EDT Sign off status: Pending * Provider: Brian Rincon M.D. Date: 0 01/10/2025 Generated for Thea gonzalez/Filiberto/Haitting on: 1 01:48 AM EDT History and Physical Notes * HPI (History of Present Illness) Category Sub-Category Detail Notes Category Not es Cardiology Blood Pressure Elevated Pt here for 6 mo f/u on hypertension, states she is doing well and does not have any concerns Hyperlipidemia Pt is fasting today Examination Category Sub-Category Detail Notes Category Not es General Examination Heart: RSR Lungs: clear to auscultatio n Extremities: 3+ bilateral leg martina ma, wraps in place General Appearance: NAD, using a walker to assist with ambulation Consultation Request Notes Referral Date Referring Provider Referred Provider Not es 01/10/2025 Rosendo Rincon Physical Therapy, . [facility]
--- OUTSIDE RECORDS SUMMARY | 2025-06-29 20:40 | XMS_ITS | Encounter Summary ---
Author Organization [facility] Address [address] [place] [address] Care Team Providers Care Plastic Surgery Specialist Name Role Phone Rosendo Rincon MD Primary Care Provider [phone] Reason for Referral * Consultation (Routine) - Authorized Specialty Diagnoses / Procedures Referred By Thomas rosario Referred To Contact Orthopaedic Surgery Diagnoses Closed fracture of transverse process of lumbar vertebra, initial encounter ([facility]) Vikki Wolf PA [address] [facility] [address] [place] [address] Phone: tel: fax: [facility] Orthopa[facility] Surgery [facility] [address] [place] [address] Phone: tel: fax: Referral ID Status Reason Start Date Expiration Date V isits Requested Visits Authorized [id number] Authorized 07/04/2025 01/03/2027 1 1 Scheduling Instructions 3wks in ortho spine clinic with repeat XR. jail plan to follow up at 6wks again with XR, then at 3months with CT & XR if stable * Consultation (Routine) - Authorized Specialty Diagnoses / Procedures Referred By Contact Referred To Contact Vascular Surgery / [facility] Diagnoses Occlusion of celiac artery Vikki Wolf PA [address] [facility] [address] [place] [address] Phone: tel: fax:[phone] [facility] [address] [facility] 5th Floor [address] [place] [address] Phone: tel: fax: Referral ID Status Reason Start Date Expiration Date Visits Requested Visits Authorized [id number] Authorized Specialty Services Required 07/04/2025 01/03/2027 1 1 Scheduling Instructions 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 Reason for Visit * Reason Comments Fall * Auth/Cert (Routine) Specialty Diagnoses / Procedures Referred By Contac t Referred To Contact Diagnoses Fall, initial encounter Fall from standing, initial encounter celiac occlusion, lumbar spine fracture. Rosendo Carlin DO [address] [address] Phone: tel: fax: [facility] [address] [place] [address] Phone: tel: Referral ID Status Reason Start Date Expiration Date Visits Re quested Visits Authorized [id number] 1 1 Encounter Details Date Type Department Care Team (Latest Contact Info) Description 06/29/2025 8:40 PM EDT - 07/04/2025 8:52 PM EDT Hospital Encounter [facility] [address] [place] [id number] Kathryn Gallego MD [address] [place] [id number] Kavon Hinojosa MD [address] [place] [address] Rosendo Carlin DO [address] [address] Brie Mcgraw MD [address] [address] Brii Roberts MD [address] [place] [address] Caterina Kahn MD [address] [place] [address] Fall, initial encounter (Primary Dx); Occlusion of celiac artery; Closed fracture of transverse process of lumbar vertebra, initial encounter ([facility]) Discharge Disposition: [facility] Facility Social History Tobacco Use Types Packs/Day Years Used Date Smoking Tobacco: Never Smokeless Tobacco: Never Tobacco Cessation:Counseling Given: No Alcohol Use Standard Drinks/Week Comments Never 0 (1 standard drink = 0.6 oz pur e alcohol) Humiliation, Afraid, Rape, and Kick questionnair e Answer Date Recorded Within the last year, have y ou been afraid of your partner or ex-partner? No 07/02/2025 Within the last year, have y ou been humiliated or emotionally abused in other ways by your partner or ex-partner? No Within the last year, have y ou been kicked, hit, slapped, or otherwise physically hurt by your partner or ex-partner? No 07/02/2025 Within the last year, have y ou been raped or forced to have any kind of sexual activity by your partner or ex-partner? No 07/02/2025 AUDIT-C Answer Date Recorded Q1: How often do you have a drink containing alcohol? Never 06/30/2025 Q2: How many drinks containi ng alcohol do you have on a typical day when you are drinking? Patient does not drink Q3: How often do you have si x or more drinks on one occasion? Never 06/30/2025 Hunger Vital Sign Answer Date Recorded Within the past 12 months, y ou worried that your food would run out before you got the money to buy more. Never true 07/02/20 25 Within the past 12 months, t he food you bought just didn't last and you didn't have money to get more. Never true 07/02/2025 PRAPARE - Transportation Answer Date Re corded In the past 12 months, has l ack of transportation kept you from medical appointments or from getting medications? No 06/18 In the past 12 months, has l ack of transportation kept you from meetings, work, or from getting things needed for daily living? No 07/02/2025 Housing Stability Vital Sign Answer Cody e Recorded In the last 12 months, was t here a time when you were not able to pay the mortgage or rent on time? No 07/02/2025 In the past 12 months, how m any times have you moved where you were living? 0 07/02/2025 At any time in the past 12 m [facility], were you homeless or living in a alf (including now)? No 07/02/2025 [facility] Utilities Answer Date Recorded In the past 12 months has th e electric, gas, oil, or water company threatened to shut off services in your home? No 07/02/2025 Comments No Sex and Gender Information Value Date Recorded Sex Assigned at Not on file Legal Sex Female 7:42 PM EDT Gender Identity Not on file Sexual Orientation Not on file documented as of this encounter Last Filed Vital Signs Vital Sign Reading Time Taken Comments Blood Pressure 145/74 07/04/2025 3:37 PM EDT Pulse 74 07/04/2025 3:37 PM EDT Temperature 36.7 C (98.1 F) 07/04/2025 3:37 PM EDT Respiratory Rate 16 07/04/2025 6:44 AM EDT Oxygen Saturation 94% 07/04/2025 3:37 PM EDT Inhaled Oxygen Concentration - - Weight 107 kg (234 lb 12.6 oz) 07/02/2025 3:00 P M EDT Height 160 cm (5' 2.99 ) 06/30/2025 4:06 PM EDT Body Mass Index 41.6 06/30/2025 4:06 PM EDT documented in this encounter Functional Status * AUDIT-C Score Answer Date of Assessment Author 0 06/30/2025 4:55 PM EDT Patria Mensah * Question Answer Date of Assessment Author Q1: How often do you have a drink containing alcohol? Never 06/30/2025 4:55 PM EDT Patria Mensah Q2: How many drinks containing alcohol do you have on a typical day when you are drinking? Patient does not drink 06/30/2025 4:55 PM EDT Patria Mensah Q3: How often do you have six or more drinks on one occasion? Never 06/30/2025 4:55 PM EDT Patria Mensah * Calculated C-SSRS Risk Score (Lifetime/Recent) Answer Date of Assessment Author No Risk Indicated 07/04/2025 7:00 AM EDT Varghese Palacios RN * Question Answer Date of Assessment Author 1. Wish to be (Past 1 Month) No 025 7:00 AM EDT Hali Palacios RN 2. Non-Specific Active Suici isidro Thoughts (Past 1 Month) No 07/04/2025 7:00 AM EDT Hali Palacios RN 6. 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 Vascular was consulted and wanted outpatient fu at discharge, no treatment or further workup. - Multilevel severe spinal degenerative changes with significant spinal canal stenosis of lumbar spine - Confluent anterior syndesmophyte calcification throughout the thoracic spine. Diffuse calcification of the interspinous ligaments throughout the lumbar spine. Small calcified focus along the posterior aspect of the L2 spinal canal - Nonobstructing right renal calculus - Multiple partially visualized exophytic cysts from the bilateral kidneys. - Trace pericardial effusion. Cardiomegaly. - Likely old deformities of the left L1 and L2 transverse process fractures. - Extensive bridging anterior osteophytes and calcified syndesmosis. Consistent with rigid spine. 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 SGT: [facility] as needed; [address] [place] [facility] First Floor, [address] [place] [address], [address][phone]. Questions or Concerns and Appointments If there are questions or concerns after discharge from the hospital, please call [phone] and ask for [facility] Nurse. Working hours are Wednesday - Wednesday 8:00 AM to 4:00 PM. After hours, weekends and holidays please call [phone] and ask for the resident finance controller for [facility]. For appointments please call [phone]. Medication requests should be made between the hours of 9:00 AM to 3:00 PM Wednesday thru Wednesday. Please note that based upon recent changes to [place] law related to prescribing opioid pain medications, our providers will not provide refills on controlled medications after your hospital discharge following a major surgery or trauma. [place] 218[place], [place] 201 KAR9:260. documented in this encounter Medications at Time of Discharge acetaminophen (Tylenol) 500 MG tablet Take 1 tablet by mouth every 6 hours as needed for pain. 07/04/2025 08/03/20 25 cholecalciferol (Vitamin D-3) 50 MCG (1999 UT) capsule Take 1 capsule by mouth every morning. colchicine (Colcrys) 0.6 MG tablet Take 1 tablet by mouth 2 times a day as needed for muscle/joint pain. 05/09/2025 diclofenac (Voltaren) 1 % topical gel Place 1-2 g on the skin 2 times a day as needed. doxazosin (Cardura) 4 MG tablet Take 1 tablet by mouth 2 times a day. 04/11/2025 DULoxetine (Cymbalta) [address] capsule Take 1 capsule by mouth daily. Do not crush or chew. 07/05/2025 08/04/20 25 Eliquis 5 MG tablet Take 1 tablet by mouth 2 times a day. 06/06/2025 esomeprazole (NexIUM) [address] capsule Take 1 capsule by mouth daily as needed. Do not open capsule. febuxostat (Uloric) 40 MG tablet Take 1 tablet by mouth every morning. 06/20/2025 gabapentin (Neurontin) 600 MG tablet Take 1 tablet by mouth 2 times a day. 06/27/2025 loratadine (Claritin) 10 MG tablet Take 1 tablet by mouth every morning. methocarbamol (Robaxin) 500 MG tablet Take 1 tablet by mouth 3 times a day as needed for muscle spasms. 07/04/2025 08/03/20 metoprolol succinate XL (Toprol-XL) 100 MG 24 hr tablet Take 1 tablet by mouth daily. Do not crush or chew. 07/05/2025 Multiple Vitamins-Minerals (multivitamin with minerals) tablet Take 1 tablet by mouth daily. NON FORMULARY Take 1 Application by mouth as needed. ACT Dry Mouth Lozenge , OTC, used as needed. nystatin (Mycostatin) 649154 UNIT/GM powder Apply to affected area BID 07/04/2025 ondansetron ODT (Zofran-ODT) 4 MG disintegrating tablet Dissolve 1 tablet on the tongue every 6 hours as needed for nausea or vomiting. 07/04/2025 polyethylene glycol (Miralax) 17 g packet Take 17 g by mouth 2 times a day. 07/04/2025 ranolazine (Ranexa) 500 MG 12 hr tablet Take 1 tablet by mouth 2 times a day. 04/09/2025 senna-docusate (Pippa-Colace) 8.6-50 MG tablet Take 2 tablets by mouth 2 times a day. 07/04/2025 spironolactone (Aldactone) 25 MG tablet Take 0.5 tablets by mouth every morning. 06/08/2025 tolterodine LA (Detrol LA) 4 MG 24 hr capsule Take 1 capsule by mouth daily. 04/09/2025 torsemide (Demadex) 20 MG tablet Take 1 tablet by mouth daily. 06/08/2025 oxyCODONE (Roxicodone) 5 MG immediate release tablet Take 1 tablet by mouth every 6 hours as needed for severe pain for up to 3 days. 12 tablet 07/04/2025 07/07/20 25 documented as of this encounter Miscellaneous Notes * Significant Event - Berny Olsen MD - 07/04/2025 8:52 PM EDT Orthopaedic Spine Surgery Interim Summary I have ordered the patient a custom bi-valve rigid TLSO for spine stabilization, comfort and pain control. The patient needs a custom brace because she is obese at 5' 3 and 253 pounds. The patient must wear the brace OOB for the next 12 weeks. The patient must don/doff the TLSO in the supine position. * Progress Notes - April Siddiqui - 07/04/2025 8:38 PM EDT Attached media from the original note were not included. Case Management Discharge Note Letty Dumont 89 y.o. female CSN: [id number] Admission: 06/29/2025 8:40 PM Primary Problem: Fall Attached PCS form. April Siddiqui MSW, [employer] APPRENTICE Evening ED SW * Care Plan - Ricardo Escobar - 07/04/2025 3:13 PM EDT Problem: Adult Inpatient Plan of Care Goal: Plan of Care Review Outcome: Adequate for Care Transition Goal: Patient-Specific Goal (Individualized) Outcome: Adequate for Care Transition Goal: Absence of Hospital-Acquired Illness or Injury Outcome: Adequate for Care Transition Goal: Optimal Comfort and Wellbeing Outcome: Adequate for Care Transition Problem: Skin Injury Risk Increased Goal: Skin Health and Integrity Outcome: Adequate for Care Transition Problem: Mobility Impairment Goal: Optimal Mobility Outcome: Adequate for Care Transition Problem: Fall Injury Risk Goal: Absence of Fall and Fall-Related Injury Outcome: Adequate for Care Transition Problem: Functional Deficit Goal: Improved Balance and Postural Control Outcome: Adequate for Care Transition Goal: Optimal Cognitive Function Outcome: Adequate for Care Transition Goal: Optimal Coordination Outcome: Adequate for Care Transition Goal: Improved Muscle Strength Outcome: Adequate for Care Transition Goal: Improved Muscle Tone Outcome: Adequate for Care Transition Goal: Optimal Range of Motion Outcome: Adequate for Care Transition Goal: Compensation for Sensory Deficit Outcome: Adequate for Care Transition Problem: Self-Care Deficit Goal: Improved Ability to Complete Activities of Daily Living Outcome: Adequate for Care Transition Problem: Self-Care Deficit Goal: Improved Ability to Complete Activities of Daily Living Outcome: Adequate for Care Transition * Patria Choi - 07/04/2025 3:10 PM EDT Images from the original note were not included. 798 Narcan Nasal [place]: Rescue Guide for Opioid Overdose Step 1 Check for signs of overdose. Think someone had opioid overdose? Shout their name and ask Are you OK? Try shaking them by the shoulders or rubbing the middle of the chest. Signs of overdose are: ? No response or does not wake up. ? Breathing is slow, odd, or has stopped. ? Center of the eye (pupil) is very small. If you see any of these signs, go to Step 2. Step 2 Give the medicine. 1. Lay the person flat on the back. 2. Get the Narcan nasal spray. Peel back the tab to remove the bottle. 3. Hold the bottle as shown. 4. Put your free hand behind the person?s neck. Gently lift to tilt the head back. 5. Place the nozzle inside one nostril until your fingers touch the nose. 6. Press the plunger with your thumb to spray. Then remove from the nostril. Step 3 Call 911 for help and watch the person. ? Call 911 for emergency help. ? Have the person lay on their side as shown. ? Look for a response. The person may wake up, breathe normally, or respond to touch or voice. ? If there is no response for 2-3 minutes after giving the spray, give another - if you have extra spray bottles. In that case, repeat Step 2 then move them back on to their side. ? You can repeat this every 2-3 minutes until help arrives or the person responds. ? Use this medicine only if you know or suspect the person has opioid overdose. ? Do not open the Narcan package until you need to use it. ? Only for use in the nose. * Patria Choi - 07/04/2025 3:10 PM EDT Images from the original note were not included. 450 Safe Use of Controlled Substances Taking a medicine may be an important part of your treatment. Your body should heal faster if you take medicine safely. Some medicines are called Controlled Substances. This means their use is controlled by law. Some of these can harm you if you do not take them safely. What can I do to make sure I take my medicine safely? ? Follow the instructions we give you for how to take your medicine. ? We will give you an instruction sheet for each of your medicines. Ask your doctor or nurse if youdo not get these instructions. ? Some medicines make you sleepy or cloud your thinking. Do not drive, use heavy machines or do dangerous activities while taking these medicines. ? Read the label on the bottle each time you take your medicine. ? Do not take your medicine with alcohol or other sedatives. ? Do not take medicine after the expiration date. ? It is against the law to sell your medicine or share it with others. ? Do not drive while using your medicine. How should I store my medicine? Store it in a safe place. This will keep others from taking your medicine and help you keep track of it. ? Store controlled substances in a cabinet or container that you can lock. ? Keep it in a place that is cool, dry and out of direct sunlight. ? Do not leave it in the car. ? Do not store in a refrigerator or freezer, unless your doctor tells you to. ? Call your doctor right away if your medicine is lost or stolen. How should I dispose of medicine that is or no longer needed? You may have medicine left over that you do not need or should not take. You must dispose of it theright way to protect yourself and others. You can ask your local pharmacist how to dispose of them.You can also visit these Web sites to learn more about disposal of controlled substances: ? Drug Enforcement Agency (MAYA): http://www.deadiversion.AOI Medicaloj.gov/drug_disposal/takeback/index.htm ? National Association of Drug Diversion Investigators (NADDI): http://rxdrugdropbox.org/ ? [place] Office of Drug Control Policy: http://odcp.ky.gov/Prescription+Drug+Drop+Box+Sites.htm Are there concerns about or ? ? Before you take a medicine, tell your doctor if you are or plan to get . This could harm your baby. ? Tell your doctor if you breastfeed. Medicine in breast milk may be bad for your child. What if I have low or impaired vision? If you have vision problems, take extra care with your medicine. ? Wear your glasses when you take your medicine. ? Do not take medicine in the dark. What are the signs of overdose? Some controlled substances may cause breathing problems if you take more than your doctor recommends. This may lead to serious health problems or even . You and your caregivers should watch for the following signs of overdose. ? Slurred speech, confusion or stumbling ? Feeling dizzy or faint ? Acting drowsy or groggy ? Unusual snoring, gasping or snorting during sleep ? Hard to wake up or keep awake What should I or my caregiver do if I overdose? You or your caregiver should call 911 if you have any of these problems: ? Cannot wake up ? Cannot talk after waking up ? Shortness of breath, slow or light breathing, or breathing has stopped ? Heartbeat is slow or stopped ? Gurgling noise comes from the mouth or throat ? Body is limp or seems lifeless ? Face is pale or clammy ? Fingernails or lips look blue or purple What is a GIACOMO report? [facility] is a system that tracks prescriptions of controlled substances in [place]. The GIACOMO report tells your doctor if you have been prescribed controlled substances in the past. Doctors must get a GIACOMO report before prescribing controlled substances. What can I do if the information in my GIACOMO report is wrong? You or your doctor may contact the dispenser who reported the information to GIACOMO. If the dispenser agrees that the information should be changed, he or she can fix the GIACOMO report. However, the dispenser may certify that the report is correct. If that is the case, you or your doctor may then call the [place] Drug Enforcement and Professional Practices Branch at .This will start an investigation of the error. * Lyubov MiltonFHPatria Jean - 07/04/2025 3:09 PM EDT Images from the original note were not included. [id number] Transverse process fracture You have fractured a transverse process. You have 2 transverse processes. They extend off each vertebra in the spine, 1 on each side. They are where some muscles and ligaments of the back attach to the spine. One of these muscles is the psoas muscle. This muscle controls the forward bending motion of the upper body and thighs. It attaches to the transverse processes of the lumbar vertebrae and the 12th thoracic vertebra. During a fall, car accident, or other forceful injury, the psoas muscle can contract strongly as the body tries to protect itself. The contraction can be strong enough to pull off a chip of bone fromthe transverse process. This fracture does not cause any injury to the spinal cord or nerves. But the force that led to this fracture can cause internal bleeding or other injuries that might not be clear at the time of yourfirst exam. Be sure to watch for the symptoms listed under When to seek medical advice. This injury will take 4 to 6 weeks to heal. It can be treated at home with rest and medicine for pain and swelling. A back brace (called TLSO) or abdominal binder may be prescribed. It can reduce pain by limiting motion at the fracture site. After the healing time, you will be advised to gradually return to normal activities over the next 3 or 4 weeks. Home care ? Stay in bed if advised for the first few days. As soon as your healthcare provider says it is OK,begin sitting up and walking. This helps you prevent problems from prolonged bed rest (like muscle weakness, worsening back stiffness and pain, or blood clots in the legs). ? During bed rest, lie flat on a firm mattress with pillows under your knees. You can also try lying on your side with your knees bent up toward your chest and a pillow between your knees. ? Don't sit for long periods. This puts more stress on the lower back than standing or walking. ? During the first 2 days after injury, apply an ice pack to the painful area for 20 minutes every 2 to 4 hours. This will help reduce swelling and pain. Don't put the ice pack directly on your skin.Wrap it in a towel before applying. ? Heat from a hot shower, hot bath, or heating pad can help relieve muscle spasm. Don't use heat for the first 2 days. Some people feel best alternating ice and heat treatments. Use the method that feels the best to you. ? Take any medicine as prescribed. Talk with your healthcare provider about using fpyc-vld-buzjdgj anti-inflammatory medicine. ? If you were prescribed opioid pain medicine, take it only as directed. (Don't drive a car or use power tools or other machinery while taking this medicine.) Call your healthcare provider if your pain is not well controlled. A dose change or stronger medicine may be needed. ? Don't lift anything over 15 pounds until all the pain is gone. Use a back brace if prescribed. When you do lift, use safe lifting technique. Follow-up Follow up with your healthcare provider in 1 week or as advised. When to seek medical advice Call your healthcare provider right away if any of the following occur: ? Increasing back or abdominal pain ? Weakness, dizziness, or fainting ? Blood in your urine (pink, red, or brownish color) ? Weakness or numbness in 1 or both legs ? Pain and swelling in either leg ? Loss of control over bowels or bladder, or numbness in the groin (or genital area) ? Chest pain or shortness of breath ? Back pain that spreads to 1 or both legs Last Reviewed Date: 2024 00:00:00 ?? [id number] The [employer]. All rights reserved. This information is not intended as a substitute for professional medical care. Always follow your healthcare professional's instructions. * Lyubov [facility] - Patria Mensah - 07/04/2025 3:05 PM EDT Images from the original note were not included. 13 TLSO Brace Your doctor will tell you when to wear your brace during the day and how long you should wear it. Always wear a snug T-shirt under the brace. This will protect your skin from the plastic and keep you from feeling sweaty. How do I put on my brace? Move to one side of the bed. ? Scoot to one side of the bed using your arms and legs to assist. Do not lift your hips up from the bed. Or ? Have your caregiver move you to the side by pulling on the sheet. Roll onto your side toward the other side of the bed. ? Bend both legs by sliding your heels toward your bottom. ? Lower your knees and turn your hips and shoulders. Don?t twist your back! Keep your body in line and roll like a log. Your caregiver should get the back half of the brace in place. (The inside of the brace should be labeled as front or back.) ? Make sure the waist curves on the inside of the brace are just above the hip bones and below the ribs. Your caregiver will hold the back half of the brace in place as you log roll onto your back. Your caregiver will place the front half of the brace. ? The front of the brace should overlap the back. Tighten the straps. Make the straps tight in this order: 1. Tighten the middle straps on both sides first, at the same time. 2. Tighten top left and bottom right straps at the same time. 3. Tighten top right and bottom left straps at the same time. Make sure the brace is lined up before getting up. Adjust the brace as needed. Always wear the brace as snug as you can to keep it from sliding up or down. How to get out of bed Step 1: Log roll onto your side. Step 2: Drop your legs over the side of the bed. Step 3: Push yourself up so you are sitting on the edge of the bed. How to get into bed Step 1: Sit on the side of the bed and lean down on your elbow and forearm. Step 2: Lift your legs up onto the bed while you lay on your side. Step 3: Log roll from your side onto your back. Things to remember ? You may not be able to move in all directions or sit in all types of chairs. The brace will limitcertain motions and positions. Dos and Don?ts ? What to do: o Clean the brace with hot soapy water and sponge. Towel or air dry. o Wear a snug T-shirt under the brace. Wear pants with elastic waist band over the brace to allow them to be easily pulled down while using the bathroom. o Sit in a firm chair with arms. o If you lose or gain weight your brace will need to be adjusted. To have your brace adjusted, call[facility] . ? What not to do: o Don?t use lotions or powders underneath your brace. They will bother your skin. o Don?t wear underwire bras, sweaters, blue jeans or thick belts under your brace. This will make your brace not fit as it should. o Don?t put towels or washcloths under your brace as padding. This will make your brace not fit as it should. o Don?t sit in a soft cushion seat that will make you sink. This will make the brace slide up to your armpit. o Don?t sleep in the brace unless your doctor tells you otherwise. o Don?t try to adjust or modify the brace on your own. Call [facility] at if it needs adjustment. * [facility] - Patria Mensah - 07/04/2025 3:05 PM EDT Images from the original note were not included. [id number] Preventing Falls: Staying Active Staying active is one of the best things you can do to prevent falls. Keep in mind that doing too little can be as risky as doing too much. That's because not being active can make you weaker and more likely to fall. But how much can you do safely? Start easy. Slowly work up to doing more. Talk with your health care provider about safe ways for you to stay active. Stay active, stay connected Staying in contact with other people can help lower your risk of falls. It also helps to keep you from feeling isolated and depressed. Find a social activity you enjoy. Make it part of your weekly ordaily routine: ? Join a club or visit a senior center. ? Go to temple services. ? Plan a potluck or game of cards. ? Garden with your neighbor. ? Have a friend join you to go walking outdoors or in the mall. How exercise helps The list of benefits from exercise just keeps getting longer. And, as you age, you can keep gettingthose rewards. Balance, flexibility, strength, and endurance all come from exercise. They all play a role to prevent falls. It's never too late to start exercising. Try organized activities. You can find these at senior centers, health clubs, or even at a place of [facility] [employer]. This may work best if you' ve never exercised in the past or if you need company to get motivated. But you can exercise on your own if you prefer. Try an exercise video or walk in the park. Last Reviewed Date: 2025 00:00:00 ?? 3962-8691 [employer]. All rights reserved. This information is not intended as a substitute for professional medical care. Always follow your healthcare professional's instructions. * [facility] - Patria Mensah - 07/04/2025 3:05 PM EDT Images from the original note were not included. [id number] After a Fall You have had a fall today. That means that you slipped, tripped, or lost your balance. If your fallwas because of fainting or a seizure, you might need other tests. It's normal to feel sore and tight in your muscles and back the next day, and not just the muscles you injured. Remember, all the parts of your body are connected, so while one area hurts now, the next day another may hurt. Also, when you injure yourself, it causes inflammation. This then causes the muscles to tighten up and hurt more. After the symptoms get worse, they should slowly improve overthe next few days. Tell your doctor if you have more severe pain. Even without a definite head injury, you can still get a concussion from your head suddenly jerkingforward, backward, or sideways when you fall. This is especially true if you have had concussions in the past. Concussions and even bleeding can still happen, especially if you had a recent injury ortake blood thinner medicine. It is not unusual to have a mild headache and feel tired and even nauseated or dizzy. Home care ? Rest today. Return to your normal activities when you are feeling back to normal. ? If you were injured during the fall, follow the advice from your doctor about how to care for your injury. ? At first, don't try to stretch out the sore spots. If there is a strain, stretching may make it worse. Massage may help relax the muscles without stretching them. ? Use an ice pack or a cold compress on and off at the sore spots for 10 to 20 minutes at a time, as often as you feel comfortable. This may help reduce the inflammation, swelling, and pain. ? Know that if you have any scrapes (abrasions), they often heal within 10 days. Keep the scrapes clean while they start to heal. But an infection may happen even with correct care. So watch for early signs of infection (such as warmth, redness, or swelling). Medicines ? Talk with your doctor before taking new medicines, especially if you have other health problems or are taking other medicines. ? If you need anything for pain, use acetaminophen or ibuprofen, unless you were given a different pain medicine to use. Talk with your doctor before using these medicines if you: o Have chronic liver or kidney disease. o Ever had a stomach ulcer or gastrointestinal bleeding. o Are taking blood-thinner medicines. ? Be careful if you are given prescription pain medicines, narcotics, or medicine for muscle spasms. They can make you sleepy and dizzy. And they can affect your coordination, reflexes, and judgment.Don't drive or do work where you can hurt yourself when taking them. Fall prevention ? Fix, remove, or replace anything that caused your fall. ? Make your home safe by keeping walkways clear of objects you could trip over. ? Use nonslip pads under rugs. Don't use small area rugs or throw rugs. ? Don't walk in poorly lit areas. ? Don't stand on chairs or wobbly ladders. ? Be careful when you reach overhead or look upward. This position can cause a loss of balance. ? Be sure your shoes fit correctly, have nonslip bottoms, and are in good condition. ? Be careful when you go up and down curbs and when you walk on uneven sidewalks. ? If your balance is poor, think about using a cane or walker. ? Stay as active as you can. Balance, flexibility, strength, and endurance all come from exercise. They all play a role in preventing falls. ? If you have pets, know where they are before you stand up or walk so you don't trip over them. ? Limit alcohol intake. Alcohol can cause balance problems and increase the risk for falls. ? Use night-lights. ? Have your eyes tested to be sure you are seeing well, even if you already wear glasses. Follow-up Follow up with your doctor, or as advised. If X-rays or CT scans were done, you will be told if there is a change in the reading, especially if it affects treatment. Call 911 Call 911 if you have: ? Trouble breathing. ? Confusion. ? Trouble waking up. ? Fainting or loss of consciousness. ? A fast or very slow heart rate. ? A seizure. ? Trouble with speech or vision, or weakness of an arm or leg. ? Trouble walking or talking, loss of balance, numbness or weakness on one side of your body, or facial droop. When to get medical advice Contact your doctor right away if you have: ? Repeated falls, including falls that seem to happen for no reason. ? Dizziness. ? A severe headache. ? Blood in your vomit or stools. (They look black or red.) Last Reviewed Date: 2025 00:00:00 ?? [id number] [employer]. All rights reserved. This information is not intended as a substitute for professional medical care. Always follow your healthcare professional's instructions. * Discharge Summary - Vikki Wolf PA - 07/04/2025 1:37 PM EDT Hospitalization Admit Date/Time: 06/29/2025 8:40 PM Admitting Attending: Rosendo Carlin Discharge Date: 07/04/2025 Discharge Attending Physician: Caterina Kahn MD PCP name and Address: Rosendo Rincon MD [address] [facility] [address] / [place] [id number] Referring provider name and address: Tesfaye Madrigal, DO [address] [place] [address] Chief Concern, Brief History of Present Illness, and Hospital Course Letty Dumont is an 89 yo Female with a PMHx of CKD, MELISSA, Afib on Eliquis, HTN, ALYSSIA, and Lymphedema who presents on 06/29 from OSH following a fall. 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 Past 24h: Patient resting comfortably in bed, NAD, VSS. Patient on supplemental O2 but only when sleeping. Patient typically wears a CPAP for MELISSA but does not have CPAP available at current. Patient tolerating PO without issue. BM 07/02. Suppository ordered. Patient also notes dysuria which has worsened x a couple days. Patient notes TLSO brace is uncomfortable but she has been getting up with brace. Patient A&O x 3. Denies any CP, SOA, abd pain, N/V. Discussed plan of care with patient. No further complaints/concerns/questions at this time. Physical therapy and occupational therapy evaluated the patient during hospitalization and recommend subacute rehab. At the time of discharge the patient was hemodynamically stable, tolerating PO, voiding spontaneously, normal bowel function, mobilizing appropriately, with their pain controlled with PO medication. 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 Vascular was consulted and wanted outpatient fu at discharge, no treatment or further workup. - Multilevel severe spinal degenerative changes with significant spinal canal stenosis of lumbar spine - Confluent anterior syndesmophyte calcification throughout the thoracic spine. Diffuse calcification of the interspinous ligaments throughout the lumbar spine. Small calcified focus along the posterior aspect of the L2 spinal canal - Nonobstructing right renal calculus - Multiple partially visualized exophytic cysts from the bilateral kidneys. - Trace pericardial effusion. Cardiomegaly. - Likely old deformities of the left L1 and L2 transverse process fractures. - Extensive bridging anterior osteophytes and calcified syndesmosis. Consistent with rigid spine. 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 SGT: [facility] as needed; [address] [place] [facility] First Floor, Wing D Room [address] [place] [address], #[phone]. Questions or Concerns and Appointments If there are questions or concerns after discharge from the hospital, please call [phone] and ask for [facility] Nurse. Working hours are Wednesday - Wednesday 8:00 AM to 4:00 PM. After hours, weekends and holidays please call [phone] and ask for the resident finance controller for [facility]. For appointments please call [phone]. Medication requests should be made between the hours of 9:00 AM to 3:00 PM Wednesday thru Wednesday. Please note that based upon recent changes to [place] law related to prescribing opioid pain medications, our providers will not provide refills on controlled medications after your hospital discharge following a major surgery or trauma. [place], [place] 201 KAR9:260. Surgeries and Procedures Medication List .. acetaminophen 500 MG tablet Commonly known as: Tylenol Take 1 tablet by mouth every 6 hours as needed for pain. cholecalciferol 50 MCG (1999 UT) capsule Commonly known as: Vitamin D-3 Take 1 capsule by mouth every morning. colchicine 0.6 MG tablet Commonly known as: Colcrys Take 1 tablet by mouth 2 times a day as needed for muscle/joint pain. diclofenac 1 % topical gel Commonly known as: Voltaren Place 1-2 g on the skin 2 times a day as needed. doxazosin 4 MG tablet Commonly known as: Cardura Take 1 tablet by mouth 2 times a day. DULoxetine [address] capsule Commonly known as: Cymbalta Take 1 capsule by mouth daily. Do not crush or chew. Start taking on: July 05, 2025 Eliquis 5 MG tablet Generic drug: apixaban Take 1 tablet by mouth 2 times a day. esomeprazole [address] capsule Commonly known as: NexIUM Take 1 capsule by mouth daily as needed. Do not open capsule. febuxostat 40 MG tablet Commonly known as: Uloric Take 1 tablet by mouth every morning. loratadine 10 MG tablet Commonly known as: Claritin Take 1 tablet by mouth every morning. methocarbamol 500 MG tablet Commonly known as: Robaxin Take 1 tablet by mouth 3 times a day as needed for muscle spasms. metoprolol succinate XL 100 MG 24 hr tablet Commonly known as: Toprol-XL Take 1 tablet by mouth daily. Do not crush or chew. Start taking on: July 05, 2025 multivitamin with minerals tablet Take 1 tablet by mouth daily. NON FORMULARY Take 1 Application by mouth as needed. ACT Dry Mouth Lozenge , OTC, used as needed. nystatin [id number] UNIT/GM powder Commonly known as: Mycostatin Apply to affected area BID ondansetron ODT 4 MG disintegrating tablet Commonly known as: Zofran-ODT Dissolve 1 tablet on the tongue every 6 hours as needed for nausea or vomiting. oxyCODONE 5 MG immediate release tablet Commonly known as: Roxicodone Take 1 tablet by mouth every 6 hours as needed for severe pain for up to 3 days. polyethylene glycol 17 g packet Commonly known as: Miralax Take 17 g by mouth 2 times a day. ranolazine 500 MG 12 hr tablet Commonly known as: Ranexa Take 1 tablet by mouth 2 times a day. senna-docusate 8.6-50 MG tablet Commonly known as: Pippa-Colace Take 2 tablets by mouth 2 times a day. spironolactone 25 MG tablet Commonly known as: Aldactone Take 0.5 tablets by mouth every morning. tolterodine LA 4 MG 24 hr capsule Commonly known as: Detrol LA Take 1 capsule by mouth daily. torsemide 20 MG tablet Commonly known as: Demadex Take 1 tablet by mouth daily. Where to Get Your Medications These medications were sent to [address] [address] oxyCODONE 5 MG immediate release tablet Information about where to get these medications is not yet available Ask your nurse or doctor about these medications acetaminophen 500 MG tablet DULoxetine [address] capsule methocarbamol 500 MG tablet metoprolol succinate XL 100 MG 24 hr tablet nystatin [id number] UNIT/GM powder ondansetron ODT 4 MG disintegrating tablet polyethylene glycol 17 g packet senna-docusate 8.6-50 MG tablet Outpatient Follow-Up No future appointments. Pertinent Physical Exam At Time of Discharge Physical Exam Vitals reviewed. Constitutional: General: She is not in acute distress. Appearance: She is obese. HENT: Head: Normocephalic. Nose: Nose normal. Mouth/Throat: Mouth: Mucous membranes are moist. Eyes: Extraocular Movements: Extraocular movements intact. Pupils: Pupils are equal, round, and reactive to light. Cardiovascular: Rate and Rhythm: Normal rate. Heart sounds: Normal heart sounds. Pulmonary: Effort: Pulmonary effort is normal. No respiratory distress. Breath sounds: Normal breath sounds. No wheezing. Abdominal: General: There is no distension. Palpations: Abdomen is soft. Tenderness: There is no abdominal tenderness. There is no guarding. Musculoskeletal: General: Signs of injury present. Right lower leg: Edema (chronic lymphedema) present. Left lower leg: Edema (chronic lymphedema) present. Comments: TLSO brace intact Skin: General: Skin is warm and dry. Neurological: Mental Status: She is alert and oriented to person, place, and time. Cranial Nerves: No cranial nerve deficit. Psychiatric: Mood and Affect: Mood normal. Behavior: Behavior normal. Discharge Disposition/Condition Disposition: Nursing facility (specify) Condition: Stable (s/sx potential problems absent or manageable) I spent >30 minutes of patient care and instruction time in preparation for this discharge. Cosigned by Caterina Kahn MD at 07/05/2025 5:52 PM EDT Associated attestation - Caterina Kahn MD - 07/05/2025 5:52 PM EDT The patient was seen only by Advanced Practice Provider ([facility]). * Elenita Fountain, PharmD - 07/04/2025 12:57 PM EDT Images from the original note were not included. [id number] Apixaban IMPORTANT WARNING: If you have atrial fibrillation (a condition in which the heart beats irregularly, increasing the chance of clots forming in the body, and possibly causing strokes) and are taking apixaban to help prevent strokes or serious blood clots, you are at a higher risk of having a stroke after you stop taking this medication. Do not stop taking apixaban without talking to your doctor. Continue to take apixaban even if you feel well. Be sure to refill your prescription before you run out of medication so that you will not miss any doses of apixaban. If you need to stop taking apixaban, your doctor mayprescribe another anticoagulant ('blood thinner') to help prevent a blood clot from forming and causing you to have a stroke. If you have epidural or spinal anesthesia or a spinal puncture while taking a 'blood thinner' such as apixaban, you are at risk of having a blood clot form in or around your spine that could cause you to become paralyzed. Tell your doctor if you have an epidural catheter that is left in your body or have or have ever had repeated epidural or spinal punctures, spinal deformity, or spinal surgery. Tell your doctor and pharmacist if you are taking any of the following: anagrelide (Agrylin??); aspirin and other nonsteroidal anti-inflammatory drugs (NSAIDs) such as ibuprofen (Advil??, Motrin??, others), indomethacin (Indocin??, Tivorbex??), ketoprofen, and naproxen (Aleve??, Anaprox??, others); cilostazol (Pletal??); clopidogrel (Plavix??); dipyridamole (Persantine??); eptifibatide (Integrilin??); heparin; prasugrel (Effient??); ticagrelor (Brilinta??); ticlopidine; tirofiban (Aggrastat??), and warfarin (Coumadin??, Jantoven??). If you experience any of the following symptoms, call your doctor immediately: muscle weakness (especially in your legs and feet), numbness or tingling (especially in your legs), or loss of control of your bowels or bladder. Your doctor or pharmacist will give you the manager unit's patient information sheet (Medication Guide) when you begin treatment with apixaban and each time you refill your prescription. Read the information carefully and ask your doctor or pharmacist if you have any questions. You can also visit the Food and Drug Administration (FDA) website (https://www.fda.gov/Drugs/DrugSafety/wvt717239.htm) or the manager unit's website to obtain the Medication Guide. Talk to your doctor about the risks of taking apixaban. WHY is this medicine prescribed? Apixaban is used to help prevent strokes or blood clots in people who have atrial fibrillation (a condition in which the heart beats irregularly, increasing the chance of clots forming in the body and possibly causing strokes) that is not caused by heart valve disease. Apixaban is also used to prevent deep vein thrombosis (DVT; a blood clot, usually in the leg) and pulmonary embolism (PE; a bloodclot in the lung) in people who are having hip replacement or knee replacement surgery. Apixaban isalso used to treat DVT and PE and may be continued to prevent DVT and PE from happening again afterthe initial treatment is completed. Apixaban is in a class of medications called factor Xa inhibitors. It works by blocking the action of a certain natural substance that helps blood clots to form. HOW should this medicine be used? Apixaban comes as a tablet to take by mouth. It is usually taken with or without food twice a day. When apixaban is taken to prevent DVT and PE after hip or knee replacement surgery, the first dose should be taken at least 12 to 24 hours after surgery. Apixaban is usually taken for 35 days after a hip replacement surgery and for 12 days after knee replacement surgery. Take apixaban at around the same times every day. Follow the directions on your prescription label carefully, and ask your doctor or pharmacist to explain any part you do not understand. Take apixaban exactly as directed. Do nottake more or less of it or take it more often than prescribed by your doctor. If you are unable to swallow the tablets, you can crush them and mix with water, apple juice, or applesauce. Swallow the mixture right after you prepare it. Apixaban can also be given in certain types of feeding tubes. Ask your doctor if you should take this medication in your feeding tube. Follow your doctor's directions carefully. Continue to take apixaban even if you feel well. Do not stop taking apixaban without talking to your doctor. If you stop taking apixaban, your risk of a blood clot may increase. Are there OTHER USES for this medicine? This medication may be prescribed for other uses; ask your doctor or pharmacist for more information. What SPECIAL PRECAUTIONS should I follow? Before taking apixaban, ? tell your doctor and pharmacist if you are allergic to apixaban, any other medications, or any ofthe ingredients in apixaban tablets. Ask your pharmacist or check the Medication Guide for a list of the ingredients. ? Tell your doctor and pharmacist what prescription and nonprescription medications, vitamins, nutritional supplements, and herbal products you are taking or plan to take while taking apixaban. Your doctor may need to change the doses of your medications or monitor you carefully for side effects. ? The following nonprescription or herbal products may interact with apixaban: Verdel's wort; aspirin; NSAIDs (such as ibuprofen [Advil??, Motrin??] and naproxen [Aleve??, Naprosyn??]). Be sure to let your doctor and pharmacist know that you are taking these medications before you start taking apixaban. Do not start any of these medications while taking apixaban without discussing with your healthcare provider. ? you should know that apixaban may interact with certain medications that may be used to treat youif you have a stroke or other medical emergency. In case of an emergency, you or a family member should tell the doctor or emergency room staff who treat you that you are taking apixaban. ? tell your doctor if you have an artificial heart valve or if you have heavy bleeding anywhere in your body that cannot be stopped. Your doctor will probably tell you not to take apixaban. ? tell your doctor if you have or have ever had any type of bleeding problem, antiphospholipid syndrome (APS; a condition that causes blood clots), or kidney or liver disease. ? tell your doctor if you are , plan to become , or are . If you become while taking apixaban, call your doctor. ? if you are having surgery, including dental surgery, tell the doctor or dentist that you are taking apixaban. Your doctor may tell you to stop taking apixaban before the surgery or procedure. If you need to stop taking apixaban because you are having surgery, your doctor may prescribe a differentmedication to prevent blood clots during this time. Your doctor will tell you when you should starttaking apixaban again after your surgery. Follow these directions carefully. ? Call your doctor right away if you fall or injure yourself, especially if you hit your head. Yourdoctor may need to check you. What SPECIAL DIETARY instructions should I follow? Unless your doctor tells you otherwise, continue your normal diet. What should I do IF I FORGET to take a dose? Take the missed dose as soon as you remember it. However, if it is almost time for the next dose, skip the missed dose and continue your regular dosing schedule. Do not take a double dose to make up for a missed one. What SIDE EFFECTS can this medicine cause? Some side effects can be serious. If you experience any of these symptoms, call your doctor immediately or get emergency medical treatment: ? bleeding gums ? nosebleeds ? heavy vaginal bleeding ? red, pink, or brown urine ? red or black, tarry stools ? coughing up or vomiting blood or material that looks like coffee grounds ? swelling or joint pain ? headache ? rash ? chest pain or tightness ? swelling of the face or tongue ? trouble breathing ? wheezing ? feeling dizzy or faint Apixaban prevents blood from clotting normally, so it may take longer than usual for you to stop bleeding if you are cut or injured. This medication may also cause you to bruise or bleed more easily.Call your doctor right away if bleeding or bruising is unusual, severe, or cannot be controlled. Apixaban may cause other side effects. Call your doctor if you have any unusual problems while taking this medication. If you experience a serious side effect, you or your doctor may send a report to the Food and Drug Administration's (FDA) MedWatch Adverse Event Reporting program online (https://www.fda.gov/Safety/MedWatch) or by phone ( ). What should I know about STORAGE and DISPOSAL of this medication? Keep this medication in the container it came in, tightly closed, and out of reach of children. Store it at room temperature and away from light, excess heat and moisture (not in the bathroom). Dispose of unneeded medications in a way so that pets, children, and other people cannot take them.Do not flush this medication down the toilet. Use a medicine take-back program. Talk to your pharmacist about take-back programs in your community. Visit the FDA's Safe Disposal of Medicines website h ttps://goo.gl/c4Rm4p for more information. Keep all medication out of sight and reach of children as many containers are not child-resistant. Always lock safety caps. Place the medication in a safe location - one that is up and away and out of their sight and reach. https://www.upandaway.org What should I do in case of OVERDOSE? In case of overdose, call the poison control helpline at . Information is also available online at https://www.poisonhelp.org/help. If the victim has collapsed, had a seizure, has trouble breathing, or can't be awakened, immediately call emergency services at 911. Symptoms of overdose may include the following: ? unusual bleeding or bruising ? red, brown, or pink urine ? red or black, tarry stools ? coughing up or vomiting blood or material that looks like coffee grounds What OTHER INFORMATION should I know? Keep all appointments with your doctor. Do not let anyone else take your medication. Ask your pharmacist any questions you have about refilling your prescription. Keep a written list of all of the prescription and nonprescription ([id number]-[id number]) medicines, vitamins, minerals, and dietary supplements you are taking. Bring this list with you each time you visit a doctor or if you are admitted to the hospital. You should carry the list with you in case of chidi rgencies. Brand Name(s): ? Eliquis?? This report on medications is for your information only, and is not considered individual patient advice. Because of the changing nature of drug information, please consult your physician or pharmacist about specific clinical use. The [employer] represents that the information provided hereunder was formulated with a reasonable standard of care, and in conformity with professional standards in the field. The [employer] makes no representations or warranties, express or implied, including, but not limited to, any implied warranty of merchantability and/or fitness for a particular purpose, with respect to such information and specifically disclaims all such warranties. Users are advised that decisions regarding drug therapy are complex medical decisions requiring the independent, informed decision of an appropriate health nurse wound care, and the information is provided for informational purposes only. The entire monograph for a drug should be reviewed for a thorough understanding of the drug's actions, uses and side effects. The [employer] does not endorse or recommend the use of any drug.The information is not a substitute for medical care. AHFS?? Patient Medication Information?. ?? Copyright, 2023. The [employer]??, [address], [address], [place], [place]. All Rights Reserved. Duplication for commercial use must be authorized by [facility]. Selected Revisions: December 02, 2024. AHFS?? Patient Medication Information?. ?? Copyright, 2024 * Progress Notes - Delfina Linda - 07/04/2025 12:29 PM EDT Case Management Discharge Note Letty Dumont 89 y.o. female CSN: [id number] Admission: 06/29/2025 8:40 PM Primary Problem: Fall Primary Web Content & Social Media Manager: Primary Caregiver: Self Assistance Available at Discharge: Current Outpatient/Agency/Support Group: DME Availability of Care Givers (#Hours): 5-9 hours Family/Web Content & Social Media Manager(s) Willingness Assessed to care for patient at home: Yes Family/Web Content & Social Media Manager(s) Readiness Assessed to care for patient at home: Yes Housing Circumstances-Z Codes: Housing Circumstances (select all that apply): None Applicable Patient Referred to Financial or Community Resources: Discharge Facility/Level of Care Needs: Discharge Facility/Level of Care Needs: 3-Fpc Facility Patient's Choice of Community Agency(s): Patient/Family Anticipated Services at Transition: Patient/Family Anticipated Services at Transition: [facility], rehabilitation services DME/Equipment Needed after Discharge: Equipment Currently Used at Home: Cpap, walker, rolling, shower chair Equipment Needed After Discharge: Cpap, walker, rolling, shower chair Readmission Within the Last 30 Days: Readmission Within the Last 30 Days: no previous admission in last 30 days Medicare Documentation: Follow-up: [place] [id number] Follow up Discharge Transportation: Transportation Anticipated: medical transport Transportation Home at Discharge: Medical Transport Has discharge transport been arranged?: Yes What day is the transport expected?: 07/04/25 What time is the transport expected?: 1829 Follow Up Transport: Transportation Needed to Follow up Appoinments: Family/Friend will Provide Additional Comments: Per SGT provider, pt will be medically ready for d/c to [facility] once she has BM. Pt has been accepted to [facility] in [place] and has a bed this day. Ambulance scheduled for bedside pickup at 18:30. RN to call report to [phone]. SW will fax d/c summary to [phone]. Pt family is aware of d/c plan and in agreement. Delfina Linda * Care Plan - Hali Palacios RN - 07/04/2025 9:45 AM EDT Problem: Adult Inpatient Plan of Care Goal: Plan of Care Review Outcome: Ongoing, Progressing Goal: Patient-Specific Goal (Individualized) Outcome: Ongoing, Progressing Goal: Absence of Hospital-Acquired Illness or Injury Outcome: Ongoing, Progressing Intervention: Identify and Manage Fall Risk Flowsheets (Taken 07/04/2025 09) Safety Promotion/Fall Prevention: activity supervised assistive device/personal items within reach clutter-free environment maintained fall prevention program maintained lighting adjusted mobility aid in reach nonskid shoes/slippers when out of bed room organization consistent safety round/check completed toileting scheduled Goal: Optimal Comfort and Wellbeing Outcome: Ongoing, Progressing Problem: Skin Injury Risk Increased Goal: Skin Health and Integrity Outcome: Ongoing, Progressing Intervention: Optimize Skin Protection Flowsheets Taken 07/04/2025 0945 Pressure Reduction Techniques: frequent weight shift encouraged heels elevated off bed positioned off wounds pressure points protected rest period provided between sit times Skin Protection: incontinence pads utilized Taken 07/04/2025 09 Activity Management: activity adjusted per tolerance Head of Bed (HOB) Positioning: HOB at 20-30 degrees Taken 07/03/2025 1202 Pressure Reduction Devices: pressure-redistributing mattress utilized Problem: Mobility Impairment Goal: Optimal Mobility Outcome: Ongoing, Progressing Intervention: Optimize Mobility Flowsheets Taken 07/04/2025 0945 Assistive Device Utilized: front wheel walker Positioning/Transfer Devices: pillows repositioning sheet Taken 07/04/2025 0900 Activity Management: activity adjusted per tolerance Problem: Fall Injury Risk Goal: Absence of Fall and Fall-Related Injury Outcome: Ongoing, Progressing Intervention: Identify and Manage Contributors Flowsheets (Taken 07/04/2025 0945) Self-Care Promotion: independence encouraged BADL personal objects within reach BADL personal routines maintained Intervention: Promote Injury-Free Environment Flowsheets (Taken 07/04/2025 0900) Safety Promotion/Fall Prevention: activity supervised assistive device/personal items within reach clutter-free environment maintained fall prevention program maintained lighting adjusted mobility aid in reach nonskid shoes/slippers when out of bed room organization consistent safety round/check completed toileting scheduled Problem: Functional Deficit Goal: Improved Balance and Postural Control Outcome: Ongoing, Progressing Intervention: Optimize Balance and Safe Activity Flowsheets Taken 07/04/2025 0945 Self-Care Promotion: independence encouraged BADL personal objects within reach BADL personal routines maintained Taken 07/04/2025 0900 Activity Management: activity adjusted per tolerance Safety Promotion/Fall Prevention: activity supervised assistive device/personal items within reach clutter-free environment maintained fall prevention program maintained lighting adjusted mobility aid in reach nonskid shoes/slippers when out of bed room organization consistent safety round/check completed toileting scheduled Goal: Optimal Cognitive Function Outcome: Ongoing, Progressing Goal: Optimal Coordination Outcome: Ongoing, Progressing Goal: Improved Muscle Strength Outcome: Ongoing, Progressing Goal: Improved Muscle Tone Outcome: Ongoing, Progressing Goal: Optimal Range of Motion Outcome: Ongoing, Progressing Goal: Compensation for Sensory Deficit Outcome: Ongoing, Progressing Problem: Self-Care Deficit Goal: Improved Ability to Complete Activities of Daily Living Outcome: Ongoing, Progressing Intervention: Promote Activity and Functional Hansen Flowsheets Taken 07/04/2025 0945 Self-Care Promotion: independence encouraged BADL personal objects within reach BADL personal routines maintained Taken 07/04/2025 0700 Activity Assistance Provided: assistance, 1 person * Care Plan - Nina Adhikari RN - 07/04/2025 3:10 AM EDT Problem: Adult Inpatient Plan of Care Goal: Plan of Care Review Outcome: Ongoing, Progressing Flowsheets (Taken 07/04/2025 0308) Progress: improving Plan of Care Reviewed With: patient Goal: Patient-Specific Goal (Individualized) Outcome: Ongoing, Progressing Flowsheets (Taken 07/03/2025 1930) Patient/Family-Specific Goals (Include Timeframe): Patient will remain free of harm throughout shift Individualized Care Needs: Safety Anxieties, Fears or Concerns: None stated Goal: Absence of Hospital-Acquired Illness or Injury Outcome: Ongoing, Progressing Intervention: Identify and Manage Fall Risk Flowsheets (Taken 07/04/2025 0000) Safety Promotion/Fall Prevention: clutter-free environment maintained activity supervised assistive device/personal items within reach nonskid shoes/slippers when out of bed mobility aid in reach room organization consistent safety round/check completed Problem: Skin Injury Risk Increased Goal: Skin Health and Integrity Outcome: Ongoing, Progressing Intervention: Optimize Skin Protection Flowsheets (Taken 07/04/2025307) Activity Management: activity adjusted per tolerance activity encouraged Pressure Reduction Techniques: frequent weight shift encouraged heels elevated off bed weight shift assistance provided Skin Protection: incontinence pads utilized Head of Bed (HOB) Positioning: HOB elevated Problem: Mobility Impairment Goal: Optimal Mobility Outcome: Ongoing, Progressing Intervention: Optimize Mobility Flowsheets (Taken 07/04/2025307) Activity Management: activity adjusted per tolerance activity encouraged Positioning/Transfer Devices: pillows repositioning sheet in use Problem: Fall Injury Risk Goal: Absence of Fall and Fall-Related Injury Outcome: Ongoing, Progressing Intervention: Identify and Manage Contributors Flowsheets (Taken 07/04/2025307) Medication Review/Management: medications reviewed Self-Care Promotion: BADL personal objects within reach independence encouraged Problem: Functional Deficit Goal: Improved Balance and Postural Control Outcome: Ongoing, Progressing Intervention: Optimize Balance and Safe Activity Flowsheets Taken 07/04/2025 030 Activity Management: activity adjusted per tolerance activity encouraged Self-Care Promotion: BADL personal objects within reach independence encouraged Taken 07/04/2025 0000 Safety Promotion/Fall Prevention: clutter-free environment maintained activity supervised assistive device/personal items within reach nonskid shoes/slippers when out of bed mobility aid in reach room organization consistent safety round/check completed Problem: Self-Care Deficit Goal: Improved Ability to Complete Activities of Daily Living Outcome: Ongoing, Progressing Intervention: Promote Activity and Functional Hansen Flowsheets (Taken 07/04/2025307) Self-Care Promotion: BADL personal objects within reach independence encouraged * Assessment & Plan Note - Liz Schwab APRN, DNP - 07/03/2025 5:32 PM EDT Associated Problem(s): Lumbar transverse process fracture (CMS/HCC) ORT Spine consulted [facility] PT/OT * Assessment & Plan Note - Liz Schwab APRN, DNP - 07/03/2025 5:32 PM EDT Associated Problem(s): Traumatic fracture of lumbar vertebra (CMS/HCC) 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 TLSO brace delivered Uprights completed in brace and stable PT/OT eval recs [facility] * Assessment & Plan Note - Liz Schwab APRN, DNP - 07/03/2025 5:32 PM EDT Associated Problem(s): Fall Admit to T 5 Tertiary exam 07/01 * Assessment & Plan Note - Liz Schwab APRN, DNP - 07/03/2025 5:32 PM EDT Associated Problem(s): Atrial fibrillation (CMS/HCC) Resumed home metoprolol succinate XL Resume eliquis at d/c * Assessment & Plan Note - Liz Schwab APRN, DNP - 07/03/2025 5:32 PM EDT Associated Problem(s): Chronic pain MMPC Can complicate care * Assessment & Plan Note - Liz Schwab APRN, DNP - 07/03/2025 5:32 PM EDT Associated Problem(s): Diastolic dysfunction Resume home metoprolol succinate XL * Assessment & Plan Note - Liz Schwab APRN, DNP - 07/03/2025 5:32 PM EDT Associated Problem(s): Essential hypertension Resume home metoprolol Anti-hypertensives PRN CTM * Assessment & Plan Note - Liz Schwab APRN, DNP - 07/03/2025 5:32 PM EDT Associated Problem(s): Gastroesophageal reflux disease Resume home meds as appropriate * Assessment & Plan Note - Liz Schwab APRN, DNP - 07/03/2025 5:32 PM EDT Associated Problem(s): Gout Resume home meds as appropriate * Assessment & Plan Note - Liz Schwab APRN, DNP - 07/03/2025 5:32 PM EDT Associated Problem(s): Hypertriglyceridemia Resume home meds as appropriate * Assessment & Plan Note - Liz Schwab APRN, DNP - 07/03/2025 5:32 PM EDT Associated Problem(s): Mixed hyperlipidemia Resume home meds as appropriate * Assessment & Plan Note - Liz Schwab APRN, DNP - 07/03/2025 5:32 PM EDT Associated Problem(s): Hypokalemia Resolved * Assessment & Plan Note - Liz Schwab APRN, DNP - 07/03/2025 5:32 PM EDT Associated Problem(s): Lumbar spinal stenosis Chronic Follow up with PCP * Assessment & Plan Note - Liz Schwab APRN, DNP - 07/03/2025 5:32 PM EDT Associated Problem(s): Lymphedema Chronic Follow up with PCP * Assessment & Plan Note - Liz Schwab APRN, DNP - 07/03/2025 5:32 PM EDT Associated Problem(s): Polyneuropathy - Begin gabapentin * Assessment & Plan Note - Liz Schwab APRN, DNP - 07/03/2025 5:32 PM EDT Associated Problem(s): Recurrent falls Fall risk, follow precautions * Assessment & Plan Note - Liz Schwab APRN, DNP - 07/03/2025 5:32 PM EDT Associated Problem(s): Stage 4 chronic kidney disease (CMS/HCC) Avoid nephrotoxins, avoid NSAIDs, renally dose medications * Assessment & Plan Note - Liz Schwab APRN, DNP - 07/03/2025 5:32 PM EDT Associated Problem(s): Venous stasis dermatitis Chronic Follow up w/PCP * Assessment & Plan Note - Liz Schwab APRN, DNP - 07/03/2025 5:32 PM EDT Associated Problem(s): Fall at home, subsequent encounter TLSO brace delivered Uprights completed in brace and stable PT/OT eval recs [facility] * Assessment & Plan Note - Liz Schwab APRN, DNP - 07/03/2025 5:32 PM EDT Associated Problem(s): Obesity, Class III, BMI 40-49.9 (morbid obesity) Can complicate on all aspects of care * Assessment & Plan Note - Liz Schwab APRN, DNP - 07/03/2025 5:32 PM EDT Associated Problem(s): Occlusion of celiac artery Vascular consulted No treatment of further inpatient work up Follow up in clinic after discharge * Progress Notes - Liz Schwab APRN, DNP - 07/03/2025 5:23 PM EDT 07/03/25 Letty Dumont HPI Letty Dumont is an 89 yo Female with a PMHx of CKD, MELISSA, Afib on Eliquis, HTN, ALYSSIA, and Lymphedema who presents on 06/29 from OSH following a fall. 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 Interval: Patient is completing personal hygiene with PT/OT. Awake. A&O. Able to respond to orientation questions. VSS. On 2L via NC, no SOA. NAD. NAEON. TLSO brace intact. Uprights have been completed andread per NSGY Team. PT/OT is toward the end of therapy and have recommended subacute rehab. Discussed rehab with patient and she is agreeable to [facility]. Updated CM with patient's choice. Patient reports that her pain is controlled with current pain regimen. Tolerating PO diet, no N/V, abd pain. Last BM was [facility]. Bowel regimen increased. Discussed plan of care with Patient, RN, SW/CM, and Pharm D who is in understanding. No further concerns per patient or nursing. Edited by: Liz Schwab APRN, DNP at 07/03/2025 1732 Relevant review of systems was obtained as able and is negative unless stated above in HPI. Vital signs: Vitals: 07/03/25 1535 BP: 132/73 Pulse: 72 Resp: Temp: 36.8 ??C (98.2 ??F) SpO2: 94% Physical Exam Vitals and nursing note reviewed. Constitutional: General: She is not in acute distress. Appearance: She is obese. HENT: Head: Normocephalic and atraumatic. Right Ear: External ear normal. Left Ear: External ear normal. Nose: Nose normal. Mouth/Throat: Mouth: Mucous membranes are moist. Pharynx: Oropharynx is clear. Eyes: Extraocular Movements: Extraocular movements intact. Pupils: Pupils are equal, round, and reactive to light. Cardiovascular: Rate and Rhythm: Normal rate. Heart sounds: Normal heart sounds. Pulmonary: Effort: Pulmonary effort is normal. No respiratory distress. Breath sounds: Normal breath sounds. No wheezing. Abdominal: General: There is no distension. Palpations: Abdomen is soft. Tenderness: There is no abdominal tenderness. There is no guarding. Musculoskeletal: General: Signs of injury present. Cervical back: Normal range of motion. No rigidity or tenderness. Right lower leg: Edema (chronic lymphedema) present. Left lower leg: Edema (chronic lymphedema) present. Comments: TLSO brace intact Skin: General: Skin is warm and dry. Neurological: Mental Status: She is alert and oriented to person, place, and time. Cranial Nerves: No cranial nerve deficit. Psychiatric: Mood and Affect: Mood normal. Behavior: Behavior normal. Intake/Output Summary (Last 24 hours) at 07/03/2025 1732 Last data filed at 07/03/2025 0335 Gross per 24 hour Intake -- Output 300 ml Net -300 ml Lines/Drains/Tubes: Patient Lines/Drains/Airways Status Active Airway None Output by Drain (mL) 07/01/25 0700 - 07/01/25 1859 07/01/25 1900 - 07/02/25 0659 07/02/25 0700 - 07/02/25 1859 07/02/25 1900 - 07/03/25 0659 07/03/25 0700 - 07/03/25 1732 Requested LDAs do not have output data documented. Labs in last 18 hours: CBC WBC ?? Hb ?? Plt ?? Hct ?? ANC ?? INR ??, PTT ??, Anti-Xa ?? MCV ?? BMP Na ?? Cl ?? BUN ?? Glu ?? K ?? Co2 ?? Cr ?? Ca ?? iCa ?? Mg ??, Phos ?? Lactate ?? LFT AST ?? AlkPhos ?? T Prot ?? ALK ?? Bili ?? Alb ?? D.Bili ?? Lab Trends: H/H Results from last 7 days Lab Units 06/29/25 2309 HEMOGLOBIN g/dL 13.6 HEMATOCRIT % 37.8 INR Results from last 7 days Lab Units 06/29/25 2309 INR 1.4* Cr Results from last 7 days Lab Units 06/29/25 2309 CREATININE mg/dL 1.36* Medications reviewed. Vital signs reviewed. Labs reviewed. Radiography reviewed. Assessment and Plan: Assessment & Plan Fall Present on Admission: Yes Admit to [facility] 5 Tertiary exam 07/01 Atrial fibrillation (CMS/HCC) Present on Admission: Yes Resumed home metoprolol succinate XL Resume eliquis at d/c Chronic pain Present on Admission: Yes MMPC Can complicate care Diastolic dysfunction Present on Admission: Yes Resume home metoprolol succinate XL Essential hypertension Present on Admission: Yes Resume home metoprolol Anti-hypertensives PRN CTM Gastroesophageal reflux disease Present on Admission: Yes Resume home meds as appropriate Gout Present on Admission: Yes Resume home meds as appropriate Hypertriglyceridemia Present on Admission: Yes Resume home meds as appropriate Mixed hyperlipidemia Present on Admission: Yes Resume home meds as appropriate Hypokalemia Present on Admission: Yes Resolved Lumbar spinal stenosis Present on Admission: Yes Chronic Follow up with PCP Lymphedema Present on Admission: Yes Chronic Follow up with PCP Polyneuropathy Present on Admission: Yes - Begin gabapentin Recurrent falls Present on Admission: Not Applicable Fall risk, follow precautions Stage 4 chronic kidney disease (CMS/HCC) Present on Admission: Yes Avoid nephrotoxins, avoid NSAIDs, renally dose medications Venous stasis dermatitis Present on Admission: Yes Chronic Follow up w/PCP Fall at home, subsequent encounter Present on Admission: Not Applicable TLSO brace delivered Uprights completed in brace and stable PT/OT eval recs [facility] Obesity, Class III, BMI 40-49.9 (morbid obesity) Present on Admission: Yes Can complicate on all aspects of care Occlusion of celiac artery Present on Admission: Yes Vascular consulted No treatment of further inpatient work up Follow up in clinic after discharge Lumbar transverse process fracture (CMS/HCC) Present on Admission: Yes ORT Spine consulted [facility] PT/OT Traumatic fracture of lumbar vertebra (CMS/HCC) Present on Admission: Yes 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 TLSO brace delivered Uprights completed in brace and stable PT/OT eval recs ASHLYN Plan: - MMPC: changed to oxy q6h PRN - Bowel regimen: Added MOM - HTN: Discontinue metoprolol tartrate and resumed home metoprolol succinate XL; continue PRN if necessary - Vasc: No acute intervention, f/u outpatient for surveillance - Ortho Spine: Trial non-op; TLSO ordered and delivered, standing uprights in brace completed - PT/OT eval recommends [facility]SHLYN Discharge Dispo: Subacute Rehab Edited by: Liz Schwab APRN, DNP at 07/03/2025 1723 Liz Schwab APRN, DNP * Care Plan - Hali Palacios RN - 07/03/2025 12:04 PM EDT Problem: Adult Inpatient Plan of Care Goal: Plan of Care Review Outcome: Ongoing, Progressing Goal: Patient-Specific Goal (Individualized) Outcome: Ongoing, Progressing Flowsheets (Taken 07/03/2025 0700) Patient/Family-Specific Goals (Include Timeframe): Pt will remain free from fall/injury this shift. Individualized Care Needs: Saftey Anxieties, Fears or Concerns: Going home Goal: Absence of Hospital-Acquired Illness or Injury Outcome: Ongoing, Progressing Intervention: Identify and Manage Fall Risk Flowsheets (Taken 07/03/2025 1100) Safety Promotion/Fall Prevention: activity supervised assistive device/personal items within reach clutter-free environment maintained fall prevention program maintained lighting adjusted mobility aid in reach nonskid shoes/slippers when out of bed room organization consistent safety round/check completed toileting scheduled Goal: Optimal Comfort and Wellbeing Outcome: Ongoing, Progressing Problem: Skin Injury Risk Increased Goal: Skin Health and Integrity Outcome: Ongoing, Progressing Intervention: Optimize Skin Protection Flowsheets Taken 07/03/2025 1202 Pressure Reduction Techniques: weight shift assistance provided frequent weight shift encouraged Pressure Reduction Devices: pressure-redistributing mattress utilized Skin Protection: incontinence pads utilized skin sealant/moisture barrier applied Taken 07/03/2025 1100 Activity Management: activity adjusted per tolerance Head of Bed (HOB) Positioning: HOB at 20-30 degrees Problem: Mobility Impairment Goal: Optimal Mobility Outcome: Ongoing, Progressing Intervention: Optimize Mobility Flowsheets Taken 07/03/2025 1202 Assistive Device Utilized: other (see comments) Positioning/Transfer Devices: pillows repositioning sheet other (see comments) Taken 07/03/2025 1100 Activity Management: activity adjusted per tolerance Note: TLSO Brace OOB Problem: Fall Injury Risk Goal: Absence of Fall and Fall-Related Injury Outcome: Ongoing, Progressing Intervention: Promote Injury-Free Environment Flowsheets (Taken 07/03/2025 1100) Safety Promotion/Fall Prevention: activity supervised assistive device/personal items within reach clutter-free environment maintained fall prevention program maintained lighting adjusted mobility aid in reach nonskid shoes/slippers when out of bed room organization consistent safety round/check completed toileting scheduled * Progress Notes - Alvin Rubiocarlos Hood - 07/03/2025 12:04 PM EDT Physical Therapy Evaluation Patient Name: Letty Dumont Today's Date: 07/03/2025 PT Discharge Recommendations: Subacute rehab Equipment Recommended: Defer to facility History Letty Dumont is 89 y.o. female admitted 06/29/2025 for work-up of Fall. 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 Fall at home, subsequent encounter 06/30/2025 Fall 06/30/2025 Atrial fibrillation (CMS/HCC) 06/30/2025 Chronic pain 06/30/2025 Diastolic dysfunction 06/30/2025 Essential hypertension 06/30/2025 Gastroesophageal reflux disease 06/30/2025 Gout 06/30/2025 Hypertriglyceridemia 06/30/2025 Hypokalemia 06/30/2025 Lumbar spinal stenosis 06/30/2025 Lymphedema 06/30/2025 Mixed hyperlipidemia 06/30/2025 Polyneuropathy 06/30/2025 Recurrent falls 06/30/2025 Stage 4 chronic kidney disease (CMS/HCC) 06/30/2025 Venous stasis dermatitis 06/30/2025 Procedures Past Medical History Patient has a past medical history of Cholelithiasis without obstruction (06/30/2025) and Hypomagnesemia (06/30/2025). Past Surgical History Patient has no past surgical history on file. Precautions Medical Precautions: Fall precautions, Spinal Spinal Precautions : TLSO >45 degrees Medical Precautions: films cleared, ok to mobilize Subjective Pt agreeable to PT. Participants in Care Family/Caregiver Present: No Presentation Oxygen Therapy: Supplemental oxygen O2 Delivery Method: Nasal cannula O2 Flow Rate (L/min): 2 L/min Lines and Tubes: Intravenous access Pre-Session: Supine, Head of bed elevated, Lines intact Pre-Session Comments: RN agreeable to therapy session. Post-Session: Sitting in chair, Call light in reach, RN notified, Lines intact, Chair alarm Post-Session Comments: Positioned Pt for comfort. Home Living/Set-up Lives With: Alone (per pt report, son comes to house 'once a day) Home Type: House Home Adaptive Equipment: Rolling walker, Cane (per pt report uses 2 canes simultaneously in house, uses rw when walking outside) Home Layout: Multi-level, Able to live on one level with bedroom/bathroom, Stairs to enter without rails (pt unsure of number of stairs into house) Bathroom: Tub/Shower: Walk-in shower, Shower chair Bathroom: Toilet: Standard, Bedside commode Bathroom: Accessibility: Accessible, Not accessible (pt reports two bathrooms (1 accessible with rw, other not)) Prior Level of Function Receives Help From: No assist required prior to admission Level of Mobility: Ambulatory- household only (pt reports does not drive) Mobility Hansen: Independent gait with device History of Falls: No ADL Performance: Independent Patient/Family Goals Improve mobility Objective Pain Pt with no complaints of pain, did endorse some discomfort while wearing TLSO. Pt positioned for comfort at end of session. Delirium Screening RASS: Drowsy Confusion Assessment Method-ICU (CAM-ICU/PCAM-ICU) Feature 3: Altered Level of Consciousness: Positive Cognition Overall Cognitive Status: Within Functional Limits Arousal/Alertness: Delayed responses to stimuli Mood/Behavior: Lethargic (initially lethargic bed level, alertness improves with time upright) Orientation Level: Oriented X4 Single Step Commands: Consistently Multi-Step Commands: Consistently, With increased time, With repetition Method of Communication: Verbal Vision - Basic Assessment Baseline Vision: Glasses distance, Glasses reading Patient Visual Report: pt utilizes tri-focals without change in vision at this time Current Vision: Intact Tracking: Intact Right Upper Extremity Examination RUE Assessment: Within Functional Limits Manual Muscle Testing - RUE: Within functional limits except Shoulder Flexion: 4+ Shoulder Extension: 4+ Elbow Extension: 4+ Elbow Flexion: 4+ Gross Grasp - Finger: 4+ Sensation Light Touch: Right Upper Extremity: Intact Left Upper Extremity Examination LUE ROM Assessment LUE Assessment: Within Functional Limits Manual Muscle Testing - LUE Manual Muscle Testing - LUE: Within functional limits except Shoulder Flexion: 4+ Shoulder Extension: 4+ Elbow Extension: 4+ Elbow Flexion: 4+ Gross Grasp - Finger: 4+ Sensation Light Touch: Left Upper Extremity: Intact Right Lower Extremity Examination RLE ROM Assessment RLE Assessment: Within Functional Limits Manual Muscle Testing - RLE Manual Muscle Testing - RLE: (hips 4-/5, distally WFL) Sensation Light Touch: Right Lower Extremity: Intact Left Lower Extremity Examination LLE Assessment: Within Functional Limits Manual Muscle Testing: (hips 4-/5, distally WFL) Sensation Light Touch: Left Lower Extremity: Intact Therapeutic Activity (39 minutes) See bed mobility, balance, and transfers for details. Significantly increased time required to allow for processing of cues and Pt response to questions due to Pt lethargic with delayed responses. Educated Pt on PT plan of care, goals, and discharge recommendations. Bed Mobility Bed Mobility Interventions: Pt rolled L<>R x2 reps each direction for hygiene, pippa-care, anddonning of TLSO. Required verbal + tactile cues for sequencing of rolling: to flex contralateral knee and reach toward opposite bedrail. During supine>sit transfer, required verbal + tactile cues to facilitate log rolling. Bed Mobility Exam: Rolling/Turning Level of Hansen: Maximum assist (25% patient effort) Physical/Nonphysical Assist: Verbal Cues, Nonverbal cues (demo/gestures), Additional assist utilized for safety Assistive Device: Bed rails Bed Mobility Exam: Scooting/Bridging Level of Hansen: Contact guard (scooting EOB) Physical/Nonphysical Assist: Verbal Cues, Minimal cues Bed Mobility Exam: Supine to Sit Level of Hansen: Maximum assist (25% patient's effort) Physical/Nonphysical Assist: Verbal Cues, Moderate cues, Additional assist utilized for safety Assistive Device: Bed rails Transfers Transfer Interventions: Pt performed x1 sit<>stands from bed and x1 sit<>stand from toilet. She required verbal and tactile cues for appropriate hand placement and bilateral hip and knee extension Transfer Exam: Sit to stand Level of Hansen: Minimum assist (75% patient's effort) Physical/Nonphysical Assist: Verbal Cues Assistive Device: Walker, rolling Transfer Exam: Stand to Sit Level of Hansen: Minimum assist (75% patient's effort) Physical/Nonphysical Assist: Verbal Cues, Additional assist utilized for safety Assistive Device: Walker, rolling Toilet Transfer Level of Hansen: Moderate assist (50% patient's effort) Physical/Nonphysical Assist: Verbal Cues, Moderate cues Type of Transfer: Ambulation, To toilet Assistive Device: Walker, rolling, Grab bar Balance Postural Appearance Posture: Stooped posture Static Sitting Balance Static Sitting-Balance Support: Feet supported, Right upper extremity support, Left upper extremitysupport Static Sitting-Level of Assistance: Contact guard Stating Sitting - Interventions: Pt sat edge of bed 12 minutes for improvement of upright tolerance, core and trunk strength, and sitting balance. She required verbal + tactile cues for upright posture and to keep eyes open. Dynamic Sitting Balance Dynamic Sitting-Balance Support: Feet supported, No upper extremity support Dynamic Sitting-Balance: Lateral weight shifts, Anterior/Posterior weight shifts Level of Assistance: Minimum assistance Static Standing Balance Static Standing-Balance Support: Right upper extremity support, Left upper extremity support (rolling walker) Static Standing-Level of Assistance: Contact guard Static Standing - Interventions: Pt performed static standing at sink ~5 minutes while performing ADL's. Required verbal cues to push walker all the way up to sink and step inside walker frame. Also required verbal cues for upright posture. Dynamic Standing Balance Dynamic Standing-Balance Support: Right upper extremity support, Left upper extremity support (rolling walker) Dynamic Standing Level of Assistance: Minimum assistance Gait Training (15 minutes) Device: Rolling walker Assistance: Minimum assistance Distance: 15ft (seated rest) + 15ft Gait Analysis: Pt demonstrates decreased step length, decreased alexandria, decreased bilateral foot clearance, rolling walker too far forward outside base of support, and forward flexed posture. Gait Training Interventions: Rolling walker adjusted to Pt's height. Pt required verbal + tactile cues for upright posture, forward gaze, and to keep walker close to base of support. Standardized Assessments Standardized Assessments Standardized Assessments: AMPA 6-Clicks Mobility Assessment AMPA 6-Clicks Mobility Assessment Difficulty patient has turning over in bed (including adjusting bedclothes, sheets, and blankets)?:A lot Difficulty patient has sitting down on and standing up from a chair with arms (wheelchair, bedside commode, etc.)?: A little Difficulty patient has moving from lying on back to sitting on the side of the bed?: A lot How much help does the patient need moving to and from a bed to a chair (including a wheelchair)?: A lot How much help does the patient need to walk in hospital room?: A little How much help does the patient need climbing 3-5 steps with a railing?: Unable [facility] 6-Clicks Mobility Assessment Total : 13 No data recorded Assessment Pt's overall mobility limited 2/2 below impairments. Pt is at increased risk of falls and is currently unable to ambulate a household distance which is in contrast to her baseline level of mobility. Pt lives alone and must be independent with mobility and ADL's in order to safely return home. Due to this, recommend recommend discharge to Subacute Rehab facility to further improve safety and independence with mobility prior to returning home, and to decrease caregiver burden. Impairments: Decreased endurance, ventilation, and/or gas exchange, Impaired gait dynamics/performance, Impaired attention/alertness, Impaired locomotion, Impaired functional mobility/transfers, Impaired balance, Impaired postural/trunk control, Decreased strength, Pain Activity Limitations: Inability to sit independently, Inability to ambulate household distances, Inability to transfer independently, Impaired attention/alertness, Inability to ambulate independently, Inability to complete ADLs independently, Inability to ambulate community distances Participation Restrictions: Self-care, Home management, Community leisure Activity Tolerance: Tolerates 30 min activity with multiple rests Evaluation/Treatment Tolerance: Patient limited by fatigue Diagnosis: impaired functional mobility secondary to medical diagnosis Rehab Potential: Good, to achieve stated therapy goals Eval Complexity History Profile: 1 - 2 personal factors and/or comorbidities Clinical Presentation: Evolving clinical presentation with changing characteristics Clinical Decision Making: Moderate complexity PT Recommendations Discharge Destination: Subacute rehab Discharge Equipment: Defer to facility Plan Planned PT Interventions Balance training, Bed mobility training, Gait training, Transfer training, ROM, Strengthening, Stretching, Caregiver training, Functional Mobility, Neuromuscular re-education PT Frequency 2 - 5 times per week PT Duration 2 weeks Goals PT GOAL DETAILS Time Frame PT Goal 1: Pt will perform bed mobility: rolling and supine<>sit transfers MIN A 2 weeks PT Goal 2: Pt will transfer sit<>stand and bed<>chair SBA with LRAD as appropriate 2 weeks PT Goal 3: Pt will ambulate x100ft SBA with LRAD as appropriate 2 weeks PT Goal 4: Pt/Pt's family will be IND with HEP, safety recommendations, and discharge recommendations. 2 weeks Written by Luz Rubio on 07/03/25 at 1:39 PM. * Progress Notes - Annabella Wen - 07/03/2025 12:03 PM EDT OCCUPATIONAL THERAPY ASSESSMENT PATIENT DATA Patient Name Letty Dumont Session Date 07/03/2025 OT Discharge Recommendations Subacute rehab Equipment Recommendations Defer to facility HISTORY Letty Dumont is 89 y.o. female admitted 06/29/2025 for work-up of Fall. Hospital Course 1. Fall, initial encounter Procedures (if applicable) Past Medical History Patient has a past medical history of Cholelithiasis without obstruction (06/30/2025) and Hypomagnesemia (06/30/2025). Past Surgical History Patient has no past surgical history on file. MOBILITY GUIDELINES Mobility Protocol: Ortho/Trauma/Spine Mobility Guidelines Spinal Precautions: Cranial, cervical or thoracolumbar spinal precautions Precautions: Thoracolumbar Spinal precautions (up to 45 degrees, may side lie, no trapeze, no trunkrotation) Thoracolumbar Spine Brace(s): None TLSO TLSO Mobility Protocol: Brace fitting complete, Films cleared, OK to mobilize Don/Doff TLSO: Fit Supine TLSO Wear Time Protocol: Above 45 Degrees Extremity Precautions: No Extremity Precautions Other mobility precautions: Other precautions Other mobility precautions: Other Other: Keep HOB 30 Degrees, OK to Reverse Trendelenburg. PRECAUTIONS Medical Precautions Medical Precautions: Fall precautions, Spinal Spinal Precautions : TLSO >45 degrees Medical Precautions: films cleared, ok to mobilize SUBJECTIVE PARTICIPANTS IN CARE Patient/Caregiver Comments Pt reports she manages around her home with 2 canes Visitors Present No Instructor Technical Training (if applicable) PRESENTATION Oxygen Supplemental oxygen Nasal cannula 2 L/min Telemetry No Lines and Tubes Female External Urinary Catheter 06/30/25 0800 (Active) Peripheral IV 06/29/25 Right Antecubital (Active) Pre-Session Supine, Head of bed elevated, Lines intact Patient and RN agreeable to skilled services. Post-Session Sitting in chair, Call light in reach, RN notified, Lines intact, Chair alarm Patient positioned for comfort and pressure relief with all needs met. Bracing (if applicable) HOME LIVING/SET-UP Lives With Alone (per pt report, son comes to house 'once a day) Home Type House Home Equipment Rolling walker, Cane (per pt report uses 2 canes simultaneously in house, uses rw when walking outside) Home Layout Multi-level, Able to live on one level with bedroom/bathroom, Stairs to enter without rails (pt unsure of number of stairs into house) Bathroom Layout Walk-in shower, Shower chair Bathroom: Toilet: Standard, Bedside commode Accessible, Not accessible (pt reports two bathrooms (1 accessible with rw, other not)) Additional Comments PRIOR LEVEL OF FUNCTION Receives help from No assist required prior to admission Level of Mobility Ambulatory- household only (pt reports does not drive) Mobility Hansen Independent gait with device History of Falls No ADL Performance ADL Performance: Independent PATIENT/FAMILY GOALS Pt eager to regain independence OBJECTIVE PAIN Pt endorses discomfort with back brace and back pain without numerical rating. RN notified and patient positioned for comfort upon departure. DELIRIUM SCREENING RASS: Drowsy Confusion Assessment Method-ICU (CAM-ICU/PCAM-ICU) Feature 3: Altered Level of Consciousness: Positive COGNITION Overall Cognitive Status Impaired Arousal/Alertness Delayed responses to stimuli Mood/Behavior Lethargic (initially lethargic bed level with eyes closed and repeating story details, alertness improves with time upright, less time required to respond to questions/commands) Orientation Oriented X4 Command Following Single Step Commands: Consistently Multi-Step Commands: Consistently, With increased time, With repetition Method of Communication Verbal Additional Observations Cognitive Skill Development Pt with eyes closed frequently bed level, requires MOD-MAX VC to maintain eyes open, repetition, increased time, tactile cues to engage in evaluation questions and self care tasks bed level. With transition to sitting upright, pt with improved alertness and completes tasks with additional time, eyes remain open. Pt perseverates on parts of story telling, but also improves as session progresses. VISION Baseline Vision Glasses distance, Glasses reading Current Vision (if different) Patient Visual Report: pt utilizes tri-focals without change in vision at this time Current Vision: Intact Tracking: Intact RIGHT UPPER EXTREMITY EXAMINATION Range of Motion Within Functional Limits Manual Muscle Testing Within functional limits except Shoulder Flexion: 4+ Elbow Extension: 4+ Elbow Flexion: 4+ Gross Grasp - Finger: 4+ Light Touch Sensation Intact LEFT UPPER EXTREMITY EXAMINATION Range of Motion Within Functional Limits Manual Muscle Testing Within functional limits except Shoulder Flexion: 4+ Elbow Extension: 4+ Elbow Flexion: 4+ Gross Grasp - Finger: 4+ Light Touch Sensation Intact RIGHT LOWER EXTREMITY EXAMINATION Range of Motion Within Functional Limits Manual Muscle Testing (hips 4-/5, distally WFL) Light Touch Sensation Intact LEFT LOWER EXTREMITY EXAMINATION Range of Motion Within Functional Limits Manual Muscle Testing (hips 4-/5, distally WFL) Light Touch Sensation Intact INTERVENTIONS SELF-CARE Treatment Minutes (if applicable) 53 Comments To promote prior independence, tolerance, safety to routine, pt engages in sequential selfcare and mobility tasks via therapist facilitation. Pt requires: Additional time for environmental set up, line management, encouraging pt complete tasks independently prior to receiving assistance to promote safe access to treatment area, reduce accidental dislodgment of lines, falls TLSO donned bed level with pt assisting with rolling with VC for technique to promote independence. Pacing and grading of activity via task analysis to promote just right challenge, reduce risk for adverse reaction. Rest breaks as needed to avoid risk for over-exertion and fall risk. Pt encouraged to self-monitor needs for standing vs seated break and potential for use of chair for seated grooming tasks as needed. Pt tolerates session well and remains standing for grooming tasks, no seated break required Vital sign monitoring to ensure hemodynamic stability with 2L NC donned at start of session, SpO2 93-94%. NC O2 doffed for mobilizing in and out of bathroom with no shortness of breath, RN agreeable for titration to 1L prior to departure. No reports of dizziness or light headedness throughout session. Transition to recliner to promote tolerance to upright position, reduce risk for pneumonia, pressure sores, delirium Use of off loading pillows to promote skin integrity Education on role/rationale of skilled services with education on discharge planning, frequency during hospitalization to promote carry over of plan of care. Pt verbalizes understanding and agreeableto ASHLYN. Level of Hansen Adaptive Equipment Utilized Interventions Feeding Setup Chair Level pt drinks from cup with lid and straw independently s/p set up, within reach at departure. Grooming Contact guard Standing sinkside Pt completes hand hygiene s/p toileting at sink with RW CGA for steadiness due to stooped posture, concern for fall risk and extent of fatigue s/p mobility and toileting tasks. Bathing UE Bathing Level of Assistance: Maximum assistance LE Bathing Level of Assistance: Maximum assistanceBed level Pt can assist with washing face, arm, trunk, requires assistance for BLE, perineal hygiene due to body habitus and cannot access for thorough hygiene. Upper Body Dressing Moderate assistance, Moderate verbal cues Bed level assistance to don gown s/p bathing due to fatigue, pt raises BLE but requires cues for sequencing use of contralateral extremity to assist with task. Lower Body Dressing Sock Level of Assistance: Dependent Adult Briefs Level of Assistance: Maximum assistance Pt cannot attain compensatory position due to precautions and TLSO, requires assist for donning socks, pt can assist with managing brief over hipsbut requires assistance for thoroughness. Toileting Maximum assistance Toilet Pt assists with anterior hygiene, requires assistance for posterior hygiene and managing brief fully over hips with RW and grab bar for stabillizer. CGA-MIN A For balance to reduce risk for falls due to unsteadiness noted. Toilet Transfer Moderate assist (50% patient's effort) Ambulation, To toilet Verbal Cues, Moderate cues Walker, rolling, Grab bar IADLs Health Management Community Re-Entry BED MOBILITY Level of Hansen Physical/Non- physical Assist Adaptive Equipment Utilized Rolling/ Turning Maximum assist (25% patient effort) Verbal Cues, Nonverbal cues (demo/gestures), Additionalassist utilized for safety Bed rails Scooting/ Bridging Contact guard (scooting EOB) Verbal Cues, Minimal cues Supine to Sit Maximum assist (25% patient's effort) Verbal Cues, Moderate cues, Additional assist utilized for safety Bed rails Sit to Supine TRANSFERS Level of Hansen Physical/Non- physical Assist Adaptive Equipment Utilized Sit to Stand Minimum assist (75% patient's effort) Verbal Cues Walker, rolling Stand to sit Minimum assist (75% patient's effort) Verbal Cues, Additional assist utilized for safety Walker, rolling Bed to Chair Shower Transfer STANDARDIZED ASSESSMENTS [facility] 6-Click Daily Activities Help from Other: Don/Doff Regular Lower Body Clothings: A lot Help From Other: Bathing: A lot Help From Other: Toileting: A lot Help From Other: Don/Doff Upper Body Clothings: A lot Help From Other: Grooming: Little Help From Other: Eating Meals: None [facility] 6 Click - Daily Activities Score: 15 ASSESSMENT OT FINDINGS Pt tolerates session with no adverse reactions, stable vital signs. Upon skilled occupational therapy assessment and evaluation of strength, coordination, cognition, performance in self care and functional mobility tasks, pt requires skilled services. Prior to admission, pt is independent with self care tasks and functional mobility with AD. Currently, pt is most limited by fall risk, requires additional assist for donning/doffing TLSO, Impaired ADL performance, Impaired IADL performance, Impaired functional mobility, Decreased endurance/ventilation/gas exchange, Impaired cognition, Impaired attention, Impaired balance, Impaired circulation Evaluation/ Treatment Tolerance (if identified) Patient limited by fatigue Rehab Potential (if identified) Good, to achieve stated therapy goals Barriers to Discharge (if identified) Comorbidities, Lack of family support EVAL COMPLEXITY Occupational Profile Expanded review of medical/therapy records and additional review of physical, cognitive, or psychosocial history Performance Deficits Activities of daily living (ADLs), Instrumental activities of daily living (IADLs), Rest and sleep, Leisure, Habits, Social, Physical, Routines, Social participation, Body functions Clinical Decision Making Moderate Overall Eval Complexity Moderate OT RECOMMENDATIONS Discharge Destination Subacute rehab Discharge Equipment Defer to facility Recommendations for Referral to Another Service (if applicable) Demonstrates Need for Referral to Another Service: Social work PLAN Planned OT Interventions ADL retraining, IADL retraining, Balance training, Strengthening, Functional mobility, Transfer training, Orthotic fitting/training, Bed mobility Training OT Frequency 2 - 5 times per week OT Duration 2 weeks OT Goals OT GOAL DETAILS Time Frame OT Goal 1: Pt will complete LB dressing with AE/AD as needed MIN A 2 weeks OT Goal 2: Pt will complete toileting routine with AE/AD as needed MOD A 2 weeks OT Goal 3: Pt will complete full grooming routine standing with RW SBA no loss of balance or seatedbreak 2 weeks OT Goal 4: Pt will complete household functional mobility distance with LRAD and SBA no loss of balance or seated break required 2 weeks Written by Annabella Wen on 07/03/25 at 1:50 PM. * Care Plan - Jean Pierre Leon RN - 07/02/2025 11:13 PM EDT Problem: Adult Inpatient Plan of Care Goal: Plan of Care Review Outcome: Ongoing, Progressing Goal: Patient-Specific Goal (Individualized) Outcome: Ongoing, Progressing Flowsheets (Taken 07/02/20251999) Patient/Family-Specific Goals (Include Timeframe): patient will remain free from harm this shift Individualized Care Needs: safety Anxieties, Fears or Concerns: denies Goal: Absence of Hospital-Acquired Illness or Injury Outcome: Ongoing, Progressing Intervention: Identify and Manage Fall Risk Flowsheets (Taken 07/02/20252311) Safety Promotion/Fall Prevention: activity supervised clutter-free environment maintained fall prevention program maintained lighting adjusted mobility aid in reach nonskid shoes/slippers when out of bed safety round/check completed Goal: Optimal Comfort and Wellbeing Outcome: Ongoing, Progressing Problem: Skin Injury Risk Increased Goal: Skin Health and Integrity Outcome: Ongoing, Progressing Intervention: Optimize Skin Protection Flowsheets (Taken 07/02/20252311) Activity Management: activity adjusted per tolerance Pressure Reduction Techniques: weight shift assistance provided Pressure Reduction Devices: pressure-redistributing mattress utilized Skin Protection: incontinence pads utilized Head of Bed (HOB) Positioning: HOB at 30 degrees Problem: Mobility Impairment Goal: Optimal Mobility Outcome: Ongoing, Progressing Intervention: Optimize Mobility Flowsheets (Taken 07/02/20252311) Activity Management: activity adjusted per tolerance Assistive Device Utilized: other (see comments) Positioning/Transfer Devices: pillows Problem: Fall Injury Risk Goal: Absence of Fall and Fall-Related Injury Outcome: Ongoing, Progressing Intervention: Identify and Manage Contributors Flowsheets (Taken 07/02/20252311) Medication Review/Management: medications reviewed Self-Care Promotion: independence encouraged * Assessment & Plan Note - Liz Schwab APRN, DNP - 07/02/2025 5:31 PM EDT Associated Problem(s): Essential hypertension Resume home metoprolol Anti-hypertensives PRN CTM * Assessment & Plan Note - Liz Schwab APRN, DNP - 07/02/2025 5:31 PM EDT Associated Problem(s): Gastroesophageal reflux disease Resume home meds as appropriate * Assessment & Plan Note - Liz Schwab APRN, DNP - 07/02/2025 5:31 PM EDT Associated Problem(s): Gout Resume home meds as appropriate * Assessment & Plan Note - Liz Schwab APRN, DNP - 07/02/2025 5:31 PM EDT Associated Problem(s): Hypertriglyceridemia Resume home meds as appropriate * Assessment & Plan Note - Liz Schwab APRN, DNP - 07/02/2025 5:31 PM EDT Associated Problem(s): Mixed hyperlipidemia Resume home meds as appropriate * Assessment & Plan Note - Liz Schwab APRN, DNP - 07/02/2025 5:31 PM EDT Associated Problem(s): Hypokalemia Resolved * Assessment & Plan Note - Liz Schwab APRN, DNP - 07/02/2025 5:31 PM EDT Associated Problem(s): Lumbar spinal stenosis Chronic Follow up with PCP * Assessment & Plan Note - Liz Schwab APRN, DNP - 07/02/2025 5:31 PM EDT Associated Problem(s): Lymphedema Chronic Follow up with PCP * Assessment & Plan Note - Liz Schwab APRN, DNP - 07/02/2025 5:31 PM EDT Associated Problem(s): Polyneuropathy - Begin colleen * Assessment & Plan Note - Liz Schwab APRN, DNP - 07/02/2025 5:31 PM EDT Associated Problem(s): Recurrent falls Pending TLSO brace, f/u films, and PT/OT * Assessment & Plan Note - Liz Schwab APRN, DNP - 07/02/2025 5:31 PM EDT Associated Problem(s): Stage 4 chronic kidney disease (CMS/HCC) Avoid nephrotoxins * Assessment & Plan Note - Liz Schwab APRN, DNP - 07/02/2025 5:31 PM EDT Associated Problem(s): Venous stasis dermatitis Chronic Follow up w/PCP * Assessment & Plan Note - Liz Schwab APRN, DNP - 07/02/2025 5:31 PM EDT Associated Problem(s): Fall at home, subsequent encounter Pending TLSO, films, PT/OT * Assessment & Plan Note - Liz Schwab APRN, DNP - 07/02/2025 5:31 PM EDT Associated Problem(s): Obesity, Class III, BMI 40-49.9 (morbid obesity) Can complicate on all aspects of care * Assessment & Plan Note - iLz Schwab APRN, DNP - 07/02/2025 5:31 PM EDT Associated Problem(s): Occlusion of celiac artery Vascular consulted No treatment of further inpatient work up Follow up in clinic after discharge * Assessment & Plan Note - Liz Schwab APRN, DNP - 07/02/2025 5:31 PM EDT Associated Problem(s): Fall Admit to SGT 5 Tertiary completed 07/01 * Assessment & Plan Note - Liz Schwab APRN, DNP - 07/02/2025 5:31 PM EDT Associated Problem(s): Atrial fibrillation (CMS/HCC) Resume home metoprolol Resume eliquis at d/c * Assessment & Plan Note - Liz Schwab APRN, DNP - 07/02/2025 5:31 PM EDT Associated Problem(s): Chronic pain MMPC Can complicate care * Assessment & Plan Note - Liz Schwab APRN, DNP - 07/02/2025 5:31 PM EDT Associated Problem(s): Diastolic dysfunction Resume home meds as appropriate * Assessment & Plan Note - Liz Schwab APRN, DNP - 07/02/2025 5:27 PM EDT Associated Problem(s): Stage 3b chronic kidney disease (CMS/HCC) (Deleted) Avoid nephrotoxins, avoid NSAIDs, renally dose medications * Progress Notes - Liz Schwab APRN, DNP - 07/02/2025 5:24 PM EDT 07/02/25 Letty Dumont [facility] Letty Dumont is an 89 yo Female with a PMHx of CKD, MELISSA, Afib on Eliquis, HTN, ALYSSIA, and Lymphedema who presents on 06/29 from OSH following a fall. 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 Interval: Patient was resting in bed. Sleeping. Hypertensive BP with all other vital signs stable. On 2L via NC, no SOA. NAD. NAEON. RN reports that patient is tolerating PO diet, no N/V, abd pain. Last BM wasPTA. Mobilizing as able. Mobility orders were updated to show TLSO brace. PT/OT evaluation pending.Will need uprights when TLSO brace has been delivered. Pain appears to be well controlled with current pain regimen. Discussed plan of care with RN, CM, and Pharm D who is in understanding. No further concerns per patient or nursing. Edited by: Liz Schwab APRN, DNP at 07/02/2025 1721 Relevant review of systems was obtained as able and is negative unless stated above in HPI. Vital signs: Vitals: 07/02/25 1600 BP: (!) 163/62 Pulse: 71 Resp: Temp: 36.3 ??C (97.4 ??F) SpO2: 92% Physical Exam Vitals and nursing note reviewed. Constitutional: General: She is sleeping. She is not in acute distress. Appearance: She is ill-appearing. HENT: Head: Normocephalic and atraumatic. Right Ear: External ear normal. Left Ear: External ear normal. Nose: Nose normal. Mouth/Throat: Pharynx: Oropharynx is clear. Eyes: Extraocular Movements: Extraocular movements intact. Pupils: Pupils are equal, round, and reactive to light. Neck: Comments: No pain or tenderness to c-spine with ROM or palpation Cardiovascular: Rate and Rhythm: Normal rate. Heart sounds: Normal heart sounds. Pulmonary: Effort: Pulmonary effort is normal. No respiratory distress. Breath sounds: Normal breath sounds. No wheezing. Abdominal: General: There is no distension. Palpations: Abdomen is soft. Tenderness: There is no abdominal tenderness. There is no guarding. Musculoskeletal: General: Signs of injury present. Cervical back: Normal range of motion. No rigidity or tenderness. Right lower leg: Edema (chronic lymphedema) present. Left lower leg: Edema (chronic lymphedema) present. Skin: General: Skin is warm and dry. Neurological: Mental Status: She is oriented to person, place, and time. Cranial Nerves: No cranial nerve deficit. Psychiatric: Mood and Affect: Mood normal. Behavior: Behavior normal. Intake/Output Summary (Last 24 hours) at 07/02/2025 1725 Last data filed at 07/01/2025 1800 Gross per 24 hour Intake -- Output 1200 ml Net -1200 ml Lines/Drains/Tubes: Patient Lines/Drains/Airways Status Active Airway None Output by Drain (mL) 06/30/25 0700 - 06/30/25 1859 06/30/25 1900 - 07/01/25 0659 07/01/25 0700 - 07/01/25 1859 07/01/25 1900 - 07/02/25 0659 07/02/25 0700 - 07/02/25 1725 Requested LDAs do not have output data documented. Labs in last 18 hours: CBC WBC ?? Hb ?? Plt ?? Hct ?? ANC ?? INR ??, PTT ??, Anti-Xa ?? MCV ?? BMP Na ?? Cl ?? BUN ?? Glu ?? K ?? Co2 ?? Cr ?? Ca ?? iCa ?? Mg ??, Phos ?? Lactate ?? LFT AST ?? AlkPhos ?? T Prot ?? ALK ?? Bili ?? Alb ?? D.Bili ?? Lab Trends: H/H Results from last 7 days Lab Units 06/29/25 2309 HEMOGLOBIN g/dL 13.6 HEMATOCRIT % 37.8 INR Results from last 7 days Lab Units 06/29/25 2309 INR 1.4* Cr Results from last 7 days Lab Units 06/29/25 2309 CREATININE mg/dL 1.36* Medications reviewed. Vital signs reviewed. Labs reviewed. Radiography reviewed. Assessment and Plan: Assessment & Plan Fall from standing, initial encounter Present on Admission: Yes Admit to [facility] 5 Tertiary completed 07/01 Atrial fibrillation (CMS/HCC) Present on Admission: Yes Resume home metoprolol Resume eliquis at d/c Chronic pain Present on Admission: Yes MMPC Can complicate care Diastolic dysfunction Present on Admission: Yes Resume home meds as appropriate Essential hypertension Present on Admission: Yes Resume home metoprolol Anti-hypertensives PRN CTM Gastroesophageal reflux disease Present on Admission: Yes Resume home meds as appropriate Gout Present on Admission: Yes Resume home meds as appropriate Hypertriglyceridemia Present on Admission: Yes Resume home meds as appropriate Mixed hyperlipidemia Present on Admission: Yes Resume home meds as appropriate Hypokalemia Present on Admission: Yes Resolved Lumbar spinal stenosis Present on Admission: Yes Chronic Follow up with PCP Lymphedema Present on Admission: Yes Chronic Follow up with PCP Polyneuropathy Present on Admission: Yes - Begin colleen Recurrent falls Present on Admission: Not Applicable Pending TLSO brace, f/u films, and PT/OT Stage 4 chronic kidney disease (CMS/HCC) Present on Admission: Yes Avoid nephrotoxins Venous stasis dermatitis Present on Admission: Yes Chronic Follow up w/PCP Fall at home, subsequent encounter Present on Admission: Not Applicable Pending TLSO, films, PT/OT Obesity, Class III, BMI 40-49.9 (morbid obesity) Present on Admission: Yes Can complicate on all aspects of care Occlusion of celiac artery Present on Admission: Yes Vascular consulted No treatment of further inpatient work up Follow up in clinic after discharge Plan: - Refer to [facility] for +ITSS - Add colleen for pain management - Resume home metoprolol and add PRN anti-hypertensive - Vasc: No acute intervention, f/u outpatient for surveillance - Ortho Spine: Trial non-op; TLSO ordered, standing uprights in brace when delivered - PT/OT eval pending Discharge Dispo: TLSO brace, Upright x-rays, and PT/OT pending Edited by: Liz Schwab APRN, DNP at 07/02/2025 1724 Liz Schwab APRN, DNP * Progress Notes - Claduia Eaton RN - 07/02/2025 4:56 PM EDT Images from the original note were not included. Wound Care Consult Visit Date: 07/02/2025 Patient Name: Letty Dumont Date of : 1935 Admit Date: 06/29/2025 Reason for Consult: IP Wound Orders (From admission, onward) Start Ordered 06/30/251653 Wound ostomy eval and treat Once Comments: DTI buttocks? Excoration breast, abd folds, and groin. Pictures in media tab. 06/30/251654 Reviewed photos in media tab and discussed with primary RN; hyperpigmentation intact to soft tissueof gluteals, not consistent with DTI. Monitor and re- consult for new discoloration, skin loss. [place] discoloration and denudation to skin folds; per primary RN provider ordered nystatin. Okay to continue, recommend polymem or ABD pad to folds to separate and wick moisture. Intact area of ecchymosis also pictured to left hip. No other concerns per primary RN; placed orders for pressure injury prevention protocol. Wound Team Plan: Does not require wound care follow up at this time, please re- consult wound care with new concerns. Claudia Eaton RN 07/02/2025 4:56 PM * Progress Notes - Delfina Linda - 07/02/2025 12:48 PM EDT Case Management Adult Initial Progress Note Letty Dumont 89 y.o. female CSN: [id number] Admission: 06/29/2025 8:40 PM Primary Problem: Fall from standing, initial encounter Billboard Poster reviewed chart and spoke with patient to complete this Initial Case Management Assessment. PCP: Rosendo Rincon MD Emergency Contact: Extended Emergency Contact Information Primary Emergency Contact: Devika Dumont Mobile Relation: Son Preferred language: Georgian Instructor Technical Training needed? No Insurance: Primary Visit Coverage Payer Plan Sponsor Code Group Number Group Name MEDICARE MEDICARE A & B Primary Visit Coverage Subscriber Subscriber ID Subscriber Name Subscriber SSN Subscriber Address [id number] Letty Dumont [id number] [address] [place] [address] Patient information: Primary Caregiver: Self Support System: Immediate family Daily Living Activities: Functional Status: Independent Living Arrangements: Alone Type of Residence: Private residence, Multi Level [address] [place] [address] Current DME: Equipment Currently Used at Home: Cpap, shower chair, walker, rolling Current DME Provider: Jeremiah Income Information: Income Source: Unknown Income/Expense Information: Income meets expenses Current Resources Utilized: None Housing Circumstances-Z Codes: Housing Circumstances (select all that apply): None Applicable Patient Referred to: Anticipated Discharge Date: 07/05/25 Patient's Discharge Goal: Patient/Family Anticipates Transition to: inpatient rehabilitation facility Assistance Available at Discharge: Current Outpatient/Agency/Support Group: DME Availability of Care Givers (#Hours): 5-9 hours Discharge Transport: Transportation Anticipated: medical transport Follow Up Transport: Transportation Needed to Follow up Appoinments: Family/Friend will Provide Home Health / Home Infusion / Outpatient Dialysis Services: Current DME Provider: Jeremiah Living Will/Advance Directive/Power of Medical Coding Auditor /Guardian: Unable to assess: No Have you reviewed your Advance Directive and is it valid for this stay?: Not applicable Advance Directive: Patient would not like information Information Provided on Healthcare Directives: No Pre-existing DNR/DNI Order: No Patient Requests Assistance: No Social Drivers of Health Food Insecurity: No Food Insecurity (07/02/2025) Hunger Vital Sign Worried About Running Out of Food in the Last Year: Never true Ran Out of Food in the Last Year: Never true Alcohol Use: Not At Risk (06/30/2025) AUDIT-C Frequency of Alcohol Consumption: Never Average Number of Drinks: Patient does not drink Frequency of Binge Drinking: Never Housing Stability: Low Risk (07/02/2025) Housing Stability Vital Sign Unable to Pay for Housing in the Last Year: No Number of Times Moved in the Last Year: 0 Homeless in the Last Year: No Tobacco Use: Low Risk (06/30/2025) Patient History Smoking Tobacco Use: Never Smokeless Tobacco Use: Never Passive Exposure: Not on file Transportation Needs: No Transportation Needs (07/02/2025) PRAPARE - Transportation Lack of Transportation (Medical): No Lack of Transportation (Non-Medical): No Depression: Not on file Utilities: Not At Risk (07/02/2025) [facility] Utilities Threatened with loss of utilities: No Stress: Not on file Intimate Partner Violence: Not At Risk (07/02/2025) Humiliation, Afraid, Rape, and Kick questionnaire Fear of Current or Ex-Partner: No Emotionally Abused: No Physically Abused: No Sexually Abused: No Physical Activity: Not on file Social Connections: Unknown (07/26/2023) Received from [facility] Family and Community Support Help with Day-to-Day Activities: Not on file Lonely or Isolated: Not on file Financial Resource Strain: Not on file Additional Comments: Pt admitted to SGT w/ closed displaced L2/L3 transverse process fxs after a fall at home. Per SGT, pt has TLSO in place and pending upright XR then PT/OT to evaluate for d/c planning needs. Pt states she lives at home alone in [place]. Pt states her son provides transportation to f/u appointments. Pt would be agreeable to [facility] in [place] if recommended once she is medically appropriate for d/c planning. SW will continue to follow. Delfina Linda * Consults - Cesia Winston RD - 07/02/2025 9:06 AM EDT Adult Nutrition Evaluation Note Letty Dumont 89 y.o. female CSN: [id number] Room/Bed 240/240A Nutrition evaluation type: assessment Reason for evaluation: nurse consult and Stage > 2 Wounds Hospital course: 89 yoF presents to ED 06/29 after a fall. She has fallen several times due to weakness, attributing much of this to her chronic lymphedema. She was unable to get up alone; someone hadto help her get up the next day. Pt with L2/3 TP fracture, celiac artery occlusion with collateral circulation. Pt is awaiting TLSO. Past medical/ surgical history: Past Medical History[1] Surgical History[2] Social history: Social History[3] Additional comments: Attempted to see patient, however staff caring for patient at time of visit. Vitals and Basic Assessment: BP: (!) 145/81 Temp: 36.7 ??C (98.1 ??F) Oxygen Therapy: Supplemental oxygen O2 Delivery Method: Nasal cannula [place] Coma Scale Score: 15 Jono Scale Score: 17 Edema: Right upper extremity, Left upper extremity, Right lower extremity, Left lower extremity Allergies: NKFA Medications: Current Scheduled Medications[4] Current Continuous Medications[5] Current PRN Medications[6] Meds were reviewed: Yes Labs: Lab Results Component Value Date GLUCOSE 116 (H) 06/29/2025 CALCIUM 9.7 06/29/2025 NA 138 06/29/2025 K 3.9 06/29/2025 CO2 25 06/29/2025 CL 100 06/29/2025 BUN 23 06/29/2025 CREATININE 1.36 (H) 06/29/2025 Lab Results Component Value Date WBC 5.94 06/29/2025 HGB 13.6 06/29/2025 HCT 37.8 06/29/2025 MCV 94 06/29/2025 PLT 129 (L) 06/29/2025 No results found for: HGBA1C Anthropometrics: Height: 160 cm (5' 2.99 ) Weight: 107 kg (236 lb 15.9 oz) BMI (Calculated): 41.99 Weight Evaluation: Extreme Obesity (BMI > 40) [place] Body Weight (kg): 52.[address] [place] Body Weight: 205 Adjusted Body Weight (kg): 66 Estimated Needs: Metabolic Cart Study Results: Current Nutrition Intake: Diet Order: Adult Diet Diet Texture: Regular Percent Meals Eaten (%): None recorded to review Diet Experience and Nutrition History: Diet Education Provided: Will monitor Pertinent home medications: vit D3, colchicine, esomeprazole, febuxostat, MVI- min, spironolactone, torsemide Shinto needs: Nutrition Focused Physical Exam: Physical exam performed on (date): Assessment of Malnutrition: Nutrition Problem: Overweight/obesity related to presumed increase in energy intakes, lymphedema as evidenced by BMI 41.99. Status of Nutrition Diagnosis: New Nutrition Interventions and Recommendations: - Encourage adequate po intake - Maintain weight during admission - Record daily meal intakes on flowsheet Nutrition Monitoring and Goals: - PO intake > 75% of most meals - Therapeutic weight loss - Monitor po intake and tolerance, weight changes, labs, GI function and skin integrity. Acuity Level: [address] [1] Past Medical History: Diagnosis Date Cholelithiasis without obstruction 06/30/2025 Hypomagnesemia 06/30/2025 [2] No past surgical history on file. [3] Social History Tobacco Use Smoking status: Never Smokeless tobacco: Never Vaping Use Vaping status: Never Used Substance Use Topics Alcohol use: Never Drug use: Never [4] DULoxetine, 30 mg, Oral, Daily gabapentin, 600 mg, Oral, BID heparin (porcine), 7,500 Units, Subcutaneous, q8h metoprolol tartrate, 50 mg, Oral, BID nystatin, 1 Application, Topical, BID polyethylene glycol, 17 g, Oral, BID senna-docusate, 1 tablet, Oral, BID sodium chloride, 10 mL, Intravenous, q12h [5] [6] PRN medications: acetaminophen, labetalol, methocarbamol, ondansetron ODT OR ondansetron OR ondansetron, oxyCODONE OR oxyCODONE, Insert peripheral IV AND Saline lock IV AND sodium chloride AND sodium chloride * Clinician Note - Annabella Wen - 07/02/2025 8:37 AM EDT Occupational Therapy Attempt Patient Name: Letty Dumont Today's Date: 07/02/2025 Patient was attempted to be seen by occupational therapy 07/02/2025 for OT Evaluation however patient not appropriate due to medical status (awaiting upright imaging s/p TLSO). Occupational therapy team will follow-up when medically appropriate. Written by Annabella Wen on 07/02/25 at 8:37 AM. * Clinician Note - Luz Rubio - 07/02/2025 8:15 AM EDT Physical Therapy Attempt Patient Name: Letty Dumont Today's Date: 07/02/2025 Patient was attempted to be seen by physical therapy 07/02/2025 for PT Evaluation however patient not appropriate due to medical status (Pt pending uprights in TLSO). Physical therapy team will follow-up when medically appropriate. Written by Luz Rubio on 07/02/25 at 8:15 AM. * Care Plan - Ricardo Escobar - 07/02/2025 7:50 AM EDT Problem: Adult Inpatient Plan of Care Goal: Plan of Care Review Outcome: Ongoing, Progressing Flowsheets Taken 07/02/2025 0748 Progress: improving Taken 07/01/2025 1246 Plan of Care Reviewed With: patient Goal: Patient-Specific Goal (Individualized) Outcome: Ongoing, Progressing Flowsheets (Taken 07/02/2025 0700) Patient/Family-Specific Goals (Include Timeframe): Pt will remain free from fall/injury this shift. Individualized Care Needs: Saftey Anxieties, Fears or Concerns: Going home Goal: Absence of Hospital-Acquired Illness or Injury Outcome: Ongoing, Progressing Intervention: Identify and Manage Fall Risk Flowsheets (Taken 07/02/2025 0700) Safety Promotion/Fall Prevention: activity supervised assistive device/personal items within reach clutter-free environment maintained fall prevention program maintained lighting adjusted mobility aid in reach nonskid shoes/slippers when out of bed room organization consistent safety round/check completed toileting scheduled Goal: Optimal Comfort and Wellbeing Outcome: Ongoing, Progressing Problem: Skin Injury Risk Increased Goal: Skin Health and Integrity Outcome: Ongoing, Progressing Intervention: Optimize Skin Protection Flowsheets Taken 07/02/2025 0748 Activity Management: activity adjusted per tolerance Pressure Reduction Techniques: frequent weight shift encouraged weight shift assistance provided Pressure Reduction Devices: positioning supports utilized pressure-redistributing mattress utilized Skin Protection: incontinence pads utilized Taken 07/02/2025 0700 Head of Bed (HOB) Positioning: HOB at 20-30 degrees Problem: Mobility Impairment Goal: Optimal Mobility Outcome: Ongoing, Progressing Intervention: Optimize Mobility Flowsheets (Taken 07/02/2025 0748) Activity Management: activity adjusted per tolerance Positioning/Transfer Devices: pillows repositioning sheet Problem: Fall Injury Risk Goal: Absence of Fall and Fall-Related Injury Outcome: Ongoing, Progressing Intervention: Identify and Manage Contributors Flowsheets (Taken 07/02/2025 0748) Medication Review/Management: medications reviewed Self-Care Promotion: independence encouraged BADL personal objects within reach BADL personal routines maintained * Care Plan - Jean Pierre Leon RN - 07/02/2025 5:08 AM EDT Problem: Adult Inpatient Plan of Care Goal: Plan of Care Review Outcome: Ongoing, Progressing Goal: Patient-Specific Goal (Individualized) Outcome: Ongoing, Progressing Flowsheets (Taken 07/01/20251999) Patient/Family-Specific Goals (Include Timeframe): patient will remain free from harm this shift Individualized Care Needs: safety Anxieties, Fears or Concerns: denies Goal: Absence of Hospital-Acquired Illness or Injury Outcome: Ongoing, Progressing Intervention: Identify and Manage Fall Risk Flowsheets (Taken 07/02/2025 0507) Safety Promotion/Fall Prevention: activity supervised assistive device/personal items within reach clutter-free environment maintained fall prevention program maintained lighting adjusted mobility aid in reach nonskid shoes/slippers when out of bed room organization consistent safety round/check completed Goal: Optimal Comfort and Wellbeing Outcome: Ongoing, Progressing Problem: Skin Injury Risk Increased Goal: Skin Health and Integrity Outcome: Ongoing, Progressing Intervention: Optimize Skin Protection Flowsheets (Taken 07/02/2025 0507) Activity Management: activity adjusted per tolerance Pressure Reduction Techniques: weight shift assistance provided Pressure Reduction Devices: pressure-redistributing mattress utilized Skin Protection: incontinence pads utilized Head of Bed (HOB) Positioning: HOB at 30-45 degrees Problem: Mobility Impairment Goal: Optimal Mobility Outcome: Ongoing, Progressing Intervention: Optimize Mobility Flowsheets (Taken 07/02/2025 0507) Activity Management: activity adjusted per tolerance Assistive Device Utilized: other (see comments) Positioning/Transfer Devices: pillows Problem: Fall Injury Risk Goal: Absence of Fall and Fall-Related Injury Outcome: Ongoing, Progressing Intervention: Identify and Manage Contributors Flowsheets (Taken 07/02/2025 0507) Medication Review/Management: medications reviewed Self-Care Promotion: independence encouraged * Consults - Miladis Rico - 07/01/2025 5:47 PM EDT TLSO Brace: Rigid Bi-valve TLSO - Custom (L0486) Bracing Notes: I fit the patient with a custom rigid bi-valve TLSO (L0486) as ordered by [employer]. I fitthe patient in the supine position with help from the nursing staff. I educated the patient on compliance and use, donning and doffing. The patient must wear the TLSO when up and out of bed for the next 3 months. The brace is for spine stabilization, comfort and pain control. The patient must sponge bathe either laying flat in bed or standing up in front of a sink while wearing the brace. The patient's lifting restrictions are 10 pounds or until the rules are changed by the Ortho Spine Team. Please contact me with questions or concerns. MARIA EUGENIA Grant [place] Licensed Mutual Fund Accountant [facility] Bracing [phone] * Care Plan - Ricardo Escobar - 07/01/2025 12:47 PM EDT Problem: Adult Inpatient Plan of Care Goal: Plan of Care Review Outcome: Ongoing, Progressing Flowsheets (Taken 07/01/2025 1246) Progress: no change Plan of Care Reviewed With: patient Goal: Patient-Specific Goal (Individualized) Outcome: Ongoing, Progressing Flowsheets (Taken 07/01/2025 0700) Patient/Family-Specific Goals (Include Timeframe): Pt will remain free from fall/injury this shift. Individualized Care Needs: Saftey Anxieties, Fears or Concerns: Going home Goal: Absence of Hospital-Acquired Illness or Injury Outcome: Ongoing, Progressing Intervention: Identify and Manage Fall Risk Flowsheets (Taken 07/01/2025 1200) Safety Promotion/Fall Prevention: activity supervised assistive device/personal items within reach clutter-free environment maintained fall prevention program maintained lighting adjusted mobility aid in reach nonskid shoes/slippers when out of bed room organization consistent safety round/check completed toileting scheduled Goal: Optimal Comfort and Wellbeing Outcome: Ongoing, Progressing Intervention: Monitor Pain and Promote Comfort Flowsheets (Taken 07/01/2025 1246) Pain Management Interventions: [id number] dosing utilized breathing exercises pain management plan reviewed with patient/caregiver relaxation techniques promoted Problem: Skin Injury Risk Increased Goal: Skin Health and Integrity Outcome: Ongoing, Progressing Intervention: Optimize Skin Protection Flowsheets Taken 07/01/2025 1246 Activity Management: activity adjusted per tolerance Pressure Reduction Techniques: frequent weight shift encouraged Pressure Reduction Devices: positioning supports utilized pressure-redistributing mattress utilized Taken 07/01/2025 1200 Head of Bed (HOB) Positioning: HOB at 20-30 degrees Problem: Mobility Impairment Goal: Optimal Mobility Outcome: Ongoing, Progressing Intervention: Optimize Mobility Flowsheets (Taken 07/01/2025 1246) Activity Management: activity adjusted per tolerance Positioning/Transfer Devices: pillows repositioning sheet Problem: Fall Injury Risk Goal: Absence of Fall and Fall-Related Injury Outcome: Ongoing, Progressing Intervention: Identify and Manage Contributors Flowsheets (Taken 07/01/2025 1246) Medication Review/Management: medications reviewed Self-Care Promotion: independence encouraged BADL personal objects within reach BADL personal routines maintained * Assessment & Plan Note - Thai Eugene PA - 07/01/2025 10:44 AM EDT Associated Problem(s): Fall Admit to [facility] 5 Tertiary completed 07/01 * Assessment & Plan Note - Thai Eugene PA - 07/01/2025 10:36 AM EDT Associated Problem(s): Hypokalemia Resolved * Assessment & Plan Note - Thai Eugene PA - 07/01/2025 10:36 AM EDT Associated Problem(s): Lumbar spinal stenosis Chronic Follow up with PCP * Assessment & Plan Note - Thai Eugene PA - 07/01/2025 10:36 AM EDT Associated Problem(s): Lymphedema Chronic Follow up with PCP * Assessment & Plan Note - Thai Eugene PA - 07/01/2025 10:36 AM EDT Associated Problem(s): Polyneuropathy - Begin colleen * Assessment & Plan Note - Thai Eugene PA - 07/01/2025 10:36 AM EDT Associated Problem(s): Recurrent falls Pending TLSO brace, f/u films, and PT/OT * Assessment & Plan Note - Thai Eugene PA - 07/01/2025 10:36 AM EDT Associated Problem(s): Stage 4 chronic kidney disease (CMS/HCC) Avoid nephrotoxins * Assessment & Plan Note - Thai Eugene PA - 07/01/2025 10:36 AM EDT Associated Problem(s): Venous stasis dermatitis Chronic Follow up w/PCP * Assessment & Plan Note - Thai Eugene PA - 07/01/2025 10:36 AM EDT Associated Problem(s): Fall at home, subsequent encounter Pending TLSO, films, PT/OT * Assessment & Plan Note - Thai Eugene PA - 07/01/2025 10:36 AM EDT Associated Problem(s): Obesity, Class III, BMI 40-49.9 (morbid obesity) Can complicate on all aspects of care * Assessment & Plan Note - Thai Eugene PA - 07/01/2025 10:36 AM EDT Associated Problem(s): Occlusion of celiac artery Vascular consulted No treatment of further inpatient work up Follow up in clinic after discharge * Assessment & Plan Note - Thai Eugene PA - 07/01/2025 10:36 AM EDT Associated Problem(s): Atrial fibrillation (CMS/HCC) Resume home metoprolol Resume eliquis at d/c * Assessment & Plan Note - Thai Eugene PA - 07/01/2025 10:36 AM EDT Associated Problem(s): Chronic pain MMPC Can complicate care * Assessment & Plan Note - Thai Eugene PA - 07/01/2025 10:36 AM EDT Associated Problem(s): Diastolic dysfunction Resume home meds as appropriate * Assessment & Plan Note - Thai Eugene PA - 07/01/2025 10:36 AM EDT Associated Problem(s): Essential hypertension Resume home metoprolol Anti-hypertensives PRN CTM * Assessment & Plan Note - Thai Eugene PA - 07/01/2025 10:36 AM EDT Associated Problem(s): Gastroesophageal reflux disease Resume home meds as appropriate * Assessment & Plan Note - Thai Eugene PA - 07/01/2025 10:36 AM EDT Associated Problem(s): Gout Resume home meds as appropriate * Assessment & Plan Note - Thai Eugene PA - 07/01/2025 10:36 AM EDT Associated Problem(s): Hypertriglyceridemia Resume home meds as appropriate * Assessment & Plan Note - Thai Eugene PA - 07/01/2025 10:36 AM EDT Associated Problem(s): Mixed hyperlipidemia Resume home meds as appropriate * Progress Notes - Thai Eugene PA - 07/01/2025 7:51 AM EDT TRAUMA SURGERY TERTIARY SURVEY 07/01/25 Letty Dumont HPI Letty Dumont is an 89 yo female with PMH of CKD, MELISSA, a fib on eliquis, HTN, ALYSSIA, lymphedema who presents on 06/29 from OSH after fall Injuries include: ankylosis hyperextension fx. Interval: Patient resting in bed, easily arousable, NAD, VSS at time of exam, on O2 supplementation. Notes wears CPAP at home so wearing O2 here with sleep. Patient states she tolerating PO. Pain improved. Awaiting TLSO. Last BM NURSE EMERGENCY. Notes has chronic R pelvis/abd pain since 9 yo. Notes chronic b/lshoulder pain. Denies any CP, SOA from baseline, N/V, headaches, fevers, abdominal pain from baseline. Patient has PCP that manages chronic conditions. Denies any tobacco, vape, EtOH, or drug use. Positive ITSS. Will consult out to DIE POLISHER. Discussed incidental findings and need to f/u with Vascular surgery and PCP. Tertiary complete without any new injuries identified. Discussed plan of care with patient. No further complaints/concerns/questions at this time. Update: notified by nursing patient became HTN. Resumed home metoprolol, add PRN. CTM. Edited by: Thai Eugene PA at 07/01/2025 1030 Are there limits on this patient's care or advanced wishes/documents available? 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 Authorizing Provider acetaminophen (Tylenol 8 Hour) 650 MG ER tablet Take 1 tablet by mouth 2 times a day. Do not crush,chew, or split. Yes Provider, Historical cholecalciferol (Vitamin D-3) 50 MCG (1999) capsule Take 1 capsule by mouth every morning. Yes Provider, Historical colchicine (Colcrys) 0.6 MG tablet Take 1 tablet by mouth 2 times a day as needed for muscle/joint pain. 05/09/25 Yes Provider, Historical diclofenac (Voltaren) 1 % topical gel Place 1-2 g on the skin 2 times a day as needed. Yes Provider, Historical doxazosin (Cardura) 4 MG tablet Take 1 tablet by mouth 2 times a day. 04/11/25 Yes Provider, Historical DULoxetine (Cymbalta) [address] capsule Take 1 capsule by mouth daily. 06/11/25 Yes Provider, Historical Eliquis 5 MG tablet Take 1 tablet by mouth 2 times a day. 06/06/25 Yes Provider, Historical esomeprazole (NexIUM) [address] capsule Take 1 capsule by mouth daily as needed. Do not open capsule. Yes Provider, Historical febuxostat (Uloric) 40 MG tablet Take 1 tablet by mouth every morning. 06/20/25 Yes Provider, Historical gabapentin (Neurontin) 600 MG tablet Take 1 tablet by mouth 2 times a day. 06/27/25 Yes Provider, Historical loratadine (Claritin) 10 MG tablet Take 1 tablet by mouth every morning. Yes Provider, Historical metoprolol succinate XL (Toprol-XL) 100 MG 24 hr tablet Take 1 tablet by mouth every morning. 04/10/25 Yes Provider, Historical Multiple Vitamins-Minerals (multivitamin with minerals) tablet Take 1 tablet by mouth daily. Yes Provider, Historical NON FORMULARY Take 1 Application by mouth as needed. ACT Dry Mouth Lozenge , OTC, used as needed. Yes Provider, Historical ranolazine (Ranexa) 500 MG 12 hr tablet Take 1 tablet by mouth 2 times a day. 04/09/25 Yes Provider,Historical spironolactone (Aldactone) 25 MG tablet Take 0.5 tablets by mouth every morning. 06/08/25 Yes Provider, Historical tolterodine LA (Detrol LA) 4 MG 24 hr capsule Take 1 capsule by mouth daily. 04/09/25 Yes Provider, Historical torsemide (Demadex) 20 MG tablet Take 1 tablet by mouth daily. 06/08/25 Yes Provider, Historical doxycycline (Periostat) 20 MG tablet Take 1 tablet by mouth 2 times a day. 05/07/25 06/30/25 Provider, Historical Social History: Pt has reports that she has never smoked. She has never used smokeless tobacco. She reports that she does not drink alcohol and does not use drugs. (details as available below) Social History Substance and Sexual Activity Alcohol Use Never Social History Substance and Sexual Activity Drug Use Never Tobacco Use History[2] Audit-C for Alcohol Misuse Screening No results found for: ETOH Q1: How often did you have a drink containing alcohol in the past year? Never = 0 Q2: How many drinks did you have on a typical day when you were drinking in the past year? None = 0 Q3: How often did you have six or more drinks on one occasion in the past year? Never = 0 The AUDIT-C is scored on a scale of 0-12 (scores of 0 reflect no alcohol use). In men, a score of 4or more is considered positive; in women, a score of 3 or more is considered positive. Generally, the higher the AUDIT-C score, the more likely it is that the patient's drinking is affecting his/her health and safety. If screening positive (men = 4 women = 3), proceed with referral for alcohol misuse. TOTAL SCORE: 0 Brief Intervention Performed: Not indicated Referral to Treatment Made: Not indicated Injured Trauma Survivor Screen (ITSS) for Depression / PTSD Risk Before this injury: Have you ever taken a medication for, or been given a mental health diagnosis? No = +0 Has there ever been a time in your life you have been bothered by feeling down or hopeless or lost all interest in things you usually enjoyed for more than 2 weeks? No = +0 When you were injured or right after: Did you think you were going to ? Yes = +1 Do you think this was done to you intentionally? No = +0 Since your injury: Have you felt emotionally detached from your loved ones? No = +0 Do you find yourself crying and are unsure why? No = +0 Have you felt more restless, tense or jumpy than usual? Yes = +1 Have you found yourself unable to stop worrying? Yes = +1 Do you find yourself thinking that the world is unsafe and that people are not to be trusted? No = +0 Total Score: 3 0-1 = teaching 2-5 = Consult to Trauma Mental Health Professional or Assistant Professor Of German 6-9 = Psychiatry Consult Relevant review of systems was obtained as able and is negative unless stated above in HPI. Vital signs: Vitals: 07/01/25 0824 BP: (!) 199/70 Pulse: 99 Resp: Temp: 37.1 ??C (98.7 ??F) SpO2: 94% Tertiary exam as documented below: Physical Exam Constitutional: General: She is not in acute distress. Appearance: She is ill-appearing. HENT: Head: Normocephalic and atraumatic. Right Ear: External ear normal. Left Ear: External ear normal. Nose: Nose normal. Mouth/Throat: Mouth: Mucous membranes are dry. Eyes: Extraocular Movements: Extraocular movements intact. Pupils: Pupils are equal, round, and reactive to light. Neck: Comments: No pain or tenderness to c-spine with ROM or palpation Cardiovascular: Rate and Rhythm: Normal rate. Heart sounds: Normal heart sounds. Pulmonary: Effort: Pulmonary effort is normal. No respiratory distress. Breath sounds: Normal breath sounds. No wheezing. Abdominal: General: Abdomen is flat. Bowel sounds are normal. There is no distension. Palpations: Abdomen is soft. Tenderness: There is abdominal tenderness. There is no guarding. Comments: Mild TTP to RLQ/right pelvis - per patient this is chronic since age 9 Musculoskeletal: General: Tenderness and signs of injury present. Cervical back: Normal range of motion. No rigidity or tenderness. Right lower leg: Edema (chronic lymphedema) present. Left lower leg: Edema (chronic lymphedema) present. Comments: TTP to thoracic and lumbar spine soft tissue - no overt bony tenderness No other acute injuries identified Skin: General: Skin is warm and dry. Neurological: Mental Status: She is alert and oriented to person, place, and time. Cranial Nerves: No cranial nerve deficit. Psychiatric: Mood and Affect: Mood normal. Behavior: Behavior normal. No intake or output data in the 24 hours ending 07/01/25 1035 Lines/Drains/Tubes: Patient Lines/Drains/Airways Status Active Airway None Output by Drain (mL) 06/29/25 0700 - 06/29/25 1859 06/29/25 1900 - 06/30/25 0659 06/30/25 0700 - 06/30/25 1859 06/30/25 1900 - 07/01/25 0659 07/01/25 07 - 07/01/25 1035 Requested LDAs do not have output data documented. Labs in last 18 hours: CBC WBC ?? Hb ?? Plt ?? Hct ?? ANC ?? INR ??, PTT ??, Anti-Xa ?? MCV ?? BMP Na ?? Cl ?? BUN ?? Glu ?? K ?? Co2 ?? Cr ?? Ca ?? iCa ?? Mg ??, Phos ?? Lactate ?? LFT AST ?? AlkPhos ?? T Prot ?? ALK ?? Bili ?? Alb ?? D.Bili ?? Lab Trends: H/H Results from last 7 days Lab Units 06/29/25 2309 HEMOGLOBIN g/dL 13.6 HEMATOCRIT % 37.8 INR Results from last 7 days Lab Units 06/29/25 2309 INR 1.4* Cr Results from last 7 days Lab Units 06/29/25 2309 CREATININE mg/dL 1.36* I performed a complete tertiary exam, reviewed patient history, lab studies and all available imaging. All traumatic or incidental findings have been documented. Assessment and Plan: Assessment & Plan Fall from standing, initial encounter Present on Admission: Yes Admit to [facility] 5 Tertiary completed 07/01 Atrial fibrillation (CMS/HCC) Present on Admission: Yes Resume home metoprolol Resume eliquis at d/c Cholelithiasis without obstruction (Resolved: 07/01/2025) Present on Admission: Yes Chronic pain Present on Admission: Yes MMPC Can complicate care Diastolic dysfunction Present on Admission: Yes Resume home meds as appropriate Essential hypertension Present on Admission: Yes Resume home metoprolol Anti-hypertensives PRN CTM Gastroesophageal reflux disease Present on Admission: Yes Resume home meds as appropriate Gout Present on Admission: Yes Resume home meds as appropriate Hypertriglyceridemia Present on Admission: Yes Resume home meds as appropriate Mixed hyperlipidemia Present on Admission: Yes Resume home meds as appropriate Hypokalemia Present on Admission: Yes Resolved Hypomagnesemia (Resolved: 07/01/2025) Present on Admission: Yes Lumbar spinal stenosis Present on Admission: Yes Chronic Follow up with PCP Lymphedema Present on Admission: Yes Chronic Follow up with PCP Polyneuropathy Present on Admission: Yes - Begin colleen Recurrent falls Present on Admission: Not Applicable Pending TLSO brace, f/u films, and PT/OT Stage 4 chronic kidney disease (CMS/HCC) Present on Admission: Yes Avoid nephrotoxins Venous stasis dermatitis Present on Admission: Yes Chronic Follow up w/PCP Fall at home, subsequent encounter Present on Admission: Not Applicable Pending TLSO, films, PT/OT Obesity, Class III, BMI 40-49.9 (morbid obesity) Present on Admission: Unknown Can complicate on all aspects of care Occlusion of celiac artery Present on Admission: Unknown Vascular consulted No treatment of further inpatient work up Follow up in clinic after discharge Plan: - Tertiary complete 07/01 - Refer to DIE POLISHER for +ITSS - D/c IVFs as tolerating PO - Add colleen for pain management - Resume home metoprolol and add PRN anti-hypertensive - Pending TLSO, repeat films, PT/OT - Vasc: No acute intervention, f/u outpatient for surveillance - ORT: trial non-op Discharge dispo: Pending TLSO brace, films, and PT/OT Edited by: Thai Eugene PA at 07/01/2025 1008 JAKI Holbrook [1] No past surgical history on file. [2] Social History Tobacco Use Smoking Status Never Smokeless Tobacco Never * Care Plan - Hali Trujillo RN - 07/01/2025 12:50 AM EDT Problem: Adult Inpatient Plan of Care Goal: Plan of Care Review Outcome: Ongoing, Progressing Goal: Patient-Specific Goal (Individualized) 07/01/202548 by Hali Trujillo, RN Flowsheets (Taken 06/30/20251999) Patient/Family-Specific Goals (Include Timeframe): Pt will remain free from fall/injury this shift. Individualized Care Needs: SAFETY Anxieties, Fears or Concerns: Going home 07/01/202548 by Hali Trujillo, RN Outcome: Ongoing, Progressing Goal: Absence of Hospital-Acquired Illness or Injury Outcome: Ongoing, Progressing Intervention: Prevent Infection Flowsheets (Taken 06/30/2025943 by Janay Subramanian RN) Infection Prevention: hand hygiene promoted single patient room provided Goal: Optimal Comfort and Wellbeing Outcome: Ongoing, Progressing Problem: Skin Injury Risk Increased Goal: Skin Health and Integrity Outcome: Ongoing, Progressing Intervention: Promote and Optimize Oral Intake Flowsheets Taken 07/01/202548 by Hali Trujillo RN Nutrition Interventions: frequent small meals provided Taken 06/30/2025943 by Janay Subramanian RN Oral Nutrition Promotion: rest periods promoted Problem: Mobility Impairment Goal: Optimal Mobility Outcome: Ongoing, Progressing Intervention: Optimize Mobility Flowsheets Taken 06/30/20251999 by Hali Trujillo RN Activity Management: activity adjusted per tolerance Taken 06/30/2025943 by Janay Subramanian RN Assistive Device Utilized: (waiting for TLSO brace) other (see comments) Positioning/Transfer Devices: repositioning sheet Problem: Fall Injury Risk Goal: Absence of Fall and Fall-Related Injury Outcome: Ongoing, Progressing Intervention: Promote Injury-Free Environment Flowsheets (Taken 06/30/20251999) Safety Promotion/Fall Prevention: activity supervised assistive device/personal items within reach clutter-free environment maintained fall prevention program maintained lighting adjusted mobility aid in reach nonskid shoes/slippers when out of bed room organization consistent safety round/check completed toileting scheduled * Care Plan - Hali Trujillo RN - 07/01/2025 12:49 AM EDT Problem: Adult Inpatient Plan of Care Goal: Patient-Specific Goal (Individualized) 07/01/202548 by Hali Trujillo RN Flowsheets (Taken 06/30/20251999) Patient/Family-Specific Goals (Include Timeframe): Pt will remain free from fall/injury this shift. Individualized Care Needs: SAFETY Anxieties, Fears or Concerns: Going home 07/01/202548 by Hali Trujillo RN Outcome: Ongoing, Progressing * Significant Event - Thai Eugene PA - 06/30/2025 2:49 PM EDT Patient seen in OBS unit. Resting in bed, NAD, VSS. Pt on O2 supplementation. States she is typically not on O2 supplementation, however requires a CPAP when she sleeps so she's wearing O2 as she keeps drifting asleep. Patient notes pain has significantly improved and is controlled. Denies any N/V, abd pain, CP, SOA,fevers, headaches. Patient has been measured for TLSO brace. D/c NPO and add regular diet. MMPC. Will d/c IBU d/t CKD. Discussed plan of care with patient No further complaints/concerns/questions at this time. * Consults - Miladis Rico - 06/30/2025 1:43 PM EDT TLSO Brace: Rigid Bi-valve TLSO - Custom (L0486) Bracing Notes: I received an order for a custom rigid bi-valve TLSO from [employer]. Present wit L1-L4 fractures. I measured the patient in the supine position for a custom brace because she is obese with alarge measurable belly and could not fit into a pre-dheeraj brace. [employer] will deliver the patient's custom brace tomorrow. Please contact me with questions or concerns. MARIA EUGENIA Grant [place] Licensed Mutual Fund Accountant [employer] [phone] * Hospital Course - Thai Eugene PA - 06/30/2025 7:48 AM EDT Letty Dumont is an 89 yo Female with a PMHx of CKD, MELISSA, Afib on Eliquis, HTN, ALYSSIA, and Lymphedema who presents on 06/29 from OSH following a fall. 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 Past 24h: Patient resting comfortably in bed, NAD, VSS. Patient on supplemental O2 but only when sleeping. Patient typically wears a CPAP for MELISSA but does not have CPAP available at current. Patient tolerating PO without issue. BM 07/02. Suppository ordered. Patient also notes dysuria which has worsened x a couple days. Patient notes TLSO brace is uncomfortable but she has been getting up with brace. Patient A&O x 3. Denies any CP, SOA, abd pain, N/V. Discussed plan of care with patient. No further complaints/concerns/questions at this time. Physical therapy and occupational therapy evaluated the patient during hospitalization and recommend subacute rehab. At the time of discharge the patient was hemodynamically stable, tolerating PO, voiding spontaneously, normal bowel function, mobilizing appropriately, with their pain controlled with PO medication. 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 Vascular was consulted and wanted outpatient fu at discharge, no treatment or further workup. - Multilevel severe spinal degenerative changes with significant spinal canal stenosis of lumbar spine - Confluent anterior syndesmophyte calcification throughout the thoracic spine. Diffuse calcification of the interspinous ligaments throughout the lumbar spine. Small calcified focus along the posterior aspect of the L2 spinal canal - Nonobstructing right renal calculus - Multiple partially visualized exophytic cysts from the bilateral kidneys. - Trace pericardial effusion. Cardiomegaly. - Likely old deformities of the left L1 and L2 transverse process fractures. - Extensive bridging anterior osteophytes and calcified syndesmosis. Consistent with rigid spine. 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 SGT: [facility] as needed; 0 [facility] First Floor, Wing D Room [address] [place] [address], #[phone]. Questions or Concerns and Appointments If there are questions or concerns after discharge from the hospital, please call [phone] and ask for [facility] Nurse. Working hours are Wednesday - Wednesday 8:00 AM to 4:00 PM. After hours, weekends and holidays please call [phone] and ask for the resident finance controller for [facility]. For appointments please call [phone]. Medication requests should be made between the hours of 9:00 AM to 3:00 PM Wednesday thru Wednesday. Please note that based upon recent changes to [place] law related to prescribing opioid pain medications, our providers will not provide refills on controlled medications after your hospital discharge following a major surgery or trauma. [place] 218[place], [place] 201 KAR9:[id number]. * Progress Notes - Berny Olsen MD - 06/30/2025 7:36 AM EDT ORTHOPAEDIC SPINE SURGERY PROGRESS NOTE 06/30/25 SUBJECTIVE No acute events overnight. Doing well, resting comfortably in bed. Pain controlled. NPO diet. No nausea, vomiting, fevers or chills. No numbness or tingling into the legs, no weakness. Discussed thatwe are awaiting MRI to determine stability of her injury and would finalize plan afterwards. OBJECTIVE Vitals: 06/30/25 0432 BP: 110/73 Pulse: 89 Resp: 22 Temp: SpO2: 92% PHYSICAL EXAMINATION No acute distress Non labored breathing Peripheral perfusion intact FOCUSED MUSCULOSKELETAL EXAM Motor Strength Right Left L2: Hip flexion (Iliopsoas) 02/19 02/19 L3: Knee extension (Quad) 02/19 02/19 L4: Ankle DF (TA) 02/19 02/19 L5: Great Toe DF (EHL) 02/19 02/19 S1: Ankle Pf, Foot Eversion (Peroneal longus/brevis) 02/19 02/19 S2: Great toe flexion (FHL), Knee flexion 02/19 02/19 Sensation Right Left L2: Proximal anterior thigh Normal Normal L3: Mid anterior thigh Normal Normal L4: Medial leg/foot, great toe (Saphenous n.) Normal Normal L5: Dorsum of mid foot Normal Normal S1: Lateral leg/foot, little toe, Back of leg (Sural n.) Normal Normal Reflexes Right Left L4: Patellar 2/4 2/4 S1: Achilles 2/4 2/4 Babinski Absent Absent Clonus 0 0 DATA Labs in last 18 hours CBC WBC 5.94 Hb 13.6 Plt 129 (L) Hct 37.8 INR 1.4 (H), PTT 41 (H), Anti-Xa ?? BMP Na 138 Cl 100 BUN 23 Glu 116 (H) K 3.9 Co2 25 Cr 1.36 (H) Lactate ?? ASSESSMENT AND PLAN Letty Dumont is a 89 y.o. 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 - MRI complete this morning, fracture appears incomplete - Will trial nonoperative management - Ok for diet - TLSO brace ordered this morning - Please obtain standing uprights in brace when delivered - Pain control - PT/OT recommendations: pending - Follow up: 3wks in ortho spine clinic with repeat XR. jail plan to follow up at 6wks again with XR, then at 3months with CT & XR if stable - Disposition: pending brace/uprights Berny Olsen MD Cosigned by Bhargav Abrams MD at 06/30/2025 12:19 PM EDT Associated attestation - Bhargav Abrams MD - 06/30/2025 12:19 PM EDT I discussed the case with the resident/fellow and agree with the findings and plan as documented. She does have a fracture in the setting of ankylosis, hyperextension fracture. Incomplete through the disc space and no posterior element involvement. Given age and frailty and incomplete nature willtrial nonoperative treatment with TLSO and upright films. Chas Abrams MD Orthopaedic Spine Surgery Pager [phone] * H&P - Samuel De La Cruz MD - 06/30/2025 1:12 AM EDT Trauma Alert? No Time of Consultation: 37 Time of Trauma Evaluation: 111 Arrival Date: 06/29/2025 Arrival Time: 2027 Referring Hospital: [facility] Injury Date: 06/28/2025 Injury Time: evening (exact time unspecified) Transport Mode: Mode of Arrival: Ambulance Mechanism of Injury Fall Distance standing Farm Related Injury: no Work Related Injury: no History Of Present Illness Letty Dumont is a 89 y.o. female presenting for evaluation s/p fall. She has fallen several times due to weakness, attributing much of this to her chronic lymphedema. She was unable to get up alone; someone had to help her get up the next day. Old Chart Reviewed: yes Total fluids given prior to arrival - not documented Loss of Consciousness: no Past Medical History Afib on eliquis CKD HTN Lymphedema Gout hypertension Surgical History Mastectomy Adenoidectomy Family History Family History[1] Reviewed and not pertinent Social History She has no history on file for tobacco use, alcohol use, and drug use. Negative Allergies Allopurinol and Prednisone Reviewed as documented above Medications Eliquis Occupational History Occupational history[2] Employer: No address on file. Reviewed and not pertinent Immunizations reviewed VACCINE / DOSE Flu Tetanus Pneumovax Shingles Review of Systems Relevant review of systems was obtained as able and is negative unless stated above in HPI. Physical Exam Physical exam GENERAL: Patient was in no acute distress. Awake, alert and responsive when stimulated. GCS 15 HEENT: Atraumatic, normocephalic. Pupils were equally round and reactive to light with extraocular movements intact. No hemotympanum. MAXILLOFACIAL: Midface stable, no malocclusion. NECK: No C-spine tenderness, trachea midline, no penetrating injuries or lacerations CHEST: Symmetric expansion, non labored; no crepitus; chest nontender to palpation, no penetrating wounds PULM: Clear to auscultation bilaterally. CV: Regular rate and rhythm without obvious murmur ABD: soft, non-tender, non-distended, no penetrating wounds, no abrasions, no seat belt sign. No rebound or guarding. PELVIS: Stable to anterior-posterior and lateral compression, no tenderness to palpation Musculoskeletal: Strength equivalent in 4 extremities, good ROM, sensation intact. No obvious deformities of trunk or limbs, no active bleeding. No TTP along major long bones. There is swelling of the bilateral lower extremities consistent with chronic lymphedema VASCULAR: Strongly palpable radial/ulnar/femoral/DP/PT pulses bilaterally with brisk less than 2 second capillary refill. NEURO: CN 2-12 grossly intact and symmetrical bilaterally. No focal neurological defects. BACK: No tenderness, step offs, hematoma, or deformities to the C,T,L spine Rectal exam was deferred. Last Recorded Vitals Blood pressure 110/73, pulse 89, temperature 36.7 ??C (98 ??F), resp. rate 22, weight 115 kg (253 lb 8.5 oz), SpO2 92%. Venessa Venessa Coma Scale Best Eye Response: Spontaneous Best Verbal Response: Oriented Best Motor Response: Follows commands Venessa Coma Scale Score: 15 Intubated No Recent Results Labs in last 18 hours CBC WBC 5.94 Hb 13.6 Plt 129 (L) Hct 37.8 ANC 3.69 INR 1.4 (H), PTT 41 (H), Anti-Xa ?? BMP Na 138 Cl 100 BUN 23 Glu 116 (H) K 3.9 Co2 25 Cr 1.36 (H) Ca 9.7 iCa ?? Mg ??, Phos ?? Lactate ?? LFT AST 25 AlkPhos 47 T Prot 6.0 (L) ALK 19 Bili 0.7 Alb ?? D.Bili ?? Radiology FAST not performed / unindicated Images personally reviewed and consistent with the following: CT Lumbar Spine wo IV Contrast Result Date: 06/30/2025 Impression: Fracture through the bridging anterior osteophytes at L1/L2 and L3/L4. There is a corner fracture of the anterior endplate of L1 with mild displacement. There is minimally displaced rightL2 and L3 transverse process fractures. Extensive bridging anterior osteophytes and calcified syndesmosis. Consistent with rigid spine. Hypertrophic and degenerative changes with significant spinal canal stenosis. Probably chronic rib deformities. Probable renal cysts. CRITICAL RESULT: No. COMMUNICATION: Per this written report. Preliminary report signed by Bryant Escobar MD on 06/30/2025 3:32AM By electronically signing this report, I, the attending physician, attest that I have personallyreviewed the images/data for the above examination(s) and agree with the final edited report. Drafted by Bryant Escobar MD on 06/30/2025 3:13 AM Final report signed by Angela Agosto MD on 06/30/2025 3:[address] Thoracic Spine wo IV Contrast Result Date: 06/30/2025 Impression: Fracture through the bridging anterior osteophytes at L1/L2 and L3/L4. There is a corner fracture of the anterior endplate of L1 with mild displacement. There is minimally displaced rightL2 and L3 transverse process fractures. Extensive bridging anterior osteophytes and calcified syndesmosis. Consistent with rigid spine. Hypertrophic and degenerative changes with significant spinal canal stenosis. Probably chronic rib deformities. Probable renal cysts. CRITICAL RESULT: No. COMMUNICATION: Per this written report. Preliminary report signed by Bryant Escobar MD on 06/30/2025 3:32AM By electronically signing this report, I, the attending physician, attest that I have personallyreviewed the images/data for the above examination(s) and agree with the final edited report. Drafted by Bryant Escobar MD on 06/30/2025 3:13 AM Final report signed by Angela Agosto MD on 06/30/2025 3:[address] Cervical Spine wo IV Contrast Result Date: 06/30/2025 Impression: Fracture through the bridging anterior osteophytes at L1/L2 and L3/L4. There is a corner fracture of the anterior endplate of L1 with mild displacement. There is minimally displaced rightL2 and L3 transverse process fractures. Extensive bridging anterior osteophytes and calcified syndesmosis. Consistent with rigid spine. Hypertrophic and degenerative changes with significant spinal canal stenosis. Probably chronic rib deformities. Probable renal cysts. CRITICAL RESULT: No. COMMUNICATION: Per this written report. Preliminary report signed by Bryant Escobar MD on 06/30/2025 3:32AM By electronically signing this report, I, the attending physician, attest that I have personallyreviewed the images/data for the above examination(s) and agree with the final edited report. Drafted by Bryant Escobar MD on 06/30/2025 3:13 AM Final report signed by Angela Agosto MD on 06/30/2025 3:44 AM Impression: L2/3 TP fx, celiac artery occlusion with collateral circulation Assessment & Plan Fall from standing, initial encounter Present on Admission: Yes Atrial fibrillation (CMS/HCC) Present on Admission: Yes Cholelithiasis without obstruction Present on Admission: Yes Chronic pain Present on Admission: Yes Diastolic dysfunction Present on Admission: Yes Essential hypertension Present on Admission: Yes Gastroesophageal reflux disease Present on Admission: Yes Gout Present on Admission: Yes Hypertriglyceridemia Present on Admission: Yes Mixed hyperlipidemia Present on Admission: Yes Hypokalemia Present on Admission: Yes Hypomagnesemia Present on Admission: Yes Lumbar spinal stenosis Present on Admission: Yes Lymphedema Present on Admission: Yes Polyneuropathy Present on Admission: Yes Recurrent falls Present on Admission: Not Applicable Stage 4 chronic kidney disease (CMS/HCC) Present on Admission: Yes Venous stasis dermatitis Present on Admission: Yes Fall at home, subsequent encounter Present on Admission: Not Applicable Will admit patient for PT/OT evaluation for needs assessment and potential placement. Disposition: admit to T Samuel De La Cruz MD [1] No family history on file. [2] Cosigned by Rosendo Carlin DO at 07/09/2025 5:27 PM EDT Associated attestation - Rosendo Carlin DO - 07/09/2025 5:27 PM EDT 0100 I saw and evaluated the patient with the resident/fellow. I discussed the case with the resident/fellow and agree with the findings and plan as documented. * Consults - Trini Angulo MD - 06/30/2025 1:00 AM EDTAssociated Order(s): IP CONSULT TO ORTHOPAEDICS ORTHOPAEDIC SURGERY SPINE CONSULT NOTE 06/30/2025 CHIEF COMPLAINT: Back pain HISTORY OF PRESENT ILLNESS Letty Dumont is a 89 y.o. female with lymphedema, hypertension, CHF, CKD who presents to the emergency department after a mechanical fall on . Patient presented to outside hospital where imaging demonstrated L2-L3 transverse process fractures as well as hyperextension injury in the setting of ankylosis at L1-2/L3-4. Orthopedic spine surgery consulted for further management. Patient reports that she has some chronic urinary/bowel incontinence. She denies saddle anesthesia or numbness/paresthesias in her bilateral lower extremities. Last Meal: 06/29/2025 PAST MEDICAL HISTORY Past Medical History[1] No history of MRSA infection No history of DVT/PE MEDICATIONS Medications Ordered Prior to Encounter[2] Denies taking anticoagulant medications ALLERGIES No known drug allergies Denies allergy to penicillin Denies allergy to metals PAST SURGICAL HISTORY Surgical History[3] FAMILY HISTORY Family history non-contributory Denies family history of DVT/PE SOCIAL HISTORY Tobacco: Denies EtOH: Denies Illicits: Denies Lives: [place] alone Employment: Retired REVIEW OF SYSTEMS Review of systems otherwise negative except as mentioned in HPI PHYSICAL EXAMINATION Visit Vitals BP (!) 155/70 (BP Location: Right arm, Patient Position: Lying) Pulse 89 Temp 36.9 ??C (98.4 ??F) (Oral) Resp 20 Wt 115 kg (253 lb 8.5 oz) SpO2 94% OB Status Postmenopausal There is no height or weight on file to calculate BMI. General Physical Exam Constitutional No acute distress Head Normocephalic and atraumatic Cardiovascular Peripheral perfusion intact Pulmonary/Chest Good respiratory effort, symmetric chest expansion, no respiratory difficulty appreciated Neurological Alert and oriented to person, place, and time Psychiatric Normal mood and affect, behavior and judgment COMPLETE SPINE EXAM: Motor Strength Right Left C5: Shoulder abduction (Deltoid) 02/19 02/19 C5: Elbow flexion (Biceps, Brachialis) 02/19 02/19 C6: Wrist extension (ECRB, ECRL) 02/19 02/19 C7: Elbow extension (Triceps) 02/19 02/19 C8: Finger flexion (Change Control Coordinator Strength) 02/19 02/19 T1: Finger abduction 02/19 02/19 Sensation Right Left Neck normal normal C5: Shoulder normal normal C6: Thumb, radial aspect hand/forearm (Radial Nerve) normal normal C7: Long finger (Median Nerve) normal normal C8: Little finger, ulnar aspect of hand/forearm (Ulnar n.) normal normal T1: Medial forearm/arm normal normal Reflexes Right Left C5: Biceps 2/ 2/ C6: Brachioradialus 2/ 2/ C7: Triceps / 2 Winn's absent absent Motor Strength Right Left L2: Hip flexion (Iliopsoas) 02/19 02/19 L3: Knee extension (Quad) 02/19 02/19 L4: Ankle DF (TA) 02/19 02/19 L5: Great Toe DF (EHL) 02/19 02/19 S1: Ankle Pf, Foot Eversion (Peroneal longus/brevis) 02/19 02/19 S2: Great toe flexion (FHL), Knee flexion 02/19 02/19 Sensation Right Left L2: Proximal anterior thigh Normal Normal L3: Mid anterior thigh Normal Normal L4: Medial leg/foot, great toe (Saphenous n.) Normal Normal L5: Dorsum of mid foot Normal Normal S1: Lateral leg/foot, little toe, Back of leg (Sural n.) Normal Normal Reflexes Right Left L4: Patellar 2/4 2/4 S1: Achilles 2/4 2/4 Babinski Absent Absent Clonus <3 beats <3 beats Rectal Exam: Normal rectal tone. Perirectal sensation intact. IMAGING Imaging obtained and reviewed: Hyperextension injury in setting of ankylosis of L1-L2 and L3-4 ASSESSMENT AND PLAN Letty Dumont is a 89 y.o. female patient with Acute traumatic closed displaced L2/L3 transverse process fractures, hyperextension injury in setting of ankylosis at L1-L2, L3-L4. - MRI completed after initia time of note, fracture appears incomplete - Will trial nonoperative management - Ok for diet - TLSO brace ordered this morning - Please obtain standing uprights in brace when delivered - Pain control - PT/OT recommendations: pending - Follow up: 3wks in ortho spine clinic with repeat XR. terminal supervisor plan to follow up at 6wks again with XR, then at 3months with CT & XR if stable - Disposition: pending brace/uprights Trini Angulo MD PGY-2, Orthopaedic Surgery [facility] Orthopaedic Trauma Service Pager: [phone] Orthopaedic Recon/Spine/Foot and Ankle Service Pager: [phone] [1] No past medical history on file. [2] No current facility-administered medications on file prior to encounter. No current outpatient medications on file prior to encounter. [3] No past surgical history on file. Cosigned by Bhargav Abrams MD at 06/30/2025 12:31 PM EDT Associated attestation - Bhargav Abrams MD - 06/30/2025 12:31 PM EDT I discussed the case with the resident/fellow and agree with the findings and plan as documented. Will FU upright films and brace. Trial nonoperative treatment. Chas Abrams MD Orthopaedic Spine Surgery Pager [phone] * Consults - Davida Pappas MD - 06/30/2025 12:43 AM EDTAssociated Order(s): Consult to Vascular Surgery Images from the original note were not included. [facility] Department of Surgery Division of Vascular Surgery History & Physical Note Reason for Consult: Incidental celiac occlusion Requesting Service: Emergency Department Consult Date and Time: 06/30/2025 Consult to Vascular Surgery Consult performed by: Davida Pappas MD Consult ordered by: Kavon Hinojosa MD Reason for consult: incidental celiac occlusion Subjective History of Present Illness: Chief Complaint: fall Letty Dumont is a 89 y.o. female with PMHx significant for CKD, MELISSA, afib on elqiuis, htn, alyssia,lymphedema who presented to the Healthcare on 06/29/2025 after fall at home. Patient was found down, reports no LOC, reports fall while trying to get something from the weddg evening and wasn't able to get up, found by EMS Wednesday 1130AM. Did not hit head. Could not lift herself up 2/2 back pain. Reports previous fall 4 years ago. Uses walker at home. Has not been able to ambulate since the fall. Seen at OSH where she was found to have lumbar fractures and was transferred to for trauma evaluation. On CTA abdomen pelvis obtained during trauma workup incidental finding of celiac occlusion noted for which vascular is consulted. Patient unaware of previous occlusion. Denies any hxof significant abdominal pain, blood in stool, dysuria. Primary complaint is back pain. Non smoker.Lives alone at home. Review of Systems: Relevant review of systems was obtained as able and is negative unless stated above in HPI. History Obtained From: Patient Past Medical History: Past Medical History[1] Allergies And Reactions: Allergies[2] Past Surgical History: Mastectomy, adenoidectomy Family Medical History: Family History[3] Reviewed and Non-contributory Social History: Social History Socioeconomic History Marital status: Spouse name: Not on file Number of children: Not on file Years of education: Not on file Highest education level: Not on file Occupational History Not on file Tobacco Use Smoking status: Not on file Smokeless tobacco: Not on file Substance and Sexual Activity Alcohol use: Not on file Drug use: Not on file Sexual activity: Not on file Other Topics Concern Not on file Social History Narrative Not on file Social Drivers of Health Financial Resource Strain: Not on file Food Insecurity: Not on file Transportation Needs: Not on file Physical Activity: Not on file Stress: Not on file Social Connections: Unknown (07/26/2023) Received from [facility] Family and Community Support Help with Day-to-Day Activities: Not on file Lonely or Isolated: Not on file Intimate Partner Violence: Unknown (07/26/2023) Received from [facility] Abuse Screen Unsafe at Home or Work/School: Not on file Feels Threatened by Someone?: Not on file Does Anyone Keep You from Contacting Others or Doint Things Outside the Home?: Not on file Physical Sign of Abuse Present: Not on file Housing Stability: Unknown (07/26/2023) Received from [facility] Housing Stability Current Living Arrangements: Not on file Potentially Unsafe Housing Conditions: Not on file Immunizations: There is no immunization history for the selected administration types on file for this patient. I have updated and confirmed the past medical, surgical, family and social history. Home Medications: Prior to Admission medications Not on File Anti-Thrombotic Medications: Is this patient taking warfarin, new oral anti-coagulant, or anti-platelet medication? Yes If Yes, What Medication: Apixaban (Eliquis) Current Hospital Medications: Current Medications[4] Objective Objective: Visit Vitals BP (!) 153/60 Pulse 96 Temp 36.7 ??C (98 ??F) Wt 115 kg (253 lb 8.5 oz) SpO2 93% @ Physical Exam: Physical Exam Constitutional: General: She is not in acute distress. Appearance: She is not ill-appearing. HENT: Mouth/Throat: Mouth: Mucous membranes are moist. Eyes: Extraocular Movements: Extraocular movements intact. Cardiovascular: Rate and Rhythm: Normal rate. Pulmonary: Effort: Pulmonary effort is normal. No respiratory distress. Abdominal: General: There is no distension. Palpations: Abdomen is soft. Tenderness: There is no abdominal tenderness. There is no guarding or rebound. Hernia: No hernia is present. Skin: General: Skin is warm and dry. Neurological: Mental Status: She is alert and oriented to person, place, and time. Psychiatric: Mood and Affect: Mood normal. Behavior: Behavior normal. Laboratory: CBC WBC 5.94 Hb 13.6 Plt 129 (L) Hct 37.8 ANC 3.69 INR 1.4 (H), PTT 41 (H), Anti-Xa ?? MCV 94 BMP Na 138 Cl 100 BUN 23 Glu 116 (H) K 3.9 Co2 25 Cr 1.36 (H) Ca 9.7 iCa ?? Mg ??, Phos ?? Lactate ?? LFT AST 25 AlkPhos 47 T Prot 6.0 (L) ALK 19 Bili 0.7 Alb ?? D.Bili ?? Imaging: Radiographic Interpretation: I have reviewed the imaging above, there is evidence of occlusion of celiac with collateral flow to branches via SMA, widely patent, appears chronic, no concern for ischemia Assessment/Plan Assessment & Plan: Letty Dumont is a 89 y.o. female with PMHx significant for CKD, MELISSA, afib on elqiuis, htn, alyssia,lymphedema who presented to [facility] on 06/29/2025 after fall at home. At OSH noted to havemultiple lumbar fractures as well as incidental celiac occlusion. Denies any hx of substantial abdominal pain in past or present. In ED found AF and HDS. On exam she is well appearing though appears uncomfortable. Abdomen soft, nondistended, nontender overall benign. Labs notable for WBC 5.9, Hgb 13.6, Cr 1.36. 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 Patient remains asymptomatic with widely patent flow to viscera at thistime. No acute intervention or further workup indicated. Will arrange for outpatient follow up for surveillance. This Consult, Assessment, and Plan has been discussed with Dr. Terrazas, Attending Physician Davida Pappas MD [1] No past medical history on file. [2] Allergies Allergen Reactions Allopurinol Rash Prednisone Unknown - Patient states they do not know rxn details [3] No family history on file. [4] No current facility-administered medications for this encounter. No current outpatient medications on file. Cosigned by Tiff Terrazas MD at 07/02/2025 6:05 PM EDT Associated attestation - Tiff Terrazas MD - 07/02/2025 6:05 PM EDT I saw and evaluated the patient with the resident/fellow. I discussed the case with the resident/fellow and agree with the findings and plan as documented. I have personally reviewed the imaging. * Care Plan - Janay Subramanian RN - 06/29/2025 8:28 PM EDT Problem: Adult Inpatient Plan of Care Goal: Plan of Care Review Outcome: Ongoing, Progressing Flowsheets (Taken 06/30/2025943) Progress: no change Outcome Evaluation: Reviewed plan of care with patient Plan of Care Reviewed With: patient Goal: Patient-Specific Goal (Individualized) Outcome: Ongoing, Progressing Flowsheets (Taken 06/30/2025943) Patient/Family-Specific Goals (Include Timeframe): Patient will report pain at a tolerable level orless this shift. Individualized Care Needs: back pain Anxieties, Fears or Concerns: denies Goal: Absence of Hospital-Acquired Illness or Injury Outcome: Ongoing, Progressing Intervention: Identify and Manage Fall Risk Flowsheets (Taken 06/30/2025943) Safety Promotion/Fall Prevention: clutter-free environment maintained fall prevention program maintained Intervention: Prevent Skin Injury Flowsheets (Taken 06/30/2025943) Body Position: heels elevated weight shifting Skin Protection: incontinence pads utilized Intervention: Prevent and Manage VTE (Venous Thromboembolism) Risk Flowsheets (Taken 06/30/2025943) VTE Prevention/Management: medication Intervention: Prevent Infection Flowsheets (Taken 06/30/2025943) Infection Prevention: hand hygiene promoted single patient room provided Goal: Optimal Comfort and Wellbeing Outcome: Ongoing, Progressing Intervention: Monitor Pain and Promote Comfort Flowsheets (Taken 06/30/2025943) Pain Management Interventions: medication (see MAR) emotional support care clustered pain management plan reviewed with patient/caregiver pillow support provided Intervention: Provide Person-Centered Care Flowsheets (Taken 06/30/2025943) Trust Relationship/Rapport: care explained questions answered Problem: Skin Injury Risk Increased Goal: Skin Health and Integrity Outcome: Ongoing, Progressing Intervention: Optimize Skin Protection Flowsheets (Taken 06/30/2025943) Activity Management: bedrest Pressure Reduction Techniques: frequent weight shift encouraged Pressure Reduction Devices: positioning supports utilized Skin Protection: incontinence pads utilized Head of Bed (HOB) Positioning: HOB elevated Intervention: Promote and Optimize Oral Intake Flowsheets (Taken 06/30/2025943) Oral Nutrition Promotion: rest periods promoted Nutrition Interventions: (patient npo) other (see comments) Problem: Mobility Impairment Goal: Optimal Mobility Outcome: Ongoing, Progressing Intervention: Optimize Mobility Flowsheets (Taken 06/30/2025943) Activity Management: bedrest Assistive Device Utilized: (waiting for TLSO brace) other (see comments) Positioning/Transfer Devices: repositioning sheet * ED Provider Notes - Rufina Collazo DO - 06/29/2025 8:28 PM EDT Images from the original note were not included. - HPI Chief Complaint Patient presents with Fall HPI Patient is an 89-year-old female with a past medical history of obesity, CKD, MELISSA, AFib on Eliquis,ALYSSIA hypertension, lymphedema who presents to the ED from outside hospital after fall patient statesthat she had just gotten home from physical therapy and around 3:30 p.m. on , she went to open her refrigerator. She states she bent down to grab something on the lower shelves and when she stood up, she fell backwards. She did not hit her head, did not lose consciousness. She has since shefell onto a back and was unable to get up after the fall. She laid on the ground until about 11 30 on Wednesday when somebody came to her door to the liver meals and she called for them to call 911. She denies any chest pain, shortness of breath, neck pain, numbness, tingling. She does have some urinary incontinence after the fall. Patient is taken to outside hospital where imaging was concerning for vertebral fractures as well as a incidental finding of celiac artery occlusion. She was transferred to for a higher level of care. Patient History Past Medical History[1] Surgical History[2] Family History[3] Social History[4] Allergies: Allergies[5] Physical Exam ED Triage Vitals [06/29/252046] Temp Heart Rate Resp BP 36.4 ??C (97.6 ??F) 92 20 (!) 152/100 SpO2 Temp Source Heart Rate Source Patient Position 95 % Oral Monitor Lying BP Location FiO2 (%) Right arm -- Physical Exam Vitals and nursing note reviewed. Constitutional: General: She is not in acute distress. HENT: Head: Normocephalic. Comments: No facial swelling Mouth/Throat: Mouth: Mucous membranes are moist. Pharynx: Oropharynx is clear. Cardiovascular: Rate and Rhythm: Normal rate. Pulses: Normal pulses. Heart sounds: Normal heart sounds. Pulmonary: Effort: Pulmonary effort is normal. No respiratory distress. Breath sounds: Normal air entry. Comments: Speaking full sentences. Symmetric chest rise Abdominal: General: There is no distension. Musculoskeletal: General: No deformity. Normal range of motion. Cervical back: Normal range of motion. Comments: Atraumatic, moves all extremities spontaneously Neurological: Mental Status: She is alert. Mental status is at baseline. Comments: Awake Psychiatric: Behavior: Behavior normal. EASI ?? Total Score: 0 Venessa Coma Scale Score: 15 ED Course & MDM - Assessment: 89 y.o. female presents to ED with complaint of fall. On initial evaluation, patient is resting comfortably, in no acute distress. Satting appropriate onRA. Differential Diagnosis: .Differential diagnosis includes but is not limited to traumatic brain injury including ICH, other head trauma including orbital trauma, maxillofacial trauma, skull fracture, neck trauma including cervical injury, cervical fracture, vertebral and carotid artery dissection, thoracic trauma including cardiac trauma and aortic injury, thoracic and lumbar spine injury, abdominal trauma including diaphragmatic trauma and solid and hollow organ injury, pelvic fracture, retroperitoneal hemorrhage, abdominal compartment syndrome, and long bone fracture. In order to fully explore the differential diagnosis the following treatments and tests were ordered: All Other Orders Ordered Status Ordering Provider 06/30/25255 Do Not Give Nicotine Replacement Until discontinued SAMUEL Roman 06/30/25255 NPO diet NPO except: Sips with meds Diet effective now SAMUEL Roman 06/30/25255 Until discontinued Canceled SAMUEL DE LA CRUZ 06/30/25255 Sequential compression device Until discontinued Comments: SCDs must be in place and turned on EXCEPT when ACTIVELY ambulating. SAMUEL Roman 06/30/25255 Notify Provider Until discontinued Acknowledged SAMUEL DE LA CRUZ 06/30/25255 Vital Signs Until discontinued Comments: Every 1Hr x4, Then Every 4hrs Thereafter. SAMUEL Roman 06/30/25 0256 Intake and Output - Strict Per unit protocol SAMUEL Roman 06/30/25 0256 Neuro checks Until discontinued Comments: Every 1Hr x4, Then Every 4Hrs x6, Then Every 8Hrs Thereafter. SAMUEL Roman 06/30/25 0256 Insert peripheral IV Once Placed in And Linked Group Giovany DE LA CRUZ SAMUEL Juan Diego 06/30/25 0256 Saline lock IV Once Placed in And Linked Group SAMUEL Roman 06/30/25 0256 Admit to inpatient Once Acknowledged SAMUEL DE LA CRUZ 06/30/25 0256 Full code Continuous Acknowledged SAMUEL DE LA CRUZ 06/30/25 0140 Consult to Vascular Surgery Once Specialty: Vascular Surgery Provider: (Not yet assigned) Completed SCOCCAIMANRUFINA L 06/30/25 0039 Diet effective now Canceled TRINI ANGULO T 06/30/25 0037 MR Lumbar Spine wo IV Contrast Once In process SCOCCA, RUFINA L 06/30/[address] Cervical Spine wo IV Contrast Once Final result SCOCCA, RUFINA L 06/30/25 0038 Consult to Orthopaedic Surgery Once Specialty: Orthopaedic Surgery Provider: (Not yet assigned) Acknowledged SCOCCA, RUFINA L 06/30/[address] Lumbar Spine wo IV Contrast Once Final result SCOCCA, RUFINA L 06/30/[address] Thoracic Spine wo IV Contrast Once Final result SCOCCA, RUFINA L 06/30/25 0023 Once Canceled SCOCCA, RUFINA L 06/30/25 0023 Once Specialty: Orthopaedic Surgery Provider: (Not yet assigned) Canceled SCOCCA, RUFINA L 06/29/25 2259 CBC w/diff STAT Final result SCOCCA, RUFINA L 06/29/25 2259 CMP STAT Final result SCOCCA, RUFINA L 06/29/25 2259 PT-INR STAT Final result SCOCCA, RUFINA L 06/29/25 2259 APTT STAT Final result SCOCCA, RUFINA L ED Course as of 06/30/25 0856 WedJun 29, [id number] Outside hospital records were reviewed. Patient received CTA chest, CTA pelvis. CT demonstrates fractures of the right L2 and L3 transverse processes. There are also fractures of the anterior bridging osteophytes at the level of L1 L2 and L3-L4. 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 Per intake note, risk control consultant on the call recommended MRI of lumbar spine. [CS] 2303 Paged ortho spine, paged vascular, paged trauma [CS] ED Course User Index [CS] Rufina Collazo DO Clinical Impressions as of 06/30/25 0856 Fall, initial encounter Social Determinates of Health Risks (including Economic Stability, Education and level of understanding, Healthcare access and quality and concerning social factors): None identified on this visit CBC nonactionable, demonstrates thrombocytopenia 129. CMP nonactionable. Cr 1.36, unknown baseline. I discussed patient with vascular surgery and orthopaedics who agreed to evaluate the patient. Ortho requested repeat CT imaging. I discussed patient with trauma surgery for admission. Repeat imagingpending at time of admission. Ultimately, this patient was Was admitted (Admission) The encounter diagnosis was Fall, initial encounter.. Patient believed to require admission for the listed diagnoses. The Trauma Surgery service was consulted for admission and was agreeable to admit to Acute Floor (Med/Surg). ED Prescriptions None Disposition Admit Admitting/Attending Physician: ROSENDO CARLIN [[id number]] Provider Care Team: SGT FLOOR 5 [[id number]] Are they the primary team?: Yes [1] - [1] No past medical history on file. [2] No past surgical history on file. [3] No family history on file. [4] [5] Allergies Allergen Reactions Allopurinol Rash Prednisone Unknown - Patient states they do not know rxn details Rufina Collazo DO Resident 06/30/25 0857 Cosigned by Kathryn Gallego MD at 06/30/2025 11:12 PM EDT Associated attestation - Kathryn Gallego MD - 06/30/2025 11:12 PM EDT I saw and evaluated the patient with the resident/fellow. I discussed the case with the resident/fellow and agree with the findings and plan as documented. * ED Triage Notes - Misti Crum, RN - 06/29/2025 8:28 PM EDT Pt. Arrives from OSH after a fall yesterday around 1500. Patient was found on the floor at home today around noon. OSH scans show L2 and 3 transverse process fx and anterior L1-4 fx. 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 +Eliquis, -LOC. GCS 15 VSS on arrival. documented in this encounter Plan of Treatment Upcoming Encounters Date Type Department Care Team (Late st Contact Info) Description 07/25/2025 10:00 AM EDT Office Visit Medical Office Building [facility] [address], [address] [place] [id number] Prachi Rizzo, PA [address] [place] [id number] 08/28/2025 12:30 PM EST Appointment [facility] [address] [place] [address] 08/28/2025 1:40 PM EST Office Visit [facility] [address] [place] [address] Tiff Terrazas MD [address] [place] [address] Scheduled Referrals Name Type Priority Associated Diagnoses Order Schedule Discharge Ambulatory referral to [facility] Outpatient Referral Routine Occlusion of celiac artery Expected: 07/04/2025 (Approximate), Expires: 01/05/2027 Discharge Ambulatory referral to Orthopaedics Spine Outpatient Referral Routine Closed fracture of transverse process of lumbar vertebra, initial encounter ([facility]) Expected: 07/25/2025, Expires: 01/05/2027 documented as of this encounter Procedures Procedure Name Priority Date/Time Associated Diagnosis Comments URINALYSIS WITH REFLEX MICROSCOPIC AND CULTURE Routine 07/04/2025 1:53 PM EDT URINE STEVENSON PANEL Pending Discharge 07/04/2025 1:53 PM EDT URINALYSIS MICROSCOPIC FOR UA REFLEX STAT 07/04/2025 1:53 PM EDT URINALYSIS WITH REFLEX MICROSCOPIC Pending Discharge 07/04/2025 1:53 PM EDT XR THORACOLUMBAR SPINE 2 VIEWS Routine 07/02/2025 4:53 PM EDT WOUND OSTOMY EVAL AND TREAT Routine 06/30/2025 4:55 PM EDT MR LUMBAR SPINE WO IV CONTRAST STAT 06/30/2025 6:[address] LUMBAR SPINE WO IV CONTRAST STAT 06/30/2025 2:[address] THORACIC SPINE WO IV CONTRAST STAT 06/30/2025 2:[address] CERVICAL SPINE WO IV CONTRAST STAT 06/30/2025 2:14 AM EDT APTT STAT 06/29/2025 11:09 PM EDT PROTHROMBIN TIME(PT) / INR STAT 06/29/2025 11:09 PM EDT CBC WITH AUTO DIFFERENTIAL STAT 06/29/2025 11:09 PM EDT COMPREHENSIVE METABOLIC PANEL, PLASMA STAT 06/29/2025 11:09 PM EDT documented in this encounter Results * Urinalysis Microscopic Examination (07/04/2025 1:53 PM EDT) Urine Urine specimen obtained by clean catch procedure / Unknown Non-blood Collection / Unknown 07/04/2025 1:53 PM EDT 07/04/2025 2:20 PM EDT us Thai Rasheed LAB URINE ORDERABLES Final Result Performing Organization Address City/[facility]/ZIP Co de Phone Number [facility] [address] [place] [address] * Urine Stevenson Panel (07/04/2025 1:53 PM EDT) Extra Reflex urine culture not indicated 07/04/2025 4:01 PM EDT [facility] Urine Urine specimen obtained by clean catch procedure / Unknown Non-blood Collection / Unknown 07/04/2025 1:53 PM EDT 07/04/2025 2:20 PM EDT Thai Rasheed LAB URINE ORDERABLES Final Result Performing Organization Address City/[facility]/ZIP Co de Phone Number [facility] [address] [place] [address] * (ABNORMAL) Urinalysis with reflex microscopic (Culture NOT Included) (07/04/2025 1:53 PM EDT) Color, Urine Yellow LAB URINALYSIS - AUTOMATED METHOD 07/04/2025 3:18 PM EDT [facility] Clarity, Urine Clear LAB URINALYSIS - AUTOMATED METHOD 07/04/2025 3:18 PM EDT [facility] Spec [place], Urine 1.012 1.005 - 1.030 LAB URINALYSIS - AUTOMATED METHOD 07/04/2025 3:18 PM EDT [facility] pH, Urine 6.0 5.0 - 8.0 LAB URINALYSIS - AUTOMATED METHOD 07/04/2025 3:18 PM EDT [facility] Protein, Urine Negative Negative mg/dL LAB URINALYSIS - AUTOMATED METHOD 07/04/2025 3:18 PM EDT [facility] Glucose, Urine Negative Negative mg/dL LAB URINALYSIS - AUTOMATED METHOD 07/04/2025 3:18 PM EDT [facility] Ketones, Urine Negative Negative mg/dL LAB URINALYSIS - AUTOMATED METHOD 07/04/2025 3:18 PM EDT [facility] Blood, Urine Large(A) Negative LAB URINALYSIS - AUTOMATED METHOD 07/04/2025 3:18 PM EDT [facility] Bilirubin, Urine Negative Negative LAB URINALYSIS - AUTOMATED METHOD 07/04/2025 3:18 PM EDT [facility] Urobilinogen, Urine 0.2 0.2 to 1.0 mg/dL LAB URINALYSIS - AUTOMATED METHOD 07/04/2025 3:18 PM EDT [facility] Leukocytes, Urine Trace(A) Negative LAB URINALYSIS - AUTOMATED METHOD 07/04/2025 3:18 PM EDT [facility] Nitrite, Urine Negative Negative LAB URINALYSIS - AUTOMATED METHOD 07/04/2025 3:18 PM EDT [facility] RBC, Urine 1 0 to 3 /HPF LAB URINALYSIS - AUTOMATED METHOD 07/04/2025 3:18 PM EDT [facility] Comment:Confirmed WBC, Urine 0 - 5 0 to 5 /HPF LAB URINALYSIS - AUTOMATED METHOD 07/04/2025 3:18 PM EDT [facility] Squamous Epithelial Cells 0 - 2 0 to 5 /HPF LAB URINALYSIS - AUTOMATED METHOD 07/04/2025 3:18 PM EDT [facility] Hyaline Casts 0 - 2 0 to 5 /LPF LAB URINALYSIS - AUTOMATED METHOD 07/04/2025 3:18 PM EDT [facility] Bacteria, Urine Negative Negative LAB URINALYSIS - AUTOMATED METHOD 07/04/2025 3:18 PM EDT [facility] Urine Urine specimen obtained by clean catch procedure / Unknown Non-blood Collection / Unknown 07/04/2025 1:53 PM EDT 07/04/2025 2:20 PM EDT Narrative [facility] - 07/04/2025 3:18 PM EDT Performed by manual method us Thai Rasheed LAB URINE ORDERABLES Final Result [facility] [address] [place] [address] * XR Thoracolumbar Spine 2 Views (07/02/2025 4:53 PM EDT) Anatomical Region Laterality Modality Spine, T-spine, L-spine Computed Radiography Impressions 07/02/2025 4:58 PM EDT 1. Fracture of anterior syndesmophyte at L1-L2 with normal vertebral alignment. 2. Minimal anterior subluxation at L3-L4. 3. Chronic sequelae of diffuse idiopathic skeletal hyperostosis. CRITICAL RESULT: No. COMMUNICATION: Per this written report. Drafted by Flash Casiano MD on 07/02/2025 4:54 PM Final report signed by Flash Casiano MD on 07/02/2025 4:58 PM Narrative 07/02/2025 4:58 PM EDT CLINICAL INDICATION: in brace once delivered TECHNIQUE: XR THORACOLUMBAR SPINE 2 VIEWS COMPARISON: CT and MR dated June 30, 2025. FINDINGS: 2 views of the spine obtained in the upright position with brace in place show sequelae of diffuse idiopathic skeletal hyperostosis in the thoracic and lumbar spine. Known fracture of anterior syndesmophyte at L1-L2 with unchanged vertebral alignment. Minimal anterior subluxation at L3-L4. No bone destruction. Degenerative changes of the bilateral sacroiliac joint. Procedure Note Flash Casiano MD - 07/02/2025 CLINICAL INDICATION: in brace once delivered TECHNIQUE: XR THORACOLUMBAR SPINE 2 VIEWS COMPARISON: CT and MR dated June 30, 2025. FINDINGS: 2 views of the spine obtained in the upright position with brace in placeshow sequelae of diffuse idiopathic skeletal hyperostosis in the thoracicand lumbar spine. Known fracture of anterior syndesmophyte at L1-L2 withunchanged vertebral alignment. Minimal anterior subluxation at L3-L4. Nobone destruction. Degenerative changes of the bilateral sacroiliacjoint. IMPRESSION: 1.Fracture of anterior syndesmophyte at L1-L2 with normal vertebralalignment. 2.Minimal anterior subluxation at L3-L4. 3.Chronic sequelae of diffuse idiopathic skeletal hyperostosis. CRITICAL RESULT: No. COMMUNICATION: Per this written report. Drafted by Flash Casiano MD on 07/02/2025 4:54 PM Final report signed by Flash Casiano MD on 07/02/2025 4:58 PM us Brie Mcgraw MD IMG XR PROCEDURES Final R esult * MR Lumbar Spine wo IV Contrast (06/30/2025 6:17 AM EDT) Anatomical Region Laterality Modality L-spine Magnetic Resonan ce Impressions 06/30/2025 9:15 AM EDT 1. Disc widening and abnormal disc and minimal prevertebral fluid with suspected injury to the anterior longitudinal ligament at L1-L2. 2. Faint marrow edema within the inferior L1 endplate. Additional areas of abnormal disc signal at L2-L3 and L4-L5 without evidence of ligamentous injury. 3. Severe spinal canal stenosis related to anterior and posterior degenerative changes at L3-L4. Moderate canal stenosis at L4-L5 and L5-S1. Multilevel high- grade neural foraminal stenosis as described. CRITICAL RESULT: No. COMMUNICATION: These findings were discussed via secure chat with THAI EUGENE on 06/30/2025 9:10 AM by Sandrine Jovel with acknowledgment of the results. Drafted by Sandrine Jovel on 06/30/2025 8:56 AM Final report signed by Sandrine Jovel on 06/30/2025 9:15 AM Narrative 06/30/2025 9:15 AM EDT CLINICAL INDICATION: fall from standing TECHNIQUE: Multiplanar multiecho sequences were obtained through the lumbar spine utilizing T1 and T2 weighting without the administration of intravenous contrast. 8 series were obtained including localizer series. COMPARISON: CT lumbar spine 06/30/2025 FINDINGS: Diagnostic Quality: Adequate. Nomenclature: For the purposes of this report, the last well-formed disc space will represent L5-S1. Alignment: Accentuation of lumbar lordosis. Liver though curvature of the lower lumbar spine with a rotary component. Grade 1 anterolisthesis of L3 on L4. Marrow: Diffuse heterogeneity on T1 and T2 throughout the marrow. Minimal STIR hyperintensity within the inferior right L1 vertebral body adjacent to the endplate. Faint STIR hyperintensity is also present within the large anterior marginal osteophyte in the left prevertebral region at L3-L4 which is in continuity with the adjacent L3-L4 disc edema. Vertebrae and Intervertebral Discs: Vertebral body heights are preserved. At L1- L2, there is abnormal T2 and STIR hyperintensity within the anterior superior disc space and spanning the gap in the fractured anterior marginal osteophyte. Additional STIR hyperintensity within the L2-L3 and L3-L4 disc spaces. Ligaments: The anterior longitudinal ligament is focally nonvisualized at the L1-L2 level adjacent to the adjacent abnormal fluid signal. The posterior longitudinal ligament appears intact. Marked focal thickening of the ligamentum flavum at L3- L4 contributes to severe spinal canal stenosis. Conus: The conus is of normal caliber without abnormal intrinsic signal. The conus terminates at the L1 level. At the upper margin of the sagittal images on T1 and STIR, there is questionable central T2 hyperintensity within the lower thoracic cord but is incompletely evaluated. Significant findings by level: T12-L1: Moderate facet arthropathy. No spinal canal or high-grade neural foraminal stenosis. L1-L2: Widening of the anterior disc as described above. No spinal canal or right neuroforaminal stenosis. The left neural foramen is not well evaluated secondary to curvature of the spine. L2-L3: Advanced bilateral facet arthropathy. No spinal canal stenosis. Thickening of the ligamentum flavum. At least mild left neuroforaminal stenosis. The right neural foramen is not adequately assessed. Grade 1 anterolisthesis L3-L4: . Posterior disc bulge. Marked bilateral facet and ligamentous hypertrophy. Minimal residual CSF within the thecal sac. Severe spinal canal stenosis. Severe left neuroforaminal stenosis. The right neural foramen is not adequately assessed. L4-L5: Degenerative disc space narrowing. Advanced facet arthropathy. Moderate spinal canal stenosis. At least moderate left neuroforaminal stenosis. The right neural foramen is not well assessed. L5-S1: Possible prior laminectomy. Posterior disc bulge eccentric to the right neural foramen with probable mild neuroforaminal stenosis. Moderate spinal canal stenosis. Prevertebral and Paraspinal Soft Tissues: Mild stranding within the prevertebral space at L1 and L2. Trace STIR hyperintensity within the prevertebral space at L1-L2. Other Findings: None. Procedure Note Sandrine Jovel MD - 06/30/2025 CLINICAL INDICATION: fall from standing TECHNIQUE: Multiplanar multiecho sequences were obtained through the lumbar spineutilizing T1 and T2 weighting without the administration of intravenouscontrast. 8 series were obtained including localizer series. COMPARISON: CT lumbar spine 06/30/2025 FINDINGS: Diagnostic Quality: Adequate. Nomenclature: For the purposes of this report, the last well-formed discspace will represent L5-S1. Alignment: Accentuation of lumbar lordosis. Liver though curvature of thelower lumbar spine with a rotary component. Grade 1 anterolisthesis of L3on L4. Marrow: Diffuse heterogeneity on T1 and T2 throughout the marrow. MinimalSTIR hyperintensity within the inferior right L1 vertebral body adjacentto the endplate. Faint STIR hyperintensity is also present within thelarge anterior marginal osteophyte in the left prevertebral region atL3-L4 which is in continuity with the adjacent L3-L4 disc edema. Vertebrae and Intervertebral Discs: Vertebral body heights are preserved.At L1- L2, there is abnormal T2 and STIR hyperintensity within the anteriorsuperior disc space and spanning the gap in the fractured anteriormarginal osteophyte. Additional STIR hyperintensity within the L2-L3 andL3-L4 disc spaces. Ligaments: The anterior longitudinal ligament is focally nonvisualized atthe L1- L2 level adjacent to the adjacent abnormal fluid signal. Theposterior longitudinal ligament appears intact. Marked focal thickening ofthe ligamentum flavum at L3- L4 contributes to severe spinal canalstenosis. Conus: The conus is of normal caliber without abnormal intrinsic signal.The conus terminates at the L1 level. At the upper margin of the sagittalimages on T1 and STIR, there is questionable central T2 hyperintensitywithin the lower thoracic cord but is incompletely evaluated. Significant findings by level: T12-L1: Moderate facet arthropathy. No spinal canal or high-grade neuralforaminal stenosis. L1-L2: Widening of the anterior disc as described above. No spinal canalor right neuroforaminal stenosis. The left neural foramen is not wellevaluated secondary to curvature of the spine. L2-L3: Advanced bilateral facet arthropathy. No spinal canal stenosis.Thickening of the ligamentum flavum. At least mild left neuroforaminalstenosis. The right neural foramen is not adequately assessed. Grade 1anterolisthesis L3-L4: . Posterior disc bulge. Marked bilateral facet and ligamentoushypertrophy. Minimal residual CSF within the thecal sac. Severe spinalcanal stenosis. Severe left neuroforaminal stenosis. The right neuralforamen is not adequately assessed. L4-L5: Degenerative disc space narrowing. Advanced facet arthropathy.Moderate spinal canal stenosis. At least moderate left neuroforaminalstenosis. The right neural foramen is not well assessed. L5-S1: Possible prior laminectomy. Posterior disc bulge eccentric to theright neural foramen with probable mild neuroforaminal stenosis. Moderatespinal canal stenosis. Prevertebral and Paraspinal Soft Tissues: Mild stranding within theprevertebral space at L1 and L2. Trace STIR hyperintensity within theprevertebral space at L1-L2. Other Findings: None. IMPRESSION: 1.Disc widening and abnormal disc and minimal prevertebral fluid withsuspected injury to the anterior longitudinal ligament at L1-L2. 2.Faint marrow edema within the inferior L1 endplate. Additional areas ofabnormal disc signal at L2-L3 and L4-L5 without evidence of ligamentousinjury. 3.Severe spinal canal stenosis related to anterior and posteriordegenerative changes at L3-L4. Moderate canal stenosis at L4-L5 and L5-S1.Multilevel high-grade neural foraminal stenosis as described. CRITICAL RESULT: No. COMMUNICATION: These findings were discussed via secure chat with THAI EUGENE on06/30/2025 9:10 AM by Sandrine Jovel with acknowledgment of theresults. Drafted by Sandrine Jovel on 06/30/2025 8:56 AM Final report signed by Sandrine Jovel on 06/30/2025 9:15 AM us Kavon Hinojosa MD IMG MRI PROCEDURES Final Resu lt * CT Cervical Spine wo IV Contrast (06/30/2025 2:14 AM EDT) Anatomical Region Laterality Modality Spine, C-spine Computed Tomogra phy Impressions 06/30/2025 3:44 AM EDT Fracture through the bridging anterior osteophytes at L1/L2 and L3/L4. There is a corner fracture of the anterior endplate of L1 with mild displacement. There is minimally displaced right L2 and L3 transverse process fractures. Extensive bridging anterior osteophytes and calcified syndesmosis. Consistent with rigid spine. Hypertrophic and degenerative changes with significant spinal canal stenosis. Probably chronic rib deformities. Probable renal cysts. CRITICAL RESULT: No. COMMUNICATION: Per this written report. Preliminary report signed by Bryant Escobar MD on 06/30/2025 3:32 AM By electronically signing this report, I, the attending physician, attest that I have personally reviewed the images/data for the above examination(s) and agree with the final edited report. Drafted by Bryant Escobar MD on 06/30/2025 3:13 AM Final report signed by Angela Agosto MD on 06/30/2025 3:44 AM Narrative 06/30/2025 3:44 AM EDT CLINICAL INDICATION: fall, concern for lumbar fractures at OSH TECHNIQUE: Imaging of the entire cervical, thoracic, and lumbar spine was performed, using spiral technique, without contrast administration. Reformatted images in the coronal and sagittal planes were generated from the axial data set to facilitate diagnostic accuracy and/or surgical planning. Total DLP (Dose-Length Product): 2007.18 mGy.cm (accession [id number]), 2007.18 mGy.cm (accession [id number]), 2007.18 mGy.cm (accession [id number]). Please note: The reported value represents the total of one or more individual components during the CT acquisition on this date and at this time, and as such, the same value may appear in more than one CT report depending on the interpreting/reporting physicians. COMPARISON: Outside facility CT chest 06/29/2025 FINDINGS: Cervical Spine: Vertebrae: Bridging anterior osteophytes from C4 to C7. Multiple level posterior disc osteophyte complex formation. Severe facet arthropathy along the right C3/C4 and C4/C5 facet. Multilevel uncovertebral hypertrophy results in the lower cervical spine. No acute fracture or traumatic subluxation. Alignment: Straightening of the cervical spine, likely positional in nature. Paraspinal Soft Tissues: No paraspinal hematoma. Lung Apices: No pneumothorax at the lung apices. Thoracic Spine: Vertebrae: Confluent anterior syndesmophyte calcification throughout the thoracic spine. Diffuse calcification of the interspinous ligaments throughout the lumbar spine. Small calcified focus along the posterior aspect of the L2 spinal canal Alignment: Normal spinal alignment. Paraspinal Soft Tissues: No paraspinal hematoma. Nonobstructing right renal calculus. Multiple partially visualized exophytic cysts from the bilateral kidneys. Small amount of fluid within the pericardial recesses with trace pericardial effusion. Cardiomegaly. Mild calcification of the aortic arch. Lumbar Spine: Vertebrae: Fracture through the bridging anterior osteophytes of L1/L2 and L3/L4. Corner fracture through the anterior endplate of L1 (series 6 and 3 image 60). Multilevel degenerative changes of the lumbar spine including severe multilevel facet arthropathy bilaterally throughout the lumbar spine. There is severe spinal canal stenosis at the L3/L4 intervertebral disc level. Additional nondisplaced fracture of the anterior bridging osteophytes between T12 and L1 (series 603 image 65). Minimally displaced L2 and L3 right transverse process fractures. Likely old deformities of the left L1 and L2 transverse process fractures. Alignment: Levoscoliosis of the lumbar spine centered at L3. Paraspinal Soft Tissues: No paraspinal hematoma. Procedure Note Angela Agosto MD - 06/30/2025 CLINICAL INDICATION: fall, concern for lumbar fractures at OSH TECHNIQUE: Imaging of the entire cervical, thoracic, and lumbar spine was performed,using spiral technique, without contrast administration. Reformattedimages in the coronal and sagittal planes were generated from the axialdata set to facilitate diagnostic accuracy and/or surgical planning. Total DLP (Dose-Length Product): 2007.18 mGy.cm (accession [id number]),2007.18 mGy.cm (accession [id number]), 2007.18 mGy.cm (accession [id number]).Please note: The reported value represents the total of one or moreindividual components during the CT acquisition on this date and at thistime, and as such, the same value may appear in more than one CT reportdepending on the interpreting/reporting physicians. COMPARISON: Outside facility CT chest 06/29/2025 FINDINGS: Cervical Spine: Vertebrae: Bridging anterior osteophytes from C4 to C7. Multiple levelposterior disc osteophyte complex formation. Severe facet arthropathyalong the right C3/C4 and C4/C5 facet. Multilevel uncovertebralhypertrophy results in the lower cervical spine. No acute fracture ortraumatic subluxation. Alignment: Straightening of the cervical spine, likely positional innature. Paraspinal Soft Tissues: No paraspinal hematoma. Lung Apices: No pneumothorax at the lung apices. Thoracic Spine: Vertebrae: Confluent anterior syndesmophyte calcification throughout thethoracic spine. Diffuse calcification of the interspinous ligamentsthroughout the lumbar spine. Small calcified focus along the posterioraspect of the L2 spinal canal Alignment: Normal spinal alignment. Paraspinal Soft Tissues: No paraspinal hematoma. Nonobstructing right renal calculus. Multiple partially visualizedexophytic cysts from the bilateral kidneys. Small amount of fluid withinthe pericardial recesses with trace pericardial effusion. Cardiomegaly.Mild calcification of the aortic arch. Lumbar Spine: Vertebrae: Fracture through the bridging anterior osteophytes of L1/L2 andL3/L4. Corner fracture through the anterior endplate of L1 (series 6 and 3image 60). Multilevel degenerative changes of the lumbar spine includingsevere multilevel facet arthropathy bilaterally throughout the lumbarspine. There is severe spinal canal stenosis at the L3/L4 intervertebraldisc level. Additional nondisplaced fracture of the anterior bridgingosteophytes between T12 and L1 (series 603 image 65). Minimally displacedL2 and L3 right transverse process fractures. Likely old deformities ofthe left L1 and L2 transverse process fractures. Alignment: Levoscoliosis of the lumbar spine centered at L3. Paraspinal Soft Tissues: No paraspinal hematoma. IMPRESSION: Fracture through the bridging anterior osteophytes at L1/L2 and L3/L4. There is a corner fracture of the anterior endplate of L1 with milddisplacement. There is minimally displaced right L2 and L3 transverse processfractures. Extensive bridging anterior osteophytes and calcified syndesmosis.Consistent with rigid spine. Hypertrophic and degenerative changes with significant spinal canalstenosis. Probably chronic rib deformities. Probable renal cysts. CRITICAL RESULT: No. COMMUNICATION: Per this written report. Preliminary report signed by Bryant Escobar MD on 06/30/2025 3:32 AM By electronically signing this report, I, the attending physician, attestthat I have personally reviewed the images/data for the aboveexamination(s) and agree with the final edited report. Drafted by Bryant Escobar MD on 06/30/2025 3:13 AM Final report signed by Angela Agosto MD on 06/30/2025 3:44 AM us Kavon Hinojosa MD IMG CT PROCEDURES Final Resul t * CT Thoracic Spine wo IV Contrast (06/30/2025 2:14 AM EDT) Anatomical Region Laterality Modality Spine, T-spine Computed Tomogra phy Impressions 06/30/2025 3:44 AM EDT Fracture through the bridging anterior osteophytes at L1/L2 and L3/L4. There is a corner fracture of the anterior endplate of L1 with mild displacement. There is minimally displaced right L2 and L3 transverse process fractures. Extensive bridging anterior osteophytes and calcified syndesmosis. Consistent with rigid spine. Hypertrophic and degenerative changes with significant spinal canal stenosis. Probably chronic rib deformities. Probable renal cysts. CRITICAL RESULT: No. COMMUNICATION: Per this written report. Preliminary report signed by Bryant Escobar MD on 06/30/2025 3:32 AM By electronically signing this report, I, the attending physician, attest that I have personally reviewed the images/data for the above examination(s) and agree with the final edited report. Drafted by Bryant Escobar MD on 06/30/2025 3:13 AM Final report signed by Angela Agosto MD on 06/30/2025 3:44 AM Narrative 06/30/2025 3:44 AM EDT CLINICAL INDICATION: fall, concern for lumbar fractures at OSH TECHNIQUE: Imaging of the entire cervical, thoracic, and lumbar spine was performed, using spiral technique, without contrast administration. Reformatted images in the coronal and sagittal planes were generated from the axial data set to facilitate diagnostic accuracy and/or surgical planning. Total DLP (Dose-Length Product): 2007.18 mGy.cm (accession [id number]), 2007.18 mGy.cm (accession [id number]), 2007.18 mGy.cm (accession [id number]). Please note: The reported value represents the total of one or more individual components during the CT acquisition on this date and at this time, and as such, the same value may appear in more than one CT report depending on the interpreting/reporting physicians. COMPARISON: Outside facility CT chest 06/29/2025 FINDINGS: Cervical Spine: Vertebrae: Bridging anterior osteophytes from C4 to C7. Multiple level posterior disc osteophyte complex formation. Severe facet arthropathy along the right C3/C4 and C4/C5 facet. Multilevel uncovertebral hypertrophy results in the lower cervical spine. No acute fracture or traumatic subluxation. Alignment: Straightening of the cervical spine, likely positional in nature. Paraspinal Soft Tissues: No paraspinal hematoma. Lung Apices: No pneumothorax at the lung apices. Thoracic Spine: Vertebrae: Confluent anterior syndesmophyte calcification throughout the thoracic spine. Diffuse calcification of the interspinous ligaments throughout the lumbar spine. Small calcified focus along the posterior aspect of the L2 spinal canal Alignment: Normal spinal alignment. Paraspinal Soft Tissues: No paraspinal hematoma. Nonobstructing right renal calculus. Multiple partially visualized exophytic cysts from the bilateral kidneys. Small amount of fluid within the pericardial recesses with trace pericardial effusion. Cardiomegaly. Mild calcification of the aortic arch. Lumbar Spine: Vertebrae: Fracture through the bridging anterior osteophytes of L1/L2 and L3/L4. Corner fracture through the anterior endplate of L1 (series 6 and 3 image 60). Multilevel degenerative changes of the lumbar spine including severe multilevel facet arthropathy bilaterally throughout the lumbar spine. There is severe spinal canal stenosis at the L3/L4 intervertebral disc level. Additional nondisplaced fracture of the anterior bridging osteophytes between T12 and L1 (series 603 image 65). Minimally displaced L2 and L3 right transverse process fractures. Likely old deformities of the left L1 and L2 transverse process fractures. Alignment: Levoscoliosis of the lumbar spine centered at L3. Paraspinal Soft Tissues: No paraspinal hematoma. Procedure Note Angela Agosto MD - 06/30/2025 CLINICAL INDICATION: fall, concern for lumbar fractures at OSH TECHNIQUE: Imaging of the entire cervical, thoracic, and lumbar spine was performed,using spiral technique, without contrast administration. Reformattedimages in the coronal and sagittal planes were generated from the axialdata set to facilitate diagnostic accuracy and/or surgical planning. Total DLP (Dose-Length Product): 2007.18 mGy.cm (accession [id number]),2007.18 mGy.cm (accession [id number]), 2007.18 mGy.cm (accession [id number]).Please note: The reported value represents the total of one or moreindividual components during the CT acquisition on this date and at thistime, and as such, the same value may appear in more than one CT reportdepending on the interpreting/reporting physicians. COMPARISON: Outside facility CT chest 06/29/2025 FINDINGS: Cervical Spine: Vertebrae: Bridging anterior osteophytes from C4 to C7. Multiple levelposterior disc osteophyte complex formation. Severe facet arthropathyalong the right C3/C4 and C4/C5 facet. Multilevel uncovertebralhypertrophy results in the lower cervical spine. No acute fracture ortraumatic subluxation. Alignment: Straightening of the cervical spine, likely positional innature. Paraspinal Soft Tissues: No paraspinal hematoma. Lung Apices: No pneumothorax at the lung apices. Thoracic Spine: Vertebrae: Confluent anterior syndesmophyte calcification throughout thethoracic spine. Diffuse calcification of the interspinous ligamentsthroughout the lumbar spine. Small calcified focus along the posterioraspect of the L2 spinal canal Alignment: Normal spinal alignment. Paraspinal Soft Tissues: No paraspinal hematoma. Nonobstructing right renal calculus. Multiple partially visualizedexophytic cysts from the bilateral kidneys. Small amount of fluid withinthe pericardial recesses with trace pericardial effusion. Cardiomegaly.Mild calcification of the aortic arch. Lumbar Spine: Vertebrae: Fracture through the bridging anterior osteophytes of L1/L2 andL3/L4. Corner fracture through the anterior endplate of L1 (series 6 and 3image 60). Multilevel degenerative changes of the lumbar spine includingsevere multilevel facet arthropathy bilaterally throughout the lumbarspine. There is severe spinal canal stenosis at the L3/L4 intervertebraldisc level. Additional nondisplaced fracture of the anterior bridgingosteophytes between T12 and L1 (series 603 image 65). Minimally displacedL2 and L3 right transverse process fractures. Likely old deformities ofthe left L1 and L2 transverse process fractures. Alignment: Levoscoliosis of the lumbar spine centered at L3. Paraspinal Soft Tissues: No paraspinal hematoma. IMPRESSION: Fracture through the bridging anterior osteophytes at L1/L2 and L3/L4. There is a corner fracture of the anterior endplate of L1 with milddisplacement. There is minimally displaced right L2 and L3 transverse processfractures. Extensive bridging anterior osteophytes and calcified syndesmosis.Consistent with rigid spine. Hypertrophic and degenerative changes with significant spinal canalstenosis. Probably chronic rib deformities. Probable renal cysts. CRITICAL RESULT: No. COMMUNICATION: Per this written report. Preliminary report signed by Bryant Escobar MD on 06/30/2025 3:32 AM By electronically signing this report, I, the attending physician, attestthat I have personally reviewed the images/data for the aboveexamination(s) and agree with the final edited report. Drafted by Bryant Escobar MD on 06/30/2025 3:13 AM Final report signed by Angela Agosto MD on 06/30/2025 3:44 AM us Kavon Hinojosa MD IMG CT PROCEDURES Final Resul t * CT Lumbar Spine wo IV Contrast (06/30/2025 2:14 AM EDT) Anatomical Region Laterality Modality Spine, L-spine Computed Tomogra phy Impressions 06/30/2025 3:44 AM EDT Fracture through the bridging anterior osteophytes at L1/L2 and L3/L4. There is a corner fracture of the anterior endplate of L1 with mild displacement. There is minimally displaced right L2 and L3 transverse process fractures. Extensive bridging anterior osteophytes and calcified syndesmosis. Consistent with rigid spine. Hypertrophic and degenerative changes with significant spinal canal stenosis. Probably chronic rib deformities. Probable renal cysts. CRITICAL RESULT: No. COMMUNICATION: Per this written report. Preliminary report signed by Bryant Escobar MD on 06/30/2025 3:32 AM By electronically signing this report, I, the attending physician, attest that I have personally reviewed the images/data for the above examination(s) and agree with the final edited report. Drafted by Bryant Escobar MD on 06/30/2025 3:13 AM Final report signed by Angela Agosto MD on 06/30/2025 3:44 AM Narrative 06/30/2025 3:44 AM EDT CLINICAL INDICATION: fall, concern for lumbar fractures at OSH TECHNIQUE: Imaging of the entire cervical, thoracic, and lumbar spine was performed, using spiral technique, without contrast administration. Reformatted images in the coronal and sagittal planes were generated from the axial data set to facilitate diagnostic accuracy and/or surgical planning. Total DLP (Dose-Length Product): 2007.18 mGy.cm (accession [id number]), 2007.18 mGy.cm (accession [id number]), 2007.18 mGy.cm (accession [id number]). Please note: The reported value represents the total of one or more individual components during the CT acquisition on this date and at this time, and as such, the same value may appear in more than one CT report depending on the interpreting/reporting physicians. COMPARISON: Outside facility CT chest 06/29/2025 FINDINGS: Cervical Spine: Vertebrae: Bridging anterior osteophytes from C4 to C7. Multiple level posterior disc osteophyte complex formation. Severe facet arthropathy along the right C3/C4 and C4/C5 facet. Multilevel uncovertebral hypertrophy results in the lower cervical spine. No acute fracture or traumatic subluxation. Alignment: Straightening of the cervical spine, likely positional in nature. Paraspinal Soft Tissues: No paraspinal hematoma. Lung Apices: No pneumothorax at the lung apices. Thoracic Spine: Vertebrae: Confluent anterior syndesmophyte calcification throughout the thoracic spine. Diffuse calcification of the interspinous ligaments throughout the lumbar spine. Small calcified focus along the posterior aspect of the L2 spinal canal Alignment: Normal spinal alignment. Paraspinal Soft Tissues: No paraspinal hematoma. Nonobstructing right renal calculus. Multiple partially visualized exophytic cysts from the bilateral kidneys. Small amount of fluid within the pericardial recesses with trace pericardial effusion. Cardiomegaly. Mild calcification of the aortic arch. Lumbar Spine: Vertebrae: Fracture through the bridging anterior osteophytes of L1/L2 and L3/L4. Corner fracture through the anterior endplate of L1 (series 6 and 3 image 60). Multilevel degenerative changes of the lumbar spine including severe multilevel facet arthropathy bilaterally throughout the lumbar spine. There is severe spinal canal stenosis at the L3/L4 intervertebral disc level. Additional nondisplaced fracture of the anterior bridging osteophytes between T12 and L1 (series 603 image 65). Minimally displaced L2 and L3 right transverse process fractures. Likely old deformities of the left L1 and L2 transverse process fractures. Alignment: Levoscoliosis of the lumbar spine centered at L3. Paraspinal Soft Tissues: No paraspinal hematoma. Procedure Note Angela Agosto MD - 06/30/2025 CLINICAL INDICATION: fall, concern for lumbar fractures at OSH TECHNIQUE: Imaging of the entire cervical, thoracic, and lumbar spine was performed,using spiral technique, without contrast administration. Reformattedimages in the coronal and sagittal planes were generated from the axialdata set to facilitate diagnostic accuracy and/or surgical planning. Total DLP (Dose-Length Product): 2007.18 mGy.cm (accession [id number]),2007.18 mGy.cm (accession [id number]), 2007.18 mGy.cm (accession [id number]).Please note: The reported value represents the total of one or moreindividual components during the CT acquisition on this date and at thistime, and as such, the same value may appear in more than one CT reportdepending on the interpreting/reporting physicians. COMPARISON: Outside facility CT chest 06/29/2025 FINDINGS: Cervical Spine: Vertebrae: Bridging anterior osteophytes from C4 to C7. Multiple levelposterior disc osteophyte complex formation. Severe facet arthropathyalong the right C3/C4 and C4/C5 facet. Multilevel uncovertebralhypertrophy results in the lower cervical spine. No acute fracture ortraumatic subluxation. Alignment: Straightening of the cervical spine, likely positional innature. Paraspinal Soft Tissues: No paraspinal hematoma. Lung Apices: No pneumothorax at the lung apices. Thoracic Spine: Vertebrae: Confluent anterior syndesmophyte calcification throughout thethoracic spine. Diffuse calcification of the interspinous ligamentsthroughout the lumbar spine. Small calcified focus along the posterioraspect of the L2 spinal canal Alignment: Normal spinal alignment. Paraspinal Soft Tissues: No paraspinal hematoma. Nonobstructing right renal calculus. Multiple partially visualizedexophytic cysts from the bilateral kidneys. Small amount of fluid withinthe pericardial recesses with trace pericardial effusion. Cardiomegaly.Mild calcification of the aortic arch. Lumbar Spine: Vertebrae: Fracture through the bridging anterior osteophytes of L1/L2 andL3/L4. Corner fracture through the anterior endplate of L1 (series 6 and 3image 60). Multilevel degenerative changes of the lumbar spine includingsevere multilevel facet arthropathy bilaterally throughout the lumbarspine. There is severe spinal canal stenosis at the L3/L4 intervertebraldisc level. Additional nondisplaced fracture of the anterior bridgingosteophytes between T12 and L1 (series 603 image 65). Minimally displacedL2 and L3 right transverse process fractures. Likely old deformities ofthe left L1 and L2 transverse process fractures. Alignment: Levoscoliosis of the lumbar spine centered at L3. Paraspinal Soft Tissues: No paraspinal hematoma. IMPRESSION: Fracture through the bridging anterior osteophytes at L1/L2 and L3/L4. There is a corner fracture of the anterior endplate of L1 with milddisplacement. There is minimally displaced right L2 and L3 transverse processfractures. Extensive bridging anterior osteophytes and calcified syndesmosis.Consistent with rigid spine. Hypertrophic and degenerative changes with significant spinal canalstenosis. Probably chronic rib deformities. Probable renal cysts. CRITICAL RESULT: No. COMMUNICATION: Per this written report. Preliminary report signed by Bryant Escobar MD on 06/30/2025 3:32 AM By electronically signing this report, I, the attending physician, attestthat I have personally reviewed the images/data for the aboveexamination(s) and agree with the final edited report. Drafted by Bryant Escobar MD on 06/30/2025 3:13 AM Final report signed by Angela Agosto MD on 06/30/2025 3:44 AM us Kavon Hinojosa MD IMG CT PROCEDURES Final Resul t * (ABNORMAL) APTT (06/29/2025 11:09 PM EDT) aPTT 41(H) 25 - 35 sec 06/29/2025 11:34 PM EDT [facility] Blood Venous blood specimen / Unknown Venipuncture / Unknown 06/29/2025 11:09 PM EDT 06/29/2025 11:12 PM EDT us Kathryn Gallego MD LAB BLOOD ORDERABLES Final Re sult [facility] [address] [place] [address] * (ABNORMAL) PT-INR (06/29/2025 11:09 PM EDT) Prothrombin Time 16.9(H) 12.0 - 14.3 sec 06/29/2025 11:33 PM EDT [facility] INR 1.4(H) 0.9 - 1.1 06/29/2025 11:33 PM EDT [facility] Blood Venous blood specimen / Unknown Venipuncture / Unknown 06/29/2025 11:09 PM EDT 06/29/2025 11:12 PM EDT Narrative [facility] - 06/29/2025 11:33 PM EDT OPTIMAL INR RANGES FOR PATIENT ON ORAL ANTICOAGULANT THERAPY Prevention of venous thromboembolism INR 2.0 to 3.0 In patients with heart disease: Atrial fibrillation INR 2.0 to 3.0 Valvular heart disease INR 2.0 to 3.0 Tissue heart valves INR 2.0 to 3.0 Mechanical prosthetic valves INR 2.5 to 3.5 Prevention of recurrent LA INR 2.5 to 3.5 us Kathryn Gallego MD LAB BLOOD ORDERABLES Final Re sult [facility] [address] [place] [address] * (ABNORMAL) CMP (06/29/2025 11:09 PM EDT) Glucose, Plasma 116(H) 74 - 99 mg/dL 06/29/2025 11:37 PM EDT [facility] BUN, Plasma 23 8 - 23 mg/dL 06/29/2025 11:37 PM EDT [facility] Creatinine, Plasma 1.36(H) 0.60 - 1.10 mg/dL 06/29/2025 11:37 PM EDT [facility] BUN/Creatinine Ratio 17 06/29/2025 11:37 PM EDT [facility] Sodium, Plasma 138 136 - 145 mmol/L 06/29/2025 11:37 PM EDT [facility] Potassium, Plasma 3.9 3.6 - 4.9 mmol/L 06/29/2025 11:37 PM EDT [facility] Chloride, Plasma 100 97 - 107 mmol/L 06/29/2025 11:37 PM EDT [facility] CO2, Plasma 25 22 - 29 mmol/L 06/29/2025 11:37 PM EDT [facility] Anion Gap 13 6 - 16 mmol/L 06/29/2025 11:37 PM EDT [facility] Total Calcium, Plasma 9.7 8.9 - 10.2 mg/dL 06/29/2025 11:37 PM EDT [facility] Total Protein 6.0(L) 6.3 - 7.9 g/dL 06/29/2025 11:37 PM EDT [facility] Albumin, Plasma 3.5 3.5 - 5.2 g/dL 06/29/2025 11:37 PM EDT [facility] AST, Plasma 25 10 - 35 U/L 06/29/2025 11:37 PM EDT [facility] ALT, Plasma 19 10 - 35 U/L 06/29/2025 11:37 PM EDT [facility] Alkaline Phosphatase, Plasma 47 46 - 142 U/L 06/29/2025 11:37 PM EDT [facility] Total Bilirubin, Plasma 0.7 0.2 - 1.1 mg/dL 06/29/2025 11:37 PM EDT [facility] eGFRcr 37.3 mL/min/1.7 3m*2 06/29/2025 11:37 PM EDT [facility] Comment:Reported eGFRcr in m L/min/1.73m2 is based the CKD-EPI 2020 equation that does not use a race coefficient. Blood Venous blood specimen / Unknown Venipuncture / Unknown 06/29/2025 11:09 PM EDT 06/29/2025 11:12 PM EDT us Kathryn Gallego MD LAB BLOOD ORDERABLES Final Re sult [facility] [address] [place] [address] * (ABNORMAL) CBC w/diff (06/29/2025 11:09 PM EDT) WBC Count 5.94 3.70 - 10.30 10*3/uL LAB HEMATOLOGY METHOD 06/29/2025 11:17 PM EDT [facility] RBC Count 4.02 3.90 - 5.20 10*6/uL LAB HEMATOLOGY METHOD 06/29/2025 11:17 PM EDT [facility] HGB 13.6 11.2 - 15.7 g/dL LAB HEMATOLOGY METHOD 06/29/2025 11:17 PM EDT [facility] HCT 37.8 34.0 - 45.0 % LAB HEMATOLOGY METHOD 06/29/2025 11:17 PM EDT [facility] Platelet Count 129(L) 155 - 369 10*3/uL LAB HEMATOLOGY METHOD 06/29/2025 11:17 PM EDT [facility] MCV 94 79 - 98 fL LAB HEMATOLOGY METHOD 06/29/2025 11:17 PM EDT [facility] MCH 33.8(H) 26.0 - 32.0 pg LAB HEMATOLOGY METHOD 06/29/2025 11:17 PM EDT [facility] MCHC 36.0(H) 30.7 - 35.5 g/dL LAB HEMATOLOGY METHOD 06/29/2025 11:17 PM EDT [facility] RDW 12.5 11.5 - 14.5 % LAB HEMATOLOGY METHOD 06/29/2025 11:17 PM EDT [facility] MPV 11.4 8.8 - 12.5 fL LAB HEMATOLOGY METHOD 06/29/2025 11:17 PM EDT [facility] nRBC 0.0 <=0.0 per 100 WBCs LAB HEMATOLOGY METHOD 06/29/2025 11:17 PM EDT [facility] Differential Type Automated LAB HEMATOLOGY METHOD 06/29/2025 11:17 PM EDT [facility] Neutrophils % 62 % LAB HEMATOLOGY METHOD 06/29/2025 11:17 PM EDT [facility] Lymphocytes % 19 % LAB HEMATOLOGY METHOD 06/29/2025 11:17 PM EDT [facility] Monocytes % 18 % LAB HEMATOLOGY METHOD 06/29/2025 11:17 PM EDT [facility] Eosinophils % 1 % LAB HEMATOLOGY METHOD 06/29/2025 11:17 PM EDT [facility] Basophils % 0 % LAB HEMATOLOGY METHOD 06/29/2025 11:17 PM EDT [facility] Immature Granulocytes % 0 % LAB HEMATOLOGY METHOD 06/29/2025 11:17 PM EDT [facility] Neutrophils Absolute 3.69 1.60 - 6.10 10*3/uL LAB HEMATOLOGY METHOD 06/29/2025 11:17 PM EDT [facility] Lymphocytes Absolute 1.10(L) 1.20 - 3.90 10*3/uL LAB HEMATOLOGY METHOD 06/29/2025 11:17 PM EDT [facility] Monocytes Absolute 1.05(H) 0.30 - 0.90 10*3/uL LAB HEMATOLOGY METHOD 06/29/2025 11:17 PM EDT [facility] Eosinophils Absolute 0.07 0.00 - 0.50 10*3/uL LAB HEMATOLOGY METHOD 06/29/2025 11:17 PM EDT [facility] Basophils Absolute 0.02 0.00 - 0.10 10*3/uL LAB HEMATOLOGY METHOD 06/29/2025 11:17 PM EDT [facility] Immature Granulocytes Absolute 0.01 0.00 - 0.06 10*3/uL LAB HEMATOLOGY METHOD 06/29/2025 11:17 PM EDT [facility] Blood Venous blood specimen / Unknown Venipuncture / Unknown 06/29/2025 11:09 PM EDT 06/29/2025 11:12 PM EDT Narrative [facility] - 06/29/2025 11:17 PM EDT Therapeutic decision making should be based on absolute values, rather than percentages. 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 Closed fracture of transverse process of lumbar vertebra, initial encounter ([facility]) Fall at home, subsequent encounter Atrial fibrillation ([facility]) Atrial fibrillation Cholelithiasis without obstruction Calculus of gallbladder without mention of cholecystitis or obstruction Chronic pain Other chronic pain Diastolic dysfunction Unspecified heart disease Essential hypertension Unspecified essential hypertension Gastroesophageal reflux disease Esophageal reflux Gout Gout, unspecified Hypertriglyceridemia Pure hyperglyceridemia Hypokalemia Hypopotassemia Hypomagnesemia Disorders of magnesium metabolism Lumbar spinal stenosis Spinal stenosis of lumbar region Lymphedema Other noninfectious lymphedema Mixed hyperlipidemia Polyneuropathy Unspecified hereditary and idiopathic peripheral neuropathy Recurrent falls Stage 4 chronic kidney disease (CMS/HCC) Venous stasis dermatitis Obesity, Class III, 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 Lumbar transverse process fracture (CMS/HCC) Traumatic fracture of lumbar vertebra (CMS/HCC) Closed fracture of transverse process of lumbar vertebra, initial encounter ([facility])- Primary documented in this encounter Admitting Diagnoses Diagnosis Fall from standing, initial encounter Fall Unspecified fall documented in this encounter Administered Medications Inactive Administered Medications - up to 3 most recent administrations Medication Order MAR Action Action Date Dose Rate Site acetaminophen (Tylenol) tablet 500 mg 500 mg, Oral, Every 6 hours PRN, Starting on 06/30/25 at 0256, Until Wed07/04/25 at 2252, Routine, mild pain, moderate pain Given 07/04/2025 5:59 AM EDT 500 mg Given 07/01/2025 8:53 AM EDT 500 mg apixaban (Eliquis) tablet 5 mg 5 mg, Oral, 2 times daily, First dose on Wed07/04/25 at 1500, Until Discontinued, Routine Given 07/04/2025 3:00 PM EDT 5 mg bisacodyl (Dulcolax) suppository 10 mg 10 mg, Rectal, Once, 1 dose, On Wed07/04/25 at 1300, Routine Given 07/04/2025 12:24 PM EDT 10 mg DULoxetine (Cymbalta) DR capsule 30 mg 30 mg, Oral, Daily, First dose on [place] 07/01/25 at 1445, Until Discontinued, Routine Given 07/04/2025 9:04 AM EDT 30 mg Given 07/03/2025 8:51 AM EDT 30 mg Given 07/02/2025 8:14 AM EDT 30 mg gabapentin (Neurontin) capsule 100 mg 100 mg, Oral, 2 times daily, First dose on [place] 07/01/25 at 1000, Until Discontinued, Routine Given 07/01/2025 9:31 AM EDT 100 mg gabapentin (Neurontin) capsule 600 mg 600 mg, Oral, 2 times daily, First dose (after last modification) on [place] 07/01/25 at 2100, Until Discontinued, Routine Given 07/04/2025 9:05 AM EDT 600 mg Given 07/03/2025 9:12 PM EDT 600 mg Given 07/03/2025 8:50 AM EDT 600 mg heparin (porcine) injection 7,500 Units 7,500 Units, Subcutaneous, Every 8 hours, First dose on [facility] 06/30/25 at 1610, Until Discontinued, Routine Given 07/03/2025 8:51 AM EDT 7,500 Units Right Lower Abdomen Given 07/02/2025 3:33 PM EDT 7,500 Units L eft Lower Abdomen Given 07/02/2025 8:14 AM EDT 7,500 Units L eft Lower Abdomen heparin (porcine) injection 7,500 Units 7,500 Units, Subcutaneous, Every 8 hours scheduled, First dose (after last modification) on Wed07/03/25 at 1400, Until Discontinued, Routine Given 07/04/2025 6:00 AM EDT 7,500 Units Left Lower Abdomen Given 07/03/2025 9:12 PM EDT 7,500 Units L eft Lower Abdomen Given 07/03/2025 2:14 PM EDT 7,500 Units R ight Lower Abdomen labetalol (Normodyne,Trandate) injection 20 mg 20 mg, Intravenous, Every 4 hours PRN, Starting on Wed07/01/25 at 0916, Until Wed07/04/25 at 2252, Routine, high blood pressure, SBP>160 lactated Ringer's infusion 75 mL/hr, Intravenous, Continuous, Starting on Wed06/30/25 at 0300, Until Wed07/01/25 at 0744, Routine New Bag 06/30/2025 3:27 AM EDT 75 mL/ hr 75 mL/hr magnesium hydroxide (Milk of Magnesia) 400 MG/5ML suspension 30 mL 30 mL, Oral, Daily, First dose on Wed07/04/25 at 0900, Until Discontinued, Routine Given 07/04/2025 9:04 AM EDT 30 mL methocarbamol (Robaxin) tablet 500 mg 500 mg, Oral, 3 times daily PRN, Starting on Wed06/30/25 at 0256, Until Wed07/04/25 at 2252, Routine, muscle spasms Given 07/04/2025 5:59 AM EDT 500 mg Given 07/01/2025 8:52 AM EDT 500 mg Given 06/30/2025 9:21 PM EDT 500 mg metoprolol succinate XL (Toprol-XL) 24 hr tablet 100 mg 100 mg, Oral, Daily, First dose on Wed07/04/25 at 0900, Until Discontinued, Routine metoprolol tartrate (Lopressor) tablet 50 mg 50 mg, Oral, 2 times daily, First dose on Wed07/01/25 at 1000, Until Discontinued, Routine Given 07/03/2025 8:50 AM EDT 50 mg Given 07/02/2025 8:13 PM EDT 50 mg Given 07/02/2025 8:14 AM EDT 50 mg metoprolol tartrate (Lopressor) tablet 50 mg 50 mg, Oral, 2 times daily, 1 dose, First dose (after last modification) on Wed07/03/25 at 2100, Routine Given 07/03/2025 9:12 PM EDT 50 mg morphine PF 2 mg 2 mg, Intravenous, Once, 1 dose, On Wed06/30/25 at 0525, Routine Given 06/30/2025 5:36 AM EDT 2 mg nystatin (Mycostatin) [id number] UNIT/GM powder 1 Application Topical, 2 times daily, First dose on Wed06/30/25 at 2100, Until Discontinued, Routine Given 07/04/2025 9:10 AM EDT 1 Application Given 07/03/2025 9:16 PM EDT 1 Application Given 07/03/2025 8:53 AM EDT 1 Application ondansetron (Zofran) injection 4 mg 4 mg, Intravenous, Every 6 hours PRN, Starting on Wed06/30/25 at 0256, Until Wed07/04/25 at 2252, Routine, vomiting, nausea ondansetron ODT (Zofran-ODT) disintegrating tablet 4 mg 4 mg, Oral, Every 6 hours PRN, Starting on Wed06/30/25 at 0256, Until Wed07/04/25 at 2252, Routine, nausea, vomiting oxyCODONE (Roxicodone) immediate release tablet 10 mg 10 mg, Oral, Every 6 hours PRN, Starting on Wed06/30/25 at 1454, Until Wed07/03/25 at 1316, Routine, severe pain Given 07/02/2025 8:13 PM EDT 10 mg Given 07/01/2025 8:52 AM EDT 10 mg Given 06/30/2025 9:21 PM EDT 10 mg oxyCODONE (Roxicodone) immediate release tablet 5 mg 5 mg, Oral, Every 6 hours PRN, Starting on Wed06/30/25 at 1454, Until Wed07/03/25 at 1316, Routine, moderate pain Given 06/30/2025 3:10 PM EDT 5 mg oxyCODONE (Roxicodone) immediate release tablet 5 mg 5 mg, Oral, Every 6 hours PRN, Starting on Wed07/03/25 at 1315, Until Wed07/04/25 at 2252, Routine, severe pain Given 07/04/2025 4:18 AM EDT 5 mg polyethylene glycol (Miralax) packet 17 g 17 g, Oral, Daily, First dose on Wed06/30/25 at 1550, Until Discontinued, Routine Given 06/30/2025 6:09 PM EDT 17 g polyethylene glycol (Miralax) packet 17 g 17 g, Oral, 2 times daily, First dose (after last modification) on Wed07/01/25 at 0915, Until Discontinued, Routine Given 07/04/2025 9:04 AM EDT 17 g Given 07/03/2025 9:11 PM EDT 17 g Given 07/03/2025 8:53 AM EDT 17 g senna-docusate (Pippa-Colace) 8.6-50 MG per tablet 1 tablet 1 tablet, Oral, 2 times daily, First dose on Wed06/30/25 at 2100, Until Discontinued, Routine Given 07/03/2025 8:50 AM EDT 1 tablet Given 07/02/2025 8:13 PM EDT 1 tablet Given 07/02/2025 8:15 AM EDT 1 tablet senna-docusate (Pippa-Colace) 8.6-50 MG per tablet 2 tablet 2 tablet, Oral, 2 times daily, First dose (after last modification) on Wed07/03/25 at 2100, Until Discontinued, Routine Given 07/04/2025 9:04 AM EDT 2 table ts Given 07/03/2025 9:12 PM EDT 2 tablets sodium chloride 0.9 % flush 10 mL 10 mL, Intravenous, Every 12 hours, First dose on Wed06/30/25 at 0300, Until Discontinued, Routine Given 07/04/2025 2:05 PM EDT 10 mL Given 07/04/2025 4:19 AM EDT 10 mL Given 07/03/2025 2:14 PM EDT 10 mL sodium chloride 0.9 % flush 10 mL 10 mL, Intravenous, As needed, Starting on Wed06/30/25 at 0254, Until Wed07/04/25 at 2252, Routine, line care documented in this encounter Active and Recently Administered Medications Times are shown in EDT. Scheduled Medication Order 07/02/2025 07/03/2025 07/04/2025 apixaban (Eliquis) tablet 5 mg 5 mg, Oral, 2 times daily, First dose on Wed07/04/25 at 1500, Until Discontinued, Routine 1500 (Given - Provid er: Ricardo Escobar) bisacodyl (Dulcolax) suppository 10 mg (COMPLETED) 10 mg, Rectal, Once, 1 dose, On Wed07/04/25 at 1300, Routine 1224 (Given - Provid er: Hali Palacios RN) DULoxetine (Cymbalta) DR capsule 30 mg 30 mg, Oral, Daily, First dose on Wed07/01/25 at 1445, Until Discontinued, Routine 0814 (Given - Provider: Ricardo Escobar) 0851 (Given - Provider: Hali Palacios RN) 0904 (Given - Provider: Hali Palacios RN) gabapentin (Neurontin) capsule 600 mg 600 mg, Oral, 2 times daily, First dose (after last modification) on Wed07/01/25 at 2100, Until Discontinued, Routine 0814 (Given - Provider: Ricardo Escobar)2013 (Given - Provider: Jean Pierre Leon RN) 0850 (Given - Provider: Hali Palacios RN)2112 (Given - Provider: Nina Adhikari, RITA) 0905 (Given - Provider: Hali Palacios RN)2100 (Canceled Entry - Provider: Automatic Discharge Provider - Comment: Automatically canceled at discontinue of medication order) heparin (porcine) injection 7,500 Units (CANCELED) 7,500 Units, Subcutaneous, Every 8 hours, First dose on Wed06/30/25 at 1610, Until Discontinued, Routine 0814 (Given - Provider: Ricardo Escobar)1533 (Given - Provider: Ricardo Escobar) 0230 (Not Given - Provider: Jean Pierre Leon RN - Reason: Patient/family refused)0851 (Given - Provider: Hali Palacios RN) heparin (porcine) injection 7,500 Units (CANCELED) 7,500 Units, Subcutaneous, Every 8 hours scheduled, First dose (after last modification) on Wed07/03/25 at 1400, Until Discontinued, Routine 1414 (Given - Provider: Hali Palacios RN)2112 (Given - Provider: Nina Adhikari RN) 0600 (Given - Provider: Nina Adhikari RN) magnesium hydroxide (Milk of Magnesia) 400 MG/5ML suspension 30 mL 30 mL, Oral, Daily, First dose on Wed07/04/25 at 0900, Until Discontinued, Routine 09 (Given - Provid er: Hali Palacios RN) metoprolol succinate XL (Toprol-XL) 24 hr tablet 100 mg(Linked Group 1) 100 mg, Oral, Daily, First dose on Wed07/04/25 at 0900, Until Discontinued, Routine 09 (Not Given - Provider: Hali Palacios RN - Reason: Hold for condition: must add comment - Comment: HR 57) metoprolol tartrate (Lopressor) tablet 50 mg (CANCELED) 50 mg, Oral, 2 times daily, First dose on Wed07/01/25 at 1000, Until Discontinued, Routine 08 (Given - Provider: Ricardo Escobar)2012 (Given - Provider: Jean Pierre Leon RN) 0850 (Given - Provider: Hali Palacios RN) metoprolol tartrate (Lopressor) tablet 50 mg (COMPLETED)(Linked Group 1) 50 mg, Oral, 2 times daily, 1 dose, First dose (after last modification) on Wed07/03/25 at 2100, Routine 2111 (Given - Provider: Nina Adhikari RN) nystatin (Mycostatin) [id number] UNIT/GM powder 1 Application Topical, 2 times daily, First dose on Wed06/30/25 at 2100, Until Discontinued, Routine 08 (Given - Provider: Ricardo Escobar)2013 (Given - Provider: Jean Pierre Leon RN) 0853 (Given - Provider: Hali Palacios RN)2115 (Given - Provider: Nina Adhikari RN) 09 (Given - Provider: Hali Palacios RN)2099 (Canceled Entry - Provider: Automatic Discharge Provider - Comment: Automatically canceled at discontinue of medication order) polyethylene glycol (Miralax) packet 17 g 17 g, Oral, 2 times daily, First dose (after last modification) on Wed07/01/25 at 0915, Until Discontinued, Routine 0814 (Given - Provider: Ricardo Escobar)2304 (Not Given - Provider: Jean Pierre Leon RN - Reason: Patient/family refused) 0853 (Given - Provider: Hali Palacios RN)211 (Given - Provider: Nina Adhikari RN) 0904 (Given - Provider: Hali Palacios RN)2099 (Canceled Entry - Provider: Automatic Discharge Provider - Comment: Automatically canceled at discontinue of medication order) senna-docusate (Pippa-Colace) 8.6-50 MG per tablet 1 tablet (CANCELED) 1 tablet, Oral, 2 times daily, First dose on Wed06/30/25 at 2100, Until Discontinued, Routine 0815 (Given - Provider: Ricardo Escobar)2012 (Given - Provider: Jean Pierre Leon RN) 0850 (Given - Provider: Hali Palacios RN) senna-docusate (Pippa-Colace) 8.6-50 MG per tablet 2 tablet 2 tablet, Oral, 2 times daily, First dose (after last modification) on Wed07/03/25 at 2100, Until Discontinued, Routine 2111 (Given - Provider: Nina Adhikari RN) 09 (Given - Provider: Hali Palacios RN)2099 (Canceled Entry - Provider: Automatic Discharge Provider - Comment: Automatically canceled at discontinue of medication order) sodium chloride 0.9 % flush 10 mL(Linked Group 2) 10 mL, Intravenous, Every 12 hours, First dose on Wed06/30/25 at 0300, Until Discontinued, Routine 0500 (Given - Provider: Jean Pierre Leon RN)1529 (Canceled Entry - Provider: Ricardo Escobar) 0230 (Given - Provider: Jean Pierre Leon RN)1414 (Given - Provider: Hali Palacios RN) 0419 (Given - Provider: Nina Adhikari RN)1405 (Given - Provider: Hali Palacios RN) PRN Medication Order 07/02/2025 07/03/2025 07/04/2025 acetaminophen (Tylenol) tablet 500 mg 500 mg, Oral, Every 6 hours PRN, Starting on Wed06/30/25 at 0256, Until Wed07/04/25 at 2252, Routine, mild pain, moderate pain 0559 (Given - Provider: Nina Adhikari RN) labetalol (Normodyne,Trandate) injection 20 mg 20 mg, Intravenous, Every 4 hours PRN, Starting on Wed07/01/25 at 0916, Until Wed07/04/25 at 2252, Routine, high blood pressure, SBP>160 methocarbamol (Robaxin) tablet 500 mg 500 mg, Oral, 3 times daily PRN, Starting on Wed06/30/25 at 0256, Until Wed07/04/25 at 2252, Routine, muscle spasms 0559 (Given - Provider: Nina Adhikari, RITA) ondansetron (Zofran) injection 4 mg(Linked Group 3) 4 mg, Intravenous, Every 6 hours PRN, Starting on Wed06/30/25 at 0256, Until Wed07/04/25 at 2252, Routine, vomiting, nausea ondansetron ODT (Zofran-ODT) disintegrating tablet 4 mg(Linked Group 3) 4 mg, Oral, Every 6 hours PRN, Starting on Wed06/30/25 at 0256, Until Wed07/04/25 at 2252, Routine, nausea, vomiting oxyCODONE (Roxicodone) immediate release tablet 10 mg (CANCELED) 10 mg, Oral, Every 6 hours PRN, Starting on Wed06/30/25 at 1454, Until Wed07/03/25 at 1316, Routine, severe pain 2012 (Given - Provider: Jean Pierre Leon RN) oxyCODONE (Roxicodone) immediate release tablet 5 mg(Linked Group 4) 5 mg, Oral, Every 6 hours PRN, Starting on Wed07/03/25 at 1315, Until Wed07/04/25 at 2252, Routine, severe pain 2111 (Return to [facility] - Provider: Nina Adhikari RN) 0418 (Given - Provider: Nina Adhikari RN) sodium chloride 0.9 % flush 10 mL(Linked Group 2) 10 mL, Intravenous, As needed, Starting on Wed06/30/25 at 0254, Until Wed07/04/25 at 2252, Routine, line care Linked Groups Order Group 1: metoprolol tartrate (Lopressor) tablet 50 mg (COMPLETED)Jump to med 50 mg, Oral, 2 times daily, 1 dose, First dose (after last modification) on Wed07/03/25 at 2100, Routine Followed by metoprolol succinate XL (Toprol-XL) 24 hr tablet 100 mgJump to med 100 mg, Oral, Daily, First dose on Wed07/04/25 at 0900, Until Discontinued, Routine Group 2: Insert peripheral IV (CANCELED) Once, On Wed06/30/25 at 0255, For 1 occurrence And Saline lock IV (CANCELED) Once, On Wed06/30/25 at 0255, For 1 occurrence And sodium chloride 0.9 % flush 10 mLJump to med 10 mL, Intravenous, Every 12 hours, First dose on Wed06/30/25 at 0300, Until Discontinued, Routine And sodium chloride 0.9 % flush 10 mLJump to med 10 mL, Intravenous, As needed, Starting on Wed06/30/25 at 0254, Until Wed07/04/25 at 2252, Routine, line care Group 3: ondansetron ODT (Zofran-ODT) disintegrating tablet 4 mgJump to med 4 mg, Oral, Every 6 hours PRN, Starting on Wed06/30/25 at 0256, Until Wed07/04/25 at 2252, Routine, nausea, vomiting Or ondansetron (Zofran) injection 4 mgJump to med 4 mg, Intravenous, Every 6 hours PRN, Starting on Wed06/30/25 at 0256, Until Wed07/04/25 at 2252, Routine, vomiting, nausea Or ondansetron (Zofran) 4 MG/5ML solution 4 mg (CANCELED) 4 mg, Oral, Every 6 hours PRN, Starting on Wed06/30/25 at 0256, Until Wed07/03/25 at 0936, Routine, nausea, vomiting Group 4: oxyCODONE (Roxicodone) immediate release tablet 5 mgJump to med 5 mg, Oral, Every 6 hours PRN, Starting on Wed07/03/25 at 1315, Until Wed07/04/25 at 2252, Routine, severe pain documented in this encounter Additional Health Concerns Assessment Noted Time A Body Mass Index follow-up plan has been documented for the patient 07/04/2025 8:14 PM EDT documented as of this encounter Care Teams Plastic Surgery Specialist Relationship Specialty Start Date End Date Rosendo Rincon MD [address] [id number] PCP - General 02/28/21 documented as of this encounter
--- OUTSIDE RECORDS SUMMARY | 2025-07-13 09:45 | XMS_ITS ---
Author Organization [facility] Address [address] [place] [id number] Care Team Providers Care Aviation Technical Systems Specialist Name Role Phone Rosendo Rincon Primary Care Provider [phone] REASON FOR VISIT 6 months Encounters Encounter Location Date Provider Diagnosis [facility] [address] [place] [phone] 07/13/2025 Rosendo Rincon Plan Of Treatment No Information Progress Notes * Letty FORBESEDOB: [birth year] (89 yo F)Acc No.[id number]:07/13/2025 Progress Notes Patient: Letty KHAN Provider: Brian Rincon M.D. :1935 A ge:89 Y S ex:Female Date:07/13/2025 [id number] Subjective: * Chief Complaints: * 1 . 6 months. * Medical History: Objective: * Vitals: Assessment: Plan: * Treatment: * Images: Billing Information: * Visit Code: * Procedure Codes: * Electronic signature of Dahiana Rincon MD on 07/21/2025 at 01:48 AM EDT Sign off status: Pending * Provider: Brian Rincon M.D. Date: 0 07/13/2025 Generated for Thea gonzalez/Filiberto/Dustin on: 1 01:48 AM EDT
--- OUTSIDE RECORDS SUMMARY | 2025-07-17 10:30 | XMS_ITS ---
Author Organization [facility] Address [address] [facility] [address] [facility] [address] [place] [id number] Care Team Providers Care Slide Attendant Name Role Phone Rosendo Rincon Primary Care Provider Chariyt Del Angel [phone] Allergies Allergen (clinical drug ingredient) Drug/Non Drug Allergy documented on EMR Reaction Allergy Type Onset Date Status allopurinol Allopurinol rash Drug Allergy Act jono predniSONE Unknown Drug Allergy Active REASON FOR VISIT [facility] VISIT Encounters Encounter Location Date Provider Diagnosis [facility] [address] [facility] [address] [facility] [address] [place] [phone] 07/17/2025 Charity Del Angel Plan Of Treatment No Information Progress Notes * Letty FORBESEDOB: [birth year] (89 yo F)Acc No.[id number]:07/17/2025 Progress Notes Patient: Letty KHAN Provider: BHARAT Shielsd :1935 A ge:89 Y S ex:Female Date:07/17/2025 Address[address] [address] [id number] Pcp:Rosendo Rincon Subjective: * Chief Complaints: * 1 . [facility] VISIT. * HPI: H PI: For routine Penitentiary visit; chart reviewed and patient examined; see ROS; she is visiting with 2 yazidi friends. * ROS: R ESPIRATORY: no S hortness of breath, c ontinues with O2 per NC.?no C hest pain. n o C ough. G ASTROENTEROLOGY: Positive for f eels she is eating well. n o N ausea. n o V omiting. n o D iarrhea. n o C onstipation. M USCULOSKELETAL: Positive for w orking with PT, muscle weakness, sits up in a chair. n o J oint pain, b ack pain; wears the turtle shell . ? * Medical History: H ypertension, Arthritis, Allergic [...] polyps removed , LT SI Injection - [facility] 04/18/2020, LT Heart Cath- [facility] 01/2021. * Hospitalization/Major Diagno stic Procedure: A KI, Hyperkalemia, Fall at Home- [facility] 04/2021. * Family History: F [...] status: Does not smoke. Alcohol: No. * Allergies: p redniSONE, Allopurinol: rash. Objective: * Vitals: * Examination: G eneral Examination: General Appearance: N AD, alert, pleasant, well nourished and hydrated; sitting at bedside; has turtle shell on; visiting with her 2 friends; she does appear comfortable. H eart: R RR. L ungs: C TAB A&P. A bdomen: b owel sounds present, soft. N eurologic Exam: a lert and oriented. B ack: w earing shell brace. E xtremities: l ymphedema bilateral lower legs. Assessment: Plan: * Treatment: * Images: Billing Information: * Visit Code: * Procedure Codes: * Electronic signature of Ladi Del Angel APRN on 07/21/2025 at 01:48 AM EDT Sign off status: Pending * Provider: BHARAT Shields Date: 0 07/17/2025 Generated for Thea gonzalez/Filiberto/Dustin on: 01:48 AM EDT History and Physical Notes * Examination Category Sub-Category Detail Notes Category Not es General Examination Heart: RRR Lungs: CTAB A&P Abdomen: bowel sounds present , soft Extremities: lymphedema bilateral lower legs General Appearance: NAD, alert, pleasant , well nourished and hydrated; sitting at bedside; has turtle shell on; visiting with her 2 friends; she does appear comfortable Neurologic Exam: alert and oriented Back: wearing shell brace
--- OUTSIDE RECORDS SUMMARY | 2025-07-21 01:48 | XMS_ITS | Clinical Summary ---
Author Organization Healthcare Address [address] [place] [address] Care Team Providers Care Shaping Machine Operator Name Role Phone Rosendo Rincon MD Primary Care Provider [phone] Allergies Active Allergy Reactions Criticality Noted Date Comments Allopurinol Rash Low 06/30/2025 Prednisone Unknown - Patient st ates they do not know rxn details Low 06/30/2025 Medications Eliquis 5 MG tablet Take 1 tablet by mouth 2 times a day. 06/06/20 25 Active gabapentin (Neurontin) 600 MG tablet Take 1 tablet by mouth 2 times a day. 06/27/20 25 Active spironolactone (Aldactone) 25 MG tablet Take 0.5 tablets by mouth every morning. 06/08/20 25 Active ranolazine (Ranexa) 500 MG 12 hr tablet Take 1 tablet by mouth 2 times a day. 04/09/20 25 Active febuxostat (Uloric) 40 MG tablet Take 1 tablet by mouth every morning. 06/20/20 25 Active diclofenac (Voltaren) 1 % topical gel Place 1-2 g on the skin 2 times a day as needed. Active loratadine (Claritin) 10 MG tablet Take 1 tablet by mouth every morning. Active cholecalciferol (Vitamin D-3) 50 MCG (2000 UT) capsule Take 1 capsule by mouth every morning. Active esomeprazole (NexIUM) [address] capsule Take 1 capsule by mouth daily as needed. Do not open capsule. Active Multiple Vitamins-Minerals (multivitamin with minerals) tablet Take 1 tablet by mouth daily. Active tolterodine LA (Detrol LA) 4 MG 24 hr capsule Take 1 capsule by mouth daily. 04/09/20 25 Active torsemide (Demadex) 20 MG tablet Take 1 tablet by mouth daily. 06/08/20 Active colchicine (Colcrys) 0.6 MG tablet Take 1 tablet by mouth 2 times a day as needed for muscle/joint pain. 05/09/20 Active doxazosin (Cardura) 4 MG tablet Take 1 tablet by mouth 2 times a day. 04/11/20 Active NON FORMULARY Take 1 Application by mouth as needed. ACT Dry Mouth Lozenge , OTC, used as needed. Active acetaminophen (Tylenol) 500 MG tablet Take 1 tablet by mouth every 6 hours as needed for pain. 07/04/20 Active DULoxetine (Cymbalta) [address] capsule Take 1 capsule by mouth daily. Do not crush or chew. 07/05/20 Active metoprolol succinate XL (Toprol-XL) 100 MG 24 hr tablet Take 1 tablet by mouth daily. Do not crush or chew. 07/05/20 Active methocarbamol (Robaxin) 500 MG tablet Take 1 tablet by mouth 3 times a day as needed for muscle spasms. 07/04/20 Active nystatin (Mycostatin) 573158 UNIT/GM powder Apply to affected area BID 07/04/20 Active ondansetron ODT (Zofran-ODT) 4 MG disintegrating tablet Dissolve 1 tablet on the tongue every 6 hours as needed for nausea or vomiting. 07/04/20 Active polyethylene glycol (Miralax) 17 g packet Take 17 g by mouth 2 times a day. 07/04/20 Active senna-docusate (Pippa-Colace) 8.6-50 MG tablet Take 2 tablets by mouth 2 times a day. 07/04/20 Active doxycycline (Periostat) 20 MG tablet Take 1 tablet by mouth 2 times a day. 05/07/20 Discontinu ed(Entered in Error) metoprolol succinate XL (Toprol-XL) 100 MG 24 hr tablet Take 1 tablet by mouth every morning. 04/10/20 Discontinu ed(Stop Taking at Discharge) acetaminophen (Tylenol 8 Hour) 650 MG ER tablet Take 1 tablet by mouth 2 times a day. Do not crush, chew, or split. Discontinu ed(Stop Taking at Discharge) DULoxetine (Cymbalta) [address] capsule Take 1 capsule by mouth daily. 06/11/20 Discontinu ed(Stop Taking at Discharge) oxyCODONE (Roxicodone) 5 MG immediate release tablet Take 1 tablet by mouth every 6 hours as needed for severe pain for up to 3 days. 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 TLSO brace delivered Uprights completed in brace and stable PT/OT eval recs ASHLYN Obesity, Class III, BMI 40-49.9 (morbid obesity) 07/01/2025 Assessment & Plan (07/03/2025 5:32 PM EDT): Can complicate on all aspects of care Assessment & Plan (07/02/2025 5:31 PM EDT): Can complicate on all aspects of care Assessment & Plan (07/01/2025 10:36 AM EDT): Can complicate on all aspects of care 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 Assessment & Plan (07/03/2025 5:32 PM EDT): Vascular consulted No treatment of further inpatient work up Follow up in clinic after discharge Assessment & Plan (07/02/2025 5:31 PM EDT): Vascular consulted No treatment of further inpatient work up Follow up in clinic after discharge Assessment & Plan (07/01/2025 10:36 AM EDT): Vascular consulted No treatment of further inpatient work up Follow up in clinic after discharge Atrial fibrillation 06/30/2025 Assessment & Plan (07/03/2025 5:32 PM EDT): Resumed home metoprolol succinate XL Resume eliquis at d/c Assessment & Plan (07/02/2025 5:31 PM EDT): Resume home metoprolol Resume eliquis at d/c Assessment & Plan (07/01/2025 10:36 AM EDT): Resume home metoprolol Resume eliquis at d/c Chronic pain 06/30/2025 Assessment & Plan (07/03/2025 5:32 PM EDT): MMPC Can complicate care Assessment & Plan (07/02/2025 5:31 PM EDT): MMPC Can complicate care Assessment & Plan (07/01/2025 10:36 AM EDT): MMPC Can complicate care Diastolic dysfunction 06/30/2025 Assessment & Plan (07/03/2025 5:32 PM EDT): Resume home metoprolol succinate XL Assessment & Plan (07/02/2025 5:31 PM EDT): Resume home meds as appropriate Assessment & Plan (07/01/2025 10:36 AM EDT): Resume home meds as appropriate Essential hypertension 06/30/2025 Assessment & Plan (07/03/2025 5:32 PM EDT): Resume home metoprolol Anti-hypertensives PRN CTM Assessment & Plan (07/02/2025 5:31 PM EDT): Resume home metoprolol Anti-hypertensives PRN CTM Assessment & Plan (07/01/2025 10:36 AM EDT): Resume home metoprolol Anti-hypertensives PRN CTM Gastroesophageal reflux disease 06/30/2025 Assessment & Plan (07/03/2025 5:32 PM EDT): Resume home meds as appropriate Assessment & Plan (07/02/2025 5:31 PM EDT): Resume home meds as appropriate Assessment & Plan (07/01/2025 10:36 AM EDT): Resume home meds as appropriate Gout 06/30/2025 Assessment & Plan (07/03/2025 5:32 PM EDT): Resume home meds as appropriate Assessment & Plan (07/02/2025 5:31 PM EDT): Resume home meds as appropriate Assessment & Plan (07/01/2025 10:36 AM EDT): Resume home meds as appropriate Hypertriglyceridemia 06/30/2025 Assessment & Plan (07/03/2025 5:32 PM EDT): Resume home meds as appropriate Assessment & Plan (07/02/2025 5:31 PM EDT): Resume home meds as appropriate Assessment & Plan (07/01/2025 10:36 AM EDT): Resume home meds as appropriate Mixed hyperlipidemia 06/30/2025 Assessment & Plan (07/03/2025 5:32 PM EDT): Resume home meds as appropriate Assessment & Plan (07/02/2025 5:31 PM EDT): Resume home meds as appropriate Assessment & Plan (07/01/2025 10:36 AM EDT): Resume home meds as appropriate Hypokalemia 06/30/2025 Assessment & Plan (07/03/2025 5:32 PM EDT): Resolved Assessment & Plan (07/02/2025 5:31 PM EDT): Resolved Assessment & Plan (07/01/2025 10:36 AM EDT): Resolved 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 Lumbar spinal stenosis 06/30/2025 Assessment & Plan (07/03/2025 5:32 PM EDT): Chronic Follow up with PCP Assessment & Plan (07/02/2025 5:31 PM EDT): Chronic Follow up with PCP Assessment & Plan (07/01/2025 10:36 AM EDT): Chronic Follow up with PCP Lymphedema 06/30/2025 Assessment & Plan (07/03/2025 5:32 PM EDT): Chronic Follow up with PCP Assessment & Plan (07/02/2025 5:31 PM EDT): Chronic Follow up with PCP Assessment & Plan (07/01/2025 10:36 AM EDT): Chronic Follow up with PCP Polyneuropathy 06/30/2025 Assessment & Plan (07/03/2025 5:32 PM EDT): - Begin gabapentin Assessment & Plan (07/02/2025 5:31 PM EDT): - Begin colleen Assessment & Plan (07/01/2025 10:36 AM EDT): - Begin colleen Psoriasis 06/30/2025 Recurrent falls 06/30/2025 Assessment & Plan (07/03/2025 5:32 PM EDT): Fall risk, follow precautions Assessment & Plan (07/02/2025 5:31 PM EDT): Pending TLSO brace, f/u films, and PT/OT Assessment & Plan (07/01/2025 10:36 AM EDT): Pending TLSO brace, f/u films, and PT/OT Sciatica 06/30/2025 Skin sensation disturbance 06/30/2025 Stage 4 chronic kidney disease 06/30/2025 Assessment & Plan (07/03/2025 5:32 PM EDT): Avoid nephrotoxins, avoid NSAIDs, renally dose medications Assessment & Plan (07/02/2025 5:31 PM EDT): Avoid nephrotoxins Assessment & Plan (07/01/2025 10:36 AM EDT): Avoid nephrotoxins Urge incontinence of urine 06/30/2025 Venous stasis dermatitis 06/30/2025 Assessment & Plan (07/03/2025 5:32 PM EDT): Chronic Follow up w/PCP Assessment & Plan (07/02/2025 5:31 PM EDT): Chronic Follow up w/PCP Assessment & Plan (07/01/2025 10:36 AM EDT): Chronic Follow up w/PCP Vitamin D deficiency 06/30/2025 Fall at home, subsequent encounter 06/30/2025 Assessment & Plan (07/03/2025 5:32 PM EDT): TLSO brace delivered Uprights completed in brace and stable PT/OT eval recs ASHLYN Assessment & Plan (07/02/2025 5:31 PM EDT): Pending TLSO, films, PT/OT Assessment & Plan (07/01/2025 10:36 AM EDT): Pending TLSO, films, PT/OT Fall 06/30/2025 Assessment & Plan (07/03/2025 5:32 PM EDT): Admit to SGT 5 Tertiary exam 07/01 Assessment & Plan (07/02/2025 5:31 PM EDT): Admit to SGT 5 Tertiary completed 07/01 Assessment & Plan (07/01/2025 10:44 AM EDT): Admit to SGT 5 Tertiary completed 07/01 Resolved Problems Problem Noted Date Diagnosed Date Resolved Date Cholelithiasis without obstruction 06/30/2025 07/01/2025 Hypomagnesemia 06/30/2025 07/01/2025 Encounters Date Type Department Care Team Description 07/05/2025 Orders Only [facility] [address] [place] [address] Tiff Terrazas MD Occlusion of celiac artery (Primary Dx) 07/02/2025 Travel 06/30/2025 Travel 06/29/2025 8:40 PM EDT - 07/04/2025 8:52 PM EDT Hospital Encounter [facility] [address] [place] [address] Kathryn Gallego MD Prabhu, Ashwin B, MD Tucker, Brian K, DO Wheelock, Brittany N, MD Coile, Evelyn B, MD Wei, Helen S, MD Fall, initial encounter (Primary Dx); Occlusion of celiac artery; Closed fracture of transverse process of lumbar vertebra, initial encounter ([facility]) Discharge Disposition: Detention Facility 06/29/2025 Travel 06/29/2025 Orders Only External Location [address] [place] [id number] Provider, External 06/29/2025 Orders Only External Location [address] [place] [address] Provider, External 06/29/2025 Orders Only External Location [address] [place] [address] Provider, External 06/29/2025 Orders Only External Location [address] [place] [address] Provider, External 06/29/2025 Orders Only External Location [address] [place] [address] Provider, External 06/29/2025 Orders Only External Location [address] [place] [address] Provider, External 06/29/2025 Orders Only External Location [address] [place] [address] Provider, External from Last 3 Months Immunizations Immunization Administration Dates Next Due Influenza, high-dose, quadrivalent 09/25,09/06/2015,09/04/2014,08/31/20 13 Influenza, seasonal, injectable 07/10/2011,08/27,10/14/2009 Pneumococcal Conjugate PCV 13 10/09/2013 Pneumococcal Polysaccharide PPV23 07/07/2024,06/2016,09/06/2015 Tdap 10/09/2013 Social History Tobacco Use Types Packs/Day Years [...] any time in the past 12 [facility], were you homeless or living in a snf (including now)? No 07/02/2025 [facility] Utilities Answer Date Recorded In the past 12 months has th e electric, gas, oil, or water company threatened to shut off services in your home? No 07/02/2025 Comments No Sex and Gender Information Value Date Recorded Sex Assigned at Not on file Legal Sex Female 7:42 PM EDT Gender Identity Not on file Sexual Orientation Not on file Last Filed Vital Signs Vital Sign Reading [...] Mass Index 41.6 06/30/2025 4:06 PM EDT Plan of Treatment Upcoming Encounters Date Type Department Care Team (Late st Contact Info) Description 07/25/2025 10:00 AM EDT Office Visit Medical Office [facility] [address] [place] [address] Prachi Rizzo PA [address] [place] [address] 08/28/2025 12:30 PM EST Appointment [facility] [address] [place] [address] 08/28/2025 1:40 PM EST Office Visit [facility] [address] [place] [address] Tiff Terrazas MD [address] [facility] [address] [place] [address] Health Maintenance Due Date Last Done Comments [facility]-Bone Density Scan 1935 [facility]-Depression Screening 1935 [facility]-Medicare Annual Wellness (AWV) 1935 [facility]-/Child/Adol SDOH Screenings 1935 [facility]-Zoster Vaccines (1 of 2) 1985 [facility]-RSV Vaccine: 60+ Years or (1 - 1-dose 75+ series) 2010 [facility]-DCFBT-60 Vaccine (3 - Moderna risk series) 12/27/2020 11/29/2020, 10/29/2020 [facility]-DTaP,Tdap,and Td Vaccines (2 - Td or Tdap) 10/09/2023 10/09/2013 [facility]-Influenza Vaccine (#1) 06/18/202508/12, 09/25/2016, 09/06/2015, Additional history exists [facility]- SDOH Screenings 12/30/2025 [facility]-Adult SDOH Screenings 12/30/2025 07/02/2025 [facility]-Pneumococcal Vaccine: 50+ Years Completed 07/07/2024, 09/25/2016, 09/06/2015, Additional history exists [facility]-Obesity Intervention Completed 06/29/2025 HPV Vaccines Aged Out No longer eligi ble based on patient's age to complete this topic [facility]-HIB Vaccines Aged Out No longer e ligible based on patient's age to complete this topic [facility]-Hepatitis A Vaccines Aged Out No longer eligible based on patient's age to complete this topic [facility]-IPV Vaccines Aged Out No longer e ligible based on patient's age to complete this topic [facility]-Rotavirus Vaccines Aged Out No lo nger eligible based on patient's age to complete this topic Procedures Procedure Name Priority Date/Time Associated Diagnosis Comments URINALYSIS MICROSCOPIC FOR UA REFLEX STAT 07/04/2025 1:53 PM EDT URINE STEVENSON PANEL Pending Discharge 07/04/2025 1:53 PM EDT URINALYSIS WITH REFLEX MICROSCOPIC Pending Discharge 07/04/2025 1:53 PM EDT URINALYSIS WITH REFLEX MICROSCOPIC AND CULTURE Routine 07/04/2025 1:53 PM EDT XR THORACOLUMBAR SPINE 2 VIEWS Routine 07/02/2025 4:53 PM EDT WOUND OSTOMY EVAL AND TREAT Routine 06/30/2025 4:55 PM EDT MR LUMBAR SPINE WO IV CONTRAST STAT 06/30/2025 6:[address] CERVICAL SPINE WO IV CONTRAST STAT 06/30/2025 2:[address] THORACIC SPINE WO IV CONTRAST STAT 06/30/2025 2:[address] LUMBAR SPINE WO IV CONTRAST STAT 06/30/2025 2:14 AM EDT APTT STAT 06/29/2025 11:09 PM EDT PROTHROMBIN TIME(PT) / INR STAT 06/29/2025 11:09 PM EDT COMPREHENSIVE METABOLIC PANEL, PLASMA STAT 06/29/2025 11:09 PM EDT CBC WITH AUTO DIFFERENTIAL STAT 06/29/2025 11:[address] OUTSIDE IMAGES 06/29/2025 2:[address] OUTSIDE IMAGES 06/29/2025 2:[address] OUTSIDE IMAGES 06/29/2025 2:[address] OUTSIDE IMAGES 06/29/2025 2:2 9 PM EDT XR OUTSIDE IMAGES 06/29/2025 2:0 4 PM EDT XR OUTSIDE IMAGES 06/29/2025 2:0 4 PM EDT XR OUTSIDE IMAGES 06/29/2025 2:0 4 PM EDT from Last 3 Months Results * Urine Stevenson Panel (07/04/2025 1:53 PM EDT) Extra Reflex urine culture not indicated 07/04/2025 4:01 PM EDT [facility] Urine Urine specimen obtained by clean catch procedure / Unknown Non-blood Collection / Unknown 07/04/2025 1:53 PM EDT 07/04/2025 2:20 PM EDT Kevin Rasheed LAB URINE ORDERABLES Final Result Performing Organization Address [facility] de Phone Number [facility] [address] [place] [id number] * Urinalysis Microscopic Examination (07/04/2025 1:53 PM EDT) Urine Urine specimen obtained by clean catch procedure / Unknown Non-blood Collection / Unknown 07/04/2025 1:53 PM EDT 07/04/2025 2:20 PM EDT us Kevin Rasheed LAB URINE ORDERABLES Final Result Performing Organization Address City/[facility]/ZIP Co de Phone Number [facility] [address] [place] [address] * (ABNORMAL) Urinalysis with reflex microscopic (Culture NOT Included) (07/04/2025 1:53 PM EDT) Color, Urine Yellow LAB URINALYSIS - AUTOMATED METHOD 07/04/2025 3:18 PM EDT [facility] Clarity, Urine Clear LAB URINALYSIS - AUTOMATED METHOD 07/04/2025 3:18 PM EDT [facility] Spec [place], Urine 1.012 1.005 - 1.030 LAB URINALYSIS - AUTOMATED METHOD 07/04/2025 3:18 PM EDT [facility] pH, Urine 6.0 5.0 - 8.0 LAB URINALYSIS - AUTOMATED METHOD 07/04/2025 3:18 PM EDT [facility] Protein, Urine Negative Negative mg/dL LAB URINALYSIS - AUTOMATED METHOD 07/04/2025 3:18 PM EDT [facility] Glucose, Urine Negative Negative mg/dL LAB URINALYSIS - AUTOMATED METHOD 07/04/2025 3:18 PM EDT [facility] Ketones, Urine Negative Negative mg/dL LAB URINALYSIS - AUTOMATED METHOD 07/04/2025 3:18 PM EDT [facility] Blood, Urine Large(A) Negative LAB URINALYSIS - AUTOMATED METHOD 07/04/2025 3:18 PM EDT [facility] Bilirubin, Urine Negative Negative LAB URINALYSIS - AUTOMATED METHOD 07/04/2025 3:18 PM EDT [facility] Urobilinogen, Urine 0.2 0.2 to 1.0 mg/dL LAB URINALYSIS - AUTOMATED METHOD 07/04/2025 3:18 PM EDT [facility] Leukocytes, Urine Trace(A) Negative LAB URINALYSIS - AUTOMATED METHOD 07/04/2025 3:18 PM EDT [facility] Nitrite, Urine Negative Negative LAB URINALYSIS - AUTOMATED METHOD 07/04/2025 3:18 PM EDT [facility] RBC, Urine 1 0 to 3 /HPF LAB URINALYSIS - AUTOMATED METHOD 07/04/2025 3:18 PM EDT [facility] Comment:Confirmed WBC, Urine 0 - 5 0 to 5 /HPF LAB URINALYSIS - AUTOMATED METHOD 07/04/2025 3:18 PM EDT [facility] Squamous Epithelial Cells 0 - 2 0 to 5 /HPF LAB URINALYSIS - AUTOMATED METHOD 07/04/2025 3:18 PM EDT [facility] Hyaline Casts 0 - 2 0 to 5 /LPF LAB URINALYSIS - AUTOMATED METHOD 07/04/2025 3:18 PM EDT [facility] Bacteria, Urine Negative Negative LAB URINALYSIS - AUTOMATED METHOD 07/04/2025 3:18 PM EDT [facility] Urine Urine specimen obtained by clean catch procedure / Unknown Non-blood Collection / Unknown 07/04/2025 1:53 PM EDT 07/04/2025 2:20 PM EDT Narrative [facility] - 07/04/2025 3:18 PM EDT Performed by manual method us Kevin Rasheed LAB URINE ORDERABLES Final Result [facility] [address] [place] [address] * XR Thoracolumbar Spine 2 Views (07/02/2025 [...] Flash Casiano MD on 07/02/2025 4:58 PM Brie Mcgraw MD IMG XR PROCEDURES Final [...] findings were discussed via secure chat with KEVIN LEGER on 06/30/2025 9:10 AM by Sandrine Jovel [...] findings were discussed via secure chat with KEVIN LEGER on06/30/2025 9:10 AM by Sandrine Jovel with acknowledgment of theresults. Drafted by Sandrine Jovel on 06/30/2025 8:56 AM Final report signed by Sandrine Jovel on 06/30/2025 9:15 AM us Kavon Hinojosa MD IMG MRI PROCEDURES Final Resu lt * CT Lumbar Spine wo IV Contrast [...] Total DLP (Dose-Length Product): 2007.18 mGy.cm (accession [id number]), 2007.18 mGy.cm (accession [id number]), 2007.18 mGy.cm (accession [id number]). Please note: The reported value represents the [...] Total DLP (Dose-Length Product): 2007.18 mGy.cm (accession [id number]),2007.18 mGy.cm (accession [id number]), 2008.18 mGy.cm (accession [id number]).Please note: The reported value represents the total [...] 06/30/2025 3:13 AM Final report signed by nAgela Agosto MD on 06/30/2025 3:44 AM Narrative [...] Total DLP (Dose-Length Product): 2007.18 mGy.cm (accession [id number]), 2007.18 mGy.cm (accession [id number]), 2007.18 mGy.cm (accession [id number]). Please note: The reported value represents the [...] Total DLP (Dose-Length Product): 2007.18 mGy.cm (accession [id number]),2007.18 mGy.cm (accession [id number]), 2007.18 mGy.cm (accession [id number]).Please note: The reported value represents the total [...] CT PROCEDURES Final Resul t * CT Cervical Spine wo IV Contrast [...] Total DLP (Dose-Length Product): 2007.18 mGy.cm (accession [id number]), 2007.18 mGy.cm (accession [id number]), 2007.18 mGy.cm (accession [id number]). Please note: The reported value represents the [...] Total DLP (Dose-Length Product): 2007.18 mGy.cm (accession [id number]),2007.18 mGy.cm (accession [id number]), 2007.18 mGy.cm (accession [id number]).Please note: The reported value represents the total [...] the final edited report. Drafted by Bryant sEcobar MD on 06/30/2025 3:13 AM Final report signed by Angela Agosto MD on 06/30/2025 3:44 AM us Kavon Hinojosa MD IMG CT PROCEDURES Final Resul t * (ABNORMAL) APTT (06/29/2025 11:09 PM EDT) aPTT 41(H) 25 - 35 sec 06/29/2025 11:34 PM EDT [facility] Blood Venous blood specimen / Unknown Venipuncture / Unknown 06/29/2025 11:09 PM EDT 06/29/2025 11:12 PM EDT us Kathryn Gallego MD LAB BLOOD ORDERABLES Final Re sult Performing Organization Address [facility]/ZIP Co de Phone Number [facility] [address] [place] [address] * (ABNORMAL) PT-INR (06/29/2025 11:09 PM EDT) Prothrombin Time 16.9(H) 12.0 - 14.3 sec 06/29/2025 11:33 PM EDT [facility] INR 1.4(H) 0.9 - 1.1 06/29/2025 11:33 PM EDT [facility] Blood Venous blood specimen / Unknown Venipuncture / Unknown 06/29/2025 11:09 PM EDT 06/29/2025 11:12 PM EDT Narrative [facility] - 06/29/2025 11:33 PM EDT OPTIMAL INR RANGES FOR PATIENT ON ORAL ANTICOAGULANT THERAPY Prevention of venous thromboembolism INR 2.0 to 3.0 In patients with heart disease: Atrial fibrillation INR 2.0 to 3.0 Valvular heart disease INR 2.0 to 3.0 Tissue heart valves INR 2.0 to 3.0 Mechanical prosthetic valves INR 2.5 to 3.5 Prevention of recurrent ID INR 2.5 to 3.5 us Kathryn Gallego MD LAB BLOOD ORDERABLES Final Re sult Performing Organization Address City/[facility] Co de Phone Number [facility] [address] [place] [address] * (ABNORMAL) CBC w/diff (06/29/2025 11:09 PM EDT) WBC Count 5.94 3.70 - 10.30 10*3/uL LAB HEMATOLOGY METHOD 06/29/2025 11:17 PM EDT [facility] RBC Count 4.02 3.90 - 5.20 10*6/uL LAB HEMATOLOGY METHOD 06/29/2025 11:17 PM EDT [facility] HGB 13.6 11.2 - 15.7 g/dL LAB HEMATOLOGY METHOD 06/29/2025 11:17 PM EDT [facility] HCT 37.8 34.0 - 45.0 % LAB HEMATOLOGY METHOD 06/29/2025 11:17 PM EDT [facility] Platelet Count 129(L) 155 - 369 10*3/uL LAB HEMATOLOGY METHOD 06/29/2025 11:17 PM EDT [facility] MCV 94 79 - 98 fL LAB HEMATOLOGY METHOD 06/29/2025 11:17 PM EDT [facility] MCH 33.8(H) 26.0 - 32.0 pg LAB HEMATOLOGY METHOD 06/29/2025 11:17 PM EDT [facility] MCHC 36.0(H) 30.7 - 35.5 g/dL LAB HEMATOLOGY METHOD 06/29/2025 11:17 PM EDT [facility] RDW 12.5 11.5 - 14.5 % LAB HEMATOLOGY METHOD 06/29/2025 11:17 PM EDT [facility] MPV 11.4 8.8 - 12.5 fL LAB HEMATOLOGY METHOD 06/29/2025 11:17 PM EDT [facility] nRBC 0.0 <=0.0 per 100 WBCs LAB HEMATOLOGY METHOD 06/29/2025 11:17 PM EDT [facility] Differential Type Automated LAB HEMATOLOGY METHOD 06/29/2025 11:17 PM EDT [facility] Neutrophils % 62 % LAB HEMATOLOGY METHOD 06/29/2025 11:17 PM EDT [facility] Lymphocytes % 19 % LAB HEMATOLOGY METHOD 06/29/2025 11:17 PM EDT [facility] Monocytes % 18 % LAB HEMATOLOGY METHOD 06/29/2025 11:17 PM EDT [facility] Eosinophils % 1 % LAB HEMATOLOGY METHOD 06/29/2025 11:17 PM EDT [facility] Basophils % 0 % LAB HEMATOLOGY METHOD 06/29/2025 11:17 PM EDT [facility] Immature Granulocytes % 0 % LAB HEMATOLOGY METHOD 06/29/2025 11:17 PM EDT [facility] Neutrophils Absolute 3.69 1.60 - 6.10 10*3/uL LAB HEMATOLOGY METHOD 06/29/2025 11:17 PM EDT [facility] Lymphocytes Absolute 1.10(L) 1.20 - 3.90 10*3/uL LAB HEMATOLOGY METHOD 06/29/2025 11:17 PM EDT [facility] Monocytes Absolute 1.05(H) 0.30 - 0.90 10*3/uL LAB HEMATOLOGY METHOD 06/29/2025 11:17 PM EDT [facility] Eosinophils Absolute 0.07 0.00 - 0.50 10*3/uL LAB HEMATOLOGY METHOD 06/29/2025 11:17 PM EDT [facility] Basophils Absolute 0.02 0.00 - 0.10 10*3/uL LAB HEMATOLOGY METHOD 06/29/2025 11:17 PM EDT [facility] Immature Granulocytes Absolute 0.01 0.00 - 0.06 10*3/uL LAB HEMATOLOGY METHOD 06/29/2025 11:17 PM EDT [facility] Blood Venous blood specimen / Unknown Venipuncture / Unknown 06/29/2025 11:09 PM EDT 06/29/2025 11:12 PM EDT Narrative [facility] - 06/29/2025 11:17 PM EDT Therapeutic decision making should be based on absolute values, rather than percentages. us Kathryn Gallego MD LAB BLOOD ORDERABLES Final Re sult [facility] [address] [place] [address] * (ABNORMAL) CMP (06/29/2025 11:09 PM EDT) Glucose, Plasma 116(H) 74 - 99 mg/dL 06/29/2025 11:37 PM EDT [facility] BUN, Plasma 23 8 - 23 mg/dL 06/29/2025 11:37 PM EDT [facility] Creatinine, Plasma 1.36(H) 0.60 - 1.10 mg/dL 06/29/2025 11:37 PM EDT [facility] BUN/Creatinine Ratio 17 06/29/2025 11:37 PM EDT [facility] Sodium, Plasma 138 136 - 145 mmol/L 06/29/2025 11:37 PM EDT [facility] Potassium, Plasma 3.9 3.6 - 4.9 mmol/L 06/29/2025 11:37 PM EDT [facility] Chloride, Plasma 100 97 - 107 mmol/L 06/29/2025 11:37 PM EDT [facility] CO2, Plasma 25 22 - 29 mmol/L 06/29/2025 11:37 PM EDT [facility] Anion Gap 13 6 - 16 mmol/L 06/29/2025 11:37 PM EDT [facility] Total Calcium, Plasma 9.7 8.9 - 10.2 mg/dL 06/29/2025 11:37 PM EDT [facility] Total Protein 6.0(L) 6.3 - 7.9 g/dL 06/29/2025 11:37 PM EDT [facility] Albumin, Plasma 3.5 3.5 - 5.2 g/dL 06/29/2025 11:37 PM EDT [facility] AST, Plasma 25 10 - 35 U/L 06/29/2025 11:37 PM EDT [facility] ALT, Plasma 19 10 - 35 U/L 06/29/2025 11:37 PM EDT [facility] Alkaline Phosphatase, Plasma 47 46 - 142 U/L 06/29/2025 11:37 PM EDT [facility] Total Bilirubin, Plasma 0.7 0.2 - 1.1 mg/dL 06/29/2025 11:37 PM EDT [facility] eGFRcr 37.3 mL/min/1.7 3m*2 06/29/2025 11:37 PM EDT [facility] Comment:Reported eGFRcr in m L/min/1.73m2 is based the CKD-EPI 2020 equation that does not use a race coefficient. Blood Venous blood specimen / Unknown Venipuncture / Unknown 06/29/2025 11:09 PM EDT 06/29/2025 11:12 PM EDT us Kathryn Gallego MD LAB BLOOD ORDERABLES Final Re sult [facility] [address] [place] [address] * CT OUTSIDE IMAGES (06/29/2025 2:35 PM EDT) Only the most recent of4 resultswithin the time period is included. Anatomical Region Laterality Modality Computed Tomogra phy 06/29/2025 2:35 PM EDT us External Provider IMG CT PROCEDURES Edited Resul t - Final * XR OUTSIDE IMAGES (06/29/2025 2:04 PM EDT) Only the most recent of3 resultswithin the time period is included. Anatomical Region Laterality Modality Radiographic Serena ging 06/29/2025 2:04 PM EDT us External Provider IMG XR PROCEDURES Edited Resul t - Final from Last 3 Months Insurance MEDICARE [employer] Advance Directives * Full Code (Latest Code Status on File) Date Activated Date Inactivated Comments 06/30/2025 2:56 AM 07/04/2025 10:57 PM Question Answer Comments I have reviewed the capacity from the link above and, if needed, have updated to appropriate status: Yes Care Teams Shaping Machine Operator Relationship Specialty Start Date End Date Rosendo Rincon MD [address] [place] [address] PCP - General 02/28/21
--- OUTSIDE RECORDS SUMMARY | 2025-07-21 01:48 | XMS_ITS | Encounter Summary ---
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 VAS US Mesenteric Artery Duplex Tiff Terrazas MD [address] [address] Phone: tel: fax: Referral ID Status Reason Start Date Expiration Date Visits Requested Visits Authorized [id number] Pending Review Perform Procedure 07/05/2025 01/04/2027 1 1 Encounter Details Date Type Department Care Team (Late st Contact Info) Description 07/05/2025 Orders Only [facility] [address] [facility] 5th Floor [address] [place] [address] Tiff Terrazas MD [id number] [place] [address] Occlusion of celiac artery (Primary Dx) Social History Tobacco Use Types Packs/Day Years Used Date Smoking Tobacco: Never Smokeless Tobacco: Never Alcohol Use Standard Drinks/Week Comments Never 0 [...] any time in the past 12 m [facility], were you homeless or living in a penitentiary (including now)? No 07/02/2025 [facility] Utilities Answer Date Recorded In the past [...] on file documented as of this encounter Plan of Treatment Upcoming Encounters Date Type Department Care Team (Late st Contact Info) Description 07/25/2025 10:00 AM EDT Office Visit Medical Office Building [facility] [address], [address] [place] [address] Prcahi Rizzo PA [address] [place] [address] 08/28/2025 12:30 PM EST Appointment [facility] [address] [facility] 5th Floor [address] [place] [address] 08/28/2025 1:40 PM EST Office Visit [facility] [address] [facility] 5th Floor [address] [place] [address] Tiff Terrazas MD [address] [facility] [address] [place] [address] Scheduled Orders Name Type Priority Associated Diagnoses Order Schedule VAS US Mesenteric Artery Duplex Vascular Ultrasound Routine Occlusion of celiac artery 1 Occurrences starting 07/05/2025 until 01/02/2027 documented as of this encounter Visit Diagnoses Diagnosis 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
--- OUTSIDE RECORDS SUMMARY | 2025-07-21 01:48 | XMS_ITS | Encounter Summary ---
Author Organization Healthcare Address [address] [place] [address] Care Team Providers Care Centrifugal Chiller Technician Name Role Phone Rosendo Rincon MD Primary Care Provider [phone] Encounter Details Date Type Department Care Team (Latest Contact Info) Description 07/02/2025 Travel Social History Tobacco Use Types Packs/Day Years [...] any time in the past 12 m [facility], were you homeless or living in a detention (including now)? No 07/02/2025 [facility] Utilities Answer Date Recorded In the [...] on file documented as of this encounter Functional Status * Calculated C-SSRS Risk Score (Lifetime/Recent) Answer Date of Assessment Author No Risk Indicated 07/02/2025 7:00 AM EDT Ricardo Escobar * Question Answer Date of Assessment Author 1. Wish to be (Past 1 Month) No 025 7:00 AM ARLINT Ricardo Escobar 2. Non-Specific Active Suici isidro Thoughts (Past 1 Month) No 07/02/2025 7:00 AM EDT Norman Escobar 6. Suicidal Behavior (Lifetime) No 7:00 AM Ricardo Marcos documented as of this encounter Plan of Treatment Upcoming Encounters Date Type Department Care Team ([facility] st Contact Info) Description 07/25/2025 10:00 AM EDT Office Visit Medical Office Building [facility] [address] [facility], [address] [place] [address] Prachi Rizzo PA [address] [place] [address] 08/28/2025 12:30 PM EST Appointment [facility] [address] [place] [address] 08/28/2025 1:40 PM EST Office Visit [facility] [address] [place] [address] Tiff Terrazas MD [address] [facility] [address] [place] [address] documented as of this encounter Visit Diagnoses Not on filedocumented in this encounter Additional Health Concerns Assessment Noted Time A Body Mass Index follow-up plan has been documented for the patient 07/04/2025 8:14 PM EDT documented as of this encounter Care Teams Centrifugal Chiller Technician Relationship Specialty Start Date End Date Rosendo Rincon MD [address] [facility] [address] [place] [address] PCP - General 02/28/21 documented as of this encounter
--- OUTSIDE RECORDS SUMMARY | 2025-07-21 01:49 | XMS_ITS | Encounter Summary ---
Author Organization Healthcare Address [address] [place] [address] Care Team Providers Care Waste Management Engineer Name Role Phone Rosendo Rincon MD Primary Care Provider [phone] Encounter Details Date Type Department Care Team (Latest Contact Info) Description 06/30/2025 Travel Social History Tobacco Use Types Packs/Day Years Used Date Smoking Tobacco: Never Smokeless Tobacco: Never Alcohol Use Standard Drinks/Week Comments Never 0 (1 standard drink = 0.6 oz pur e alcohol) AUDIT-C Answer Date Recorded Q1: How often do you have a drink containing alcohol? Never 06/30/2025 Q2: How many drinks containi ng alcohol do you have on a typical day when you are drinking? Patient does not drink Q3: How often do you have si x or more drinks on one occasion? Never 06/30/2025 Comments No Sex and Gender Information Value Date Recorded Sex Assigned at Not on file Legal Sex Female 7:42 PM EDT Gender Identity Not on file Sexual Orientation Not on file documented as of this encounter Functional Status * AUDIT-C Score Answer Date of Assessment Author 0 06/30/2025 4:55 PM EDT Patria Mensah * Question Answer Date of Assessment Author Q1: How often do you have a drink containing alcohol? Never 06/30/2025 4:55 PM ARLINT Patria Mensah Q2: How many drinks containing alcohol do you have on a typical day when you are drinking? Patient does not drink 06/30/2025 4:55 PM EDT Patria Mensah Q3: How often do you have six or more drinks on one occasion? Never 06/30/2025 4:55 PM EDT Patria Mensah * Calculated C-SSRS Risk Score (Lifetime/Recent) Answer Date of Assessment Author No Risk Indicated 06/30/2025 8:00 PM EDT Hali Trujillo RN * Question Answer Date of Assessment Author 1. Wish to be (Past 1 Month) No 025 8:00 PM EDT Hali Trujillo RN 2. Non-Specific Active Suici isidro Thoughts (Past 1 Month) No 06/30/2025 8:00 PM EDT Hali Trujillo RN 6. Suicidal Behavior (Lifetime) No 8:00 PM EDT Hali Trujillo RN documented as of this encounter Plan of Treatment Upcoming Encounters Date Type Department Care Team (Late st Contact Info) Description 07/25/2025 10:00 AM EDT Office Visit Medical Office Building [facility] [address] [facility], [address] [place] [address] Prachi Rizzo, PA [address] [facility] [address] [place] [address] 08/28/2025 12:30 PM EST Appointment [facility] Lab [address] [facility] 5th Floor [address] [place] [address] 08/28/2025 1:40 PM EST Office Visit [facility] [address] [facility] 5th Floor [address] [place] [address] Tiff Terrazas MD [address] [facility] [address] [place] [address] documented as of this encounter Visit Diagnoses Not on filedocumented in this encounter Additional Health Concerns Assessment Noted Time A Body Mass Index follow-up plan has been documented for the patient 07/04/2025 8:14 PM EDT documented as of this encounter Care Teams Waste Management Engineer Relationship Specialty Start Date End Date Rosendo Rincon MD [address] [facility] [address] [place] [address] PCP - General 02/28/21 documented as of this encounter
--- OUTSIDE RECORDS SUMMARY | 2025-07-21 01:49 | XMS_ITS | Encounter Summary ---
Author Organization Healthcare Address [address] [place] [address] Care Team Providers Care Order Administrator Name Role Phone Rosendo Rincon MD Primary Care Provider [phone] Encounter Details Date Type Department Care Team (Late st Contact Info) Description 06/29/2025 Orders Only External Location [address] [place] [address] Provider, External Social History Tobacco Use Types Packs/Day Years Used Date Smoking Tobacco: Never Assessed Humiliation, Afraid, Rape, and Kick questionnair e [...] any time in the past 12 m [facility], were you homeless or living in a retirement (including now)? No 07/02/2025 [facility] Utilities Answer Date Recorded In the past 12 months has th e electric, gas, oil, or water company threatened to shut off services in your home? No 07/02/2025 Comments Unknown Sex and Gender Information Value [...] Date of Assessment Author No Risk Indicated 07/03/2025 7:00 AM EDT Varghese Palacios RN * Question Answer Date of Assessment Author 1. Wish to be (Past 1 Month) No 025 7:00 AM EDT Hali Palacios RN 2. Non-Specific Active Suici isidro Thoughts (Past 1 Month) No 07/03/2025 7:00 AM EDT Hali Palacios RN 6. Suicidal Behavior (Lifetime) No 7:00 AM EDT Hali Palacios RN documented as of this encounter Plan of Treatment Upcoming Encounters Date Type Department Care Team (Late st Contact Info) Description 07/25/2025 10:00 AM EDT Office Visit Medical Office Building [facility] [address] [place] [address] Prachi [facility]izzo PA [address] [facility] [address] [place] [address] 08/28/2025 12:30 PM EST Appointment [facility] Lab [address] [facility] 5th Floor [address] [place] [address] 08/28/2025 1:40 PM EST Office Visit [facility] [address] [facility] 5th Floor [address] [place] [address] Tiff Terrazas MD [address] [facility] [address] [place] [address] documented as of this encounter Procedures Procedure Name Priority Date/Time Associated Diagnosis Comments XR OUTSIDE IMAGES 06/29/2025 2:04 PM EDT documented in this encounter Results * XR OUTSIDE IMAGES (06/29/2025 2:04 PM EDT) Anatomical Region Laterality Modality Radiographic Serena ging 06/29/2025 2:04 PM EDT us External Provider IMG XR PROCEDURES Edited Resul t - Final documented in this encounter Visit Diagnoses Not on filedocumented in this encounter Additional Health Concerns Assessment Noted Time A Body Mass Index follow-up plan has been documented for the patient 07/04/2025 8:14 PM EDT documented as of this encounter Care Teams Order Administrator Relationship Specialty Start Date End Date Rosendo Rincon MD [address] [facility] [facility] [address] [address] PCP - General 02/28/21 documented as of this encounter
--- OUTSIDE RECORDS SUMMARY | 2025-07-21 01:49 | XMS_ITS | Clinical Summary ---
Author Organization [facility] ystem Address [address] [place] [id number] Care Team Providers Care Electrolysis Operator Name Role Phone Unavailable Primary Care Provider [...] - Adults (1 - 1-dose 75+ series) 12/30/201 0 INFLUENZA VACCINE 05/18/2025 COVID-19 Vaccine ( season) 2025
--- OUTSIDE RECORDS SUMMARY | 2025-07-21 01:49 | XMS_ITS | Encounter Summary ---
Author Organization Healthcare Address [address] [place] [address] Care Team Providers Care Management Architect Name Role Phone Rosendo Rincon MD Primary Care Provider [phone] Encounter Details Date Type Department Care Team (Latest Contact Info) Description 06/29/2025 Travel Social History Tobacco Use Types Packs/Day Years Used Date Smoking Tobacco: Never Assessed AUDIT-C Answer Date Recorded Q1: How often do you have a drink containing alcohol? Never 06/30/2025 Q2: How many drinks containi ng alcohol do you have on a typical day when you are drinking? Patient does not drink Q3: How often do you have si x or more drinks on one occasion? Never 06/30/2025 Comments Unknown Sex and Gender Information Value Date Recorded Sex Assigned at Not on file Legal Sex Female 7:42 PM EDT Gender Identity Not on file Sexual Orientation Not on file documented as of this encounter Functional Status * Calculated C-SSRS Risk Score (Lifetime/Recent) Answer Date of Assessment Author No Risk Indicated 06/29/2025 8:53 PM EDT Misti Crum, RN * Question Answer Date of Assessment Author 1. Wish to be (Past 1 Month) No 025 8:53 PM EDT Misti Crum, RN 2. Non-Specific Active Suici isidro Thoughts (Past 1 Month) No 06/29/2025 8:53 PM EDT Misti Crum, RN 6. Suicidal Behavior (Lifetime) No 5 8:53 PM EDT Misti Crum, RN documented as of this encounter Plan of Treatment Upcoming Encounters Date Type Department Care Team (Late st Contact Info) Description 07/25/2025 10:00 AM EDT Office Visit Medical Office Building Surgery [facility] [address] [facility], [address] [place] [address] Prachi Rizzo, JAKI [address] [place] [address] 08/28/2025 12:30 PM EST Appointment [facility]ascular Lab [address] [facility] 5th Floor [address] [place] [address] 08/28/2025 1:40 PM EST Office Visit [facility] Clinic [address] [facility] 5th Floor [address] [place] [address] Tiff Terrazas MD [address] [facility] [address] [place] [address] documented as of this encounter Visit Diagnoses Not on filedocumented in this encounter Additional Health Concerns Assessment Noted Time A Body Mass Index follow-up plan has been documented for the patient 07/04/2025 8:14 PM EDT documented as of this encounter Care Teams Management Architect Relationship Specialty Start Date End Date Rosendo Rincon MD [address] [place] [address] PCP - General 02/28/21 documented as of this encounter
--- OUTSIDE RECORDS SUMMARY | 2025-07-21 01:49 | XMS_ITS | Encounter Summary ---
Author Organization Healthcare Address [address] [place] [address] Care Team Providers Care Icing Maker Name Role Phone Rosendo Rincon MD Primary Care Provider [phone] Encounter Details Date Type Department Care Team (Late st Contact Info) Description 06/29/2025 Orders Only External Location [address] [place] [address] Provider, External Social History Tobacco Use Types [...] any time in the past 12 m [facility], were you homeless or living in a halfway (including now)? No 07/02/2025 [facility] Utilities Answer Date Recorded In the [...] Joint [address], [address] [place] [address] Prachi Rizzo PA [address] [place] [address] 08/28/2025 12:30 PM EST Appointment [facility] Vascular Lab [address] [facility] 5th Floor [address] [place] [address] 08/28/2025 1:40 PM EST Office Visit [facility] Clinic [address] [facility] 5th Floor [address] [place] [address] Tiff Terrazas MD [address] [facility] [address] [place] [address] documented as of this encounter Procedures Procedure Name Priority Date/Time Associated Diagnosis Comments CT OUTSIDE IMAGES 06/29/2025 2:29 PM EDT documented in this encounter Results * CT OUTSIDE IMAGES (06/29/2025 2:29 PM EDT) Anatomical Region Laterality Modality Computed Tomogra phy 06/29/2025 2:29 PM EDT us External Provider IMG CT PROCEDURES Edited Resul t - Final documented in this encounter Visit Diagnoses Not on filedocumented in this encounter Additional Health Concerns Assessment Noted Time A Body Mass Index follow-up plan has been documented for the patient 07/04/2025 8:14 PM EDT documented as of this encounter Care Teams Icing Maker Relationship Specialty Start Date End Date Rosendo Rincon MD [address] [facility] [address] [place] [address] PCP - General 02/28/21 documented as of this encounter
--- OUTSIDE RECORDS SUMMARY | 2025-07-21 01:49 | XMS_ITS | Encounter Summary ---
Author Organization Healthcare Address [address] [place] [address] Care Team Providers Care Hash Slinger Name Role Phone Rosendo Rincon MD Primary Care Provider [phone] Encounter Details Date Type Department Care Team (Late st Contact Info) Description 06/29/2025 Orders Only External Location [address] [place] [address] Provider, External Social History Tobacco Use Types [...] any time in the past 12 m [facility], were you homeless or living in a prison (including now)? No 07/02/2025 [facility] Utilities Answer Date Recorded In the [...] Joint [address], [address] [place] [address] Prachi Rizzo PA [address] [place] [address] 08/28/2025 12:30 PM EST Appointment [facility] [address] [facility] 5th Floor [address] [place] [address] 08/28/2025 1:40 PM EST Office Visit [facility] [address] [facility] 5th Floor [address] [place] [address] Tiff Terrazas MD [address] [facility] [address] [place] [address] documented as of this encounter Procedures Procedure Name Priority Date/Time Associated Diagnosis Comments CT OUTSIDE IMAGES 06/29/2025 2:31 PM EDT documented in this encounter Results * CT OUTSIDE IMAGES (06/29/2025 2:31 PM EDT) Anatomical Region Laterality Modality Computed Tomogra phy 06/29/2025 2:31 PM EDT us External Provider IMG CT PROCEDURES Edited Resul t - Final documented in this encounter Visit Diagnoses Not on filedocumented in this encounter Additional Health Concerns Assessment Noted Time A Body Mass Index follow-up plan has been documented for the patient 07/04/2025 8:14 PM EDT documented as of this encounter Care Teams Hash Slinger Relationship Specialty Start Date End Date Rosendo Rincon MD [address] [place] [facility] [address] [place] [address] PCP - General 02/28/21 documented as of this encounter
--- OUTSIDE RECORDS SUMMARY | 2025-07-21 01:49 | XMS_ITS | Encounter Summary ---
Author Organization Healthcare Address [address] [place] [address] Care Team Providers Care Bookkeeping Machine Mechanic Name Role Phone Rosendo Rincon MD Primary Care Provider [phone] Encounter Details Date Type Department Care Team (Late st Contact Info) Description 06/29/2025 Orders Only External Location [address] [place] [address] Provider, External Social History Tobacco Use Types [...] any time in the past 12 m [facility], were you homeless or living in a penitentiary (including now)? No 07/02/2025 [facility] Utilities Answer Date Recorded In the [...] Joint [address], [address] [place] [address] Prachi Rizzo PA [address] [place] [address] 08/28/2025 12:30 PM EST Appointment [facility] [address] [facility] 5th [address] [place] [address] 08/28/2025 1:40 PM EST Office Visit [facility] [address] [facility] 5th [address], [address] [place] [address] Tiff Terrazas MD [address] [facility] [address] [place] [address] documented as of this encounter Procedures Procedure Name Priority Date/Time Associated Diagnosis Comments CT OUTSIDE IMAGES 06/29/2025 2:35 PM EDT documented in this encounter Results * CT OUTSIDE IMAGES (06/29/2025 2:35 PM EDT) Anatomical Region Laterality Modality Computed [...] documented as of this encounter Care Teams Bookkeeping Machine Mechanic Relationship Specialty Start Date End Date Rosendo Rincon MD [address] [facility] [address] [place] [address] PCP - General 02/28/21 documented as of this encounter
--- OUTSIDE RECORDS SUMMARY | 2025-07-21 01:49 | XMS_ITS | Encounter Summary ---
Author Organization Healthcare Address [address] [place] [address] Care Team Providers Care Senior Mechanical Engineer Name Role Phone Rosendo Rincon MD Primary Care Provider [phone] Encounter Details Date Type Department Care Team (Late st Contact Info) Description 06/29/2025 Orders Only External Location [address] [place] [address] Provider, External Social History Tobacco Use Types [...] any time in the past 12 m [facility], were you homeless or living in a intermediate (including now)? No 07/02/2025 [facility] Utilities Answer Date Recorded In the [...] Joint [address], [address] [place] [address] Prachi Rizzo PA [address] [facility] [address] [place] [address] 08/28/2025 12:30 PM EST Appointment [facility] Vascular Lab [address] [facility] 5th Floor [address], [address] [place] [address] 08/28/2025 1:40 PM EST Office Visit [facility] [address] [facility] 5th Floor [address] [place] [address] Tiff Terrazas MD [address] [facility] [address] [place] [address] documented as of this encounter [...] documented as of this encounter Care Teams Senior Mechanical Engineer Relationship Specialty Start Date End Date Rosendo Rincon MD [address] [facility] [address] [address] PCP - General 02/28/21 documented as of this encounter
--- OUTSIDE RECORDS SUMMARY | 2025-07-21 01:49 | XMS_ITS | Encounter Summary ---
Author Organization Healthcare Address [address] [place] [address] Care Team Providers Care Sap Project Manager Name Role Phone Rosendo Rincon MD Primary Care Provider [phone] Encounter Details Date Type Department Care Team (Late st Contact Info) Description 06/29/2025 Orders Only External Location [address] [place] [address] Provider, External Social History Tobacco Use Types [...] any time in the past 12 m [facility], were you homeless or living in a correction (including now)? No 07/02/2025 [facility] Utilities Answer Date Recorded In the [...] Joint [address], [address] [place] [address] Prachi Rizzo PA [address] [facility] [address] [place] [address] 08/28/2025 12:30 PM EST Appointment [facility] [address] [facility] 5th Floor [address] [place] [address] 08/28/2025 1:40 PM EST Office Visit [facility] [address] [facility] 5th Floor [address] [place] [address] Tiff Terrazas MD [address] [facility] [address] [place] [address] documented as of this encounter [...] documented as of this encounter Care Teams Sap Project Manager Relationship Specialty Start Date End Date Rosendo Rincon MD [address] [facility] [address] [address] PCP - General 02/28/21 documented as of this encounter
--- OUTSIDE RECORDS SUMMARY | 2025-07-21 01:49 | XMS_ITS | Encounter Summary ---
Author Organization Healthcare Address [address] [place] [address] Care Team Providers Care Jigger Artisan Name Role Phone Rosendo Rincon MD Primary Care Provider [phone] Encounter Details Date Type Department Care Team (Late st Contact Info) Description 06/29/2025 Orders Only External Location [address] [place] [address] Provider, External Social History Tobacco Use Types [...] any time in the past 12 m [facility], were you homeless or living in a retirement (including now)? No 07/02/2025 [facility] Utilities Answer Date Recorded In [...] Joint [address], [address] [place] [address] Prachi Rizzo PA [address] [place] [address] 08/28/2025 12:30 PM EST Appointment [facility] Lab [address] [facility] 5th Floor [address] [place] [address] 08/28/2025 1:40 PM EST Office Visit [facility] [address] [facility] 5th Floor [address] [place] [address] Tiff Terrazas MD [address] [facility] [address] [place] [address] documented as of this encounter [...] documented as of this encounter Care Teams Jigger Artisan Relationship Specialty Start Date End Date Rosendo Rincon MD [address] [facility] [address] [place] [address] PCP - General 02/28/21 documented as of this encounter
--- OUTSIDE RECORDS SUMMARY | 2025-07-21 01:50 | XMS_ITS | Patient Health Record ---
Author Organization [facility] Address [address] [facility] [address] [place] [id number] Care Team Providers Care Case Resolution Specialist Name Role Phone Rosendo Rincon Primary Care Provider Ilan Holder Unavailable [phone] Charity Del Angel Unavailable [phone] Allergies Allergen (clinical drug ingredient) Drug/Non Drug Allergy documented on EMR Reaction Allergy Type Onset Date Status allopurinol Allopurinol rash Drug Allergy Act jono predniSONE Unknown Drug Allergy Active Results Component Value Reference Range Notes P-Basic Metabolic Panel (BMP ) Reviewed date:01/12/2025 06:29:50 PM Interpretation:bun 46, Cr 1.74, gfr 28 Performing Lab: Notes/Report: Test performed by [facility] [address] [place], [place] [address] [address] , [place] [address] Hari Monroy MD, Video Network Engineer CLIA: [id number] Sodium 142 135-145 mmol/L Potassium 4.5 3.5-5.3 mmol/L Chloride 102 97-108 mmol/L CO2 31 22-32 mmol/L Glucose 91 65-99 mg/dL BUN 46 8-23 mg/dL Creatinine 1.74 0.50-1.00 mg/dL Calcium 9.8 8.6-10.4 mg/dL eGFR by Creatinine 28 >59 mL/min/1.73m2 P-Phosphorus Reviewed date:01/12/2025 06:29:50 PM Interpretation:Normal Performing Lab: Notes/Report: Test performed by [facility] [address] [place], [place] [address] [address] , [address], [place] [address] Hari Monroy MD, Video Network Engineer CLIA: [id number] Phosphorus 3.1 2.5-4.5 mg/dL P-Uric Acid Reviewed date:01/12/2025 06:29:50 PM Interpretation:Normal Performing Lab: Notes/Report: Test performed by [facility] [address] [place] [address] , [address], [place] [address] Hari Monroy MD, Video Network Engineer CLIA: [id number] Uric Acid 3.5 2.4-7.0 mg/dL P-Vitamin D 25-Hydroxy Reviewed date:01/12/2025 06:29:50 PM Interpretation:Normal Performing Lab: Notes/Report: Test performed by [facility] [address] [place] [address] [address], [place] [address] Hari Monroy MD, Video Network Engineer CLIA: [id number] Vitamin D 25-Hydroxy 82.7 30.0-100.0 ng/mL Interpretation [...] once a day; Duration: 90 days Active Uloric 40 MG 1 tab(s) orally once a day; Duration: 90 days Active Vitamin D3 50 MCG (1999 UT) 1 cap(s) orally once a day 09/25/2016 A ctive Eliquis 5 MG 1 tablet Orally Twic e a day; Duration: 90 days Active DULoxetine HCl 30 MG 1 cap(s) orally onc e a day; Duration: 90 days Active Clobetasol [...] imes a day; Duration: 90 days Active Gabapentin 600 MG 1 tab(s) orally 2 ti mes a day; Duration: 90 days 07/05/2025 Active Tolterodine Tartrate ER 4 MG 1 capsule Orally Once a day; Duration: 90 days 04/09/2025 Active Toprol XL 100 MG 1 tab(s) orally 2 ti mes a day; Duration: 90 days Active Immunizations Vaccine Route Administration Date Status Comme nts jIaagddr-sgoxtdeyk-ayqxwrp e pts. IM Intramuscular 07/10/2011 Administered xFluzone [...] Status W/U Status Risk Notes Problem Hypokalemia (55352732) Hypokalemia (E87.6) Active confirmed Problem Vitamin D deficiency (18576439) Vitamin D deficiency (E55.9) Active confirmed Problem Essential hypertension (67482159) Essential hypertension (I10) Active confirmed Problem Hypertriglyceridemia (802661820) Hypertriglyceridemia (E78.1) Active confirmed Problem Hypokalemia (56160728) History of hypokalemia (Z86.39) Active confirmed Problem Psoriasis (7220189) Psoriasis (L40.9) Active co nfirmed Problem Lumbar spinal stenosis (78598197) Lumbar spinal stenosis (M48.06) Active confirmed Problem Lymphedema (76408062) Lymphedema (I89.0) Active confirmed Problem Sciatica (89467401) Lumbago with sciatica, right side (M54.41) Active confirmed Problem Mixed hyperlipidemia (829721737) Mixed hyperlipidemia (E78.2) Active confirmed Problem Hypomagnesemia (761544937) Hypomagnesemia (E83.42) Active confirmed Problem Chronic pain (11367667) Other chronic pain (G89.29) Active confirmed Problem Cholelithiasis without obstruction (94316519) Calculus of gallbladder without cholecystitis without obstruction (K80.20) Active confirmed Problem Urge incontinence of urine (31781774) Urge incontinence (N39.41) Active confirmed Problem Sciatica (00634600) Left-sided l ow back pain with left-sided sciatica (M54.42) Active confirmed Problem Inflammatory and toxic neuropathy (565086842) Peripheral polyneuropathy (G62.9) Active confirmed Problem Gastroesophageal reflux disease (487596132) Gastroesophageal reflux disease, esophagitis presence not specified (K21.9) Active confirmed Problem Gout (18506734) Gout, unspecifie d cause, unspecified chronicity, unspecified site (M10.9) Active confirmed Problem Atrial fibrillation (11929405) Atrial fibrillation, unspecified type (I48.91) Active confirmed Problem Recurrent falls (988573505) Frequent falls (R29.6) Active confirmed Problem Polyneuropathy (31602882) Polyneuropathy (G62.9) Active confirmed Problem Chronic kidney disease stage 4 (539954768) CKD (chronic kidney disease) stage 4, GFR 15-29 ml/min (N18.4) Active confirmed Problem Skin sensation disturbance (03999608) Burning sensation of feet (R20.8) Active confirmed Problem Stasis dermatitis (disorder) (65253001) Stasis dermatitis of both legs (I87.2) Active confirmed Problem Diastolic dysfunctio n (9299506) Diastolic dysfunction (I51.89) Active confirmed Problem Gastroesophageal reflux disease (886513750) Gastroesophageal reflux disease, unspecified whether esophagitis present (K21.9) Active confirmed Problem Chronic kidney disease stage 3B (disorder) (705978303) Stage 3b chronic kidney disease (N18.32) Active confirmed Problem Chronic kidney disease stage 3B (disorder) (049437030) Stage 3b chronic kidney disease (CKD) (N18.32) Active confirmed Vital Signs Heart Rate 61 /min 01/10/2025 Blood pressure diastolic 70 mm Hg 01/10/2025 Height 64 in 01/10/2025 Blood pressure systolic 120 mm Hg 01/10/2025 Weight 233 lbs 01/10/2025 BMI 39.99 kg/m2 01/10/2025 Encounters Encounter Location Date Provider Diagnosis [facility] [address] [place], [place] [id number] 01/10/2025 Rosendo Lynn Essential hypertensi on I10 ; Gout, unspecified cause, unspecified chronicity, unspecified site M10.9 ; Vitamin D deficiency E55.9 ; Stage 3b chronic kidney disease (CKD) N18.32 and Lymphedema I89.0 [facility] [address] [place] [id number] 07/17/2025 Charity Del Angel [facility] [address] [place] [id number] 09/28/2024 Rosendo Lynn [facility] [address] [place], [place] [id number] 09/28/2024 R Byron Holder Polyneuropathy G62.9 [facility] [address] [place], [place] [id number] 12/11/2024 Rosendo Lynn [facility] [address] [place] [id number] 12/22/2024 Rosendo Lynn Gout, unspecified cause, unspecified chronicity, unspecified site M10.9 [facility] [address] [place], [place] [id number] 01/12/2025 Rosendo Lynn [facility] [address] [place] [id number] 01/26/2025 Rosendo Lynn [facility] [address] [place] [id number] 02/23/2025 Rosendo Lynn [facility] [address] [place] [id number] 02/26/2025 Rosendo Lynn [facility] [address] [place] [id number] 02/26/2025 Rosendo Lynn [facility] [address] [place] [id number] 03/29/2025 Rosendo Lynn Polyneuropathy G62.9 [facility] [address] [place] [id number] 04/03/2025 Rosendo Lynn [facility] [address] [place] [id number] 04/09/2025 Rosendo Lynn Gout, unspecified cause, unspecified chronicity, unspecified site M10.9 [facility] [address] [place] [id number] 04/10/2025 Rosendo Lynn [facility] [address] [place] [id number] 04/10/2025 Rosendo Lynn [facility] [address] [place] [id number] 04/11/2025 Rosendo Lynn [facility] [address] [place] [id number] 04/25/2025 Rosendo Lynn [facility] [address] [place] [id number] 06/13/2025 Rosendo Lynn Polyneuropathy G62.9 [facility] [address] [place] [id number] 07/04/2025 Rosendo Lynn [facility] [address] [place] [id number] 07/05/2025 Ilan Holder Polyneuropathy G62.9 [facility] [address] [place] [id number] 07/11/2025 Rosendo Lynn [facility] [address] [place], [place] [id number] 07/13/2025 Rosendo Lynn [facility] [address] [place], [place] [id number] 07/20/2025 Rosendoramonita Rincon Assessments Encounter Date Diagnosis (ICD Code) Assessment Notes Treatment Notes Treatment Clinical Notes Section Notes 04/09/2025 Gout, unspecified cause, unspecified chronicity, unspecified site (ICD-10 - M10.9) 07/05/2025 Polyneuropathy (ICD-10 - G62.9) 06/13/2025 Polyneuropathy (ICD-10 - G62.9) 03/29/2025 Polyneuropathy (ICD-10 - G62.9) 01/10/2025 Essential hypertension (ICD-10 - I10) 01/10/2025 Gout, unspecified cause, unspecified chronicity, unspecified site (ICD-10 - M10.9) 12/22/2024 Gout, unspecified cause, unspecified chronicity, unspecified site (ICD-10 - M10.9) 09/28/2024 Polyneuropathy (ICD-10 - G62.9) 01/10/2025 Vitamin D deficiency (ICD-10 - E55.9) 01/10/2025 Stage 3b chronic kidney disease (CKD) (ICD-10 - N18.32) 01/10/2025 Lymphedema (ICD-10 - I89.0) Plan Of Treatment No Information Insurance Providers Payer Name Payer Address Payer Phone Subscriber Number Group Number Insured Name Patient Relationship to Insured Coverage Start Date Coverage End Date MEDICARE PART B [address] [address] [place], [place] [address] [id number] Letty Dumont Self - patient is the insured [facility] [address] [place] [address] [id number] Letty Dumont Self - patient is the insured Medical (General) History Medical History History ICD Code Hypertension Arthritis Allergic Rhinitis Peptic Ulcer Disease Breast cancer x 2, two diffe rent types, First was estrogen sensitive (2001) Colon Polyps Psoriasis Osteopenia Gout Basal cell carinoma, right side of nose, Dx: 2013 Chronic back pain, s/p pain managment ev aluation 2014 Lumbar Disc Disease Lumbar Spinal Stenosis Vitamin D deficiency Chronic kidney disease Diastolic dysfunction Surgical History Surgery Date(Month/Year) Mastectomy x2 2001, 2006 Adenoidectomy 1944 Colonoscopy, 20 polyps removed LT SI Injection - [facility] 04/18/20 20 LT Heart Cath- [facility] 01/2021 Hospitalization History Reason Date(Month/Year) DAMION, Hyperkalemia, Fall at Home- [facility] 2020
[2025-07-21 02:04] LABS: Microscopic, Urine URINE MICROSCOPIC (MICROSCOPIC)
[2025-07-21 02:14] LABS: Bilirubin,Urine Negative (Negative); Color,Urine YELLOW (Yellow); Glucose,Urine (UA) Negative (Negative); Ketones,Urine Negative (Negative); Leukocyte Esterase,Urine 2+ (Negative); PH,Urine 6.5 (5.0-8.5); Protein,Urine Negative (Negative); Specific Gravity, Urine 1.010 (1.005-1.030); Urobilinogen,Urine 0.2 EU/dl (0.2)
[2025-07-21 02:51] LABS: Squamous Epithelial Cell,Urine Occasional #/hpf (0-5); WBC,Urine Occasional #/hpf (0-3)
== END 2025-07-21 23:59 | disposition home or self-care (01) ==
LOC: LAB.DROPOF 01:45
PROVIDERS: PCP Nurse Practitioner Family; Visit Provider Nurse Practitioner Family
DX: S22.019D Unspecified fracture of first thoracic vertebra, subsequent encounter for fracture with routine healing (principal)
CPT/HCPCS: 81001; 87086; 87088